=== PATIENT | female | born 1975 | race Hispanic/Latino ===

== ENCOUNTER 2018-05-08 22:46 | Emergency (ER) | payer OTHER ==
[~2018-05-08] VITALS: Ht 154.9 cm; Wt 84.8 kg
[2018-05-08] MEDS ORDERED: PROMETHAZINE HCL (IM) 25 MG/ML VIAL IM ONE (23:15)
[2018-05-08] MEDS ORDERED: LIDOCAINE VISC 2% SOLN 15 ML UDC PO ONE (23:15)
[2018-05-08] MEDS ORDERED: MAGNESIUM/ALUMINUM/SIMETHICONE 30 ML UDC PO ONE (23:15)
[2018-05-08] MEDS ORDERED: BELLADONNA ALK/PHENOBARBITAL 5 ML UDC PO ONE (23:15)
== END 2018-05-09 00:26 | disposition home or self-care (01) ==
LOC: FSED 22:46
DX: R10.13 Epigastric pain (principal); R11.0 Nausea; E11.65 Type 2 diabetes mellitus with hyperglycemia; I10 Essential (primary) hypertension; I25.2 Old myocardial infarction; Z86.711 Personal history of pulmonary embolism
CPT/HCPCS: 82948; 84484; 99283; J2550; 36415

== ENCOUNTER 2019-03-22 21:16 | Emergency (ER) | payer SELFPAY ==
[~2019-03-22] VITALS: Ht 154.9 cm; Wt 83.9 kg
--- OUTSIDE RECORDS SUMMARY | 2019-03-22 21:23 | XMS REPORT | Clinical Summary ---
Author Author [facility] Organization [facility] Address Unknown Phone Unavailable Care Team Providers Care Drilling Superintendent Name Role Phone PCP Unavailable Allergies Comments Active Allergy Reactions Severity Noted Date Metoclopramide Hcl Rash 12/17/2018 Ketorolac 12/17/2018 Tramadol Rash 12/17/2018 Ondansetron Hcl Rash 12/17/2018 Medications Not on file Active Problems Not on file Encounters Care Team Description Date Type Specialty Vinicio Childs MD Pain, abdominal, RLQ (Primary Dx) 12/17/2018 Emergency Emergency Medicine 12/17/2018 Travel after 03/21/2018 Social History Date Tobacco Use Types Packs/Day Years Used Never Assessed Sex Assigned at Date Recorded Not on file Industry Job Start Date Occupation Not on file Not on file Not on file Travel End Travel History Travel Start No recent travel history available. Last Filed Vital Signs Reading Time Taken Comments Vital Sign 179/113 12/17/2018 6:27 AM CDT Blood Pressure 110 12/17/2018 6:27 AM CDT Pulse 36.7 C (98.1 F) 12/17/2018 6:27 AM CDT Temperature 18 12/17/2018 6:27 AM CDT Respiratory Rate 99% 12/17/2018 6:27 AM CDT Oxygen Saturation - - Inhaled Oxygen Concentration - - Weight - - Height - - Body Mass Index Plan of Treatment Health Maintenance Due Date Last Done Comments Cervical Cancer Scrn (3 1998 Yrs) Breast Cancer Scrn 2017 (Yearly) IMM Influenza Seasonal 05/17/2019 Oct to October (>/=19 yrs) Procedures Comments Procedure Name Priority Date/Time Associated Diagnosis URINALYSIS STAT 12/17/2018 9:30 AM CDT POCT URINE DIPSTICK - STAT 12/17/2018 9:08 AM CDT BMP POC Routine 12/17/2018 9:08 AM CDT CBC/DIFF STAT 12/17/2018 9:00 AM CDT POC GLUCOSE - IN LAB Routine 12/17/2018 (STAT) 6:30 AM CDT after 03/21/2018 Results * UA CHEMISTRIES (12/17/2018 9:30 AM CDT) Color Straw [facility] Clarity Clear [facility] Specific 1.026 1.001 - 1.035 [facility] [place] [facility] pH 7.0 5 - 8 [facility] Protein Negative NEG [facility] Glucose 3+ (A) NEG [facility] Ketones Negative NEG [facility] Bilirubin Negative NEG [facility] Nitrate Negative NEG [facility] Urobilinogen,Se <1.0 0.2 - 1.0 EU/dL [facility] Leukocyte 3+ (A) NEG [facility] Occult Blood Negative NEG [facility] RBC 5 (H) 0 - 4 /HPF [facility] WBC 15 (H) 0 - 5 /HPF [facility] Bacteria Few [facility] Specimen Urine Performing Organization Address City/State/Zipcode Phone Number [facility] * POCT URINE DIPSTICK - (12/17/2018 9:08 AM CDT) pass Control negative * BMP POC (12/17/2018 9:08 AM CDT) CO2 POC 31 21 - 32 mmol/L [facility] Chloride POC 98 98 - 107 mmol/L [facility] Potassium POC 5.4 (H) 3.50 - 5.10 mmol/L [facility] Sodium POC 133 (L) 136 - 145 mmol/L [facility] Glucose POC 434 (HH) 74 - 106 mg/dL [facility] Urea Nitrogen 14 7 - 18 mg/dL [facility] Creatinine POC 0.6 0.6 - 1.3 mg/dL [facility] Calcium Ionized 0.98 (L) 1.15 - 1.29 mmol/L [facility] Hemoglobin POC 15.3 12.0 - 16.0 g/dL [facility] Hematocrit POC 45.0 37.0 - 47.0 % [facility] GFR, Estimated >60 mL/min/1.73 m2 [facility] GFR, Estim, >60 mL/min/1.73 m2 [facility] Specimen Performing Organization Address City/State/Zipcode Phone Number [facility] * CBC/DIFF (12/17/2018 9:00 AM CDT) WBC 8.0 4.5 - 11.0 K/uL [facility] RBC 4.87 4.20 - 5.40 M/uL [facility] Hemoglobin 14.1 12.0 - 16.0 g/dL [facility] Hematocrit 44.5 37.0 - 47.0 % [facility] MCV 91 82 - 92 fL [facility] MCH 29.0 27.0 - 32.0 pg [facility] MCHC 31.7 (L) 32.0 - 36.0 g/dL [facility] RDW 42.5 36.4 - 46.3 fL [facility] Platelets 243 150 - 400 K/uL [facility] Mean Platelet 12.1 9.4 - 12.4 fL [facility] Volume [facility] Percent NRBC 0.0 [facility] Absolute NRBC 0.00 [facility] Neutrophils 69.0 34.0 - 70.0 % [facility] Lymphs 22.0 20.0 - 50.0 % [facility] Monocytes 7.0 5.0 - 12.0 % [facility] Eos 2.0 0.7 - 5.0 % [facility] Basos None seen 0.1 - 1.2 % [facility] Neutrophils 5.51 1.56 - 6.13 K/uL [facility] (Absolute) [facility] Lymphs 1.76 1.18 - 3.74 K/uL [facility] (Absolute) [facility] Monocytes(Absol 0.56 (H) 0.24 - 0.36 K/uL [facility]) [facility] Eos (Absolute) 0.16 0.04 - 0.36 K/uL [facility] Baso (Absolute) None seen 0.01 - 0.08 K/uL [facility] Specimen Blood Performing Organization Address City/State/Zipcode Phone Number [facility] * GLUCOSE POC (12/17/2018 6:30 AM CDT) Glucose POC 390 (H) 74 - 106 mg/dL [facility] Specimen Performing Organization Address City/State/Zipcode Phone Number [facility] after 03/21/2018 Insurance Type Payer Benefit Subscriber ID Effective Phone Address Plan / Dates Group [facility] SELF-PAY SELF-PAY xxxxxxx [id number] [phone] [place] [address]
--- OUTSIDE RECORDS SUMMARY | 2019-03-22 21:23 | XMS REPORT | Continuity of Care Document ---
Author Author [email or web address] Address Unknown Phone Unavailable Care Team Providers Care Vp [employer] Marketing [employer] Name Role Phone [email or web address] Unavailable Unavailable Problems No Data Provided for This Section Medications No Data Provided for This Section Allergies, Adverse Reactions, Alerts Substance Category Reaction Severity Reaction type Status Date Reported Comments Source Tramadol IT[facility] Intermediate Allergy to Substance Active 05/08/2018 [facility] Metoclopramide ITCH Intermediate Allergy to Substance Active 05/08/2018 [facility] Ondansetron IT[facility] Intermediate Allergy to Substance Active 05/08/2018 [facility] Ketorolac ITCH Intermediate Allergy to Substance Active 05/08/2018 [facility] Immunizations No Data Provided for This Section Results No Data Provided for This Section Pathology Reports No Data Provided for This Section Diagnostic Reports No Data Provided for This Section Consultation Notes No Data Provided for This Section Discharge Summaries No Data Provided for This Section History and Physicals No Data Provided for This Section Vital Signs No Data Provided for This Section Encounters Location Location Details Encounter Type Encounter Number Reason For Visit Attending Provider ADM Date DC Date Status Source Departed Emergency Room [id number] DENI BERUMEN MD 05/08/2018 05/09/2018 [facility] Procedures No Data Provided for This Section Assessment and Plan No Data Provided for This Section Plan of Care Plan of Care Date Source Discharge Date 05/09/18 12:26am Disposition HOME, SELF-CARE Condition at Discharge Stable Instructions/Education Provided Abdominal Pain - Adult Diabetes and Diet Hypertension Prescriptions See Medication Section Additional Instructions/Education Return to closest emergency room if symptoms worsen. Take medication as prescribed. Fill your prescription immediately after leaving the ER. Follow up with your primary care doctor on Thursday. Follow up with a dispensary attendant (GI doctor, stomach doctor) on Thursday for evaluation for and EGD (camera in the stomach). 05/09/2018 [facility] Social History Social History Date Source No social history information available. 05/09/2018 [facility] Family History No Data Provided for This Section Advance Directives Order Name Results Value Date Source Advance Directives Advance Directives Directive Response Recorded Date/Time Does the patient have an advance directive? No 05/08/18 11:15pm If yes, is advance directive on file with [facility]? No 05/08/18 11:15pm If not on file with [facility] will patient provide a copy? No 05/08/18 11:15pm Do you have a Directive to Physician? No 05/08/18 11:15pm Do you have a Medical Power of Pastor? No 05/08/18 11:15pm Do you have an out of hospital Do Not Resuscitate Order? No 05/08/18 11:15pm Do you have any special needs we should be aware of? No 05/08/18 11:15pm Do you have a support person here with you today? Yes 05/08/18 11:15pm Did patient receive Notice of Privacy Practices? Yes 05/08/18 11:15pm Did patient receive patient rights and responsibilities? Yes 05/08/18 11:15pm 05/09/2018 [facility] Functional Status No Data Provided for This Section
--- OUTSIDE RECORDS SUMMARY | 2019-03-22 21:23 | XMS REPORT | Clinical Summary ---
Author Author [facility] Address Unknown Phone Unavailable Care Team Providers Care Stone Driller Helper Name Role Phone Asked, No Pcp PCP Unavailable Allergies Comments Active Allergy Reactions Severity Noted Date Metoclopramide Hcl 09/27/2018 Ketorolac 09/27/2018 Tramadol 09/27/2018 Ondansetron Hcl 09/27/2018 Medications End Date Status Medication Sig Dispensed Refills Start Date 10/28/2018 metFORMIN (GLUCOPHAGE) Take 1 tablet 60 tablet 0 500 mg tablet (500 mg 9 total) by mouth 2 (two) times a day with meals for 30 days. 12/20/2018 acetaminophen-codeine Take 1-2 15 tablet 0 (TYLENOL WITH CODEINE #3) tablets by 9 300-30 mg per tablet mouth every 6 (six) hours as needed for mild pain or moderate pain for up to 5 days. Active Problems Not on file Encounters Care Team Description Date Type Specialty aDvid Bee MD Right lower quadrant abdominal pain (Primary Dx); Hyperglycemia; Drug-seeking behavior 12/17/2018 Emergency Emergency Medicine Acacia Conklin MD Right lower quadrant abdominal pain (Primary Dx); Type 2 diabetes mellitus with hyperglycemia, without long-term current use of insulin (HCC) 12/14/2018 Emergency Emergency Medicine - 12/15/2018 Acacia Conklin MD Diabetes mellitus, new onset (HCC) (Primary Dx); Atypical chest pain; Anxiety 09/27/2018 Emergency Emergency Medicine - 09/28/2018 after 03/21/2018 Social History Date Tobacco Use Types Packs/Day Years Used Never Smoker Smokeless Tobacco: Never Used Alcohol Use Drinks/Week oz/Week Comments No Alcohol Habits Answer Date Recorded How often do you have a drink containing alcohol? Never 12/14/2018 How many drinks containing alcohol do you have on Not asked a typical day when you are drinking? How often do you have six or more drinks on one Not asked occasion? Sex Assigned at Date Recorded Not on file Industry Job Start Date Occupation Not on file Not on file Not on file Travel End Travel History Travel Start No recent travel history available. Last Filed Vital Signs Time Taken Vital Sign Reading 12/17/2018 11:45 AM CDT Blood Pressure 116/83 12/17/2018 10:52 AM CDT Pulse 99 12/17/2018 10:23 AM CDT Temperature 36.3 C (97.3 F) 12/17/2018 11:45 AM CDT Respiratory Rate 18 12/17/2018 11:45 AM CDT Oxygen Saturation 95% - Inhaled Oxygen - Concentration 12/14/2018 3:47 PM CDT Weight 83.9 kg (185 lb) 12/17/2018 10:24 AM CDT Height 154.9 cm (5' 1") 12/14/2018 3:47 PM CDT Body Mass Index 34.96 Plan of Treatment Health Maintenance Due Date Last Done Comments DIABETIC RETINAL EYE EXAM 1977 DIABETIC FOOT EXAM 10/24/1987 URINE MICROALBUMIN 10/24/1987 INFLUENZA VACCINE 03/17/2019 Procedures Comments Procedure Name Priority Date/Time Associated Diagnosis XR ABDOMEN ACUTE INC STAT 12/17/2018 CHEST 1:07 PM CDT GRAM STAIN Routine 12/17/2018 12:20 PM CDT URINE CULTURE Routine 12/17/2018 12:20 PM CDT URINALYSIS SCREEN AND Routine 12/17/2018 MICROSCOPY, WITH REFLEX 12:05 PM CDT TO CULTURE ESTIMATED GFR STAT 12/17/2018 11:35 AM CDT LIPASE LEVEL STAT 12/17/2018 11:35 AM CDT COMPREHENSIVE METABOLIC STAT 12/17/2018 PANEL 11:35 AM CDT HC COMPLETE BLD COUNT STAT 12/17/2018 W/AUTO DIFF 11:35 AM CDT US PELVIC TRANSVAGINAL STAT 12/15/2018 2:26 AM CDT US PELVIC TRANSABDOMINAL STAT 12/15/2018 2:26 AM CDT POC GLUCOSE Routine 12/15/2018 12:[address] ABDOMEN PELVIS W STAT 12/14/2018 CONTRAST 11:42 PM CDT HCG QUALITATIVE, SERUM STAT 12/14/2018 SCREEN 10:45 PM CDT TROPONIN Timed 12/14/2018 10:45 PM CDT POC GLUCOSE Routine 12/14/2018 10:13 PM CDT ECG ED PRELIMINARY Routine 12/14/2018 INTERPRETATION 9:35 PM CDT CA CRITICAL CARE, E/M Routine 12/14/2018 30-74 MINUTES 9:35 PM CDT GRAM STAIN Routine 12/14/2018 4:48 PM CDT URINE CULTURE Routine 12/14/2018 4:48 PM CDT ESTIMATED GFR STAT 12/14/2018 4:08 PM CDT LIPASE LEVEL STAT 12/14/2018 4:08 PM CDT PROTHROMBIN TIME WITH INR STAT 12/14/2018 4:08 PM CDT PARTIAL THROMBOPLASTIN STAT 12/14/2018 TIME (PTT) 4:08 PM CDT B NATRIURETIC PEPTIDE STAT 12/14/2018 4:08 PM CDT TROPONIN STAT 12/14/2018 4:08 PM CDT COMPREHENSIVE METABOLIC STAT 12/14/2018 PANEL 4:08 PM CDT HC COMPLETE BLD COUNT STAT 12/14/2018 W/AUTO DIFF 4:08 PM CDT ECG 12-LEAD STAT 12/14/2018 3:52 PM CDT URINALYSIS SCREEN AND Routine 12/14/2018 MICROSCOPY, WITH REFLEX 3:48 PM CDT TO CULTURE ED REFERRAL TO [facility] Routine 09/28/2018 [facility] 2:38 AM GEOSPATIAL PROGRAM MANAGEMENT OFFICER ORGANIZATION POC GLUCOSE Routine 09/28/2018 2:00 AM GEOSPATIAL PROGRAM MANAGEMENT OFFICER CT ANGIOGRAM PE CHEST STAT 09/28/2018 12:59 AM GEOSPATIAL PROGRAM MANAGEMENT OFFICER CA CRITICAL CARE, E/M Routine 09/27/2018 30-74 MINUTES 11:36 PM GEOSPATIAL PROGRAM MANAGEMENT OFFICER ESTIMATED GFR STAT 09/27/2018 11:25 PM GEOSPATIAL PROGRAM MANAGEMENT OFFICER B NATRIURETIC PEPTIDE STAT 09/27/2018 11:25 PM GEOSPATIAL PROGRAM MANAGEMENT OFFICER TROPONIN STAT 09/27/2018 11:25 PM GEOSPATIAL PROGRAM MANAGEMENT OFFICER CREATINE KINASE, TOTAL STAT 09/27/2018 (CPK) 11:25 PM GEOSPATIAL PROGRAM MANAGEMENT OFFICER COMPREHENSIVE METABOLIC STAT 09/27/2018 PANEL 11:25 PM GEOSPATIAL PROGRAM MANAGEMENT OFFICER PARTIAL THROMBOPLASTIN STAT 09/27/2018 TIME (PTT) 11:25 PM GEOSPATIAL PROGRAM MANAGEMENT OFFICER PROTHROMBIN TIME WITH INR STAT 09/27/2018 11:25 PM GEOSPATIAL PROGRAM MANAGEMENT OFFICER D-DIMER STAT 09/27/2018 11:25 PM GEOSPATIAL PROGRAM MANAGEMENT OFFICER HC COMPLETE BLD COUNT STAT 09/27/2018 W/AUTO DIFF 11:25 PM GEOSPATIAL PROGRAM MANAGEMENT OFFICER HCG QUALITATIVE, SERUM STAT 09/27/2018 SCREEN 10:20 PM GEOSPATIAL PROGRAM MANAGEMENT OFFICER GRAM STAIN STAT 09/27/2018 9:30 PM GEOSPATIAL PROGRAM MANAGEMENT OFFICER URINE CULTURE STAT 09/27/2018 9:30 PM GEOSPATIAL PROGRAM MANAGEMENT OFFICER URINALYSIS SCREEN AND STAT 09/27/2018 MICROSCOPY, WITH REFLEX 9:07 PM GEOSPATIAL PROGRAM MANAGEMENT OFFICER TO CULTURE ECG 12-LEAD STAT 09/27/2018 8:45 PM GEOSPATIAL PROGRAM MANAGEMENT OFFICER after 03/21/2018 Results * XR Abdomen Acute Inc Chest (12/17/2018 1:07 PM CDT) Specimen Narrative Performed At Examination: XR ABDOMEN ACUTE INC CHEST [facility] Clinical history: Abd painunspecified Comparison: September 28, 2012 Impression: 1. The heart and pulmonary vasculature are within normal limits. There is no confluent infiltrate or effusion. 2. There is no evidence of bowel obstruction or perforation. 3. Cholecystectomy clips are present. There is no acute osseous pathology. [facility]-[id number] Procedure Note Interface, Radiology Results Incoming - 12/17/2018 1:14 PM CDT Examination: XR ABDOMEN ACUTE INC CHEST Clinical history: Abd pain unspecified Comparison: September 28, 2012 Impression: 1. The heart and pulmonary vasculature are within normal limits. There is no confluent infiltrate or effusion. 2. There is no evidence of bowel obstruction or perforation. 3. Cholecystectomy clips are present. There is no acute osseous pathology. [id number] Performing Organization Address City/[facility] Phone Number [facility] [address] [place] [address] * Gram stain (12/17/2018 12:20 PM CDT) Only the most recent of 3 results within the time period is included. Gram stain No WBC's [facility] result Few Gram positive rods [facility] Comment: HOSPITAL Specimen Information Specimen Source: Urine Specimen Site: Clean catch Specimen Urine Performing Organization Address City/[facility] Phone Number [facility] DEPARTMENT OF [address] [place] [address] PATHOLOGY [place] [address] HOSPITAL * Urine culture (12/17/2018 12:20 PM CDT) Only the most recent of 3 results within the time period is included. Urine culture Staphylococcus, coagulase [facility] isolate negative [facility] >10-5 cfu/ml HOSPITAL The performance characteristics of this assay on this isolate were validated by the Microbiology Laboratory at [facility].This source has not been approved by the U.S. Food and Drug Administration.The results are not intended to be used as the sole means for clinical diagnosis or patient management.The Microbiology Laboratory is authorized under the clinical Laboratory Improvement Amendments of 1988 (CLIA-88) to perform high complexity testing. The performance characteristics of this assay on this isolate were validated by the Microbiology Laboratory at [facility].This source has not been approved by the U.S. Food and Drug Administration.The results are not intended to be used as the sole means for clinical diagnosis or patient management.The Microbiology Laboratory is authorized under the clinical Laboratory Improvement Amendments of 1988 (CLIA-88) to perform high complexity testing. (A) Comment: Specimen Information Specimen Source: Urine Specimen Site: Clean catch Urine culture Duplicate organism-no further [facility] isolate workup ([facility] Specimen Urine Antibiotic Method Susceptibility Organism Clindamycin ELIO <=0.5 mcg/mL: Susceptible Staphylococcus coagulase negative Erythromycin ELIO >4 mcg/mL: Resistant Staphylococcus coagulase negative Nitrofurantoin ELIO <=16 mcg/mL: Susceptible Staphylococcus coagulase negative Linezolid ELIO 2 mcg/mL: Susceptible Staphylococcus coagulase negative Oxacillin ELIO <=0.25 mcg/mL: Susceptible Staphylococcus coagulase negative Penicillin G ELIO <=0.125 mcg/mL: Susceptible Staphylococcus coagulase negative Rifampin ELIO <=0.5 mcg/mL: Susceptible Staphylococcus coagulase negative Tetracycline ELIO <=0.5 mcg/mL: Susceptible Staphylococcus coagulase negative Vancomycin ELIO 1 mcg/mL: Susceptible Staphylococcus coagulase negative Trimethoprim/Sulfamethoxazole ELIO <=0.5/9.5 mcg/mL: Susceptible Staphylococcus coagulase negative Performing Organization Address City/State/Zipcode Phone Number [facility] DEPARTMENT OF [address] [place] [address] PATHOLOGY AND GENOMIC MEDICINE [address] * Urinalysis screen and microscopy, with reflex to culture (12/17/2018 12:05 PM CDT) Only the most recent of 3 results within the time period is included. Specimen site Clean catch [facility] Color, UA Straw [facility] Appearance, UA Clear [facility] Specific 1.025 1.001 - 1.035 [facility] gravity, UA [facility] pH, UA 7.0 5.0 - 8.5 [facility] Protein, UA Negative Negative [facility] Glucose, UA 3+ (A) Negative [facility] Ketones, UA Negative Negative [facility] Bilirubin, UA Negative Negative [facility] Blood, UA Negative Negative [facility] Nitrite, UA Negative Negative [facility] Urobilinogen, <2.0 <2.0 [facility] UA [facility] Leukocyte Moderate (A) Negative [facility] esterase, UA [facility] Epithelial 1 /HPF [facility] cells, UA [facility] WBC, UA 3 0 - 4 /HPF [facility] RBC, UA <1 0 - 5 /HPF [facility] Bacteria, UA Few None seen [facility] Yeast, UA None seen [facility] Yeast with None seen [facility] Specimen Urine Performing Organization Address City/[facility] Facility[facility] Phone Number [facility] [place] [id number] [address] [facility] [place] [address] PATHOLOGY AND GENOMIC MEDICINE [facility] [id number] [place] [address] * Estimated GFR (12/17/2018 11:35 AM CDT) Only the most recent of 3 results within the time period is included. Pathologist [facility] Estimated GFR >=90 mL/min/1.73 m2 [facility] Comment: [facility] rpretation G1 >=90 Normal or high G2 60-89Mildly decreased [id number] Mildly to moderately decreased [id number] Moderately to severely decreased G4 15-29Severely decreased G5 <15Kidney failure The eGFR was calculated using the Chronic Kidney Disease Epidemiology Collaboration (CKD-EPI) equation. Interpretation is based on recommendations of the National Kidney Foundation-Kidney Disease Outcomes Quality Initiative (NKF-KDOQI) published in 2014. Specimen Plasma specimen Performing Organization Address City/State/Zipcode Phone Number [facility] [place] [address] [address] [facility] [place] [address] PATHOLOGY AND GENOMIC MEDICINE [facility] [id number] [place] [address] * CBC with platelet and differential (12/17/2018 11:35 AM CDT) Only the most recent of 3 results within the time period is included. WBC 8.07 4.50 - 11.00 k/uL [facility] RBC 5.02 4.20 - 5.50 m/uL [facility] HGB 14.2 12.0 - 16.0 g/dL [facility] HCT 44.5 37.0 - 47.0 % [facility] MCV 88.6 82.0 - 100.0 fL [facility] MCH 28.3 27.0 - 34.0 pg [facility] MCHC 31.9 31.0 - 37.0 g/dL [facility] RDW - SD 41.1 37.0 - 55.0 fL [facility] MPV 10.9 8.8 - 13.2 fL [facility] Platelet count 249 150 - 400 k/uL [facility] Neutrophils 65.4 39.0 - 69.0 % [facility] Lymphocytes 25.3 25.0 - 45.0 % [facility] Monocytes 7.1 0.0 - 10.0 % [facility] Eosinophils 1.4 0.0 - 5.0 % [facility] Basophils 0.4 0.0 - 1.0 % [facility] Immature 0.4 0.0 - 1.0 % [facility] granulocytes [facility] Specimen Blood Performing Organization Address City/[facility] Facilitycode Phone Number [facility] [place] [id number] [place] [address] PATHOLOGY AND GENOMIC MEDICINE [address] * Lipase level (12/17/2018 11:35 AM CDT) Only the most recent of 2 results within the time period is included. Lipase 29 23 - 300 U/L [facility] Specimen Serum Performing Organization Address City/[facility] Facility[facility] Phone Number [facility] DEPARTMENT OF [address] [place] [address]. [place] [address] PATHOLOGY AND GENOMIC MEDICINE [address] * Comprehensive metabolic panel (12/17/2018 11:35 AM CDT) Only the most recent of 3 results within the time period is included. Sodium 136 135 - 148 mEq/L [facility] Potassium 4.3 3.5 - 5.0 mEq/L [facility] Chloride 96 (L) 99 - 109 mEq/L [facility] CO2 30 24 - 31 mEq/L [facility] Anion gap 10@ANIO 7 - 15 mEq/L [facility] BUN 10 8 - 24 mg/dL [facility] Creatinine 0.45 (L) 0.50 - 0.90 mg/dL [facility] Glucose 326 (H) 65 - 99 mg/dL [facility] Calcium 9.4 8.6 - 10.6 mg/dL [facility] Protein 7.5 6.3 - 8.2 g/dL [facility] Albumin 3.4 (L) 3.5 - 5.0 g/dL [facility] A/G ratio 0.8 0.7 - 3.8 [facility] Alkaline 111 30 - 115 U/L [facility] phosphatase [facility] AST 31 15 - 46 U/L [facility] ALT 65 (H) 10 - 55 U/L [facility] Total bilirubin <0.3 0.2 - 1.2 mg/dL [facility] Specimen Plasma specimen Performing Organization Address City/State/Zipcode [place] [phone] [address] [place] [id number] PATHOLOGY AND GENOMIC MEDICINE [facility] [address] [address] * US Pelvic Transvaginal (12/15/2018 2:26 AM CDT) Specimen Narrative Performed At EXAMINATION:US PELVIC TRANSVAGINAL [facility] CLINICAL HISTORY:Pelvic painneg HCGnon-publishing agent COMPARISON:CT performed on 12/14/2018. TECHNIQUE:Transabdominal and endovaginal sonographic images of the pelvis were obtained. Grayscale, color Doppler, and spectral waveform analysis of the ovarian vessels was performed. IMPRESSION: Evaluation is limited secondary to overlying bowel gas. Uterus: The uterus measures 9.6 x 3.6 x 4.1 cm. There is a 1.5 x 1.5 x 1.5 cm heterogeneous lesion in the posterior uterus near the fundus, most likely representing a fibroid. Endometrial stripe thickness: 0.6 cm, which is within normal limits. Right ovary: Not visualized. Left ovary: Not visualized. There is no free fluid in the pelvic cul-de-sac. [facility]-[id number] Procedure Note Interface, Radiology Results Incoming - 12/15/2018 2:33 AM CDT EXAMINATION: US PELVIC TRANSVAGINAL CLINICAL HISTORY: Pelvic pain neg HCG non-publishing agent COMPARISON: CT performed on 12/14/2018. TECHNIQUE:Transabdominal and endovaginal sonographic images of the pelvis were obtained. Grayscale, color Doppler, and spectral waveform analysis of the ovarian vessels was performed. IMPRESSION: Evaluation is limited secondary to overlying bowel gas. Uterus: The uterus measures 9.6 x 3.6 x 4.1 cm. There is a 1.5 x 1.5 x 1.5 cm heterogeneous lesion in the posterior uterus near the fundus, most likely representing a fibroid. Endometrial stripe thickness: 0.6 cm, which is within normal limits. Right ovary: Not visualized. Left ovary: Not visualized. There is no free fluid in the pelvic cul-de-sac. [facility]-[id number] Performing Organization Address City/State/Zipcode Phone Number [facility] [address] [place] [address] * US Pelvic Transabdominal (12/15/2018 2:26 AM CDT) Specimen Narrative Performed At EXAMINATION:US PELVIC TRANSABDOMINAL [facility] CLINICAL HISTORY:Pelvic painneg HCGgyn COMPARISON:CT performed on 12/14/2018. TECHNIQUE:Transabdominal and endovaginal sonographic images of the pelvis were obtained. Grayscale, color Doppler, and spectral waveform analysis of the ovarian vessels was performed. IMPRESSION: Evaluation is limited secondary to overlying bowel gas. Uterus: The uterus measures 9.6 x 3.6 x 4.1 cm. There is a 1.5 x 1.5 x 1.5 cm heterogeneous lesion in the posterior uterus near the fundus, most likely representing a fibroid. Endometrial stripe thickness: 0.6 cm, which is within normal limits. Right ovary: Not visualized. Left ovary: Not visualized. There is no free fluid in the pelvic cul-de-sac. [facility]-[id number] Procedure Note Interface, Radiology Results Incoming - 12/15/2018 2:32 AM CDT EXAMINATION: US PELVIC TRANSABDOMINAL CLINICAL HISTORY: Pelvic pain neg HCG publishing agent COMPARISON: CT performed on 12/14/2018. TECHNIQUE:Transabdominal and endovaginal sonographic images of the pelvis were obtained. Grayscale, color Doppler, and spectral waveform analysis of the ovarian vessels was performed. IMPRESSION: Evaluation is limited secondary to overlying bowel gas. Uterus: The uterus measures 9.6 x 3.6 x 4.1 cm. There is a 1.5 x 1.5 x 1.5 cm heterogeneous lesion in the posterior uterus near the fundus, most likely representing a fibroid. Endometrial stripe thickness: 0.6 cm, which is within normal limits. Right ovary: Not visualized. Left ovary: Not visualized. There is no free fluid in the pelvic cul-de-sac. [facility]-[id number] Performing Organization Address City/State/Zipcode Phone Number [facility] [address] [place] [address] * POC glucose (12/15/2018 12:05 AM CDT) Only the most recent of 3 results within the time period is included. POC glucose 213 (H) 65 - 99 mg/dL [facility] Comment: [facility] Notified RN [facility] Notified MD Meter ID: [id number] Solution Consultant: Agueda Wong Specimen Performing Organization Address City/State/Zipcode Phone Number [facility] [place] [address] [place] [address] PATHOLOGY AND GENOMIC MEDICINE [facility] [address] [address] * CT Abdomen Pelvis W Contrast (12/14/2018 11:42 PM CDT) Specimen Narrative Performed At CT ABDOMEN PELVIS W CONTRAST [facility] CLINICAL INDICATION:iv contrast onlyRLQ tenderness TECHNIQUE: Multidetector CT of the abdomen and pelvis was performed following intravenous administration of iodinated contrast with multiplanar reformats. CT scans are performed using radiation dose reduction techniques (iterative reconstruction and/or automated exposure control). Technical factors are evaluated and adjusted to ensure appropriate moderation of exposure. Automated dose management technology is applied to adjust radiation exposure while achieving a diagnostic quality image. COMPARISON:None. FINDINGS: Lung bases:Dependent subsegmental atelectasis/scarring. Liver:Normal. Gallbladder and biliary:The gallbladder is absent. Clips within the gallbladder fossa. Common bile duct is not dilated. Pancreas:Mildly atrophic with fatty replacement. Spleen:Normal. Gastrointestinal:Large and small bowel are normal in caliber. Appendix is not visualized, apparently surgically absent. No focal inflammatory changes within the right lower quadrant of the abdomen. Adrenals:Normal. Kidneys and ureters:No mass or hydronephrosis. Urinary bladder:Normal. Lymph nodes:No enlarged lymph nodes in the abdomen or pelvis. Peritoneum:No ascites or free air. Vascular:Unremarkable. Reproductive organs:Uterus is normal. Unremarkable adnexae. Abdominal wall: Generalized atrophy and fatty replacement of the abdominal wall musculature. Broad-based protrusion of abdominal contents at left flank. Bones:Mild degenerative changes. IMPRESSION: Negative CT for acute pathology within the abdomen and pelvis. [facility]-[id number] Procedure Note Interface, Radiology Results Incoming - 12/14/2018 11:[address] ABDOMEN PELVIS W CONTRAST CLINICAL INDICATION: iv contrast only RLQ tenderness TECHNIQUE: Multidetector CT of the abdomen and pelvis was performed following intravenous administration of iodinated contrast with multiplanar reformats. CT scans are performed using radiation dose reduction techniques (iterative reconstruction and/or automated exposure control). Technical factors are evaluated and adjusted to ensure appropriate moderation of exposure. Automated dose management technology is applied to adjust radiation exposure while achieving a diagnostic quality image. COMPARISON: None. FINDINGS: Lung bases: Dependent subsegmental atelectasis/scarring. Liver: Normal. Gallbladder and biliary: The gallbladder is absent. Clips within the gallbladder fossa. Common bile duct is not dilated. Pancreas: Mildly atrophic with fatty replacement. Spleen: Normal. Gastrointestinal: Large and small bowel are normal in caliber. Appendix is not visualized, apparently surgically absent. No focal inflammatory changes within the right lower quadrant of the abdomen. Adrenals: Normal. Kidneys and ureters: No mass or hydronephrosis. Urinary bladder: Normal. Lymph nodes: No enlarged lymph nodes in the abdomen or pelvis. Peritoneum: No ascites or free air. Vascular: Unremarkable. Reproductive organs: Uterus is normal. Unremarkable adnexae. Abdominal wall: Generalized atrophy and fatty replacement of the abdominal wall musculature. Broad-based protrusion of abdominal contents at left flank. Bones: Mild degenerative changes. IMPRESSION: Negative CT for acute pathology within the abdomen and pelvis. [facility]-[id number] Performing Organization Address City/State/Zipcode Phone Number [facility] [address] [place] [address] * Troponin (12/14/2018 10:45 PM CDT) Only the most recent of 3 results within the time period is included. Troponin <0.10 0.00 - 0.10 ng/mL [facility] Comment: [facility] - [facility].49 [facility] ng/mlMay indicate increased risk of acute coronary syndrome. >=1.5 ng/ml Consistent with acute myocardial infarction. The diagnostic value of a single normal or non-diagnostic result is questionable.Serial samples at 2-6 hour intervals are required to rule out acute myocardial injury. Specimen Plasma specimen Performing Organization Address City/State/Zipcode Phone Number [facility] DEPARTMENT OF [id number] [place] [address] PATHOLOGY AND GENOMIC MEDICINE [facility] [address] * hCG qualitative, serum screen (12/14/2018 10:45 PM CDT) Only the most recent of 2 results within the time period is included. hCG NegativeComment: Sensitivity LAUREL qualitative, of HCG test: 25 mIU/mL [facility] Specimen Blood Performing Organization Address City/State/Zipcode [place] [address] [place] [address] PATHOLOGY AND GENOMIC MEDICINE [facility] [address] * ECG ED Preliminary Interpretation - Not an Order (12/14/2018 9:35 PM CDT) Narrative Performed At Acacia Conklin MD 12/16/20185:21 AM ECG ED Preliminary Interpretation - Not an Order Performed by: Acacia Conklin MD Authorized by: Acacia Conklin MD ECG reviewed by ED Physician in the absence of a security operations center analyst: yes Interpretation: Interpretation: normal Rate: ECG rate:102 ECG rate assessment: tachycardic Rhythm: Rhythm: sinus tachycardia Ectopy: Ectopy: none QRS: QRS axis:Normal QRS intervals:Normal (90 ms) Conduction: Conduction: normal ST segments: ST segments:Normal T waves: T waves: normal Comments: CA Interval: 128 ms QT/QTc: 346/450 ms * CRITICAL CARE (12/14/2018 9:35 PM CDT) Narrative Performed At Acacia Conklin MD 12/16/20185:21 AM Critical Care Performed by: Acacia Conklin MD Authorized by: Acacia Conklin MD Critical care provider statement: Critical care time (minutes):35 Critical care time was exclusive of:Separately billable procedures and treating other patients Critical care was necessary to treat or prevent imminent or life-threatening deterioration of the following conditions:Metabolic crisis Critical care was time spent personally by me on the following activities:Ordering and performing treatments and interventions, ordering and review of laboratory studies, blood draw for specimens, development of treatment plan with patient or surrogate, evaluation of patient's response to treatment, examination of patient, obtaining history from patient or surrogate, re-evaluation of patient's condition, review of old charts and pulse oximetry Adan 'yes' if you are taking over critical care for this patient from another provider.: no * Partial thromboplastin time, activated (12/14/2018 4:08 PM CDT) Only the most recent of 2 results within the time period is included. Pathologist [facility] PTT 27.0 23.0 - 36.0 sec LAUREL Comment: [facility] PTT therapeutic range for HOSPITAL unfractionated heparin is 61.0-112.0 seconds which corresponds to Anti-Xa 0.3-0.7 U/ml. Specimen Blood Performing Organization Address [facility] Phone Number [facility] DEPARTMENT OF [address] [place] [address]. [place] [address] * Prothrombin time with INR (12/14/2018 4:08 PM CDT) Only the most recent of 2 results within the time period is included. [facility] Prothrombin 11.8 11.5 - 14.5 sec [facility] INR 0.9 LAUREL Comment: [facility] The International Normalized HOSPITAL Ratio (INR) is a therapeutic monitoring tool for patients who are stable on oral anticoagulant therapy. An INR of 2.0-3.0 is suggested for deep vein thrombosis/pulmonary embolism. Specimen Blood Performing Organization Address [facility] Phone Number [facility] DEPARTMENT OF [address] [place] [address]. [place] [address] * B natriuretic peptide (12/14/2018 4:08 PM CDT) Only the most recent of 2 results within the time period is included. Pathologist [facility] BNP <3 0 - 100 pg/mL [facility] Specimen Blood Performing Organization Address City/[facility]/Zipcode Phone Number [facility] DEPARTMENT OF [address] [place] [address]. [place] [address] [address] * ECG 12 lead (12/14/2018 3:52 PM CDT) Only the most recent of 2 results within the time period is included. Ventricular 102 [facility] rate Atrial rate 102 [facility] CA interval 128 [facility] QRSD interval 90 [facility] QT interval 346 [facility] QTC interval 450 H MUSE P axis 1 28 [facility] QRS axis 1 -26 [facility] T wave axis 28 [facility] EKG impression Sinus tachycardia-RSR' or QR [facility] pattern in V1 suggests right ventricular conduction delay--In automated comparison with ECG of 27-SEP-2018 20:45,-No significant change was found- Specimen Narrative Performed At Performing Organization Address City/State/Zipcode Phone Number [facility] [address] [place] [address] * CT Angiogram Pe Chest (09/28/2018 12:59 AM GEOSPATIAL PROGRAM MANAGEMENT OFFICER) Specimen Narrative Performed At EXAMINATION:CT ANGIOGRAM PE CHEST RADIANT CLINICAL HISTORY: h o PE now CP and SOB TECHNIQUE:CT angiographic images of the chest were obtained during intravenous administration of iodinated contrast. Computerized reformatted images and 3-D MIP images were also obtained and archived (CT pulmonary embolus protocol).CT scans are performed using radiation dose reduction techniques.Technical factors are evaluated and adjusted to ensure appropriate moderation of exposure.Automated dose management technology is applied to adjust radiation exposure while achieving a diagnostic quality image. CT imaging was performed with iterative reconstruction techniques and/or automated exposure control to reduce radiation dose. COMPARISON:None. Findings: There are no filling defects within the pulmonary arterial system to suggest a pulmonary embolus. No dissection or aneurysm is seen. No consolidation or pleural effusion is seen. No pulmonary mass or nodule is seen. No mediastinal hematoma or lymphadenopathy is seen. Visualized upper abdomen shows no acute abnormality. Cholecystectomy clips are noted. IMPRESSION: 1. No evidence of pulmonary embolus. No acute abnormality identified in the chest. [facility]-[id number] Procedure Note Hm Interface, Radiology Results Incoming - 09/28/2018 1:07 AM GEOSPATIAL PROGRAM MANAGEMENT OFFICER EXAMINATION: CT ANGIOGRAM PE CHEST CLINICAL HISTORY: h o PE now CP and SOB TECHNIQUE: CT angiographic images of the chest were obtained during intravenous administration of iodinated contrast. Computerized reformatted images and 3-D MIP images were also obtained and archived (CT pulmonary embolus protocol). CT scans are performed using radiation dose reduction techniques. Technical factors are evaluated and adjusted to ensure appropriate moderation of exposure. Automated dose management technology is applied to adjust radiation exposure while achieving a diagnostic quality image. CT imaging was performed with iterative reconstruction techniques and/or automated exposure control to reduce radiation dose. COMPARISON: None. Findings: There are no filling defects within the pulmonary arterial system to suggest a pulmonary embolus. No dissection or aneurysm is seen. No consolidation or pleural effusion is seen. No pulmonary mass or nodule is seen. No mediastinal hematoma or lymphadenopathy is seen. Visualized upper abdomen shows no acute abnormality. Cholecystectomy clips are noted. IMPRESSION: 1. No evidence of pulmonary embolus. No acute abnormality identified in the chest. [facility]-[id number] Performing Organization Address City/State/Zipcode Phone Number [facility] [address] [place] [address] * CRITICAL CARE (09/27/2018 11:36 PM GEOSPATIAL PROGRAM MANAGEMENT OFFICER) Narrative Performed At Acacia Conklin MD 09/29/20188:12 AM Critical Care Performed by: Acacia Conklin MD Authorized by: Acacia Conklin MD Critical care provider statement: Critical care time (minutes):35 Critical care time was exclusive of:Separately billable procedures and treating other patients Critical care was necessary to treat or prevent imminent or life-threatening deterioration of the following conditions:Metabolic crisis Critical care was time spent personally by me on the following activities:Blood draw for specimens, development of treatment plan with patient or surrogate, ordering and performing treatments and interventions, ordering and review of laboratory studies, re-evaluation of patient's condition, obtaining history from patient or surrogate, examination of patient and evaluation of patient's response to treatment Adan 'yes' if you are taking over critical care for this patient from another provider.: no * D-dimer (09/27/2018 11:25 PM GEOSPATIAL PROGRAM MANAGEMENT OFFICER) [facility] D-dimer 0.28 0.00 - 0.40 ug/mL LAUREL Comment: [facility] Units are ug/ml Fibrinogen HOSPITAL Equivalent Unit. When combined with low clinical probability, D-dimer results of less than 0.5 ug/ml FEU have a good negativepredictive value in excluding PE or DVT. For D-dimer results greater than 0.5ug/ml FEU further testing is indicated if PE or DVT is suspectedclinically. Elevated D-dimer results have been reported in DVT, PE, and DIC cases and may indicate the presence of a clot. D-dimer results may be elevated due to old age, , inflammatory diseases, trauma, post-operative states, sepsis, and malignancies. Specimen Blood Performing Organization Address City/State/Zipcode Phone Number [facility] [place] [address] [place] [address] PATHOLOGY AND GENOMIC MEDICINE [facility] [id number] [place] [address] * Creatine kinase, total (CPK) (09/27/2018 11:25 PM GEOSPATIAL PROGRAM MANAGEMENT OFFICER) Creatine kinase 79 35 - 200 U/L [facility] Specimen Plasma specimen Performing Organization Address City/State/Zipcode Phone Number [facility] [place] [address] [address] [facility] [place] [address] PATHOLOGY AND GENOMIC MEDICINE [address] after 03/21/2018 Advance Directives Patient has advance care planning documents on file. For more information, domo martines contact: [facility] [address] [place] [address]
--- OUTSIDE RECORDS SUMMARY | 2019-03-22 21:23 | XMS REPORT | Clinical Summary ---
Author Author [facility] Address Unknown Phone Unavailable Care Team Providers Care Dye Range Tender Name Role Phone Sharpless PCP Allergies Comments Active Allergy Reactions Severity Noted Date Hydrocodone-Acetaminophen Rash Medium 07/03/2016 Metoclopramide Hcl Hives 04/23/2016 Tramadol Hives 04/23/2016 Ondansetron Hcl (Pf) Hives 04/23/2016 Medications No known medications Active Problems Problem Noted Date Acute chest pain 07/03/2016 Uncontrolled type 2 diabetes mellitus with complication 07/03/2016 Essential hypertension 07/03/2016 History of pulmonary embolus (PE) 07/03/2016 Family History Medical History Relation Name Comments Diabetes Brother Diabetes Father Diabetes Sister Relation Name Status Comments Brother Father Sister Social History Date Tobacco Use Types Packs/Day Years Used Former Smoker Alcohol Use Drinks/Week oz/Week Comments No Sex Assigned at Date Recorded Not on file Industry Job Start Date Occupation Not on file Not on file Not on file Travel End Travel History Travel Start No recent travel history available. Last Filed Vital Signs Not on file Plan of Treatment Not on file Results Not on fileafter 03/21/2018 Advance Directives For more information, please contact: [facility] [address] [place] [address] Date Inactivated Comments Code Status Date Activated 07/04/2016 8:07 PM Full Code 07/03/2016 5:25 PM This code status was determined by: Patient
--- OUTSIDE RECORDS SUMMARY | 2019-03-22 21:24 | XMS REPORT ---
Author Author [facility] Address Unknown Phone Unavailable Care Team Providers Care Informatics Manager Name Role Phone UNKNOWN, REFFERING PP Unavailable FLY IVERSON Unavailable Unavailable SHAMSEE, SHAHZAD-MARY Unavailable Unavailable BADAR, SANJIV Unavailable Unavailable Payers Payer Name Policy Type Policy Number Effective Date Expiration Date Problems This patient has no known problems. Allergies, Adverse Reactions, Alerts Allergy Name Allergy Type Status Severity Reaction(s) Onset Date Inactive Date Treating Clinician Comments tramadol DA Active SV 2018-08-13 00:00:00 metoclopramide DA Active U 2018-08-12 00:00:00 ondansetron DA Active U 2018-08-12 00:00:00 ketorolac DA Active U 2018-08-12 00:00:00 metoclopramide DA Active U 2017-03-27 00:00:00 ondansetron DA Active U 2017-03-27 00:00:00 ketorolac DA Active U 2017-03-27 00:00:00 Medications This patient has no known medications. Encounters Start Date/Time End Date/Time Encounter Type Admission Type Attending Clinicians Care Facility Care Department Encounter ID 2018-12-29 19:35:00 2018-12-29 19:35:00 Outpatient E [facility] [id number] 2018-12-17 08:06:21 2018-12-17 08:06:21 Emergency [facility] [id number] 2018-12-17 00:00:00 2018-12-17 00:00:00 Emergency [facility] [id number] 2017-09-15 15:51:00 2017-09-15 15:51:00 Emergency E FLY IVERSON [facility] [id number] Results Test Description Test Time Test Comments Text Results Atomic Results Result Comments [id number] 2017-09-15 22:36:00 Amphetamine (test code=AMPH) Negative Negative For diagnostic purposes only, positive results should always be assessedin conjunctionwith the patient's medical history,clinical examination and otherfindings.To fulfill legal requirements, a more specific alternate chemical methodmust be used inorder to obtain a Confirmed analytical result. GC/MS is the preferred confirmatory method. Barbiturates (test code=FRANCIS) Negative Negative Benzodiazepine (test code=ANNIE) Negative Negative Cocaine (test code=COCA) Negative Negative Methadone (test code=MTHD) Negative Negative Opiates (test code=OPIA) POSITIVE Negative PCP (test code=PCP) Negative Negative Propoxyphene (test code=PROPOX) Negative Negative THC (test code=THC) Negative Negative Alcohol, Urine (test code=ETOHU) <0.01 g/dL 0.00-0.01 Urinalysis [id number] 22:35:00* Test Item Value Reference Range Comments Color (test code=COLOR) Yellow Yellow,Straw,Pl yellow Clarity (test code=CLAR) Clear Clear Specific [place] (test code=SPGR) 1.008 1.001-1.035 pH (test code=PH) 7.0 5.0-9.0 Ketone (test code=KET) Negative mg/dL Negative Glucose (test code=GLUCUR) 50 mg/dL Negative Protein (test code=PROT) Negative mg/dL Negative Bilirubin (test code=BILI) Negative mg/dL Negative Occult Blood (test code=UDOB) Negative Negative Urobilinogen (test code=UROB) 0.2 mg/dL 0.2-1.0 Nitrite (test code=NIT) Negative Negative Leuk Esterase (test code=LEUK) Negative Negative Micros Exam (test code=MEXAM) Indicated Epithelial Cells (test code=EPI) 10-14 /LPF 0-30 WBC, Urine (test code=UWBC) None seen /HPF 0-5 RBC, Urine (test code=URBC) None Seen /HPF 0-5 Bacteria (test code=BACT) Few /HPF CBC with [id number] 20:41:00* Test Item Value Reference Range Comments WBC (test code=WBC) 10.3 K/cumm 4.4-10.5 RBC (test code=RBC) 4.31 M/cumm 3.75-5.20 Hemoglobin (test code=HGB) 12.7 gm/dL 12.2-14.8 Hematocrit (test code=HCT) 36.9 % 36.5-44.4 MCV (test code=MCV) 85.7 fL 80-100 MCH (test code=MCH) 29.6 pg 27.0-32.5 MCHC (test code=MCHC) 34.5 g/dL 32.0-37.5 RDW (test code=RDW) 13.4 % 11.5-14.5 Platelet Count (test code=PLTCT) 312 K/cumm 140-440 MPV (test code=MPV) 9.8 fL Diff Method (test code=DIFFM) Auto Neutrophil (test code=NEUT) 59.8 % 36-70 Lymphocyte (test code=LYMPH) 32.1 % 12-44 Monocyte (test code=MONO) 5.6 % 0-11 Eosinophil (test code=EOS) 1.9 % 0-7 Basophil (test code=BASO) 0.5 % 0-2 Neutro Abs (test code=ANEUT) 6.1 K/cumm 1.6-7.4 Lymph Abs (test code=ALYMPH) 3.3 K/cumm 0.5-4.6 [place] Abs (test code=AMONO) 0.6 K/cumm 0.0-1.2 Eos Abs (test code=AEOS) 0.20 K/cumm 0.00-0.74 Baso Abs (test code=ABASO) 0.1 K/cumm 0.00-0.21 [id number] 19:30:00* Test Item Value Reference Range Comments Acetone [Serum] (test code=ACETONE) Negative Negative D-Dimer, [id number] 19:16:00* Test Item Value Reference Range Comments D-Dimer, Quant (test code=DDQNT) 374 ng/mL 0-500 Please note Change in unit of measure from mg/L FEU to ng/mLA cutoff of less than 500 ng/mL DD has a negative predictive value of100% for DVT jnt087% for PE.When using D-Dimer to help rule out DVT or PE, clinical information anddisease probability should be considered.Elevated D-Dimer values are not specific for thromboembolism. Prothrombin [id number] 19:16:00* Test Item Value Reference Range Comments PT (test code=PT) 10.80 seconds 9.78-13.35 INR (test code=INR) 0.95 Ratio 0.6-1.2 Partial Thromboplastin [id number] 19:16:00* Test Item Value Reference Range Comments aPTT (test code=PTT) 31.90 seconds 24.39-37.25 [id number] 19:02:00* Test Item Value Reference Range Comments NT ProBnp (test code=PBNP) 13 pg/mL 0-124 Troponin [id number] 18:34:00* Test Item Value Reference Range Comments Troponin T (test code=BONNY) 0.027 ng/mL 0.000-0.090 Comprehensive Metabolic [id number] 18:34:00* Test Item Value Reference Range Comments Sodium (test code=NA) 138 mmol/L 135-145 Potassium (test code=K) 5.1 mmol/L 3.5-5.1 HEMOLYZED Chloride (test code=CL) 99 mmol/L 98-105 Carbon Dioxide (test code=CO2) 25 mmol/L 22-29 Glucose (test code=GLU) 200 mg/dL 70-115 Blood Urea Nitrogen (test code=BUN) 13 mg/dL 6-20 Creatinine (test code=CREAT) 0.7 mg/dL 0.5-0.9 Calcium (test code=CA) 8.9 mg/dL 8.3-10.5 Prot Total (test code=TP) 6.5 g/dL 6.4-8.3 Albumin (test code=ALB) 3.3 g/dL 3.5-5.2 A/G Ratio (test code=AGRATIO) 1.0 Ratio Globulin (test code=GLOB) 3.2 2.9-3.1 Bili Total (test code=TBIL) 0.2 mg/dL 0.1-0.9 Alk Phos (test code=APHOS) 82 U/L 35-104 AST (test code=AST) 64 U/L 1-32 HEMOLYZED ALT (test code=ALT) 68 U/L 1-33 BUN/Creatinine Ratio (test code=BCRATIO) 18.6 Anion Gap (test code=AGAP) 14 mmol/L 7-16 Estimated GFR (test code=GFR) >60 mL/min/1.73m2 eGFR (estimated Glomerular Filtration Rate) is an estimated value,calculated from the patient's serum creatinine using the MDRD equation.It is NOT the patient's actual GFR. The eGFR provides a more clinicallyuseful measure of kidney disease than serum creatinine alone.This calculation takes sex and race into account, if the informationis provided. If the race is not provided, and the patient isAfrican-[place]ian, multiply by 1.212. If sex is not provided, and thepatient is female, multiply by 0.742. Results for patients <18 years ofage have not been validated by the MDRD study and should be interpretedwith caution.eGFR Result Interpretation:eGFR > or=60 is in the Normal RangeeGFR < 60 may mean kidney diseaseeGFR < 15 may mean kidney failureRanges recommended by the National Kidney Foundat ion,http://nkdep.nih.gov BHCG, Serum, [id number] 18:33:00* Test Item Value Reference Range Comments Preg Qual [Se] (test code=BSHCG) Negative Negative XR CHEST 1 [id number] 17:28:29CHEST 1 VIEWCLINICAL INFORMATION: Chest pain- DyspneaCOMPARISON: CT chest dated April 02, 2017, chest radiograph datedAugu2016FINDINGS:The lung volumes are decreased which limits evaluation of the lungbases. No airspace consolidation is seen. No pneumothorax or pleuraleffusion is present. The cardiac silhouette is normal in size. Thebones are grossly intact. The stomach appears moderately gas distended. Right upper outer clips are present.IMPRESSION:1. Shallow inspiration limits evaluation of the lung bases.2. No acute finding is identified.LOCATION: [facility] Glucose, [id number] 16:47:00* Test Item Value Reference Range Comments POC Glucose (test code=POCGLUC) 195 mg/dL 70-115 Notify RN or MDIf you consider your patient critically ill, the [place] Accu-Chek InformII metershould not be used for Glucose determinations.Draw a venous Glucose and send to the Main Lab for Analysis. US EXTREMITY NON VASCULAR [id number] 15:22:53BILATERAL LOWER EXTREMITY ARTERIAL DOPPLER:CLINICAL HISTORY: Right groin pain after cardiac cath.TECHNIQUE: Ruth scale, color, and duplex spectral waveform an alysissonography of the right common femoral and superficial femoral arterieswas performed.FINDINGS: A pseudoaneurysm is not identified. Normal triphasic wave forms and peaksystolic velocities are visualized in the common femoral and proxi malsuperficial femoral arteries. A few small right groin lymph nodesmeasure up to 0.7 cm in short axis.IMPRESSION:No evidence of right common femoral pseudoane urysm.Location: [id number] 13:41:00* Test Item Value Reference Range Comments CK (test code=CK) 75 U/L 26-192 CKMB (test code=CKMB) 8.3 ng/mL 0.0-2.8 CKMB% (test code=CKMBP) 11.1 % 0.0-3.4 CT CHEST ANGIO W/WO [id number] 13:05:29CT CHEST ANGIO W/WO CONTRASTLOCATION: R16 INDICATION: PE COMPARISON: NoneTECHNIQUE: CTA of the Chest was performed with intravenous contrast.100 ml of Isovue-300 was injected intravenously. Sagittal and coronal reformats were performed.One or more of the following dose reduction techniques were used:Automated exposure control, adjustment of the mA and/or kV according topatient size, and/or utilization of iterative reconstruction techniqueFINDINGS:CHEST: LUNGS AND LARGE AIRWAYS: Low lung volumes. Patent central airways. Nopulmonary nodules. Bibasilar a telectasis.PLEURA: No pleural effusion.VESSELS: No filling defects to suggest pu lmonary embolism. No aorticaneurysm or dissection.HEART: Heart size is normal. N o pericardial effusion.MEDIASTINUM AND ALVIN: No lymphadenopathy.CHEST WALL AND L OWER NECK: Within normal limits.VISUALIZED UPPER ABDOMEN: Within normal limits.B ONES: Within normal limits.IMPRESSION: No pulmonary embolism.Low lung volumes with bibasilar atelectasis.Troponin [id number] 12:45:00* Test Item Value Reference Range Comments Troponin T (test code=BONNY) 0.066 ng/mL 0.000-0.090 POC Glucose, [id number] 11:35:00* Test Item Value Reference Range Comments POC Glucose (test code=POCGLUC) 188 mg/dL 70-115 Notify RN or MDIf you consider your patient critically ill, the [place] Accu-Chek InformII metershould not be used for Glucose determinations.Draw a venous Glucose and send to the Main Lab for Analysis. POC Glucose, [id number] 08:11:00* Test Item Value Reference Range Comments POC Glucose (test code=POCGLUC) 223 mg/dL 70-115 Notify RN or MDIf you consider your patient critically ill, the [place] Accu-Chek InformII metershould not be used for Glucose determinations.Draw a venous Glucose and send to the Main Lab for Analysis. CK [id number] 06:46:00* Test Item Value Reference Range Comments CK (test code=CK) na U/L 26-192 CKMB (test code=CKMB) 7.9 ng/mL 0.0-2.8 CKMB% (test code=CKMBP) 0.0 % 0.0-3.4 Troponin [id number] 06:43:00* Test Item Value Reference Range Comments Troponin T (test code=BONNY) 0.059 ng/mL 0.000-0.090 CK [id number] 01:48:00* Test Item Value Reference Range Comments CK (test code=CK) 95 U/L 26-192 CKMB (test code=CKMB) 8.1 ng/mL 0.0-2.8 CKMB% (test code=CKMBP) 8.5 % 0.0-3.4 CK [id number] 01:48:00* Test Item Value Reference Range Comments CK (test code=CK) 95 U/L 26-192 Troponin [id number] 22:57:00* Test Item Value Reference Range Comments Troponin T (test code=BONNY) 0.051 ng/mL 0.000-0.090 [id number] 22:56:00* Test Item Value Reference Range Comments NT ProBnp (test code=PBNP) 7 pg/mL 0-124 XR CHEST 1 [id number] 22:46:46AFTER HOURS SERVICE ON: 04/01/2017 10:46 PMAP Portable ChestLocation Code [id number]: Chest painFINDINGS: Study limited due to shallow inspiration obscuring the lung bases. Thereis mild bibasilar subsegmental atelectasis. There is no pneumothorax.Cardiac silhouette and mediastinum appear within normal limits. IMPRESSION: Mild bibasilar subsegmental atelectasis.CBC with [id number] 22:35:00* Test Item Value Reference Range Comments WBC (test code=WBC) 8.9 K/cumm 4.4-10.5 RBC (test code=RBC) 4.59 M/cumm 3.75-5.20 Hemoglobin (test code=HGB) 13.4 gm/dL 12.2-14.8 Hematocrit (test code=HCT) 41.7 % 36.5-44.4 MCV (test code=MCV) 90.9 fL 80-100 MCH (test code=MCH) 29.2 pg 27.0-32.5 MCHC (test code=MCHC) 32.1 g/dL 32.0-37.5 RDW (test code=RDW) 15.3 % 11.5-14.5 Platelet Count (test code=PLTCT) 307 K/cumm 140-440 MPV (test code=MPV) 9.0 fL Diff Method (test code=DIFFM) Auto Neutrophil (test code=NEUT) 57.7 % 36-70 Lymphocyte (test code=LYMPH) 34.7 % 12-44 Monocyte (test code=MONO) 5.2 % 0-11 Eosinophil (test code=EOS) 2.2 % 0-7 Basophil (test code=BASO) 0.2 % 0-2 Neutro Abs (test code=ANEUT) 5.1 K/cumm 1.6-7.4 Lymph Abs (test code=ALYMPH) 3.1 K/cumm 0.5-4.6 [place] Abs (test code=AMONO) 0.5 K/cumm 0.0-1.2 Eos Abs (test code=AEOS) 0.19 K/cumm 0.00-0.74 Baso Abs (test code=ABASO) 0.0 K/cumm 0.00-0.21 Drugs of Abuse Screen, [id number] 14:53:00* Test Item Value Reference Range Comments Amphetamine (test code=AMPH) Negative Negative For diagnostic purposes only, positive results should always be assessedin conjunctionwith the patient's medical history,clinical examination and otherfindings.To fulfill legal requirements, a more specific alternate chemical methodmust be used inorder to obtain a Confirmed analytical result. GC/MS is the preferred confirmatory method. Barbiturates (test code=FRANCIS) Negative Negative Benzodiazepine (test code=ANNIE) Negative Negative Cocaine (test code=COCA) Negative Negative Methadone (test code=MTHD) Negative Negative Opiates (test code=OPIA) POSITIVE Negative PCP (test code=PCP) Negative Negative Propoxyphene (test code=PROPOX) Negative Negative THC (test code=THC) Negative Negative D-Dimer, [id number] 11:46:00* Test Item Value Reference Range Comments D-Dimer, Quant (test code=DDQNT) 981 ng/mL 0-500 CK [id number] 11:41:00* Test Item Value Reference Range Comments CKMB (test code=CKMB) 6.7 ng/mL 0.0-2.8 Troponin [id number] 11:41:00* Test Item Value Reference Range Comments Troponin T (test code=BONNY) 0.035 ng/mL 0.000-0.090 POC Glucose, [id number] 11:21:00* Test Item Value Reference Range Comments POC Glucose (test code=POCGLUC) 301 mg/dL 70-115 If you consider your patient critically ill, the [place] Accu-Chek InformII metershould not be used for Glucose determinations.Draw a venous Glucose and send to the Main Lab for Analysis. POC Glucose, [id number] 07:58:00* Test Item Value Reference Range Comments POC Glucose (test code=POCGLUC) 338 mg/dL 70-115 Notify RN or MDIf you consider your patient critically ill, the [place] Accu-Chek InformII metershould not be used for Glucose determinations.Draw a venous Glucose and send to the Main Lab for Analysis. Sed Rate ESR ([place])2017-03-08 07:41:00* Test Item Value Reference Range Comments ESR (test code=HESR) 50 mm/Hr 0-20 CK [id number] 07:25:00* Test Item Value Reference Range Comments CKMB (test code=CKMB) 6.9 ng/mL 0.0-2.8 Thyroid Stimulating Hormone (TSH)2017-03-08 07:07:00* Test Item Value Reference Range Comments TSH (test code=TSH) 1.99 mIU/mL 0.270-4.200 [id number] 07:00:00* Test Item Value Reference Range Comments Amylase (test code=VIVIAN) 32 U/L 28-100 [id number] 07:00:00* Test Item Value Reference Range Comments Lipase (test code=LIP) 20 U/L 13-60 Magnesium, [id number] 07:00:00* Test Item Value Reference Range Comments Magnesium (test code=MG) 1.8 mg/dL 1.7-2.5 Comprehensive Metabolic [id number] 07:00:00* Test Item Value Reference Range Comments Sodium (test code=NA) 133 mmol/L 135-145 Potassium (test code=K) 3.9 mmol/L 3.5-5.1 Chloride (test code=CL) 95 mmol/L 98-105 Carbon Dioxide (test code=CO2) 28 mmol/L 22-29 Glucose (test code=GLU) 281 mg/dL 70-115 Blood Urea Nitrogen (test code=BUN) 10 mg/dL 6-20 Creatinine (test code=CREAT) 0.3 mg/dL 0.5-0.9 Calcium (test code=CA) 9.3 mg/dL 8.3-10.5 Prot Total (test code=TP) 6.3 g/dL 6.4-8.3 Albumin (test code=ALB) 3.3 g/dL 3.5-5.2 A/G Ratio (test code=AGRATIO) 1.1 Ratio Globulin (test code=GLOB) 3.0 2.9-3.1 Bili Total (test code=TBIL) 0.4 mg/dL 0.1-0.9 Alk Phos (test code=APHOS) 93 U/L 35-104 AST (test code=AST) 24 U/L 1-32 ALT (test code=ALT) 41 U/L 1-33 BUN/Creatinine Ratio (test code=BCRATIO) 33.3 Anion Gap (test code=AGAP) 10 mmol/L 7-16 Estimated GFR (test code=GFR) >60 mL/min/1.73m2 eGFR (estimated Glomerular Filtration Rate) is an estimated value,calculated from the patient's serum creatinine using the MDRD equation.It is NOT the patient's actual GFR. The eGFR provides a more clinicallyuseful measure of kidney disease than serum creatinine alone.This calculation takes sex and race into account, if the informationis provided. If the race is not provided, and the patient isAfrican-[place]ian, multiply by 1.212. If sex is not provided, and thepatient is female, multiply by 0.742. Results for patients <18 years ofage have not been validated by the MDRD study and should be interpretedwith caution.eGFR Result Interpretation:eGFR > or=60 is in the Normal RangeeGFR < 60 may mean kidney diseaseeGFR < 15 may mean kidney failureRanges recommended by the National Kidney Foundat ion,http://nkdep.nih.gov C-Reactive Protein, [id number] 07:00:00* Test Item Value Reference Range Comments CRP (test code=CRP) 48.4 mg/L 0.0-5.0 [id number] 07:00:00* Test Item Value Reference Range Comments Phosphorus (test code=PO4) 3.4 mg/dL 2.70-4.50 Troponin [id number] 06:35:00* Test Item Value Reference Range Comments Troponin T (test code=BONNY) 0.044 ng/mL 0.000-0.090 CBC with [id number] 06:16:00* Test Item Value Reference Range Comments WBC (test code=WBC) 8.8 K/cumm 4.4-10.5 RBC (test code=RBC) 4.25 M/cumm 3.75-5.20 Hemoglobin (test code=HGB) 12.5 gm/dL 12.2-14.8 Hematocrit (test code=HCT) 38.6 % 36.5-44.4 MCV (test code=MCV) 90.8 fL 80-100 MCH (test code=MCH) 29.4 pg 27.0-32.5 MCHC (test code=MCHC) 32.3 g/dL 32.0-37.5 RDW (test code=RDW) 15.6 % 11.5-14.5 Platelet Count (test code=PLTCT) 255 K/cumm 140-440 MPV (test code=MPV) 8.7 fL Diff Method (test code=DIFFM) Auto Neutrophil (test code=NEUT) 63.8 % 36-70 Lymphocyte (test code=LYMPH) 28.0 % 12-44 Monocyte (test code=MONO) 5.6 % 0-11 Eosinophil (test code=EOS) 2.3 % 0-7 Basophil (test code=BASO) 0.3 % 0-2 Neutro Abs (test code=ANEUT) 5.6 K/cumm 1.6-7.4 Lymph Abs (test code=ALYMPH) 2.5 K/cumm 0.5-4.6 [place] Abs (test code=AMONO) 0.5 K/cumm 0.0-1.2 Eos Abs (test code=AEOS) 0.20 K/cumm 0.00-0.74 Baso Abs (test code=ABASO) 0.0 K/cumm 0.00-0.21 POC Glucose, [id number] 07:58:00* Test Item Value Reference Range Comments POC Glucose (test code=POCGLUC) 355 mg/dL 70-115 Notify RN or MDIf you consider your patient critically ill, the [place] Accu-Chek InformII metershould not be used for Glucose determinations.Draw a venous Glucose and send to the Main Lab for Analysis. CK [id number] 05:34:00* Test Item Value Reference Range Comments CK (test code=CK) na U/L 26-192 CKMB (test code=CKMB) 7.2 ng/mL 0.0-2.8 CKMB% (test code=CKMBP) 0.0 % 0.0-3.4 Troponin [id number] 05:27:00* Test Item Value Reference Range Comments Troponin T (test code=BONNY) 0.067 ng/mL 0.000-0.090 POC Glucose, [id number] 05:07:00* Test Item Value Reference Range Comments POC Glucose (test code=POCGLUC) 299 mg/dL 70-115 If you consider your patient critically ill, the Rom[place] Accu-Chek InformII metershould not be used for Glucose determinations.Draw a venous Glucose and send to the Main Lab for Analysis. Troponin [id number] 01:42:00* Test Item Value Reference Range Comments Troponin T (test code=BONNY) 0.059 ng/mL 0.000-0.090 CK [id number] 01:42:00* Test Item Value Reference Range Comments CK (test code=CK) na U/L 26-192 CKMB (test code=CKMB) 7.4 ng/mL 0.0-2.8 CKMB% (test code=CKMBP) 0.0 % 0.0-3.4 POC Glucose, [id number] 00:22:00* Test Item Value Reference Range Comments POC Glucose (test code=POCGLUC) 310 mg/dL 70-115 If you consider your patient critically ill, the Rom[place] Accu-Chek InformII metershould not be used for Glucose determinations.Draw a venous Glucose and send to the Main Lab for Analysis. POC Glucose, [id number] 19:18:00* Test Item Value Reference Range Comments POC Glucose (test code=POCGLUC) 231 mg/dL 70-115 If you consider your patient critically ill, the Rom[place] Accu-Chek InformII metershould not be used for Glucose determinations.Draw a venous Glucose and send to the Main Lab for Analysis. POC Glucose, [id number] 16:51:00* Test Item Value Reference Range Comments POC Glucose (test code=POCGLUC) 206 mg/dL 70-115 If you consider your patient critically ill, the Romana Accu-Chek InformII metershould not be used for Glucose determinations.Draw a venous Glucose and send to the Main Lab for Analysis. CK [id number] 13:54:00* Test Item Value Reference Range Comments CK (test code=CK) 75 U/L 26-192 CKMB (test code=CKMB) 9.3 ng/mL 0.0-2.8 CKMB% (test code=CKMBP) 12.4 % 0.0-3.4 Troponin [id number] 13:40:00* Test Item Value Reference Range Comments Troponin T (test code=BONNY) 0.068 ng/mL 0.000-0.090 Lipid [id number] 12:17:00* Test Item Value Reference Range Comments Cholesterol (test code=CHOL) 247 mg/dL 0-200 Triglycerides (test code=TRIG) 518 mg/dL 9-200 HDL (test code=HDL) 26 mg/dL 50-60 Chol/HDL (test code=CHOLPHDL) 9.5 Ratio 0.0-4.4 LDL, Calculated (test code=LDLC) No Calc 0-130 (NOTE)RISK OF HEART DISEASEPublished by [place] Heart AssociationAnalyte Optimal Boderline Increased RiskCHOL <200 200-239 >240TRIG <150 150- 199 >200HDL Male: >60 <40HDL Female: >60 <50LDL <100 130-159 >160LDL NEAR OPTIMAL IS 100-129\LIPIDNC VLDL (test code=VLDL) No Calc mg/dL 5-40 \LIPIDNC LDL/HDL (test code=LDLPHDL) No Calc \LIPIDNC Glycosylated [id number] 12:05:00* Test Item Value Reference Range Comments HBA1c (test code=HBA1C) 10.8 % 4.8-5.9 POC Glucose, [id number] 11:59:00* Test Item Value Reference Range Comments POC Glucose (test code=POCGLUC) 233 mg/dL 70-115 If you consider your patient critically ill, the [place] Accu-Chek InformII metershould not be used for Glucose determinations.Draw a venous Glucose and send to the Main Lab for Analysis. POC Glucose, [id number] 07:49:00* Test Item Value Reference Range Comments POC Glucose (test code=POCGLUC) 261 mg/dL 70-115 If you consider your patient critically ill, the [place] Accu-Chek InformII metershould not be used for Glucose determinations.Draw a venous Glucose and send to the Main Lab for Analysis. CK [id number] 06:18:00* Test Item Value Reference Range Comments CK (test code=CK) na U/L 26-192 CKMB (test code=CKMB) 9.8 ng/mL 0.0-2.8 CKMB% (test code=CKMBP) 0.0 % 0.0-3.4 Troponin [id number] 06:17:00* Test Item Value Reference Range Comments Troponin T (test code=BONNY) 0.063 ng/mL 0.000-0.090 Basic Metabolic [id number] 06:14:00* Test Item Value Reference Range Comments Sodium (test code=NA) 133 mmol/L 135-145 Potassium (test code=K) 4.8 mmol/L 3.5-5.1 Chloride (test code=CL) 97 mmol/L 98-105 Carbon Dioxide (test code=CO2) 28 mmol/L 22-29 Glucose (test code=GLU) 338 mg/dL 70-115 Blood Urea Nitrogen (test code=BUN) 9 mg/dL 6-20 Creatinine (test code=CREAT) 0.6 mg/dL 0.5-0.9 Calcium (test code=CA) 9.0 mg/dL 8.3-10.5 BUN/Creatinine Ratio (test code=BCRATIO) 15.0 Anion Gap (test code=AGAP) 8 mmol/L 7-16 Estimated GFR (test code=GFR) >60 mL/min/1.73m2 eGFR (estimated Glomerular Filtration Rate) is an estimated value,calculated from the patient's serum creatinine using the MDRD equation.It is NOT the patient's actual GFR. The eGFR provides a more clinicallyuseful measure of kidney disease than serum creatinine alone.This calculation takes sex and race into account, if the informationis provided. If the race is not provided, and the patient isAfrican-[place], multiply by 1.212. If sex is not provided, and thepatient is female, multiply by 0.742. Results for patients <18 years ofage have not been validated by the MDRD study and should be interpretedwith caution.eGFR Result Interpretation:eGFR > or=60 is in the Normal RangeeGFR < 60 may mean kidney diseaseeGFR < 15 may mean kidney failureRanges recommended by the National Kidney Foundat ion,http://nkdep.nih.gov CBC with [id number] 06:03:00* Test Item Value Reference Range Comments WBC (test code=WBC) 9.5 K/cumm 4.4-10.5 RBC (test code=RBC) 4.75 M/cumm 3.75-5.20 Hemoglobin (test code=HGB) 13.8 gm/dL 12.2-14.8 Hematocrit (test code=HCT) 43.5 % 36.5-44.4 MCV (test code=MCV) 91.6 fL 80-100 MCH (test code=MCH) 29.1 pg 27.0-32.5 MCHC (test code=MCHC) 31.7 g/dL 32.0-37.5 RDW (test code=RDW) 15.3 % 11.5-14.5 Platelet Count (test code=PLTCT) 283 K/cumm 140-440 MPV (test code=MPV) 8.8 fL Diff Method (test code=DIFFM) Auto Neutrophil (test code=NEUT) 56.0 % 36-70 Lymphocyte (test code=LYMPH) 36.5 % 12-44 Monocyte (test code=MONO) 4.3 % 0-11 Eosinophil (test code=EOS) 2.8 % 0-7 Basophil (test code=BASO) 0.4 % 0-2 Neutro Abs (test code=ANEUT) 5.3 K/cumm 1.6-7.4 Lymph Abs (test code=ALYMPH) 3.5 K/cumm 0.5-4.6 [place] Abs (test code=AMONO) 0.4 K/cumm 0.0-1.2 Eos Abs (test code=AEOS) 0.26 K/cumm 0.00-0.74 Baso Abs (test code=ABASO) 0.0 K/cumm 0.00-0.21 Troponin [id number] 00:46:00* Test Item Value Reference Range Comments Troponin T (test code=BONNY) 0.057 ng/mL 0.000-0.090 CK [id number] 00:46:00* Test Item Value Reference Range Comments CK (test code=CK) na U/L 26-192 CKMB (test code=CKMB) 10.7 ng/mL 0.0-2.8 CKMB% (test code=CKMBP) 0.0 % 0.0-3.4 POC Glucose, [id number] 00:21:00* Test Item Value Reference Range Comments POC Glucose (test code=POCGLUC) 328 mg/dL 70-115 If you consider your patient critically ill, the Romana Accu-Chek InformII metershould not be used for Glucose determinations.Draw a venous Glucose and send to the Main Lab for Analysis.
[2019-03-22] MEDS ORDERED: KETOROLAC TROMETHAMINE 30 MG/ML VIAL IV STA (21:52)
[2019-03-22 21:54] LABS: BASOPHILS % 0.2 % (0.0-1.0); EOSINOPHILS # (AUTO) 0.1 (0.0-0.4); EOSINOPHILS % 0.9 % (0.0-6.0); HEMATOCRIT 45.2 % (34.2-44.1); HEMOGLOBIN 15.1 g/dL (12.0-16.0); LYMPHOCYTES # (AUTO) 2.5 (1.0-3.2); LYMPHOCYTES % 23.5 % (18.0-39.1); MEAN CORPUSCULAR HEMOGLOBIN 29.5 pg (28-32); MEAN CORPUSCULAR HGB CONC 33.4 g/dL (31-35); MEAN CORPUSCULAR VOLUME 88.5 fL (81-99); MONOCYTES # (AUTO) 0.8 (0.2-0.8); MONOCYTES % 7.2 % (4.4-11.3); NEUTROPHILS # (AUTO) 7.3 (2.1-6.9); NEUTROPHILS % 67.8 % (38.7-80.0); PLATELET COUNT 306 x10e3/uL (140-360); RED BLOOD COUNT 5.11 x10e6/uL (3.6-5.1); RED CELL DISTRIBUTION WIDTH 13.2 % (11.7-14.4)
[2019-03-22] MEDS ORDERED: METOCLOPRAMIDE HCL 10 MG/2ML VIAL IV ONE (22:00)
[2019-03-22] MEDS ORDERED: SODIUM CHLORIDE 0.9% 1000ML 1,000 ML IV SCH (22:00)
[2019-03-22] MEDS ORDERED: DIPHENHYDRAMINE HCL INJ 50 MG/ML VIAL IV ONE (22:00)
[2019-03-22 22:10] LABS: ALANINE AMINOTRANSFERASE 66 IU/L (0-55); ALBUMIN 3.4 g/dL (3.5-5.0); ALBUMIN/GLOBULIN RATIO 0.8 (0.8-2.0); ALKALINE PHOSPHATASE 103 IU/L (40-150); ANION GAP 16.9 mmol/L (8-16); BLOOD UREA NITROGEN 13 mg/dL (7-26); BUN/CREATININE RATIO 15 (6-25); CALCIUM 10.1 mg/dL (8.4-10.2); CARBON DIOXIDE 26 mmol/L (22-29); CHLORIDE 95 mmol/L (98-107); CREATININE, SERUM 0.85 mg/dL (0.57-1.11); EST GLOMERULAR FILTRATION RATE > 60 ML/MIN (60-); GLUCOSE 397 mg/dL (74-118); POTASSIUM 3.9 mmol/L (3.5-5.1); SODIUM 134 mmol/L (136-145)
[2019-03-22] MEDS ORDERED: PROMETHAZINE HCL (IM) 25 MG/ML VIAL IM ONE (22:15)
--- NOTE | 2019-03-22 22:16 | Diagnostic Imaging Report ---
EXAMINATION: CHEST SINGLE (PORTABLE) INDICATION: Chest pain. COMPARISON: None FINDINGS: TUBES and LINES: None. LUNGS: Lungs are hypoinflated. There are bibasilar atelectasis. There is no evidence of pneumonia or pulmonary edema. PLEURA: No pleural effusion or pneumothorax. HEART AND MEDIASTINUM: The cardiomediastinal silhouette is unremarkable. BONES AND SOFT TISSUES: No acute osseous lesion. UPPER ABDOMEN: No free air under the diaphragm. Gaseous distension of the stomach. IMPRESSION: Bibasilar subsegmental atelectasis. Signed by: Dr. Kishan Braswell M.D. on 03/22/2019 10:13 PM
[2019-03-22 22:23] LABS: BILIRUBIN,URINE NEGATIVE (NEGATIVE); CLARITY,URINE SL CLOUDY (CLEAR); COLOR,URINE YELLOW (YELLOW); KETONES,URINE NEGATIVE (NEGATIVE); LEUKOCYTE ESTERASE ,URINE SMALL (NEGATIVE); NITRITE,URINE NEGATIVE (NEGATIVE); PROTEIN,URINE DIPSTICK NEGATIVE (NEGATIVE); URINE UROBILINOGEN 0.2 mg/dL (0.2 - 1)
[2019-03-22 22:32] LABS: AMPHETAMINES SCREEN,URINE NEGATIVE (NEGATIVE); BENZODIAZEPINES SCREEN,URINE NEGATIVE (NEGATIVE); PHENCYCLIDINE SCREEN,URINE NEGATIVE (NEGATIVE)
[2019-03-22 22:38] LABS: CREATINE KINASE 92 IU/L (29-168)
[2019-03-22 22:40] LABS: BACTERIA,URINE FEW /HPF; EPITHELIAL CELLS,URINE FEW /LPF; WBC,URINE (MAN) 21-50 /HPF (0-5)
[2019-03-22] MEDS ORDERED: BACTRIM DS TAB1 EACH PO (23:07)
[2019-03-22] MEDS ORDERED: FIORINAL 50-321 EACH PO (23:10)
[2019-03-22] MEDS ORDERED: PROMETHAZINE 25MG/SOD CHL 0.9% 50 ML ONE (23:13)
[2019-03-22] MEDS ORDERED: ACETAMIN/BUTALBITAL/CAFFEINE TAB ONE (23:13)
[2019-03-22] MEDS ORDERED: CEFTRIAXONE SOD 1 GM/NS 50 ML 50 ML IV ONE (23:14)
[2019-03-22] MEDS: ACETAMIN/BUTALBITAL/CAFFEINE TAB PO ONE (23:30)
[2019-03-22] MEDS: PROMETHAZINE 25MG/ NS 50ML (IV) IV ONE (23:30)
[2019-03-22] MEDS: CEFTRIAXONE SOD 1 GM/NS 50 ML 50 ML IV ONE (23:30)
[2019-03-22 23:44] VITALS: BP 137/97
== END 2019-03-22 23:46 | disposition home or self-care (01) ==
LOC: ER 21:16
DX: R07.89 Other chest pain (principal); G44.011 Episodic cluster headache, intractable; R60.9 Edema, unspecified
CPT/HCPCS: 36415; 71045; 80053; 80307; 81001; 82550; 82553; 84484; 85025; 93005; 99284; J0696; J2550

== ENCOUNTER 2019-04-02 02:54 | Emergency (ER) | payer SELFPAY ==
[~2019-04-02] VITALS: Ht 154.9 cm; Wt 83.9 kg
[~2019-04-02 02:54] MED LIST: BACTRIM DS TAB1 EACH PO; FIORINAL 50-321 EACH PO
--- OUTSIDE RECORDS SUMMARY | 2019-04-02 02:57 | XMS REPORT | Clinical Summary ---
Author Author [facility] Organization [facility] Address Unknown Phone Unavailable Care Team Providers Care [facility] [facility]isher Name Role Phone Asked, No Pcp PCP [...] Encounters Care Team Description Date Type Specialty David Bee MD Right lower quadrant abdominal pain [...] 09/27/2018 Emergency Emergency Medicine - 09/28/2018 after 04/01/2018 Social History Date Tobacco Use Types Packs/Day [...] PRELIMINARY Routine 12/14/2018 INTERPRETATION 9:35 PM CDT [place] CRITICAL CARE, E/M Routine 12/14/2018 30-74 MINUTES [...] PM CDT TO CULTURE ED REFERRAL TO [facility] Routine 09/28/2018 [facility] 2:38 AM DEDICATED TRUCK DRIVER ORGANIZATION POC GLUCOSE Routine 09/28/2018 2:00 [address]ICATED TRUCK [address]IVER CT ANGIOGRAM PE CHEST STAT 09/28/2018 12:59 AM DEDICATED TRUCK DRIVER [place] CRITICAL CARE, E/M Routine 09/27/2018 30-74 MINUTES 11:36 PM DEDICATED TRUCK DRIVER ESTIMATED GFR STAT 09/27/2018 11:25 PM DEDICATED TRUCK DRIVER B NATRIURETIC PEPTIDE STAT 09/27/2018 11:25 PM DEDICATED TRUCK DRIVER TROPONIN STAT 09/27/2018 11:25 PM DEDICATED TRUCK DRIVER CREATINE KINASE, TOTAL STAT 09/27/2018 (CPK) 11:25 PM DEDICATED TRUCK DRIVER COMPREHENSIVE METABOLIC STAT 09/27/2018 PANEL 11:25 PM DEDICATED TRUCK DRIVER PARTIAL THROMBOPLASTIN STAT 09/27/2018 TIME (PTT) 11:25 PM DEDICATED TRUCK DRIVER PROTHROMBIN TIME WITH INR STAT 09/27/2018 11:25 PM DEDICATED TRUCK DRIVER D-DIMER STAT 09/27/2018 11:25 PM DEDICATED TRUCK DRIVER HC COMPLETE BLD COUNT STAT 09/27/2018 W/AUTO DIFF 11:25 PM DEDICATED TRUCK DRIVER HCG QUALITATIVE, SERUM STAT 09/27/2018 SCREEN 10:20 PM DEDICATED TRUCK DRIVER GRAM STAIN STAT 09/27/2018 9:30 PM DEDICATED TRUCK DRIVER URINE CULTURE STAT 09/27/2018 9:30 PM DEDICATED TRUCK DRIVER URINALYSIS SCREEN AND STAT 09/27/2018 MICROSCOPY, WITH REFLEX 9:07 PM DEDICATED TRUCK DRIVER TO CULTURE ECG 12-LEAD STAT 09/27/2018 8:45 PM DEDICATED TRUCK DRIVER after 04/01/2018 Results * XR Abdomen Acute Inc Chest [...] present. There is no acute osseous pathology. [facility]-[id number] Procedure Note Interface, Radiology Results Incoming - [...] present. There is no acute osseous pathology. [facility]-[id number] Performing Organization Address City/[facility]/[employer] Phone Number [facility] [address] [place] [address] * Gram stain (12/17/2018 12:20 PM CDT) Only the most recent of 3 results within the time period is included. Gram stain No WBC's [facility] result Few Gram positive rods [facility] Comment: HOSPITAL Specimen Information Specimen Source: Urine Specimen Site: Clean catch Specimen Urine Performing Organization Address City/[facility]/[employer] Phone Number [facility] DEPARTMENT OF [address] [place] [address] PATHOLOGY [place] [address] HOSPITAL * Urine culture (12/17/2018 12:20 PM CDT) Only the most recent of 3 results within the time period is included. Urine culture Staphylococcus, coagulase [facility] isolate negative [facility] >10-5 cfu/ml HOSPITAL The performance characteristics of this assay on this isolate were validated by the Microbiology Laboratory at [facility].This source has not been approved by the U.S. Food and Drug Administration.The results are not intended to be used as the sole means for clinical diagnosis or patient management.The Microbiology Laboratory is authorized under the clinical Laboratory Improvement Amendments of 1988 (CLIA-88) to perform high complexity testing. The performance characteristics of this assay on this isolate were validated by the Microbiology Laboratory at [facility].This source has not been approved by the U.S. Food and Drug Administration.The results are not intended to be used as the sole means for clinical diagnosis or patient management.The Microbiology Laboratory is authorized under the clinical Laboratory Improvement Amendments of 1988 (CLIA-88) to perform high complexity testing. (A) Comment: Specimen Information Specimen Source: Urine Specimen Site: Clean catch Urine culture Duplicate organism-no further [facility] isolate workup ([facility] Specimen Urine Antibiotic Method Susceptibility Organism Clindamycin [...] negative Performing Organization Address City/State/Zipcode Phone Number [facility] DEPARTMENT OF [address] [place] [address] PATHOLOGY AND GENOMIC MEDICINE [address] * Urinalysis screen and microscopy, with reflex to culture (12/17/2018 12:05 PM CDT) Only the most recent of 3 results within the time period is included. Specimen site Clean catch [facility] Color, UA Straw [facility] Appearance, UA Clear [facility] Specific 1.025 1.001 - 1.035 [facility] gravity, UA [facility] pH, UA 7.0 5.0 - 8.5 [facility] Protein, UA Negative Negative [facility] Glucose, UA 3+ (A) Negative [facility] Ketones, UA Negative Negative [facility] Bilirubin, UA Negative Negative [facility] Blood, UA Negative Negative [facility] Nitrite, UA Negative Negative [facility] Urobilinogen, <2.0 <2.0 [facility] UA [facility] Leukocyte Moderate (A) Negative [facility] esterase, UA [facility] Epithelial 1 /HPF [facility] cells, UA [facility] WBC, UA 3 0 - 4 /HPF [facility] RBC, UA <1 0 - 5 /HPF [facility] Bacteria, UA Few None seen [facility] Yeast, UA None seen [facility] Yeast with None seen [facility] Specimen Urine Performing Organization Address City/[facility]/[place]code Phone Number [facility] [place] [address] [address] [facility] [place] [address] PATHOLOGY AND GENOMIC MEDICINE [facility] [id number] [place] [address] * Estimated GFR (12/17/2018 11:35 AM CDT) Only the most recent of 3 results within the time period is included. Pathologist [facility] Estimated GFR >=90 mL/min/1.73 m2 [facility] Comment: [facility] rpretation G1 >=90 Normal or high G2 60-89Mildly decreased [id number] Mildly to moderately decreased E3l83-32 Moderately to severely decreased G4 15-29Severely decreased G5 <15Kidney failure The eGFR was calculated using the Chronic Kidney Disease Epidemiology Collaboration (CKD-EPI) equation. Interpretation is based on recommendations of the National Kidney Foundation-Kidney Disease Outcomes Quality Initiative (NKF-KDOQI) published in 2014. Specimen Plasma specimen Performing Organization Address City/State/Zipcode Phone Number [facility] [place] [address] [address]ian [facility] [place] [address] PATHOLOGY AND GENOMIC MEDICINE [facility] [id number] [place] [address] * CBC with platelet and differential (12/17/2018 11:35 AM CDT) Only the most recent of 3 results within the time period is included. WBC 8.07 4.50 - 11.00 k/uL [facility] RBC 5.02 4.20 - 5.50 m/uL [facility] HGB 14.2 12.0 - 16.0 g/dL [facility] HCT 44.5 37.0 - 47.0 % [facility] MCV 88.6 82.0 - 100.0 fL [facility] MCH 28.3 27.0 - 34.0 pg [facility] MCHC 31.9 31.0 - 37.0 g/dL [facility] RDW - SD 41.1 37.0 - 55.0 fL [facility] MPV 10.9 8.8 - 13.2 fL [facility] Platelet count 249 150 - 400 k/uL [facility] Neutrophils 65.4 39.0 - 69.0 % [facility] Lymphocytes 25.3 25.0 - 45.0 % [facility] Monocytes 7.1 0.0 - 10.0 % [facility] Eosinophils 1.4 0.0 - 5.0 % [facility] Basophils 0.4 0.0 - 1.0 % [facility] Immature 0.4 0.0 - 1.0 % [facility] granulocytes [facility] Specimen Blood Performing Organization Address City/[facility]/[place] Phone Number [facility] [place] [id number] [place] [address] PATHOLOGY AND GENOMIC MEDICINE [address] * Lipase level (12/17/2018 11:35 AM CDT) Only the most recent of 2 results within the time period is included. Lipase 29 23 - 300 U/L [facility] Specimen Serum Performing Organization Address City/[facility]/[employer]t Phone Number [facility] DEPARTMENT OF [address] [place] [address]. [place] [address] PATHOLOGY AND GENOMIC MEDICINE [address] * Comprehensive metabolic panel (12/17/2018 11:35 AM CDT) Only the most recent of 3 results within the time period is included. Sodium 136 135 - 148 mEq/L [facility] Potassium 4.3 3.5 - 5.0 mEq/L [facility] Chloride 96 (L) 99 - 109 mEq/L [facility] CO2 30 24 - 31 mEq/L [facility] Anion gap 10@ANIO 7 - 15 mEq/L [facility] BUN 10 8 - 24 mg/dL [facility] Creatinine 0.45 (L) 0.50 - 0.90 mg/dL [facility] Glucose 326 (H) 65 - 99 mg/dL [facility] Calcium 9.4 8.6 - 10.6 mg/dL [facility] Protein 7.5 6.3 - 8.2 g/dL [facility] Albumin 3.4 (L) 3.5 - 5.0 g/dL [facility] A/G ratio 0.8 0.7 - 3.8 [facility] Alkaline 111 30 - 115 U/L [facility] phosphatase [facility] AST 31 15 - 46 U/L [facility] ALT 65 (H) 10 - 55 U/L [facility] Total bilirubin <0.3 0.2 - 1.2 mg/dL [facility] Specimen Plasma specimen Performing Organization Address City/State/Zipcode [place] [address] [address] 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 TECHNIQUE:Transabdominal and endovaginal [...] no free fluid in the pelvic cul-de-sac. 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 TECHNIQUE:Transabdominal and [...] no free fluid in the pelvic cul-de-sac. [facility]-[id number] Performing Organization Address City/State/Zipcode Phone Number [facility] [address] [place] [address] * US Pelvic Transabdominal (12/15/2018 2:26 AM CDT) Specimen Narrative Performed At EXAMINATION:US PELVIC TRANSABDOMINAL [facility] CLINICAL HISTORY:Pelvic painneg HCGgyn COMPARISON:CT performed on [...] no free fluid in the pelvic cul-de-sac. 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 TECHNIQUE:Transabdominal and [...] no free fluid in the pelvic cul-de-sac. [facility]-[id number] Performing Organization Address City/State/Zipcode Phone Number [facility] [address] [place] [address] * POC glucose (12/15/2018 12:05 AM CDT) Only the most recent of 3 results within the time period is included. POC glucose 213 (H) 65 - 99 mg/dL [facility] Comment: [facility] Notified RN HOSPITAL [facility] Notified MD Meter ID: [id number] Operating Room Surgical Technician: Agueda Wong Specimen Performing Organization Address City/State/Zipcode Phone Number [facility] [place] [address] [place] [address] PATHOLOGY AND GENOMIC MEDICINE [facility] [address] [address] * CT Abdomen Pelvis W Contrast [...] acute pathology within the abdomen and pelvis. [facility]-[id number] Procedure Note Interface, Radiology Results Incoming - [...] acute pathology within the abdomen and pelvis. [facility]-[id number] Performing Organization Address City/State/Zipcode Phone Number [facility] [address] [place] [address] * Troponin (12/14/2018 10:45 PM CDT) Only the most recent of 3 results within the time period is included. Troponin <0.10 0.00 - 0.10 ng/mL [facility] Comment: [facility] 0.11 - 1.49 HOSPITAL ng/mlMay indicate increased risk of acute coronary syndrome. >=1.5 ng/ml Consistent with acute myocardial infarction. The diagnostic value of a single normal or non-diagnostic result is questionable.Serial samples at 2-6 hour intervals are required to rule out acute myocardial injury. Specimen Plasma specimen Performing Organization Address City/State/Zipcode Phone Number [facility] [place] [address] [place] [address] PATHOLOGY AND GENOMIC MEDICINE [facility] [address] * hCG qualitative, serum screen (12/14/2018 10:45 PM CDT) Only the most recent of 2 results within the time period is included. hCG NegativeComment: Sensitivity [facility] qualitative, of HCG test: 25 mIU/mL [facility] Specimen Blood Performing Organization Address City/State/Zipcode [place] [address] [place] [address] PATHOLOGY AND GENOMIC MEDICINE [facility] [address] * ECG ED Preliminary Interpretation - Not an Order (12/14/2018 9:35 PM CDT) Narrative Performed At Acacia Conklin MD 12/16/20185:21 AM ECG ED Preliminary Interpretation - Not an Order Performed by: Acacia Conklin MD Authorized by: Acacia Conklin MD ECG reviewed by ED Physician in the absence of a news camera person: yes Interpretation: Interpretation: normal Rate: ECG rate:102 ECG rate assessment: tachycardic Rhythm: Rhythm: sinus tachycardia Ectopy: Ectopy: none QRS: QRS axis:Normal QRS intervals:Normal (90 ms) Conduction: Conduction: normal ST segments: ST segments:Normal T waves: T waves: normal Comments: [place] Interval: 128 ms QT/QTc: 346/450 ms * [...] within the time period is included. Pathologist [facility] PTT 27.0 23.0 - 36.0 sec [facility] Comment: [facility] PTT therapeutic range for HOSPITAL unfractionated heparin is 61.0-112.0 seconds which corresponds to Anti-Xa 0.3-0.7 U/ml. Specimen Blood Performing Organization Address [facility]/[employer]ust[employer] Phone Number [facility] DEPARTMENT OF [address] [place] [address]. [place] [address] * Prothrombin time with INR (12/14/2018 4:08 PM CDT) Only the most recent of 2 results within the time period is included. [facility] Prothrombin 11.8 11.5 - 14.5 sec [facility] INR 0.9 [facility] Comment: [facility] The International Normalized HOSPITAL Ratio (INR) is a therapeutic monitoring tool for patients who are stable on oral anticoagulant therapy. An INR of 2.0-3.0 is suggested for deep vein thrombosis/pulmonary embolism. Specimen Blood Performing Organization Address [facility] Phone Number [facility] DEPARTMENT OF [address] [place] [address]. [place] [address] * B natriuretic peptide (12/14/2018 4:08 PM CDT) Only the most recent of 2 results within the time period is included. Pathologist [facility] BNP <3 0 - 100 pg/mL [facility] Specimen Blood Performing Organization Address City/[facility]/Zipcode Phone Number [facility] DEPARTMENT OF [address] [place] [address]. [place] [address] [address] * ECG 12 lead (12/14/2018 3:52 PM CDT) Only the most recent of 2 results within the time period is included. Ventricular 102 [facility]USE rate Atrial rate 102 [facility] MUSE MI interval 128 [facility] QRSD interval 90 [facility] QT interval 346 [facility] QTC interval 450 H MUSE P axis 1 28 [facility] QRS axis 1 -26 [facility] T wave axis 28 [facility] MUSE EKG impression Sinus tachycardia-RSR' or QR [facility] MUSE pattern in V1 suggests right ventricular conduction delay--In automated comparison with ECG of 27-SEP-2018 20:45,-No significant change was found- Specimen Narrative Performed At Performing Organization Address City/State/Zipcode Phone Number [facility] MUSE [address] [place] [address] * CT Angiogram Pe Chest (09/28/2018 12:59 AM DEDICATED TRUCK DRIVER) Specimen Narrative Performed At EXAMINATION:CT ANGIOGRAM PE [...] No acute abnormality identified in the chest. [facility]-[id number] Procedure Note Hm Interface, Radiology Results Incoming - 09/28/2018 1:07 AM DEDICATED TRUCK DRIVER EXAMINATION: CT ANGIOGRAM PE CHEST CLINICAL HISTORY: [...] No acute abnormality identified in the chest. [facility]-[id number] Performing Organization Address City/State/Zipcode Phone Number [facility] [address] [place] [address] * CRITICAL CARE (09/27/2018 11:36 PM DEDICATED TRUCK DRIVER) Narrative Performed At Acacia Conklin MD 09/29/20188:12 [...] provider.: no * D-dimer (09/27/2018 11:25 PM DEDICATED TRUCK DRIVER) [facility] D-dimer 0.28 0.00 - 0.40 ug/mL [facility] Comment: [facility] Units are ug/ml Fibrinogen HOSPITAL Equivalent Unit. [...] Blood Performing Organization Address City/State/Zipcode Phone Number [facility] [place] [address] [place] [address] PATHOLOGY AND GENOMIC MEDICINE [facility] [id number] [place] [address] * Creatine kinase, total (CPK) (09/27/2018 11:25 PM DEDICATED TRUCK DRIVER) Creatine kinase 79 35 - 200 U/L [facility] Specimen Plasma specimen Performing Organization Address City/State/Zipcode Phone Number [facility] [place] [address] [address] [facility] [place] [address] PATHOLOGY AND GENOMIC MEDICINE [address] after 04/01/2018 Advance Directives Patient has advance care planning documents on file. For more information, domo martines contact: [facility] [address] [place] [address]
--- OUTSIDE RECORDS SUMMARY | 2019-04-02 02:57 | XMS REPORT | Continuity of Care Document ---
Author Author [employer] Address Unknown Phone Unavailable Care Team Providers Care Laborer Starch Factory Name Role Phone Pump Audio Information Elpas Unavailable Unavailable Problems No Data Provided for This Section Medications No Data Provided for This Section Allergies, Adverse Reactions, Alerts Substance Category Reaction Severity Reaction type Status Date Reported Comments Source Tramadol ITCH Intermediate Allergy to Substance Active 05/08/2018 [facility] Metoclopramide ITCH Intermediate Allergy to Substance Active 05/08/2018 [facility] Ondansetron ITCH Intermediate Allergy to Substance Active 05/08/2018 [facility] Ketorolac ITCH Intermediate Allergy to Substance Active 05/08/2018 [facility] Immunizations No Data Provided for This Section [...] DC Date Status Source Departed Emergency Room [id number] DENI BERUMEN MD 05/08/2018 05/09/2018 [facility] Procedures No Data Provided for This Section [...] doctor on Thursday. Follow up with a manual training teacher (GI doctor, stomach doctor) on Thursday for evaluation for and EGD (camera in the stomach). 05/09/2018 [facility] Social History Social History Date Source No social history information available. 05/09/2018 [facility] Family History No Data Provided for This Section Advance Directives Order Name Results Value Date Source Advance Directives Advance Directives Directive Response Recorded Date/Time Does the patient have an advance directive? No 05/08/18 11:15pm If yes, is advance directive on file with [facility]? No 05/08/18 11:15pm If not on file with [facility] will patient provide a copy? No 05/08/18 11:15pm Do you have a Directive to Physician? No 05/08/18 11:15pm Do you have a Medical Power of Bone Char Operator? No 05/08/18 11:15pm Do you have an [...] rights and responsibilities? Yes 05/08/18 11:15pm 05/09/2018 [facility] Functional Status No Data Provided for This Section
--- OUTSIDE RECORDS SUMMARY | 2019-04-02 02:57 | XMS REPORT | Clinical Summary ---
Author Author [facility] Address Unknown Phone Unavailable Care Team Providers Care Home Designer Name Role Phone Sharpless PCP Allergies Comments [...] Not on file Results Not on fileafter 04/01/2018 Advance Directives For more information, please contact: [facility] [address] [place] [address] Date Inactivated Comments Code Status Date Activated 07/04/2016 8:07 PM Full Code 07/03/2016 5:25 PM This code status was determined by: Patient
--- OUTSIDE RECORDS SUMMARY | 2019-04-02 02:57 | XMS REPORT | Clinical Summary ---
Author Author [facility] Organization [facility] Address Unknown Phone Unavailable Care Team Providers Care As400 Administrator Name Role Phone PCP Unavailable Allergies Comments Active Allergy Reactions Severity Noted Date Metoclopramide Hcl Rash 12/17/2018 Ketorolac 12/17/2018 Tramadol Rash 12/17/2018 Ondansetron Hcl Rash 12/17/2018 Medications Not on file Active Problems Not on file Encounters Care Team Description Date Type Specialty Vinicio Childs MD Pain, abdominal, RLQ (Primary Dx) 12/17/2018 Emergency Emergency Medicine 12/17/2018 Travel after 04/01/2018 Social History Date Tobacco Use [...] Routine 12/17/2018 (STAT) 6:30 AM CDT after 04/01/2018 Results * UA CHEMISTRIES (12/17/2018 9:30 AM CDT) Color Straw [facility] Clarity Clear [facility] Specific 1.026 1.001 - 1.035 [facility] pH 7.0 5 - 8 [...] Performing Organization Address City/State/Zipcode Phone Number [facility] * POCT URINE DIPSTICK - (12/17/2018 9:08 AM CDT) pass Control negative * BMP POC (12/17/2018 9:08 AM CDT) CO2 POC 31 21 - 32 mmol/L [facility] Chloride POC 98 98 - 107 mmol/L [facility] Potassium POC 5.4 (H) 3.50 - 5.10 mmol/L [facility] Sodium POC 133 (L) 136 - 145 mmol/L [facility] Glucose POC 434 (HH) 74 - 106 mg/dL [facility] Urea Nitrogen 14 7 - 18 mg/dL [facility] 1 Creatinine POC 0.6 [...] Performing Organization Address City/State/Zipcode Phone Number [facility] * CBC/DIFF (12/17/2018 9:00 [...] Performing Organization Address City/State/Zipcode Phone Number [facility] * GLUCOSE POC (12/17/2018 6:30 AM CDT) Glucose POC 390 (H) 74 - 106 mg/dL [facility] Specimen Performing Organization Address City/State/Zipcode Phone Number [facility] after 04/01/2018 Insurance Type Payer Benefit Subscriber ID Effective Phone Address Plan / Dates Group [facility] SELF-PAY SELF-PAY xxxxxxx 2018-6 [phone] [place] [address]
--- NOTE | 2019-04-02 03:09 | NUR ---
DR. CABELLO DISCUSSED AND EDUCATED PT ON THE NEED TO PERFOM LP TO R/O PSEUDOTUMOR IN TRIAGE. PT GAURDED AND STATES SHE DOES NOT WANT A WORSENING ESCOBAR SHE WAS TOLD IT WOULD BE A POTENIAL SIDE EFFECT.
[2019-04-02] MEDS ORDERED: METOCLOPRAMIDE HCL 10 MG TAB PO ONE (03:15)
[2019-04-02] MEDS ORDERED: ACETAMIN/BUTALBITAL/CAFFEINE TAB PO ONE (03:15)
[2019-04-02] MEDS ORDERED: CLONIDINE HCL 0.2 MG TAB PO ONE (03:15)
--- NOTE | 2019-04-02 04:03 | Diagnostic Imaging Report ---
Exam: Head CT without contrast History: Headache, nausea Comparison studies: None Technique: Axial images were obtained from the skull base to the vertex. Coronal and sagittal images reconstructed from the axial data. Dose modulation, iterative reconstruction, and/or weight based adjustment of the mA/kV was utilized to reduce the radiation dose to as low as reasonably achievable. Radiation dose: Total DLP: 806 mGy*cm. Estimated effective dose: DLP x 0.015 Intravenous contrast: None Findings: Scalp: No abnormalities. Bones: No fractures, blastic or lytic lesions. Brain sulci: Appropriate for age. Ventricles: Normal in size and configuration. No hydrocephalus. Extra-axial spaces: No masses, no fluid collection. Parenchyma: Age-indeterminate, 5 mm hypodense lacunar infarct in the left thalamus. No mass, acute hemorrhage or acute or chronic cortical insult. Sellar/suprasellar region: No abnormalities. Craniocervical junction: Patent foramen magnum. No Chiari one malformation. IMPRESSION: 1. Age-indeterminate nonhemorrhagic left thalamic lacunar infarct. 2. No other intracranial abnormalities. Signed by: Dr. Hussein Lopez M.D. on 04/02/2019 4:00 AM
[2019-04-02] MEDS ORDERED: SODIUM CHLORIDE 0.9% 1000ML 1,000 ML ONE (04:28)
[2019-04-02] MEDS ORDERED: SODIUM CHLORIDE 0.9% 1000ML 1,000 ML IV SCH (04:45)
[2019-04-02] MEDS ORDERED: KETOROLAC TROMETHAMINE 30 MG/ML VIAL ONE (04:46)
[2019-04-02] MEDS ORDERED: DIPHENHYDRAMINE HCL INJ 50 MG/ML VIAL ONE (04:46)
[2019-04-02 04:47] LABS: BASOPHILS % 0.2 % (0.0-1.0); EOSINOPHILS # (AUTO) 0.2 (0.0-0.4); EOSINOPHILS % 1.6 % (0.0-6.0); HEMATOCRIT 43.2 % (34.2-44.1); HEMOGLOBIN 14.2 g/dL (12.0-16.0); LYMPHOCYTES # (AUTO) 2.9 (1.0-3.2); LYMPHOCYTES % 28.3 % (18.0-39.1); MEAN CORPUSCULAR HEMOGLOBIN 29.3 pg (28-32); MEAN CORPUSCULAR HGB CONC 32.9 g/dL (31-35); MEAN CORPUSCULAR VOLUME 89.1 fL (81-99); MONOCYTES # (AUTO) 0.9 (0.2-0.8); MONOCYTES % 8.3 % (4.4-11.3); NEUTROPHILS # (AUTO) 6.4 (2.1-6.9); NEUTROPHILS % 61.2 % (38.7-80.0); PLATELET COUNT 271 x10e3/uL (140-360); RED BLOOD COUNT 4.85 x10e6/uL (3.6-5.1); RED CELL DISTRIBUTION WIDTH 13.1 % (11.7-14.4)
[2019-04-02] MEDS ORDERED: KETOROLAC TROMETHAMINE 30 MG/ML VIAL IV STA (04:52)
[2019-04-02] MEDS ORDERED: DIPHENHYDRAMINE HCL INJ 50 MG/ML VIAL IV ONE (05:00)
[2019-04-02 05:16] LABS: ALANINE AMINOTRANSFERASE 46 IU/L (0-55); ALBUMIN 3.2 g/dL (3.5-5.0); ALBUMIN/GLOBULIN RATIO 0.9 (0.8-2.0); ALKALINE PHOSPHATASE 109 IU/L (40-150); BLOOD UREA NITROGEN 11 mg/dL (7-26); BUN/CREATININE RATIO 15 (6-25); CALCIUM 9.4 mg/dL (8.4-10.2); CARBON DIOXIDE 27 mmol/L (22-29); CHLORIDE 98 mmol/L (98-107); CREATININE, SERUM 0.72 mg/dL (0.57-1.11); EST GLOMERULAR FILTRATION RATE > 60 ML/MIN (60-); SODIUM 135 mmol/L (136-145)
[2019-04-02 05:26] LABS: GLUCOSE 402 mg/dL (74-118)
--- NOTE | 2019-04-02 05:26 | NUR ---
DR. CABELLO AND ROMERO, RN NOTIFIED AND AWARE OF CRITICAL LAB VALUE; BG 402.
--- NOTE | 2019-04-02 06:32 | NUR ---
PT STILL REFUSED LP STATING - I DON'T WANT ANYONE GOING IN MY SPINE BECAUSE IT WOULD MAKE MY HEADACHE WORSE AND I DON'T THINK IT IS WORTH IT"; PT SIGNED OUT AMA AT THIS TIME; ER MD NOTIFIED AND AWARE.
== END 2019-04-02 06:32 | disposition left against medical advice (07) ==
LOC: ER 02:54
DX: G43.901 Migraine, unspecified, not intractable, with status migrainosus (principal); G44.211 Episodic tension-type headache, intractable
CPT/HCPCS: 36415; 70450; 80053; 85025; 99284; J1200; J1885; J7030

== ENCOUNTER 2020-03-15 23:30 | Inpatient (IN) | payer SELFPAY ==
[~2020-03-15] VITALS: Ht 154.9 cm; Wt 86.6 kg
--- NOTE | 2020-03-15 23:43 | Emergency Department Note ---
History of Present Illnes History of Present Illness History of Present Illness This is a 44 year old female c/o chest pain, abdominal pain on and off for 2 weeks, tested positive for COVID last week Past Medical History Hypertension, Diabetes, [place], GERD, DVT/PE Other Medical History MIGRAINES Past Surgical History: Cholecystectomy, Appendectomy . Historian: Patient Arrival Mode: Car Preschool Adviser Required: No Onset (how long ago): week(s) (2) Radiation: Reports non-radiation Severity: unable to specify Onset quality: gradual Duration (how long): week(s) Timing of current episode: intermittent Progression: waxing and waning Context: Reports recent illness Relieving factors: none Exacerbating factors: none Associated symptoms: Reports denies other symptoms Treatments prior to arrival: none Past Medical/Family History Physician Review I have reviewed the patient's past medical and family history. Any updates have been documented here. Past Medical History Recent Fever: No Clinical Suspicion of Infectio: No New/Unexplained Change in Ment: No Past Medical History: Hypertension, Diabetes, [place], GERD, DVT/PE Other Medical History: MIGRAINES Past Surgical History: Cholecysctectomy, Appendectomy Social History Smoking Cessation: Unknown if ever smoked Counseling Performed: No Any Illegal Drug Use: No TB Exposure/Symptoms: No Family History Family history of heart diseas: No Other Last Tetanus: UNK Review of Systems Review of Systems Constitutional: Reports malaise EENTM: Reports no symptoms Cardiovascular: Reports as per HPI, Reports chest pain Gastrointestinal: Reports abdominal pain Genitourinary: Reports no symptoms Musculoskeletal: Reports muscle pain Integumentary: Reports no symptoms Neurological: Reports no symptoms Psychological: Reports no symptoms Endocrine: Reports no symptoms Hematological/Lymphatic: Reports no symptoms Physical Exam Related Data Allergies: Coded Allergies: ketorolac (Verified Allergy, Intermediate, ITCH, 05/08/18) metoclopramide (Verified Allergy, Intermediate, ITCH, 05/08/18) ondansetron (Verified Allergy, Intermediate, ITCH, 05/08/18) tramadol (Verified Allergy, Intermediate, ITCH, 05/08/18) Vital signs reviewed: Yes Physical Exam CONSTITUTIONAL Constitutional: Present well-developed, Present morbidly obese HENT HENT: Present normocephalic, Present atraumatic, Present oropharynx clear/moist, Present nose normal HENT L/R: Present left ext ear normal, Present right ext ear normal EYES Eyes: Reports PERRL, Reports conjunctivae normal NECK Neck: Present ROM normal PULMONARY Pulmonary: Present effort normal, Present breath sounds normal CARDIOVASCULAR Cardiovascular: Present regular rhythm, Present heart sounds normal, Present capillary refill normal, Present normal rate GASTROINTESTINAL Abdominal: Present soft, Present nontender, Present other (obese) GENITOURINARY Genitourinary: Present exam deferred SKIN Skin: Present warm, Present dry MUSCULOSKELETAL Musculoskeletal: Present ROM normal NEUROLOGICAL Neurological: Present alert, Present oriented x 3, Present no gross motor or sensory deficits PSYCHOLOGICAL Psychological: Present mood/affect normal, Present judgement normal Results Laboratory Lab results reviewed: Yes Laboratory comments glucose 475 CM nl, ddimer normal Imaging Imaging results reviewed: Yes Imaging Comments c xray ok Procedures 12 Lead ECG Interpretation ECG Interpretation : ECG: ECG 1 Preschool Adviser: Interpreted by ED physician Date: Mar 15, 2020 Time: 23:33 Prior ECG tracings: reviewed Rhythm: sinus tachycardia QRS axis: normal ST segments normal: Yes T waves normal: Yes Clinical Impression: abnormal ECG Assessment & Plan Medical Decision Making MDM COVID 19 vs ACS Reassessment Reassessment time: 02:55 Reassessment BP better Assessment & Plan Final Impression: (1) Chest pain (2) Hypertension, uncontrolled (3) COVID-19 virus infection Depart Disposition: ADMITTED Home Meds Active Scripts Butalbital/Aspirin/Caffeine (FIORINAL 50-325-40 MG CAPSULE) 1 Each Capsule, 1 TAB PO Q6HR PRN for HEADACHE, #12 Prov:PORSCHE CABELLO DO 03/22/19 Sulfamethoxazole/Trimethoprim (BACTRIM DS TABLET) 1 Each Tablet, 1 TAB PO BID for 10 Days, #20 TAB 0 Refills Prov:PORSCHE CABELLO DO 03/22/19 Medications in the ED Famotidine 20 mg ONCE ONCE IV ; Start 03/15/20 at 23:45; Stop 03/15/20 at 23:46; Status UNV Nitroglycerin 1 gm ONCE ONCE TOP ; Start 03/15/20 at 23:45; Stop 03/15/20 at 23:46 Acetaminophen 650 mg ONCE ONCE PO ; Start 03/15/20 at 23:45; Stop 03/15/20 at 23:46; Status UNV ROHINI RAMOS MD Mar 15, 2020 23:43
[2020-03-15] MEDS ORDERED: CLONIDINE HCL 0.2 MG TAB PO ONE (23:45)
[2020-03-15] MEDS ORDERED: NITROGLYCERIN 2% OINT 1 GM PKT TOP ONE (23:45)
[2020-03-15] MEDS ORDERED: FAMOTIDINE 20 MG/2 ML VIAL IV ONE (23:45)
[2020-03-15] MEDS ORDERED: ACETAMINOPHEN 325 MG TAB PO ONE (23:45)
[2020-03-16] VITALS (8 sets, daily range): BP systolic 101–127; BP diastolic 66–86
[2020-03-16 00:21] LABS: BASOPHILS % 0.4 % (0.0-1.0); EOSINOPHILS # (AUTO) 0.1 (0.0-0.4); EOSINOPHILS % 1.2 % (0.0-6.0); HEMATOCRIT 43.3 % (34.2-44.1); LYMPHOCYTES # (AUTO) 2.8 (1.0-3.2); LYMPHOCYTES % 25.7 % (18.0-39.1); MEAN CORPUSCULAR HEMOGLOBIN 28.1 pg (28-32); MEAN CORPUSCULAR HGB CONC 32.3 g/dL (31-35); MEAN CORPUSCULAR VOLUME 86.9 fL (81-99); MONOCYTES # (AUTO) 1.1 (0.2-0.8); MONOCYTES % 9.7 % (4.4-11.3); NEUTROPHILS # (AUTO) 6.9 (2.1-6.9); NEUTROPHILS % 62.4 % (38.7-80.0); PLATELET COUNT 303 x10e3/uL (140-360); RED BLOOD COUNT 4.98 x10e6/uL (3.6-5.1); RED CELL DISTRIBUTION WIDTH 13.5 % (11.7-14.4)
[2020-03-16] MEDS ORDERED: CLONIDINE HCL 0.1 MG TAB ONE (00:31)
[2020-03-16] MEDS ORDERED: NITROGLYCERIN 2% OINT 1 GM PKT ONE (00:31)
--- NOTE | 2020-03-16 01:13 | Diagnostic Imaging Report ---
EXAMINATION: CXR 1 [facility] INDICATION: Left sided chest pain COMPARISON: Chest x-ray 03/22/2019 FINDINGS: TUBES and LINES: None. LUNGS: Low lung volumes with bibasilar haziness. PLEURA: No pleural effusion or pneumothorax. HEART AND MEDIASTINUM: The cardiomediastinal silhouette is unremarkable. BONES AND SOFT TISSUES: No acute osseous lesion. Soft tissues are unremarkable. UPPER ABDOMEN: No free air under the diaphragm. Cholecystectomy clips. IMPRESSION: Low lung volumes with bibasilar haziness likely due to atelectasis although pneumonia is possible. Signed by: Ag Sesay DO on 03/16/2020 1:10 AM
[2020-03-16] MEDS ORDERED: HYDROCODONE/APAP 5MG-325MG TAB PO ONE (01:30)
[2020-03-16] MEDS ORDERED: INSULIN REGULAR, HUMAN 100 UNIT/1 ML 3ML VIAL IV ONE (01:30)
[2020-03-16] MEDS ORDERED: ONDANSETRON HCL INJ 2MG/ML 2ML 2 MG/ML VIAL IV ONE (01:30)
[2020-03-16] MEDS ORDERED: HYDRALAZINE HCL 20 MG/ML VIAL IV PRN (01:45)
[2020-03-16] MEDS ORDERED: DEXTROSE 50% SYRINGE 50 ML IV PRN (01:45)
[2020-03-16] MEDS ORDERED: ASPIRIN 81 MG CHEW TAB PO ONE (01:45)
[2020-03-16] MEDS ORDERED: ACETAMINOPHEN 325 MG TAB PO PRN (01:45)
[2020-03-16] MEDS ORDERED: FAMOTIDINE 20 MG TAB PO SCH (01:45)
[2020-03-16] MEDS ORDERED: ZOLPIDEM TARTRATE 5 MG TAB PO PRN (01:45)
[2020-03-16] MEDS: METOPROLOL TARTRATE 25 MG TAB PO SCH ×2 (01:45→11:45)
--- NOTE | 2020-03-16 03:16 | NUR ---
CALLED [facility] FOR TRANSPORT ETA WOULD BE 1 1/2HRS.
--- NOTE | 2020-03-16 03:23 | NUR ---
CALLED [facility]. IN ROUTE FROM [facility] AT THIS TIME
--- NOTE | 2020-03-16 03:26 | NUR ---
CALLED TO GIVE REPORT. HARRY DUNCAN IN WITH A PT.
--- NOTE | 2020-03-16 03:44 | NUR ---
reported attempted to be called to me, but giving pt care, called RN back, he is NOW giving patient care left message to call me back at [phone]
--- NOTE | 2020-03-16 03:50 | NUR ---
REPORT TO HARRY DUNCAN FOR RM 186.. REPORT TO EMS
--- NOTE | 2020-03-16 03:51 | NUR ---
report received by NEDA Charles, patient pending arrival to the facility, EMS currently picking patient up now
--- NOTE | 2020-03-16 05:39 | NUR ---
PATIENT PLACED ON TELEMETRY BOX #17, ORIENTED TO ROOM AOX4, SKIN INTACT, PAIN LEVEL 6/10, PT REPORTS PAIN RECTUM AREA AND CHEST, NORCO GIVEN PRIOR TO ARRIVAL AT [facility], EDUCATED ON NEXT PAIN MED SCHEDULE, SHE IS OKAY WITH NEXT DUE TIME, RIGHT EJ DRESSING C/D/I, PATIENT ORIENTED TO STAFF, AND HOSPITAL VISITATION POLICIES, CALL LIGHT WITHIN REACH WILL CONTINUE TO MONITOR
[2020-03-16] MEDS: NITROGLYCERIN 2% OINT 1 GM PKT TOP SCH ×2 (06:08→11:45)
[2020-03-16] MEDS: DIPHENHYDRAMINE HCL INJ 50 MG/ML VIAL IV PRN ×3 (06:08→20:45)
[2020-03-16] MEDS: FAMOTIDINE 20 MG TAB PO SCH ×2 (07:52→20:22)
[2020-03-16] MEDS: VALSARTAN 160 MG TAB PO SCH (07:52)
[2020-03-16] MEDS: INSULIN REGULAR, HUMAN 100 UNIT/1 ML 3ML VIAL SQ SCH ×4 (08:01→20:31)
[2020-03-16 08:11] LABS: CREATINE KINASE MB 5.3 ng/mL (0-5.0)
--- NOTE | 2020-03-16 08:17 | NUR ---
GAVE PACKET OF INFORMATION WITH [facility] [employer] FOR ASSISTANCE WITH LOW TO NO INCOME TO PATIENT. RESOURCES THAT PATIENT MAY BE ABLE TO FOLLOW UP UPON DISCHARGE. PT EDUCATED ON EACH RESOURCE AND UNDERSTANDING HOW TO FOLLOW UP TO SEE IF QUALIFIED FOR EACH RESOURCE.
[2020-03-16] MEDS ORDERED: MORPHINE SULFATE INJ 4 MG/ML INJ 1ML IV PRN (09:00)
[2020-03-16] MEDS: MORPHINE SULFATE 2 MG/ML SYR 1ML IV PRN ×2 (09:18→19:12)
--- NOTE | 2020-03-16 09:53 | Progress Note ---
DATE: SUBJECTIVE: Mr. Blankenship remains in intensive Care Unit. OBJECTIVE: VITAL SIGNS: Vital stable, currently afebrile. HEENT: He is not icteric. NECK: Supple. CHEST: Clear. HEART: S1, S2. No murmurs. ABDOMEN: Soft. EXTREMITIES: There is erythema and edema in the left thigh. IMPRESSION: 1. Cellulitis, concern about infection. We will put on vancomycin, put him on cefepime. Vancomycin 1 g q.24 hours, cefepime 1 g q.24 hours. 2. We will follow. kidney function, chronic kidney disease, obesity. MD JUAN DAVID Goss/MODL /[id number]
--- NOTE | 2020-03-16 11:35 | Diagnostic Imaging Report ---
EXAM: CT Chest WITH contrast- Pulmonary Embolism Protocol INDICATION: Chest pain COMPARISON: Chest radiograph 03/16/2020 TECHNIQUE: Chest was scanned utilizing a multidetector helical scanner from the lung apex through the level of the diaphragm after administration of IV contrast. Thin section reconstructions were obtained with special concentration on the pulmonary arteries. Coronal and sagittal reformations were obtained. Pulmonary embolism protocol was performed. IV CONTRAST: 100 cc of Isovue 370 RADIATION DOSE: Total DLP: 448 mGy*cm Dose modulation, iterative reconstruction, and/or weight based adjustment of the mA/kV was utilized to reduce the radiation dose to as low as reasonably achievable. COMPLICATIONS: None FINDINGS: LINES/ TUBES: None. PULMONARY ARTERIES: No filling defect is identified within the pulmonary arteries to the segmental level. The subsegmental pulmonary arteries are not well opacified. Main pulmonary artery measures 2.8 cm in diameter. LUNGS AND AIRWAYS: The central airways are patent. No focal consolidation or pulmonary edema. Right and left lower lobe subsegmental atelectasis.. PLEURA: The pleural spaces are clear. HEART AND MEDIASTINUM: Incompletely visualized thyroid gland appears unremarkable. No supraclavicular, axillary, mediastinal, or hilar lymphadenopathy. The heart is not enlarged. No pericardial effusion. Aorta and great vessels appear unremarkable. UPPER ABDOMEN: No acute findings in the upper abdomen. BONES: The visualized bony thorax is within normal limits. SOFT TISSUES: Unremarkable. IMPRESSION: No pulmonary embolism. No focal pneumonia or pulmonary edema. Right and left lower lobe subsegmental atelectasis. Signed by: Dianna Faustin MD on 03/16/2020 11:31 AM
[2020-03-16] MEDS ORDERED: SODIUM CHLORIDE 0.9% 0 ML ONE (11:37)
[2020-03-16] MEDS ORDERED: IOPAMIDOL 370 MG/ML 200 ML INFUS..BTL INJ ONE (11:38)
[2020-03-16] MEDS ORDERED: SODIUM CHLORIDE 0.9% 50ML 50 ML ONE (11:40)
[2020-03-16] MEDS: HYDROCODONE/APAP 7.5MG-325MG 1 EA TAB PO PRN (11:45)
[2020-03-16] MEDS ORDERED: SODIUM CHLORIDE 0.9% 250ML 250 ML ONE (14:39)
--- NOTE | 2020-03-16 16:00 | Consultation ---
DATE OF CONSULTATION: Pulmonary Critical Care Consultation CHIEF COMPLAINT: Chest pain with inspiration. HISTORY OF PRESENT ILLNESS: The patient is a 44-year-old woman. She has a history of COVID diagnosed recently as an outpatient. The day prior to admission, she noticed some chest discomfort. The pain is worse with inspiration. She does not complain of fever or cough. She has not noted any dyspnea except with exertion. She came to the emergency department. Her chest CT showed no pulmonary embolism. There was some right and left lower lobe subsegmental atelectasis. She also had troponins that were negative. She was felt not to have a myocardial infarction. She has had some transient relief with morphine. PAST SURGICAL HISTORY: Status post appendectomy. PAST MEDICAL HISTORY: 1. Diabetes requiring insulin. 2. Prior history of pulmonary embolism in 2004. 3. History of a myocardial infarction in 2007. 4. No prior history of asthma. 5. No prior history of gastrointestinal problems. SOCIAL HISTORY: The patient is not a smoker. She is not a drinker. ALLERGIES: THE PATIENT IS ALLERGIC TO TORADOL, METOCLOPRAMIDE, ZOFRAN AND TRAMADOL. FAMILY HISTORY: Noncontributory. REVIEW OF SYSTEMS: The patient has no fever. She has no headache. She has no neck pain. She is not having any anterior chest pain. She does have some pain with inspiration. She has no cough and no dyspnea. She has no abdominal pain. She has no nausea or vomiting. She has no leg edema. PHYSICAL EXAMINATION: VITAL SIGNS: The patient is afebrile. The blood pressure is 137/74, saturation is 94% and the pulse is 96. HEENT: Shows no facial swelling or erythema. CARDIAC: Reveals a regular rate and rhythm with normal S1 and S2. LUNGS: Auscultation of lungs shows decreased breath sounds at the bases. There is no wheezing. ABDOMEN: Soft and nontender. There is no rebound or guarding. EXTREMITIES: Shows no leg edema or calf tenderness. There is no cyanosis or clubbing. SKIN: Shows no rashes. LABORATORY DATA: White blood cell count is 10.99, hemoglobin is 14 and platelet count is 303. The BUN to creatinine ratio is normal. The sodium is 135 and the glucose is 402. Troponin I's are normal. RADIOGRAPHIC DATA: Chest CT shows no pulmonary embolism. There is some bibasilar atelectasis. IMPRESSION: 1. COVID-19 infection. 2. Pleuritic chest pain, possibly related to pleurisy or pericarditis from the COVID-19 infection. 3. Diabetes, out of control. 4. Prior coronary artery disease. 5. History of pulmonary embolism. PLAN: 1. EKG and echocardiogram to rule out pericarditis. 2. Nonsteroidal anti-inflammatory medications for inflammation. 3. Lovenox twice daily. 4. P.r.n. [place] for pain. 5. Continue to monitor and control blood sugars. MD RUDY Lugo/MODL /[id number]
[2020-03-16 16:13] LABS: CREATINE KINASE MB 5.8 ng/mL (0-5.0)
--- NOTE | 2020-03-16 19:30 | NUR ---
shift report received from [facility], patient awake alert,lying in bed on right side patient requesting, "itching medication and pain medication", PRN morphine given via IV access on right lower forearm, site intact dressing C/D/I, advised patient that benadryl order was cancelled, MD Hortencia EAST pageskinny POWERS covering, awaiting call back, pt call light within reach, pt update on status of benadryl she is requesting
--- OUTSIDE RECORDS SUMMARY | 2020-03-16 21:02 | XMS REPORT | Clinical Summary ---
Author Author [facility] Organization [facility] Address Unknown Phone Unavailable Care Team Providers Care Financial Systems Director Name Role Phone PCP Unavailable Allergies Comments Active Allergy Reactions Severity Noted Date Metoclopramide Hcl Rash 12/17/2018 Ketorolac 12/17/2018 Tramadol Rash 12/17/2018 Ondansetron Hcl Rash 12/17/2018 Medications Not on file Active Problems Not on file Social History Date Tobacco Use Types Packs/Day Years Used Never Assessed Sex Assigned at Date Recorded Not on file Industry Job Start Date Occupation Not on file Not on file Not on file Travel End Travel History Travel Start No recent travel history available. Last Filed Vital Signs Not on file Plan of Treatment Health Maintenance Due Date Last Done Comments Cervical Cancer Scrn (3 1998 Yrs) Breast Cancer Scrn 2017 (Yearly) IMM Influenza Seasonal 05/17/2020 Oct to October (>/= 19 yrs) Results Not on fileafter 03/16/2019 Insurance Type Payer Benefit Subscriber ID Effective Phone Address Plan / Dates Group [facility] SELF-PAY SELF-PAY xxxxxxx 2018-6 [phone] [place] [address]
--- OUTSIDE RECORDS SUMMARY | 2020-03-16 21:02 | XMS REPORT | Clinical Summary ---
Author Author MIKAYLA [facility] [place] Address Unknown Phone Unavailable Care Team Providers Care Drawer In Name Role Phone Sharpless PCP Allergies Comments Active Allergy Reactions Severity Noted Date Hydrocodone-Acetaminophen Rash Medium 06/17 Metoclopramide Hcl Hives 04/23/2016 Tramadol Hives 04/23/2016 Ondansetron Hcl (Pf) Hives 04/23/2016 Medications End Date Status Medication Sig Dispensed Refills Start Date Active insulin 70/30, insulin Inject 40 0 NPH-insulin regular, Units (HUMULIN 70/30) 100 subcutaneousl unit/mL (70-30) InPn y daily as insulin pen needed (in the evening). Active aspirin 81 MG EC tablet Take 1 tablet 30 tablet 0 (81 mg total) 9 by mouth daily. Active insulin 70/30, insulin Inject 40 15 mL 0 NPH-insulin regular, Units 9 (HUMULIN 70/30) 100 subcutaneousl unit/mL (70-30) InPn y daily. insulin pen Active lisinopril Take 1 tablet 30 tablet 0 (PRINIVIL,ZESTRIL) 40 MG (40 mg total) 9 tablet by mouth daily. Active metFORMIN (GLUCOPHAGE) Take 1 tablet 60 tablet 0 1 1000 MG tablet (1,000 mg 9 total) by mouth 2 (two) times daily with breakfast and dinner. 05/31/2020 Active atorvastatin (LIPITOR) 40 Take 1 tablet 30 tablet 0 MG tablet (40 mg total) 9 by mouth nightly. Active needles, insulin 1 each by 1 box 0 disposable (INSULIN PEN Miscellaneous 9 NEEDLES) Ndle route 2 (two) times daily. 06/01/2019 Discontinued metFORMIN (GLUCOPHAGE) Take 1,000 mg 0 1000 MG tablet by mouth 2 (two) times daily with breakfast and dinner. 06/01/2019 Discontinued lisinopril Take 40 mg by 0 (PRINIVIL,ZESTRIL) 40 MG mouth daily. tablet 06/01/2019 Discontinued aspirin 81 MG EC tablet Take 81 mg by 0 mouth daily. 06/01/2019 Discontinued insulin 70/30, insulin Inject 40 0 NPH-insulin regular, Units (HUMULIN 70/30) 100 subcutaneousl unit/mL (70-30) InPn y daily. insulin pen 06/04/2019 ciprofloxacin HCl (CIPRO) Take 1 tablet 6 tablet 0 250 MG tablet (250 mg 9 total) by mouth 2 (two) times daily for 3 days. Active Problems Problem Noted Date Pyuria 05/31/2019 Chest pain 05/31/2019 Acute chest pain 07/03/2016 Uncontrolled type 2 diabetes mellitus with complicati on 07/03/2016 Essential hypertension 07/03/2016 History of pulmonary embolus (PE) 07/03/2016 Encounters Care Team Description Date Type Specialty Taylor Villalobos NP 06/03/2019 Telephone Cardiology 06/01/2019 Orders Only General Internal Me jr Triana, MD Joshua Dowd Kimberly Ann, MD Acute chest pain; Essential hypertension; History of pulmonary embolus (PE); Pyuria; Uncontrolled type 2 diabetes mellitus with complication (HCC) 05/31/2019 Hospital Cardiology - Encounter 06/01/2019 Jenn Jimenez MD 05/31/2019 Documentation Internal Medicine after 03/16/2019 Family History Medical History Relation Name Comments [...] Vital Signs Time Taken Vital Sign Reading 06/01/2019 8:08 AM CDT Blood Pressure 111/56 06/01/2019 8:08 AM CDT Pulse 87 06/01/2019 8:08 AM CDT Temperature 36.1 C (97 F) 06/01/2019 8:08 AM CDT Respiratory Rate 18 06/01/2019 8:08 AM CDT Oxygen Saturation 94% - Inhaled Oxygen - Concentration 06/01/2019 4:09 AM CDT Weight 86.7 kg (191 lb 3.2 oz) 06/01/2019 4:09 AM CDT Height 154.9 cm (5' 1") 06/01/2019 4:09 AM CDT Body Mass Index 36.13 Plan of Treatment Health Maintenance Due Date Last Done Comments PNEUMOCOCCAL VACCINE 2-64 10/24/1983 YEARS AT RISK (1 of 1 - PPSV23) DIABETIC EYE EXAM 10/24/1987 DIABETIC FOOT EXAM 10/24/1987 URINE MICROALBUMIN 10/24/1987 CERVICAL CANCER SCREENING 1998 PAP ONLY (Age 21-65) HEMOGLOBIN A1C 09/01/2019 06/01/2019, 016 INFLUENZA VACCINE (#1) 2020 Procedures Comments Procedure Name Priority Date/Time Associated Diag nosis RHYTHM STRIP - SCAN 06/06/2019 10:23 AM CDT REPORT OF PROCEDURE - 06/02/2019 ENDOSCOPY SCAN 1:31 PM CDT POCT-GLUCOSE METER Routine 06/01/2019 8:11 AM CDT ECG 12-LEAD Routine 06/01/2019 6:02 AM CDT ECG 12-LEAD Routine 06/01/2019 6:00 AM CDT URINALYSIS W/ REFLEX Routine 06/01/2019 URINE CULTURE 4:10 AM CDT CBC W/PLT COUNT & AUTO Routine 06/01/2019 DIFFERENTIAL 4:03 AM CDT CBC W/PLT COUNT & AUTO Routine 06/01/2019 DIFFERENTIAL 4:03 AM CDT MAGNESIUM Routine 06/01/2019 4:03 AM CDT BASIC METABOLIC PANEL (7) Routine 06/01/2019 4:03 AM CDT TROPONIN I Routine 06/01/2019 4:03 AM CDT POCT-GLUCOSE METER Routine 06/01/2019 1:07 AM CDT PROCALCITONIN Routine 06/01/2019 12:15 AM CDT HEMOGLOBIN A1C Routine 06/01/2019 12:15 AM CDT LIPID PANEL Routine 06/01/2019 12:15 AM CDT BASIC METABOLIC PANEL (7) Routine 06/01/2019 12:15 AM CDT TROPONIN I Routine 06/01/2019 12:15 AM CDT after 03/16/2019 Results * RHYTHM STRIP - SCAN (06/06/2019 10:23 AM CDT) Narrative Performed At This result has an attachment that is n ot available. * EKG-SCANNED (06/02/2019 1:31 PM CDT) Narrative Performed At This result has an attachment that is n ot available. * POC-Glucose meter (06/01/2019 8:11 AM CDT) Only the most recent of 2 results within the time period is included. POC-Glucose Meter 271 (H)Comment: TESTED AT 70 - 110 mg/dL C HI [facility] [address] [facility] [id number] Specimen Blood Performing Organization Address City/State[facility] Ph one Number [facility] [address] [address] [facility] * EKG 12-LEAD (06/01/2019 6:02 AM CDT) Only the most recent of 2 results within the time period is included. Specimen Narrative Performed At Ventricular Rate 90 BPM GE MUSE Atrial Rate 90 BPM P-R Interval 128 ms QRS Duration 90 ms Q-T Interval 370 ms QTC Calculation(Bazett) 452 ms P [place] 23 degrees R [place] 51 degrees T [place] 37 degrees Normal sinus rhythm Normal ECG When compared with ECG of 01-JUN-2019 0 6:00, No significant change was found Confirmed by MD ROSEANNE, MARY ([id number]) on 06/04/2019 12:13:45 PM Procedure Note Interface, External Ris In - 06/04/2019 12:13 PM CDT Ventricular Rate 90 BPM Atrial Rate 90 BPM P-R Interval 128 ms QRS Duration 90 ms Q-T Interval 370 ms QTC Calculation(Bazett) 452 ms P [place] 23 degrees R [place] 51 degrees T [place] 37 degrees Normal sinus rhythm Normal ECG When compared with ECG of 01-JUN-2019 06:00, No significant change was found Confirmed by MD CRONIN MAJID ([id number]) on 06/04/2019 12:13:45 PM Performing Organization Address [facility] Ph one Number GE MUSE * Urinalysis w/Microscopic + Reflex to Culture (06/01/2019 4:10 AM CDT) Color, UA Light Yellow [facility] Clarity, UA Clear [facility] Specific [place], UA 1.037 (H) 1.001 - 1.035 [facility] pH, UA 6.0 5.0 - 8.0 [facility] Protein, UA Negative Negative [facility] Glucose, UA >1000 mg/dL (A) Negative [facility] Ketones, UA Negative Negative [facility] Bilirubin, UA Negative Negative [facility] Blood, UA Negative Negative [facility] Nitrite, UA Negative Negative [facility] Leukocytes, UA Large (A) Negative [facility] Urobilinogen, UA 0.2 0.2 - 1.0 mg/dL [facility] RBC, UA 2 /HPF [facility] WBC, UA 7 /HPF [facility] Bacteria, UA Rare [facility] Squam Epithel, UA 2 /HPF [facility] Specimen Source [facility] Specimen Urine Performing Organization Address City/State/Zipcode Ph one Number [facility] [address] [facility] [place], [place] [address] [facility] * CBC with platelet count + automated diff (06/01/2019 4:03 AM CDT) WBC 10.7 (H) 3.5 - 10.5 K/L [facility] RBC 4.34 3.93 - 5.22 M/L [facility] Hemoglobin 12.7 11.2 - 15.7 GM/DL [facility] Hematocrit 39.5 34.1 - 44.9 % [facility] MCV 91.0 79.4 - 94.8 fL [facility] MCH 29.3 25.6 - 32.2 pg [facility] MCHC 32.2 32.2 - 35.5 GM/DL [facility] RDW 13.0 11.7 - 14.4 % [facility] Platelets 237 150 - 450 K/CU MM [facility] MPV 10.8 9.4 - 12.3 fL [facility] nRBC 0 0 - 0 /100 WBC [facility] % Neutros 61 % [facility] % Lymphs 29 % [facility] % Monos 8 % [facility] % Eos 2 % [facility] % Baso 0 % [facility] # Neutros 6.47 (H) 1.56 - 6.13 K/L [facility] # Lymphs 3.10 1.18 - 3.74 K/L [facility] # Monos 0.86 (H) 0.24 - 0.36 K/L [facility] # Eos 0.20 0.04 - 0.36 K/L [facility] # Baso 0.03 0.01 - 0.08 K/L [facility] Immature 0 0 - 1 % [facility] Granulocytes-Relative [facility] Specimen Blood Performing Organization Address [facility] Ph one Number [address] [facility] * Troponin I (06/01/2019 4:03 AM CDT) Only the most recent of 2 results within the time period is included. Troponin I <0.01 0.00 - 0.03 ng/mL [facility] Specimen Blood Narrative Performed At Troponin I (TnI) levels must be interpreted in the co ntext of the presenting [facility] symptoms and the clinical findings. Elevated TnI leve ls indicate myocardial [facility] damage, but are not specific for ischem ic heart disease. Elevated TnI levels are seen in patients with other cardiac con ditions (including myocarditis and congestive heart failure), and slight T nI elevations occur in patients with other conditions, including sepsis, javier al failure, acidosis, acute neurological disease, and persistent tachyarrhythmia . Performing Organization Address [facility] one Number [place] [address] [facility] * Magnesium (06/01/2019 4:03 AM CDT) Magnesium 1.9 1.6 - 2.6 mg/dL [facility] Specimen Blood Performing Organization Address [facility] one Number [address] [facility] * Basic metabolic panel (06/01/2019 4:03 AM CDT) Only the most recent of 2 results within the time period is included. Sodium 134 (L) 136 - 145 meq/L [facility] Potassium 4.3 3.5 - 5.1 meq/L [facility] Chloride 101 98 - 107 meq/L [facility] CO2 27 22 - 29 meq/L [facility] BUN 13 7 - 21 mg/dL [facility] Creatinine 0.64 0.57 - 1.25 mg/dL [facility] Glucose 318 (H) 70 - 105 mg/dL [facility] Calcium 9.0 8.4 - 10.2 mg/dL [facility] EGFR 102Comment: ESTIMATED GFR IS mL/min/1.73 sq m [facility] NOT ACCURATE CREATININE [facility] CLEARANCE IN PREDICTING GLOMERULAR FILTRATION RATE. ESTIMATED GFR IS NOT APPLICABLE FOR DIALYSIS PATIENTS. Specimen Blood Performing Organization Address [facility] one Number [address] [facility] * Procalcitonin (06/01/2019 12:15 AM CDT) Procalcitonin <0.05 <0.05 ng/mL [facility] Specimen Blood Narrative Performed At SEPSIS RISK (ng/mL) [facility] Low:0.05-0.50 [facility] Intermediate: 0.51-2.00 High: >=2.01 Performing Organization Address [facility] one Number [address] [facility] * Hemoglobin A1c (06/01/2019 12:15 AM CDT) Hemoglobin A1C 10.3 (H) 4.3 - 6.1 % [facility] Specimen Blood Performing Organization Address [facility] one Number [address] [facility] * Lipid panel (06/01/2019 12:15 AM CDT) Triglycerides 218 mg/dL [facility] Cholesterol 232 mg/dL [facility] HDL 31 mg/dL [facility] LDL Calculated 157 mg/dL [facility] Specimen Blood Narrative Performed At Triglyceride Reference Range: [facility] Low Risk <150 [facility] [id number] High Risk 200-499 Very High Risk>=500 Cholesterol Reference Range: Low Risk <200 [id number] High Risk>240 HDL Cholesterol Reference Range: Low Risk >=60 High Risk <40 LDL Cholesterol Reference Range: Optimal<100 Near [id number] Very High >=190 Performing Organization Address City/State/Zipcode Ph one Number [address] [facility] after 03/16/2019 Advance Directives For more information, please contact: [address] [address] Date Inactivated Comments Code Status Date Activated 06/01/2019 3:39 PM Full Code 05/31/2019 11:19 PM This code status was determined by: Patient 07/04/2016 8:07 PM Full Code 07/03/2016 5:25 PM This code status was determined by: Patient
--- OUTSIDE RECORDS SUMMARY | 2020-03-16 21:02 | XMS REPORT | Clinical Summary ---
Author Author [facility] Organization [facility] Address Unknown Phone Unavailable Care Team Providers Care Computer Hardware Designer Name Role Phone Asked, No Pcp PCP Unavailable Allergies Comments Active Allergy Reactions Severity Noted Date Metoclopramide Hcl 09/27/2018 Ketorolac 09/27/2018 Tramadol 09/27/2018 Ondansetron Hcl 09/27/2018 Medications No known medications Active Problems Not on file Encounters Care Team Description Date Type Specialty Polo Coreas MD Atypical chest pain (Primary Dx); Hyperglycemia 04/22/2019 Emergency Emergency Medicine - 04/23/2019 after 03/16/2019 Social History Date Tobacco Use Types Packs/Day Years Used Never Smoker Smokeless Tobacco: Never Used Drinks/Week oz/Week Comments Alcohol Use No Alcohol Habits Answer Date Recorded How often do you have a drink containing alcohol? Never 12/14/2018 How many drinks containing alcohol do you have on No t asked a typical day when you are [...] Signs Reading Time Taken Comments Vital Sign 188/105 04/23/2019 2:12 AM CDT Blood Pressure 102 04/23/2019 2:12 AM CDT Pulse 36.8 C (98.3 F) 04/22/2019 11:45 PM CDT Temperature 16 04/22/2019 11:45 PM CDT Respiratory Rate 95% 04/23/2019 2:12 AM CDT Oxygen Saturation - - Inhaled Oxygen Concentration - - Weight 154.9 cm (5' 1") 04/22/2019 11:43 PM CDT Height - - Body Mass Index Plan of Treatment Health Maintenance Due Date Last Done Comments DIABETIC RETINAL EYE EXAM 1977 DIABETIC FOOT EXAM 10/24/1987 URINE MICROALBUMIN 10/24/1987 CERVICAL CANCER SCREENING 1998 INFLUENZA VACCINE 03/17/2020 Procedures Comments Procedure Name Priority Date/Time Associated Diag nosis POC GLUCOSE Routine 04/23/2019 2:[address] HEAD WO CONTRAST STAT 04/23/2019 1:30 AM CDT ECG ED PRELIMINARY Routine 04/23/2019 INTERPRETATION 12:55 AM CDT SC CRITICAL CARE, E/M Routine 04/23/2019 30-74 MINUTES 12:55 AM CDT ESTIMATED GFR STAT 04/22/2019 11:44 PM CDT B NATRIURETIC PEPTIDE STAT 04/22/2019 11:44 PM CDT TROPONIN STAT 04/22/2019 11:44 PM CDT COMPREHENSIVE METABOLIC STAT 04/22/2019 PANEL 11:44 PM CDT HC COMPLETE BLD COUNT STAT 04/22/2019 W/AUTO DIFF 11:44 PM CDT ECG 12-LEAD STAT 04/22/2019 11:32 PM CDT after 03/16/2019 Results * POC glucose (04/23/2019 2:13 AM CDT) POC glucose 280 (H) 65 - 99 mg/dL [facility] Comment: MYA [facility] Notified [facility] Meter ID: [id number] Customer Experience Consultant: Denice Sands Specimen Performing Organization Address City/State/Zipcode Ph one Number [place] [place] [address] [address] [place] [id number] PATHOLOGY AND GENOMIC MEDICINE [place] [address] [address] [place] [address] [address] * CT Head Wo Contrast (04/23/2019 1:30 AM CDT) Specimen Narrative Performed At EXAMINATION: CT HEAD WO CONTRAST [facility] CLINICAL HISTORY: headache COMPARISON: 07/02/2011. TECHNIQUE: Noncontrast enhanced images of the brain were obtained from the skull base to the vertex. Both soft tissue an d bone reconstruction algorithms were performed. CT scans are performed using radiation dose reduction techniques (iterative reconstruction and/or automated exposur e control). Technical factors are evaluated and adjusted to ensure approp riate moderation of exposure. Automated dose management technology is applied to adjust radiation exposure while achieving a diagnostic quality image. FINDINGS: The brain parenchyma is unremarkable. T he [place]-white matter differentiation is preserved. No evidence of acute intra o r extra-axial hemorrhage, mass, mass effect or acute territorial infarction. There is no acute hydrocephalus. Basal cisterns are patent. No acute soft tissue hematoma or lacera tion. No skull fractures or aggressive bony lesions. Paranasal sinuses and mastoid air cells are clear. Orbits are normal. IMPRESSION: No acute intracranial abnormality ident ified. [facility]-[id number] Procedure Note Interface, Radiology Results Incoming - 04/23/2019 1:36 AM CDT EXAMINATION: CT HEAD WO CONTRAST CLINICAL HISTORY: headache COMPARISON: 07/02/2011. TECHNIQUE: Noncontrast enhanced images of the brain were obtained from the skull base to the vertex. Both soft tissue and bone reconstruction algorithms were performed. CT scans are performed using radiation dose reduction techniques (iterative reconstruction and/or automated exposure control). Technical factors are evaluated and adjusted to ensure appropriate moderation of exposure. Automated dose management technology is applied to adjust radiation exposure while achieving a diagnostic quality image. FINDINGS: The brain parenchyma is unremarkable. The [place]-white matter differentiation is preserved. No evidence of acute intra or extra-axial hemorrhage, mass, mass effect or acute territorial infarction. There is no acute hydrocephalus. Basal cisterns are patent. No acute soft tissue hematoma or laceration. No skull fractures or aggressive bony lesions. Paranasal sinuses and mastoid air cells are clear. Orbits are normal. IMPRESSION: No acute intracranial abnormality identified. [facility]-[id number] Performing Organization Address City/State/Zipcode Ph one Number [facility] [address] [place] [address] * ECG ED Preliminary Interpretation - Not an Order (04/23/2019 12:55 AM CDT) Narrative Performed At Polo Coreas MD 04/23/2019 12:58 PM ECG ED Preliminary Interpretation - Not an Order Performed by: Polo Coreas MD Authorized by: Polo Coreas MD ECG reviewed by ED Physician in the abs ence of a general neurologist: yes Previous ECG: Previous ECG: Unavailable Interpretation: Interpretation: abnormal Rate: ECG rate: 103 bpm ECG rate assessment: tachycardic Rhythm: Rhythm: sinus tachycardia QRS: QRS axis: Normal QRS intervals: Normal (98 ms) Conduction: Conduction: abnormal Abnormal conduction: incomplete RBBB ST segments: ST segments: Normal T waves: T waves: normal Other findings: Other findings comment: Left axis d eviations Comments: SC 126 ms QT/QTc 364/476 ms * CRITICAL CARE (04/23/2019 12:55 AM CDT) Narrative Performed At Polo Coreas MD 04/23/2019 12:58 PM Critical Care Performed by: Polo Coreas MD Authorized by: Polo Coreas MD Critical care provider statement: Critical care time (minutes): 35 Critical care time was exclusive of: Separately billable procedures and treating other patients Critical care was necessary to treat or prevent imminent or life-threatening deterioration of the f ollowing conditions: Cardiac failure and PLASTIC SURGERY SPECIALIST failure or compromise Critical care was time spent personal ly by me on the following activities: Development of treatment plan with patient or surrogate, ordering and review of laboratory studi es, ordering and review of radiographic studies, discussions with consultants, discussions with primary provider, pulse oximetry, re-ev aluation of patient's condition, evaluation of patient's response to moise atment, examination of patient and review of old charts * Estimated GFR (04/22/2019 11:44 PM CDT) [facility] Estimated GFR >=90 mL/min/1.73 m2 [facility] Comment: [facility] Interpretation G1 >=90 Normal or high G2 60-89 Mildly decreased G3a 45-59 Mildly to moderately decreased G3b 30-44 Moderately to severely decreased G4 15-29 Severely decreased G5 <15 Kidney failure The eGFR was calculated using the Chronic Kidney Disease Epidemiology Collaboration (CKD-EPI) equation. Interpretation is based on recommendations of the National Kidney Foundation-Kidney Disease Outcomes Quality Initiative (NKF-KDOQI) published in 2014. Specimen Plasma specimen Performing Organization Address City/State/Zipcode [place] [address] [place] [address] PATHOLOGY AND GENOMIC MEDICINE [facility] [address] [address] [place] [address] [facility] * Troponin (04/22/2019 11:44 PM CDT) Pathologist [facility] Troponin <0.006 0.000 - 0.040 ng/mL [facility] Comment: [facility] changed methodology effective: 12/21/2018 at 10:00 am The new method has a 99th percentile cutoff of 0.040 ng/mL Specimen Plasma specimen Performing Organization Address City/[facility] [place] Ph one Number [place] [place] [address] [address] [facility] [place] [address] PATHOLOGY AND GENOMIC MEDICINE [address] * CBC with platelet and differential (04/22/2019 11:44 PM CDT) [facility] WBC 10.41 4.50 - 11.00 k/uL [facility] RBC 4.59 4.20 - 5.50 m/uL [facility] HGB 13.4 12.0 - 16.0 g/dL [facility] HCT 41.5 37.0 - 47.0 % [facility] MCV 90.4 82.0 - 100.0 fL [facility] MCH 29.2 27.0 - 34.0 pg [facility] MCHC 32.3 31.0 - 37.0 g/dL [facility] RDW - SD 43.7 37.0 - 55.0 fL [facility] MPV 11.3 8.8 - 13.2 fL [facility] Platelet count 262 150 - 400 k/uL [facility] Neutrophils 61.9 39.0 - 69.0 % [facility] Lymphocytes 27.7 25.0 - 45.0 % [facility] Monocytes 7.7 0.0 - 10.0 % [facility] Eosinophils 1.8 0.0 - 5.0 % [facility] Basophils 0.4 0.0 - 1.0 % [facility] Immature 0.5 0.0 - 1.0 % [facility] granulocytes [facility] Specimen Blood Performing Organization Address City/[facility] [place] Ph one Number [facility] [place] [id number] [address]is. [place] [phone] PATHOLOGY AND GENOMIC MEDICINE [facility] [id number] [place] [address] * B natriuretic peptide (04/22/2019 11:44 PM CDT) [facility] BNP 7 0 - 100 pg/mL [facility] Specimen Blood Performing Organization Address City/State/Zipcode [place] [address] [place] [address] PATHOLOGY AND GENOMIC MEDICINE [facility] [address] [address] [place] [phone] H[facility] * Comprehensive metabolic panel (04/22/2019 11:44 PM CDT) Sodium 136 135 - 148 mEq/L [facility] Potassium 4.5 3.5 - 5.0 mEq/L [facility] Chloride 96 (L) 99 - 109 mEq/L [facility] CO2 27 24 - 31 mEq/L [facility] Anion gap 13@ANIO 7 - 15 mEq/L [facility] BUN 11 8 - 24 mg/dL [facility] Creatinine 0.45 (L) 0.50 - 0.90 mg/dL [facility] Glucose 476 (HH) 65 - 99 mg/dL [facility] Comment: [facility] GLU results called to and read HOSPITAL back by PHILIPPE SANDS RN/[facility] at 04/23/2019 00:35 by AP. Calcium 9.2 8.6 - 10.6 mg/dL [facility] Protein 7.0 6.3 - 8.2 g/dL [facility] Albumin 3.1 (L) 3.5 - 5.0 g/dL [facility] A/G ratio 0.8 0.7 - 3.8 [facility] Alkaline 114 30 - 115 U/L [facility] phosphatase [facility] AST 42 15 - 46 U/L [facility] ALT 45 10 - 55 U/L [facility] Total bilirubin <0.3 0.2 - 1.2 mg/dL [facility] Specimen Plasma specimen Performing Organization Address City/State/Zipcode [place] [address] [place] [address] PATHOLOGY AND GENOMIC MEDICINE [facility] [address] [address] [place] [phone] [facility] * ECG 12 lead (04/22/2019 11:32 PM CDT) Ventricular 103 [facility] rate Atrial rate 103 [facility] SC interval 126 [facility] QRSD interval 98 [facility] QT interval 364 [facility] QTC interval 476 [facility] P axis 1 33 [facility] QRS axis 1 -35 [facility] MUSE T wave axis 45 [facility] MUSE EKG impression Sinus tachycardia-Left axis [facility] MUSE deviation-Incomplete right bundle branch block-Abnormal ECG-In automated comparison with ECG of 14-DEC-2018 15:52,-No significant change was found- Specimen Narrative Performed At This result has an attachment that is n ot available. Performing Organization Address City/State/Zipcode Ph one Number [facility] MUSE [address] [place] [address] after 03/16/2019 Advance Directives For more information, please contact: [phone] Patient Collection Systems Technician Explanation Type Date Recorded Advance Directives, 04/23/2019 1:13 AM Living Will and Medical Power of [employer] Social Worker Advance Directives, 09/28/2018 12:17 AM Living Will and Medical Power of Elementary School Social Worker
--- OUTSIDE RECORDS SUMMARY | 2020-03-16 21:03 | XMS REPORT | Continuity of Care Document ---
Author Author [facility] t Organization [facility] Address [address] [place] [address] Phone Unavailable Care Team Providers Care Roller Stainer Name Role Phone NO, PCP PCP Unavailable EAST, SOUHEIL Attphys Unavailable Wilfredo BULLOCK, Taylor Attphys Jesus Triana MD, Vipul Barajas Attphys [phone] Joshua MENSAH, Lien Coffey Attphys VIPUL JIMENEZ Attphys Unavailable Farrukh PARADAA Attphys Unavailable Joss MENSAH, Claire Cuellar Attphys Jak WALLS AMBICA Attphys Unavailable RASSOLI, AMIR Attphys Unavailable SHAMSEE, SHAHZAD-MARY Attphys Unavailable BADAR, SANJIV Attphys Unavailable EAST, SOUHEIL Admphys Unavailable VIPUL JIMENEZ JENN Admphys Unavailable RASSOLI, AMIR Admphys Unavailable SHAMSEE, SHAHZAD-MARY Admphys Unavailable BADAR, SANJIV Admphys Unavailable Payers Payer Name Policy Type Policy Number Effective Date Expiration Date S ource Self Pay NA [facility] [employer] [id number] 2018 00:00:00 [facility] Problems Condition Name Condition Details Condition Category Status Onset Date Resolution Date Last Treatment Date Treating Clinician Comments Source Pyuria Pyuria Disease Active 2019-05-31 00:00:00 [facility] Chest pain Chest pain Disease Active 2019-05-31 00:00:00 [facility] Acute chest pain Acute chest pain Disease Active 2016-07-03 00:00:00 [facility] Uncontrolled type 2 diabetes mellitus with complicatio n Uncontrolled type 2 diabetes mellitus with complication Disease Active 2016-07-03 00:00:00 [facility] Essential hypertension Essential hypertension Disease Active 2016-07-03 00:00:00 [facility] History of pulmonary embolus (PE) History of pulmonary embolus ( PE) Disease Active 2016-07-03 00:00:00 [facility] Allergies, Adverse Reactions, Alerts Allergy Name Allergy Type Status Severity Reaction(s) Onset Date Inacti ve Date Treating Clinician Comments Source Metoclopramide Hcl Propensity to adverse reactions to drug Active Rash 2018-12-17 00:00:00 [facility] Ketorolac Propensity to adverse reactions to drug Active 2018-12-17 00:00:00 [facility] Tramadol Propensity to adverse reactions to drug Active Rash 2018-12-17 00:00:00 [facility] Ondansetron Hcl Propensity to adverse reactions to drug Active Rash 2018-12-17 00:00:00 [facility] Metoclopramide Hcl Propensity to adverse reactions to drug Active 2018-09-27 00:00:00 Re[facility] Rameyis t Ketorolac Propensity to adverse reactions to drug Active 2018-09-27 00:00:00 Rebel Lambert t Tramadol Propensity to adverse reactions to drug Active 2018-09-27 00:00:00 Rebel Sheppard Ondansetron Hcl Propensity to adverse reactions to drug Active 2018-09-27 00:00:00 Rebel Rameyis t tramadol DA Active SV 2018-08-13 00:00:00 [facility] metoclopramide DA Active U 2018-08-12 00:00:00 [facility] ondansetron DA Active U 2018-08-12 00:00:00 [facility] ketorolac DA Active U 2018-08-12 00:00:00 [facility] Tramadol Allergy to Substance Active Moderate ITCH 2018-05-08 00:00:00 [facility] Metoclopramide Allergy to Substance Active Moderate ITCH 2018-05-08 00:00:00 [facility] Ondansetron Allergy to Substance Active Moderate ITCH 2018-05-08 00:00: 00 [facility] Ketorolac Allergy to Substance Active Moderate ITCH 2018-05-08 00:00:00 [facility] metoclopramide DA Active U 2017-03-27 00:00:00 [facility] ondansetron DA Active U 2017-03-27 00:00:00 [facility] ketorolac DA Active U 2017-03-27 00:00:00 [facility] Hydrocodone-Acetaminophen Drug Allergy Active Rash 2016-07-03 00 :00:00 [facility] Metoclopramide Hcl Drug Allergy Active Hives 2016-04-23 00:00:00 [facility] Tramadol Drug Allergy Active Hives 2016-04-23 00:00:00 [facility] Ondansetron Hcl (Pf) Drug Allergy Active Hives 2016-04-23 00:00:0 0 [facility] Reglan Allergy to substance Active Hives [facility] Zofran Allergy to substance Active Hives [facility] Family History Family Member Diagnosis Comments Start Date Stop Date Source Natural brother Diabetes [facility] Natural father Diabetes [facility] Natural sister Diabetes [facility] Social History Social Habit Start Date Stop Date Quantity Comments Source History SDOH Alcohol Std Drinks [facility] History SDOH Alcohol Binge [facility] Sex Assigned At [facility] Alcohol intake 2019-04-22 00:00:00 2019-04-22 00:00:00 Current non-drinker of alcohol (finding) [facility] History SDOH Alcohol Frequency 2018-12-14 00:00:00 2018-12-14 00:00:0 0 1 [facility] Smoking Status Start Date Stop Date Source Former smoker 2019-05-31 00:00:00 2019-05-31 00:00:00 [facility] Never smoker [facility] quach Medications Ordered Medication Name Filled Medication Name Start Date Stop Da te Current Medication? Ordering Clinician Indication Dosage Frequency Signature (SIG) Comments Components Source metFORMIN (GLUCOPHAGE) 1000 MG tablet 2019-06-01 10:30 :52 2019-06-01 00:00:00 No 1000mg Take 1,000 mg b y mouth 2 (two) times daily with breakfast and dinner. [facility] lisinopril (PRINIVIL,ZESTRIL) 40 MG tablet 06-01 10:30:52 2019-06-01 00:00:00 No 40mg QD Take 40 mg by mouth daily. [facility] aspirin 81 MG EC tablet 2019-06-01 10:30:52 2019-06-01 00:00:00 No 81mg QD Take 81 mg by mouth daily. [facility] insulin 70/30, insulin NPH-insulin regul ar, (HUMULIN 70/30) 100 unit/mL (70-30) In insulin pen 2019-06-01 10:30:52 2019-06-01 00:00:00 No 40U QD Inject 40 Units subcutaneously daily. [facility] insulin 70/30, insulin NPH-insulin regul ar, (HUMULIN 70/30) 100 unit/mL (70-30) In insulin pen 2019-06-01 04:09:20 Yes 40U Inject 40 Units subcutaneously daily as needed (in the evening). [facility] aspirin 81 MG EC tablet 2019-06-01 00:00:00 Yes 81mg QD Take 1 tablet (81 mg total) by mouth daily. [facility] insulin 70/30, insulin NPH-insulin regul ar, (HUMULIN 70/30) 100 unit/mL (70-30) In insulin pen 2019-06-01 00:00:00 Yes 40U QD Inject 40 Units subcutaneously daily. [facility] lisinopril (PRINIVIL,ZESTRIL) 40 MG tablet 2019-06-01 00:00:00 Yes 40mg QD Take 1 tablet (40 mg total) by mouth daily. [facility] metFORMIN (GLUCOPHAGE) 1000 MG tablet 2019-06-01 00:00:00 Y es 1000mg Take 1 tablet (1,000 mg total) by mouth 2 (two) times daily with breakfast and dinner. [facility] needles, insulin disposable (INSULIN PEN NEEDLES) Ndle 2019-06-01 00:00:00 Yes 1{each} Q.5D 1 each by Miscellaneous route 2 (two) ti mes daily. [facility] atorvastatin (LIPITOR) 40 MG tablet 2019-06-01 00:00:0 0 2020-05-31 23:59:00 No 40mg QD Take 1 tablet (40 mg total) by mouth nig htly. [facility] ciprofloxacin HCl (CIPRO) 250 MG tablet 00:00:00 2019-06-04 23:59:00 No 250mg Q.5D Take 1 tablet (250 mg total) by mouth 2 (two) times daily for 3 days. [facility] Butalbital/Aspirin/Caffeine (Fiorinal 50-325-40 Mg Cap bianca) 1 Each Capsule Butalbital/Aspirin/Caffeine (Fiorinal 50-325-40 Mg Capsule) 1 Each Capsule 2019-03-22 00:00:00 Yes Porsche Walls Md 1 Every 6 Hours as needed for Headache [facility] Sulfamethoxazole/Trimethoprim (Bactrim Ds Tablet) 1 Ea ch Tablet Sulfamethoxazole/Trimethoprim (Bactrim Ds Tablet) 1 Each Tablet 2019-03-22 00:00:00 Yes Porsche Walls Md 1 Twice A Day [facility] aspirin 81 mg tablet,delayed release Take 1 tablet marichuy ry day by oral route. aspirin 81 mg tablet,delayed release Take 1 tablet every day by oral route. No 1 Q1D aspirin 81 mg t ablet,delayed release Take 1 tablet every day by oral route. [facility] Blood Glucose Test strips Take 1 strip twice a day by miscell. route. Blood Glucose Test strips Take 1 strip twice a day by miscell. route. No 1strip(s) BID Blood Glucose Test strips Ta ke 1 strip twice a day by miscell. route. [facility] Diflucan 150 mg tablet Take 1 tablet every 72 hours by oral route. Diflucan 150 mg tablet Take 1 tablet every 72 hours by oral route. No 1 Diflucan 150 mg tablet Take 1 tablet every 72 hours by oral route. [facility] gabapentin 300 mg capsule Take 2 capsules 3 times a da y by oral route. gabapentin 300 mg capsule Take 2 capsules 3 times a day by oral route. No 2capsule(s) TID gabapentin 300 mg ca psule Take 2 capsules 3 times a day by oral route. [facility] Jentadueto XR 5 mg-1,000 mg tablet, exte nded release Take 1 tablet every day by oral route. Jentadueto XR 5 mg-1,000 mg tablet, exte nded release Take 1 tablet every day by oral route. No 1 Q1D Jentadueto XR 5 mg-1,000 mg tablet, extended release Take 1 tablet every day by oral route. [facility] lisinopril 40 mg tablet Take 1 tablet every day by ora l route. lisinopril 40 mg tablet Take 1 tablet every day by oral route. No 1 Q1D lisinopril 40 mg tablet Take 1 tablet every day by oral route. [facility] Novolin 70/30 U-100 Insulin 100 unit/mL subcutaneous suspension Inject 50 units twice a day by subcutaneous route. Take 40 units in the AM, 20 units in the PM Novolin 70/30 U-100 Insulin 100 unit/mL subcutaneous suspension Inject 50 units twice a day by subcutaneous route. Take 40 units in the AM, 20 units in the PM No 50unit(s) BID Novolin 70 /30 U-100 Insulin 100 unit/mL subcutaneous suspension Inject 50 units twice a day by subcutaneous route. Take 40 units in the AM, 20 units in the PM [facility] ic simvastatin 20 mg tablet Take 1 tablet every day by or al route. simvastatin 20 mg tablet Take 1 tablet every day by oral route. No 1 Q1D simvastatin 20 mg tablet Take 1 tablet every day by oral route. [facility] sumatriptan 25 mg tablet Take 2 tablets twice a day by oral route as needed. Take 2 tablets for migraine. May repeat dose x1 after 2 hours. sumatriptan 25 mg tablet Take 2 tablets twice a day by oral route as needed. Take 2 tablets for migraine. May repeat dose x1 after 2 hours. No 2 BID sumatriptan 25 mg tablet Take 2 tablets twice a day by oral route as needed. Take 2 tablets for migraine. May repeat dose x1 after 2 hours. [facility] Vital Signs Vital Name Observation Time Observation Value Comments Source Height 2020-02-28 00:00:00 60 [in_i] [facility] Systolic blood pressure 2019-06-01 08:08:00 111 mm[Hg] [facility] Diastolic blood pressure 2019-06-01 08:08:00 56 mm[Hg] [facility] Heart rate 2019-06-01 08:08:00 87 /min [facility] Body temperature 2019-06-01 08:08:00 36.11 Yessenia [facility] Respiratory rate 2019-06-01 08:08:00 18 /min [facility] Oxygen saturation in Arterial blood by Pulse oximetry 2018-08 08:08:00 94 /[facility] height 2019-06-01 04:09:00 154.9 cm [facility] Body weight Measured 2019-06-01 04:09:00 86.728 kg [facility] BMI 2019-06-01 04:09:00 36.13 kg/m2 [facility] Systolic blood pressure 2019-04-23 02:12:00 188 mm[Hg] [facility] Diastolic blood pressure 2019-04-23 02:12:00 105 mm[Hg] [facility] Heart rate 2019-04-23 02:12:00 102 /min [facility] Oxygen saturation in Arterial blood by Pulse oximetry 04-23 02:12:00 95 /min [facility] Body temperature 2019-04-22 23:45:00 36.83 Yessenia [facility] Respiratory rate 2019-04-22 23:45:00 16 /min [facility] Body height 2019-04-22 23:43:00 154.9 cm [facility] Procedures Procedure Date / Time Performed Performing Clinician Sourc e RHYTHM STRIP - SCAN 2019-06-06 10:23:10 Provider, Default Scancriss riley [facility] REPORT OF PROCEDURE - ENDOSCOPY SCAN 2019-06-02 13:31:21 Pro vider, Default Scanning [facility] POCT-GLUCOSE METER 2019-06-01 08:11:00 Joshua, Erlinda [facility] ECG 12-LEAD 2019-06-01 06:02:17 [facility] ECG 12-LEAD 2019-06-01 06:00:32 [facility] URINALYSIS W/ REFLEX URINE CULTURE 2019-06-01 04:10:00 [facility] TROPONIN I 2019-06-01 04:03:00 [facility] BASIC METABOLIC PANEL (7) 2019-06-01 04:03:00 [facility] MAGNESIUM 2019-06-01 04:03:00 [facility] CBC W/PLT COUNT & AUTO DIFFERENTIAL 2019-06-01 04:03:00 [facility] POCT-GLUCOSE METER 2019-06-01 01:07[facility]00 [facility] 2019-06-01 00:15:00 [facility] BASIC METABOLIC PANEL (7) 2019-06-01 00:15:00 [facility] LIPID PANEL 2019-06-01 00:15:00 [facility] HEMOGLOBIN A1C 2019-06-01 00:15:00 [facility] PROCALCITONIN 2019-06-01 00:15:00 [facility] POC GLUCOSE 2019-04-23 02:13:[address] HEAD WO CONTRAST 2019-04-23 01:30:31 Polo Coreas CA CRITICAL CARE, E/M 30-74 MINUTES 2019-04-23 00:55:13 Polo Coreas ECG ED PRELIMINARY INTERPRETATION 2019-04-23 00:55:13 Tracie Coreas HC COMPLETE BLD COUNT W/AUTO DIFF 2019-04-22 23:44:00 Nguyen, Howell abdoul Sheppard COMPREHENSIVE METABOLIC PANEL 2019-04-22 23:44:00 Patrick, Morena Sheppard TROPONIN 2019-04-22 23:44:00 Patrick, Morena Sheppard B NATRIURETIC PEPTIDE 2019-04-22 23:44:00 Patrick, Morena Sheppard ESTIMATED GFR 2019-04-22 23:44:00 Patrick, Morena Sheppard ECG 12-LEAD 2019-04-22 23:32:04 Morena Nguyen Computed tomography of brain without radiopaque contrast 201 04-24-17 00:00:00 PORSCHE WALLS [facility] Cholecystectomy [facility] Appendectomy [facility] Plan of Care Planned Activity Planned Date Details Comments Source Future Scheduled Test 2020-05-30 00:00:00 HbA1c (hemoglobin A1c), blood [code = HbA1c (hemoglobin A1c), blood] [facility] Future Scheduled Test 2020-05-30 00:00:00 lipid panel, serum [code = lipid panel, serum] [facility] Future Scheduled Test 2020-05-17 00:00:00 IMM Influenza Seas onal May to October (>/= 19 yrs) [code = IMM Influenza Seasonal May to October (>/= 19 yrs)] [facility] Future Scheduled Test 2020-04-17 00:00:00 INFLUENZA VACCINE (#1) [code = INFLUENZA VACCINE (#1)] [facility] Future Scheduled Test 2020-03-17 00:00:00 INFLUENZA VACCINE [code = INFLUENZA VACCINE] [facility] Diagnostic Test Pending 2020-02-28 00:00:00 STI panel [code = STI p leonardo] [facility] Diagnostic Test Pending 2020-02-28 00:00:00 CBC w/ auto diff [code = CBC w/ auto diff] [facility] Diagnostic Test Pending 2020-02-28 00:00:00 lipid panel, ser um [code = lipid panel, serum] [facility] Diagnostic Test Pending 2020-02-28 00:00:00 HbA1c (hemoglobi n A1c), blood [code = HbA1c (hemoglobin A1c), blood] [facility] Diagnostic Test Pending 2020-02-28 00:00:00 CMP, serum or pl asma [code = CMP, serum or plasma] [facility] Future Scheduled Test 2019-09-01 00:00:00 Hemoglobin A1c dhruv surement (procedure) [code = 91752939] [facility] Future Scheduled Test 2017 00:00:00 Breast Cancer Scrn (Yearly) [code = Breast Cancer Scrn (Yearly)] [facility] Scheduled Test 1998 00:00:00 Screening for crow gnant neoplasm of cervix (procedure) [code = 260305768] [facility] Scheduled Test 1998 00:00:00 Screening for crow gnant neoplasm of cervix (procedure) [code = 590806207] [facility] Scheduled Test 1998 00:00:00 Screening for crow gnant neoplasm of cervix (procedure) [code = 376498589] [facility] Future Scheduled Test 1987-10-24 00:00:00 DIABETIC FOOT EXAM [code = DIABETIC FOOT EXAM] [facility] Scheduled Test 1987-10-24 00:00:00 URINE MICROALBUMIN [code = URINE MICROALBUMIN] [facility] Scheduled Test 1987-10-24 00:00:00 DIABETIC EYE EXAM [code = DIABETIC EYE EXAM] [facility] Scheduled Test 1987-10-24 00:00:00 Diabetic foot exam ination (regime/therapy) [code = 555406389] [facility] Future Scheduled Test 1987-10-24 00:00:00 Urine screening fo r protein (procedure) [code = 884924491] [facility] Future Scheduled Test 1983-10-24 00:00:00 PNEUMOCOCCAL VACCI NE 2-64 YEARS AT RISK (1 of 1 - PPSV23) [code = PNEUMOCOCCAL VACCINE 2-64 YEARS AT RISK (1 of 1 - PPSV23)] [facility] Future Scheduled Test 1977 00:00:00 DIABETIC RETINAL E YE EXAM [code = DIABETIC RETINAL EYE EXAM] [facility] Appointment 2020-05-30 00:00:00 Jeffery Ricci, [address]; , [place] [address] [facility] Future Appointment 2020-04-09 10:30:00 Ana Pradhan, [address]; , [place] [address] [facility] Encounters Start Date/Time End Date/Time Encounter Type Admission Type Attendi [facility] Care Department Encounter ID Source 2020-02-28 00:00:00 2020-02-28 00:00:00 Jeffery babb MD: [id number], [place] [address], Ph. [facility] [id number] [facility] 2019-05-31 14:28:00 2019-05-31 19:38:00 Departed Emergency Room 1 CASEY PARADA [facility] [id number] [facility] 2019-04-02 02:54:00 2019-04-02 06:32:00 Departed Emergency Room 1 [facility] [id number] [facility] 2019-03-22 21:16:00 2019-03-22 23:46:00 Departed Emergency Room 1 [facility] [id number] [facility] 2018-12-29 19:35:00 2018-12-29 19:35:00 Outpatient E [facility] [address] [facility] 2018-12-17 08:06:21 2018-12-17 08:06:21 Emergency [facility] [id number] [facility] 2018-12-17 00:00:00 2018-12-17 00:00:00 Emergency [facility] [id number] [facility] 2018-05-08 22:46:00 2018-05-09 00:26:00 Departed Emergency Room [facility] [id number] [facility] 2017-09-15 15:51:00 2017-09-15 15:51:00 Emergency E FLY IVERSON [facility] [id number] [facility] Results Test Description Test Time Test Comments Results Result Comments Source CT CHEST W 2020-03-16 11:26:00 [facility] [address] [place], [place] [address] Patient Name: ANNIA VIDES MR #: [id number] : 1975 Age/Sex: 44/F [facility] #: [id number] Req #: [id number] Adm Physician: SHARAD EAST MD Ordered by: JOSTIN POWERS MD Report #: [id number] Location: [facility] Room/Bed: [place] [address] Procedure: [id number] CT/CT CHEST W Exam Date: 03/16/20 Exam Time: 1057 REPORT STATUS: Signed EXAM: CT Chest WITH contrast- Pulmonary Embolism Protocol INDICATION: Chest pain COMPARISON: Chest radiograph 03/16/2020 TECHNIQUE: Chest was scanned utilizing a multidetector helical scanner from the lung apex through the level of the diaphragm after administration of IV contrast. Thin section reconstructions were obtained with special concentration on the pulmonary arteries. Coronal and sagittal reformations were obtained. Pulmonary embolism protocol was performed. IV CONTRAST: 100 cc of Isovue 370 RADIATION DOSE: Total DLP: 448 mGy*cm Dose modulation, iterative reconstruction, and/or weight based adjustment of the mA/kV was utilized to reduce the radiation dose to as low as reasonably achievable. COMPLICATIONS: None FINDINGS: LINES/ TUBES: None. PULMONARY ARTERIES: No filling defect is identified within the pulmonary arteries to the segmental level. The subsegmental pulmonary arteries are not well opacified. Main pulmonary artery measures 2.8 cm in diameter. LUNGS AND AIRWAYS: The central airways are patent. No focal consolidation or pulmonary edema. Right and left lower lobe subsegmental atelectasis.. PLEURA: The pleural spaces are clear. HEART AND MEDIASTINUM: Incompletely visualized thyroid gland appears unremarkable. No supraclavicular, axillary, mediastinal, or hilar lymphadenopathy. The heart is not enlarged. No pericardial effusion. Aorta and great vessels appear unremarkable. UPPER ABDOMEN: No acute findings in the upper abdomen. BONES: The visualized bony thorax is within normal limits. SOFT TISSUES: U nremarkable. IMPRESSION: No pulmonary embolism. No focal pneumonia or pulmonary edema. Right and left lower lobe subsegmental atelectasis. Signed by: Yudith Street MD on 03/16/2020 11:31 AM Dictated By: YUDITH STREET MD 30 Transcribed By: MANJINDER on 03/16/20 113 COPY TO: JOSTIN POWERS MD CXR 1 [facility] 2020-03-16 01:08:00 [place] [address] Patient Name: ANNIA VIDES MR #: [id number] : 1975 Age/Sex: 44/F Req #: [id number] Adm Physician: Ordered by: ROHINI RAMOS MD Report #: [id number] Location: [facility] Room/Bed: Procedure: [id number] HOPD/CXR 1 [facility] Exam Date: 03/16/20 Exam Time: 0050 REPORT STATUS: Signed EXAMINATION: CXR 1 [facility] INDICATION: Left sided chest pain COMPARISON: Chest x-ray 03/22/2019 FINDINGS: TUBES and LINES: None. LUNGS: Low lung volumes with bibasilar haziness. PLEURA: No pleural effusion or pneumothorax. HEART AND MEDIASTINUM: The cardiomediastinal silhouette is unremarkable. BONES AND SOFT TISSUES: No acute osseous lesion. Soft tissues are unremarkable. UPPER ABDOMEN: No free air under the diaphragm. Cholecystectomy clips. IMPRESSION: Low lung volumes with bibasilar haziness likely due to atelectasis although pneumonia is possible. Signed by: Ag Calderon DO on 03/16/2020 1:10 AM Dictated By: AG CALDERON DO 9 Transcribed By: MANJINDER on 03/16/20109 COPY TO: ROHINI RAMOS MD EKG 12-LEAD 2019-06-04 12:13:49 Interface, E xternal Ris In - 06/04/2019 12:13 PM CDTVentricular Rate 90 BPMAtrial Rate 90 BPMP-R Interval 128 msQRS Duration 90 msQ-T Interval 370 msQTC Calculation(Bazett) 452 msP Harrison 23 degreesR Harrison 51 degreesT Harrison 37 degreesNormal sinus rhythmNormal ECGWhen compared with ECG of 01-JUN-2019 06:00,No significant change was foundConfirmed by MD ROSEANNE, MARY ([id number]) on 06/04/2019 12:13:45 PM [facility] POC-Glucose meter 2019-06-01 08:51:00 Test Item POC-Glucose Meter (test code = 1538) 271 mg/dL 70-110 H TESTED AT [place] [id number] [facility] [address] Lab Interpretation (test code = 83608-4) Abnormal [facility] [id number] 08:51:00* Test Item Value Reference Range Interpretation Comments POC-GLUCOSE METER (BEAKER) (test code = 1538) 271 mg/dL 70-110 H TESTED AT [place] [id number] [facility] [address] Hemoglobin [id number] 07:48:00* Test Item Value Reference Range Interpretation Comments Hemoglobin A1C (test code = 4548-4) 10.3 % 4.3-6.1 H Lab Interpretation (test code = 00246-2) Abnormal [facility] [id number] 07:48:00* Test Item Value Reference Range Interpretation Comments HEMOGLOBIN A1C (BEAKER) (test code = 368) 10.3 % 4.3-6.1 H Urinalysis w/Microscopic + Reflex to [id number] 06:18:00* Test Item Value Reference Range Interpretation Comments Color, UA (test code = 5778-6) Light Yellow Clarity, UA (test code = 5767-9) Clear Specific [place], UA (test code = 5811-5) 1.037 1.001-1.035 H pH, UA (test code = 5803-2) 6.0 5.0-8.0 Protein, UA (test code = 44969-1) Negative Negative Glucose, UA (test code = 365) >1000 mg/dL Negative A Ketones, UA (test code = 2514-8) Negative Negative Bilirubin, UA (test code = 92724-1) Negative Negative Blood, UA (test code = 57720-3) Negative Negative Nitrite, UA (test code = 5802-4) Negative Negative Leukocytes, UA (test code = 5799-2) Large Negative A Urobilinogen, UA (test code = 12885-1) 0.2 mg/dL 0.2-1 RBC, UA (test code = 48335-5) 2 /HPF WBC, UA (test code = 5821-4) 7 /HPF Bacteria, UA (test code = 96802-1) Rare Squam Epithel, UA (test code = 92581-0) 2 /HPF Specimen Source (test code = 2795) Lab Interpretation (test code = 04199-1) [facility] [id number] 06:18:00* Test Item Value Reference Range Interpretation Comments COLOR (BEAKER) (test code = 470) Light Yellow CLARITY (BEAKER) (test code = 469) Clear SPECIFIC GRAVITY UA (BEAKER) (test code = 468) 1.037 1.001-1 .035 H PH UA (BEAKER) (test code = 467) 6.0 5.0-8.0 PROTEIN UA (BEAKER) (test code = 464) Negative Negative GLUCOSE UA (BEAKER) (test code = 365) >1000 mg/dL Negative A KETONES UA (BEAKER) (test code = 371) Negative Negative BILIRUBIN UA (BEAKER) (test code = 462) Negative Negative BLOOD UA (BEAKER) (test code = 461) Negative Negative NITRITE UA (BEAKER) (test code = 465) Negative Negative LEUKOCYTE ESTERASE UA (BEAKER) (test code = 466) Large Negat geovanna A UROBILINOGEN UA (BEAKER) (test code = 463) 0.2 mg/dL 0.2-1.0 RBC UA (BEAKER) (test code = 519) 2 /HPF WBC UA (BEAKER) (test code = 520) 7 /HPF BACTERIA (BEAKER) (test code = 517) Rare SQUAMOUS EPITHELIAL (BEAKER) (test code = 516) 2 /HPF SOURCE(BEAKER) (test code = 2795) Basic metabolic [id number] 04:51:00* Test Item Value Reference Range Interpretation Comments Sodium (test code = 2951-2) 134 meq/L 136-145 L Potassium (test code = 2823-3) 4.3 meq/L 3.5-5.1 Chloride (test code = 2075-0) 101 meq/L 98-107 CO2 (test code = 8-9) 27 meq/L 22-29 BUN (test code = 3094-0) 13 mg/dL 7-21 Creatinine (test code = 2160-0) 0.64 mg/dL 0.57-1.25 Glucose (test code = 2345-7) 318 mg/dL 70-105 H Calcium (test code = 25489-1) 9.0 mg/dL 8.4-10.2 EGFR (test code = 13376-2) 102 mL/min/1.73 sq m ESTIMATED GFR IS NOT ACCURATE CREATININE CLEARANCE IN PREDICTING GLOMERULAR FILTRATION RATE. ESTIMATED GFR IS NOT APPLICABLE FOR DIALYSIS PATIENTS. Lab Interpretation (test code = 92170-5) [facility] Test Item Value Reference Range Interpretation Comments Magnesium (test code = 21264-9) 1.9 mg/dL 1.6-2.6 Lab Interpretation (test code = 94440-6) Normal [facility] 04:51:00* Test Item Value Reference Range Interpretation Comments MAGNESIUM (BEAKER) (test code = 627) 1.9 mg/dL 1.6-2.6 BASIC METABOLIC [id number] 04:51:00* Test Item Value Reference Range Interpretation Comments SODIUM (BEAKER) (test code = 381) 134 meq/L 136-145 L POTASSIUM (BEAKER) (test code = 379) 4.3 meq/L 3.5-5.1 CHLORIDE (BEAKER) (test code = 382) 101 meq/L 98-107 CO2 (BEAKER) (test code = 355) 27 meq/L 22-29 BLOOD UREA NITROGEN (BEAKER) (test code = 354) 13 mg/dL 7-21 CREATININE (BEAKER) (test code = 358) 0.64 mg/dL 0.57-1.25 GLUCOSE RANDOM (BEAKER) (test code = 652) 318 mg/dL 70-105 H CALCIUM (BEAKER) (test code = 697) 9.0 mg/dL 8.4-10.2 EGFR (BEAKER) (test code = 1092) 102 mL/min/1.73 sq m ESTIMATED GFR IS NOT ACCURATE CREATININE CLEARANCE IN PREDICTING GLOMERULAR FILTRATION RATE. ESTIMATED GFR IS NOT APPLICABLE FOR DIALYSIS PATIENTS. Troponin [id number] 04:49:00* Test Item Value Reference Range Interpretation Comments Troponin I (test code = 16565-3) <0.01 0-0.03 JAI (test code = JAI) Troponin I (TnI) levels must be interpreted in the context of the presenting symptoms and the clinical findings. Elevated TnI levels indicate myocardial damage, but are not specific for ischemic heart disease. Elevated TnI levels are seen in patients with other cardiac conditions (including myocarditis and congestive heart failure), and slight TnI elevations occur in patients with other conditions, including sepsis, renal failure, acidosis, acute neurological disease, and persistent tachyarrhythmia. Lab Interpretation (test code = 36146-4) Normal [facility] [id number] 04:49:00* Test Item Value Reference Range Interpretation Comments TROPONIN I (BEAKER) (test code = 397) < ng/mL 0.00-0.03 Troponin I (TnI) levels must be interpreted in the context of the presenting sym ptoms and the clinical findings. Elevated TnI levels indicate myocardial damage, but are not specific for ischemic heart disease. Elevated TnI levels are seen in patients with other cardiac conditions (including myocarditis and congestive h eart failure), and slight TnI elevations occur in patients with other conditions , including sepsis, renal failure, acidosis, acute neurological disease, and per sistent tachyarrhythmia.CBC with platelet count + automated [id number] 04:27:00* Test Item Value Reference Range Interpretation Comments WBC (test code = 6690-2) 10.7 3.5- 10.5 K/L H RBC (test code = 789-8) 4.34 3.93- 5.22 M/L MCHC (test code = 786-4) 32.2 32.2- 35.5 GM/DL Hematocrit (test code = 4544-3) 39.5 % 34.1-44.9 MCV (test code = 787-2) 91.0 fL 79.4-94.8 MCH (test code = 785-6) 29.3 pg 25.6-32.2 RDW (test code = 788-0) 13.0 % 11.7-14.4 Platelets (test code = 777-3) 237 150- 450 K/CU MM MPV (test code = 20772-4) 10.8 fL 9.4-12.3 nRBC (test code = 413) 0 0- 0 /100 WBC % Neutros (test code = 429) 61 % % Lymphs (test code = 430) 29 % % Monos (test code = 431) 8 % % Eos (test code = 432) 2 % % Baso (test code = 437) 0 % # Neutros (test code = 670) 6.47 1.56- 6.13 K/L H # Lymphs (test code = 414) 3.10 1.18- 3.74 K/L # Monos (test code = 415) 0.86 0.24- 0.36 K/L H # Eos (test code = 416) 0.20 0.04- 0.36 K/L # Baso (test code = 417) 0.03 0.01- 0.08 K/L Immature Granulocytes-Relative (test code = 2801) 0 % 0-1 Lab Interpretation (test code = 70367-3) Abnormal [facility] W/PLT COUNT & AUTO [id number] 04:27:00* Test Item Value Reference Range Interpretation Comments WHITE BLOOD CELL COUNT (BEAKER) (test code = 775) 10.7 K/ L 3.5- 10.5 H RED BLOOD CELL COUNT (BEAKER) (test code = 761) 4.34 M/ L 3.93-5 .22 HEMOGLOBIN (BEAKER) (test code = 410) 12.7 GM/DL 11.2-15.7 HEMATOCRIT (BEAKER) (test code = 411) 39.5 % 34.1-44.9 MEAN CORPUSCULAR VOLUME (BEAKER) (test code = 753) 91.0 fL 79. 4-94.8 MEAN CORPUSCULAR HEMOGLOBIN (BEAKER) (test code = 751) 29.3 pg 25.6-32.2 MEAN CORPUSCULAR HEMOGLOBIN CONC (BEAKER) (test code = 752) 32.2 GM/DL 32.2-35.5 RED CELL DISTRIBUTION WIDTH (BEAKER) (test code = 412) 13.0 % 11.7-14.4 PLATELET COUNT (BEAKER) (test code = 756) 237 K/CU MM 150-450 MEAN PLATELET VOLUME (BEAKER) (test code = 754) 10.8 fL 9.4-12 .3 NUCLEATED RED BLOOD CELLS (BEAKER) (test code = 413) 0 /100 WBC 0 -0 NEUTROPHILS RELATIVE PERCENT (BEAKER) (test code = 429) 61 % LYMPHOCYTES RELATIVE PERCENT (BEAKER) (test code = 430) 29 % MONOCYTES RELATIVE PERCENT (BEAKER) (test code = 431) 8 % EOSINOPHILS RELATIVE PERCENT (BEAKER) (test code = 432) 2 % BASOPHILS RELATIVE PERCENT (BEAKER) (test code = 437) 0 % NEUTROPHILS ABSOLUTE COUNT (BEAKER) (test code = 670) 6.47 K/ L 1.56-6.13 H LYMPHOCYTES ABSOLUTE COUNT (BEAKER) (test code = 414) 3.10 K/ L 1.18-3.74 MONOCYTES ABSOLUTE COUNT (BEAKER) (test code = 415) 0.86 K/ L 0. 24-0.36 H EOSINOPHILS ABSOLUTE COUNT (BEAKER) (test code = 416) 0.20 K/ L 0.04-0.36 BASOPHILS ABSOLUTE COUNT (BEAKER) (test code = 417) 0.03 K/ L 0. 01-0.08 IMMATURE GRANULOCYTES-RELATIVE PERCENT (BEAKER) (test code = 2801) 0 % 0-1 POCT-GLUCOSE [id number] 03:02:00* Test Item Value Reference Range Interpretation Comments POC-GLUCOSE METER (BEAKER) (test code = 1538) 349 mg/dL 70-110 H TESTED AT [facility] [address] [address] Lstgmxhvukkna8380-45-20 01:01:00* Test Item Value Reference Range Interpretation Comments Procalcitonin (test code = 40350-9) <0.05 <0.05 ng/mL JAI (test code = JAI) SEPSIS RISK (ng/mL)Low: 0.05-0.50Intermediate: 0.51-2.00High: >=2.01 Lab Interpretation (test code = 57640-8) Normal [facility] CenterXozjcnDKWWUQBFVHAPQ2334-68-66 01:01:00* Test Item Value Reference Range Interpretation Comments PROCALCITONIN (BEAKER) (test code = 3036) < ng/mL <0.05 SEPSIS RISK (ng/mL)Low: 0.05-0.50Intermediate: 0.51-2.00High: > =2.01TROPONIN [id number] 00:55:00* Test Item Value Reference Range Interpretation Comments TROPONIN I (BEAKER) (test code = 397) < ng/mL 0.00-0.03 Troponin I (TnI) levels must be interpreted in the context of the presenting sym ptoms and the clinical findings. Elevated TnI levels indicate myocardial damage, but are not specific for ischemic heart disease. Elevated TnI levels are seen in patients with other cardiac conditions (including myocarditis and congestive h eart failure), and slight TnI elevations occur in patients with other conditions , including sepsis, renal failure, acidosis, acute neurological disease, and per sistent tachyarrhythmia.Lipid [id number] 00:49:00* Test Item Value Reference Range Interpretation Comments Triglycerides (test code = 2571-8) 218 mg/dL Cholesterol (test code = 2093-3) 232 mg/dL HDL (test code = 2085-9) 31 mg/dL LDL Calculated (test code = 90631-5) 157 mg/dL JAI (test code = JAI) Triglyceride Reference Range : Low Risk <150 Borderline 150-199 High Risk 200-499 Very High Risk >=500 Cholesterol Reference Range: Low Risk <200 Borderline 200-239 High Risk >240 HDL Cholesterol Reference Range: Low Risk >=60 High Risk <40 LDL Cholesterol Reference Range: Optimal <100 Near Optimal 100-129 Borderline 130-159 High 160-189 Very High >=190 [facility] [id number] 00:49:00* Test Item Value Reference Range Interpretation Comments TRIGLYCERIDES (BEAKER) (test code = 540) 218 mg/dL CHOLESTEROL (BEAKER) (test code = 631) 232 mg/dL HDL CHOLESTEROL (BEAKER) (test code = 976) 31 mg/dL LDL CHOLESTEROL CALCULATED (BEAKER) (test code = 633) 157 mg/dL Triglyceride Reference Range: Low Risk <150 Borderline 150-199 High Risk 200-499 Very High Risk >=500Cholesterol Reference Range: Low Risk <200 Borderline 200-239 High Risk >240HDL Cholesterol Reference Range: Low Risk >=60 High Risk <40LDL Cholesterol Reference Range: Optimal <100 Near Optimal 100-129 Borderline 130-159 High 160-189 Very High >=190 BASIC METABOLIC [id number] 00:49:00* Test Item Value Reference Range Interpretation Comments SODIUM (BEAKER) (test code = 381) 135 meq/L 136-145 L POTASSIUM (BEAKER) (test code = 379) 3.8 meq/L 3.5-5.1 CHLORIDE (BEAKER) (test code = 382) 100 meq/L 98-107 CO2 (BEAKER) (test code = 355) 26 meq/L 22-29 BLOOD UREA NITROGEN (BEAKER) (test code = 354) 13 mg/dL 7-21 CREATININE (BEAKER) (test code = 358) 0.72 mg/dL 0.57-1.25 GLUCOSE RANDOM (BEAKER) (test code = 652) 396 mg/dL 70-105 H CALCIUM (BEAKER) (test code = 697) 9.2 mg/dL 8.4-10.2 EGFR (BEAKER) (test code = 1092) 89 mL/min/1.73 sq m ESTIMATED GFR IS NOT ACCURATE CREATININE CLEARANCE IN PREDICTING GLOMERULAR FILTRATION RATE. ESTIMATED GFR IS NOT APPLICABLE FOR DIALYSIS PATIENTS. CXR 2 VIEW - [id number] 18:25:00 [facility] [address] [place] [address] Patient Name: ANNIA VIDES MR #: [id number] : 1975 Age/Sex: 43/F Req #: [id number] [facility] Physician: Ordered by: CASEY PARADA MD Report #: [id number] Location: [facility] Room/Bed: Procedure: 1015- 0005 HOPD/CXR 2 VIEW - HOPD Exam Date: 05/31/19 Exam Time: 1752 REPORT STATUS: Signed EXAMINATION: CXR 2 VIEW - HOPD INDICATION: Left side chest pain [id number] COMPARISON: Chest x-ray 03/22/2019 FINDINGS: PA and lateral views TUBES and LINES: None. LUNGS: Stable eventration o f the right diaphragm with overlying atelectasis. Trace left basilar atelectas is. There is no evidence of pneumonia or pulmonary edema. PLEURA: No pl eural effusion or pneumothorax. HEART AND MEDIASTINUM: The cardiomediastin al silhouette is unremarkable. BONES AND SOFT TISSUES: No focal osseous lesions. Soft tissues are unremarkable. UPPER ABDOMEN: No free air unde r the diaphragm. IMPRESSION: Chronic eventration of the right diaphragm . Bibasilar atelectasis. Signed by: Dr. Steven Vincent MD on 019 6:26 PM Dictated By: STEVEN VINCENT MD 25 Transcribed By: MANJINDER on 05/31/191825 COPY TO: CASEY PARADA MD ECG 12 [id number] 00:12:18* Test Item Value Reference Range Interpretation Comments Ventricular rate (test code = 253) 103 Atrial rate (test code = 255) 103 CA interval (test code = 266) 126 QRSD interval (test code = 260) 98 QT interval (test code = 264) 364 QTC interval (test code = 265) 476 P axis 1 (test code = 267) 33 QRS axis 1 (test code = 268) -35 T wave axis (test code = 270) 45 EKG impression (test code = 273) Sinus tachycardia-Lef t axis deviation- Incomplete right bundle branch block-Abnormal ECG-In automated comparison with ECG of 14-DEC-2018 15:52,-No significant change was found- [facility] dvcfegp4719-38-99 02:19:52* Test Item Value Reference Range Interpretation Comments POC glucose (test code = 72176-2) 280 mg/dL 65-99 H HMW Notified MDMeter ID: [id number]: Denice Sands Lab Interpretation (test code = 94107-5) Abnormal [facility] Head Wo Segspftz0901-34-23 01:33:20Hm Interface, Radiology Results - 04/23/2019 1:36 AM CDTEXAMINATION: CT HEAD WO CONTRASTCLINICAL HISTORY: headacheCOMPARISON: 07/02/2011.TECHNIQUE: Noncontrast enhanced images of the brain were obtained from the skull base to the vertex. Both soft tissue and bone reconstruction algorithms were performed. CT scans are performed using radiation dose reduction techniques (iterative recons truction and/or automated exposure control). Technical factors are evaluated and adjusted to ensure appropriate moderation of exposure. Automated dose management technology is applied to adjust radiation exposure while achieving a diagnostic quality image.FINDINGS:The brain parenchyma is unremarkable. The ruth-white ma tter differentiation is preserved. No evidence of acute intra or extra-axial hem orrhage, mass, mass effect or acute territorial infarction. There is no acute hy drocephalus. Basal cisterns are patent. No acute soft tissue hematoma or lacerat ion. No skull fractures or aggressive bony lesions. Paranasal sinuses and mastoi d air cells are clear. Orbits are normal. IMPRESSION:No acute intracranial abnor mality identified.[facility]-[id number] [facility] [place] Preliminary Interpretation - Not an [id number] 00:55:13* Test Item Value Reference Range Interpretation Comments JAI (test code = JAI) Polo Coreas MD 04/23/2019 12:58 PME ED Preliminary Interpretation - Not an OrderPerformed by: Polo Coreas MDAuthorized by: Polo Coreas MD ECG reviewed by ED Physician in the absence of a clerical aide: yes Previous ECG: Previous ECG: UnavailableInterpretation: Interpretation: abnormal Rate: ECG rate: 103 bpm ECG rate assessment: tachycardic Rhythm: Rhythm: sinus tachycardia QRS: QRS axis: Normal QRS intervals: Normal (98 ms)Conduction: Conduction: abnormal Abnormal conduction: incomplete RBBB ST segments: ST segments: NormalT waves: T waves: normal Other findings: Other findings comment: Left axis deviationsComments: CA 126 msQT/QTc 364/476 ms Lab Interpretation (test code = 41912-5) Abnormal [facility] [id number] 00:55:13EdPolo mackenzie MD 04/23/2019 12:58 PMCritical CarePerformed by: Polo Coreas MDAuthorized by: Polo Coreas MD Critical care provider statement: Critical care time (minutes): 35 Critical care time was exclusive of: Separately billable procedures and treating other patients Critical care was necessary to treat or prevent imminent or life-threatening deterioration of the following conditions: Cardiac failure and DENTAL OFFICE ASSISTANT failure or compromise Critical care was time spent personally by me on the following activities: Development of treatment plan with patient or surrogate, ordering and review of laboratory studies, ordering and review of radiographic studies, discussions with consultants, discussions with primary provider, pulse oximetry, re-evaluation of patient's condition, evaluation of patient's response to treatment, examination of patient and review of old chartsThe Hospitals of Providence Sierra Campusprehensive metabolic [id number] 00:36:13* Test Item Value Reference Range Interpretation Comments Sodium (test code = 2951-2) 136 135- 148 mEq/L Potassium (test code = 2823-3) 4.5 3.5- 5.0 mEq/L Chloride (test code = 2075-0) 96 99- 109 mEq/L L CO2 (test code = 2027-9) 27 24- 31 mEq/L Anion gap (test code = 11980-1) 13@ANIO 7- 15 mEq/L BUN (test code = 3094-0) 11 mg/dL 8-24 Creatinine (test code = 2160-0) 0.45 mg/dL 0.5-0.9 L Glucose (test code = 2345-7) 476 mg/dL 65-99 GLU results called to and read back by PHILIPPE SANDS RN/ETHAN at 04/23/2019 00:35 by AP. Calcium (test code = 05817-7) 9.2 mg/dL 8.6-10.6 Protein (test code = 2885-2) 7.0 g/dL 6.3-8.2 Albumin (test code = 1751-7) 3.1 g/dL 3.5-5 L A/G ratio (test code = 1759-0) 0.8 0.7-3.8 Alkaline phosphatase (test code = 6768-6) 114 U/L 30-115 AST (test code = 1920-8) 42 U/L 15-46 ALT (test code = 1742-6) 45 U/L 10-55 Total bilirubin (test code = 1975-2) <0.3 0.2-1.2 Lab Interpretation (test code = 00729-2) Abnormal [facility]modestaEstimated [id number] 00:36:13* Test Item Value Reference Range Interpretation Comments Estimated GFR (test code = 5488) >=90 mL/min/1.73 m2 Catergory Units InterpretationG1 >=90 Normal or highG2 60-89 Mildly isvwwumajR5k 45-59 Mildly to moderately vxihsvmswW1o 30-44 Moderately to severely decreasedG4 15-29 Severely decreasedG5 <15 Kidney failureThe eGFR was calculated using the Chronic Kidney Disease Epidemiology Collaboration (CKD-EPI) equation. Interpretation is based on recommendations of the National Kidney Foundation-Kidney Disease Outcomes Quality Initiative (NKF-KDOQI) published in 2014. [facility] MethodmodestaB natriuretic tlkhhmm6585-43-05 00:31:34* Test Item Value Reference Range Interpretation Comments BNP (test code = 89830-5) 7 pg/mL 0-100 [facility] AfitbvkgwOrzzewvo4831-51-03 00:22:12* Test Item Value Reference Range Interpretation Comments Troponin (test code = 61231-4) <0.006 0-0.04 [facility] changed methodology effective: 12/21/2018 at 10:00 amThe new method has a 99th percentile cutoff of 0.040 ng/mL [facility] MethodmodestaCBC with platelet and cwakeiljukom2874-93-02 00:03:51* Test Item Value Reference Range Interpretation Comments WBC (test code = 11008-3) 10.41 4.50- 11.00 k/uL RBC (test code = 00755-6) 4.59 m/uL 4.2-5.5 HGB (test code = 718-7) 13.4 g/dL 12-16 HCT (test code = 4544-3) 41.5 % 37-47 MCV (test code = 787-2) 90.4 fL 82-100 MCH (test code = 785-6) 29.2 pg 27-34 MCHC (test code = 786-4) 32.3 g/dL 31-37 RDW - SD (test code = 00598-5) 43.7 fL 37-55 MPV (test code = 71599-5) 11.3 fL 8.8-13.2 Platelet count (test code = 65461-3) 262 150- 400 k/uL Neutrophils (test code = 89469-3) 61.9 % 39-69 Lymphocytes (test code = 53113-3) 27.7 % 25-45 Monocytes (test code = 12465-4) 7.7 % 0-10 Eosinophils (test code = 88623-1) 1.8 % 0-5 Basophils (test code = 92669-4) 0.4 % 0-1 Immature granulocytes (test code = 55469-0) 0.5 % 0-1 Rebel SheppardUrine Cwcinne6174-76-76 09:05:40 C Urine Added by [id number],000 cfu/ml Streptococcus agalactiae (Group B)Troponin T 2019-04-15 14:41:30* Test Item Value Reference Range Interpretation Comments Troponin-T (test code = Troponin-T) 53.380 ng/L 0.000-14.000 The CV of the assay at 99th percentile for both male and female patient population is < 10%. A rise and fall in BONNY with at least one value above the 99th percentile with clinical evidence of myocardial ischemia would support a diagnosis of AMI. A delta of at least 20% is recommended to assess acute changes in results above the 99th percentile in serial measurements. Stable BONNY levels (<20%) delta above the 99th percentile URL would support a diagnosis of chronic myocardial injury.Critical results called to Dion Dillno at 04/15/2019 14:41:21 CDT by den. Read back and verified? yes CT Abdomen and Pelvis w/ Vsmhyfgx8585-10-07 13:51:15Patient: ANNIA VIDES Date/Time04/15/2019 13:16 CDTReason for ExamAbdominal painReportCT ABDOMEN AND PELVIS WITH CONTRASTHISTORY: Abdominal painCOMPARISON: CT abdomen and pelvis dated January 07, 2004TECHNIQUE: Axial images of the abdomen and pelvis were obtained following the administration of 100 mL Omnipaque 300 intravenous contrast. Coronal and sagittal reformats were provided. One or more of the following dose reduction techniques were used: Automated exposure control, adjustment of the mA and/or kV according to patient size, and/or utilization of iterative reconstruction technique.FINDINGS:Lower thorax: Unremarkable.Hepatobiliary: Unremarkable. No intra or extrahepatic biliary ductal dilatation is identified.Gallbladder: The g allbladder is surgically absent.Spleen: Unremarkable.Pancreas: Unremarkable.Ad renals: Unremarkable.Kidneys/ureters: Unremarkable.Bowel: No abnormal bowel wa ll thickening or evidence of obstruction. The appendix is surgically absent.Pelv ic organs/bladder: The uterus is unremarkable. Small ovarian follicles are not ed.Vessels: The abdominal aorta is normal in caliber. 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 The inferior vena cava cou rses anterior to the aorta after join the left renal vein. 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.Lymph nodes: No lymphadenopathy.Peritoneum/Retroperi toneum: No ascites or free air is identified.Bones/soft tissues: No destructive bony lesions.IMPRESSION:No acute abdominal or pelvic finding is identified.Exam Date/Time04/15/2019 13:16 CDTReportLOCATION: R16 Final Dictated by: MD Tenzin, Billy FDictated DT/TM: 04/15/2019 1:43 pmSigned by: MD Tenzin, Walter am FSigned (Electronic Signature): 04/15/2019 1:51 pmXR Chest 1 View Frontal 2019-04-15 13:07:15Patient: ANNIA VIDES Date/Time04/15/2019 13:05 CDTReason for ExamChes painReportDictation location R16:Portable chest one view.HISTORY: Chest painCOMMENT: Compared to 09/15/2017 . The heart and mediastinum appear normal and stable. The lungs remain poorly expanded with no new consolidation, pneumothorax or effusion. There is no significant interval changes. Visualized soft tissues and skeletal structures are unremarkable.IMPRESSION: No active disease in the chest. Final Dictated by: MD Castellanos Phebe CDictated DT/TM: 04/15/2019 1:06 pmSigned by: MD Castellanos Phebe CSigned (Electronic Signature): 04/15/2019 1:07 pmTroponin [id number] 13:02:06* Test Item Value Reference Range Interpretation Comments Troponin-T (test code = Troponin-T) 62.660 ng/L 0.000-14.000 The CV of the assay at 99th percentile for both male and female patient population is < 10%. A rise and fall in BONNY with at least one value above the 99th percentile with clinical evidence of myocardial ischemia would support a diagnosis of AMI. A delta of at least 20% is recommended to assess acute changes in results above the 99th percentile in serial measurements. Stable BONNY levels (<20%) delta above the 99th percentile URL would support a diagnosis of chronic myocardial injury.Critical results called to Otilia JORGENSEN RN at 04/15/2019 13:01:54 CDT by . Read back and verified? YES [facility] Metabolic [id number] 12:51:05* Test Item Value Reference Range Interpretation Comments Sodium Level (test code = Sodium Level) 135.0 mmol/L 135.0-145.0 Potassium Level (test code = Potassium Level) 4.5 mmol/L 3.5-5.1 Chloride Level (test code = Chloride Level) 96 mmol/L 98-105 L CO2 (test code = CO2) 28 mmol/L 22-29 Anion Gap (test code = Anion Gap) 11 mmol/L 7-16 BUN (test code = BUN) 12.30 mg/dL 6.00-20.00 Creatinine Level (test code = Creatinine Level) 0.40 mg/dL 0.50-0 .90 L BUN/Creat Ratio (test code = BUN/Creat Ratio) 31 N Glucose Level (test code = Glucose Level) 299 mg/dL 70-115 H Calcium Level (test code = Calcium Level) 9.8 mg/dL 8.3-10.5 Alk Phos (test code = Alk Phos) 99 U/L 35-104 Bilirubin Total (test code = Bilirubin Total) 0.3 mg/dL 0.1-0.9 Albumin Level (test code = Albumin Level) 4.1 g/dL 3.5-5.2 Protein Total (test code = Protein Total) 7.3 g/dL 6.4-8.3 ALT (test code = ALT) 47 U/L 1-33 H AST (test code = AST) 26 U/L 1-32 Globulin (test code = Globulin) 3.2 g/dL 2.9-3.1 H A/G Ratio (test code = A/G Ratio) 1.3 ratio N Comprehensive Metabolic [id number] 12:51:05* Test Item Value Reference Range Interpretation Comments Sodium Level (test code = Sodium Level) 135.0 mmol/L 135.0-145.0 Potassium Level (test code = Potassium Level) 4.5 mmol/L 3.5-5.1 Chloride Level (test code = Chloride Level) 96 mmol/L 98-105 L CO2 (test code = CO2) 28 mmol/L 22-29 Anion Gap (test code = Anion Gap) 11 mmol/L 7-16 BUN (test code = BUN) 12.30 mg/dL 6.00-20.00 Creatinine Level (test code = Creatinine Level) 0.40 mg/dL 0.50-0 .90 L BUN/Creat Ratio (test code = BUN/Creat Ratio) 31 N Glucose Level (test code = Glucose Level) 299 mg/dL 70-115 H Calcium Level (test code = Calcium Level) 9.8 mg/dL 8.3-10.5 Alk Phos (test code = Alk Phos) 99 U/L 35-104 Bilirubin Total (test code = Bilirubin Total) 0.3 mg/dL 0.1-0.9 Albumin Level (test code = Albumin Level) 4.1 g/dL 3.5-5.2 Protein Total (test code = Protein Total) 7.3 g/dL 6.4-8.3 ALT (test code = ALT) 47 U/L 1-33 H AST (test code = AST) 26 U/L 1-32 Globulin (test code = Globulin) 3.2 g/dL 2.9-3.1 H A/G Ratio (test code = A/G Ratio) 1.3 ratio N eGFR AA (test code = eGFR AA) >60 mL/min/1.73 m2 N eGFR (estimated Glomerular Filtration Rate) is an estimated value, calculated from the patient's serum creatinine using the MDRD equation. It is NOT the patient's actual GFR. The eGFR provides a more clinically useful measure of kidney disease than serum creatinine alone.This calculation takes sex and race into account, if the information is provided. If the race is not provided, and the patient is -[place], multiply by 1.212. If sex is not provided, and the patient is female, multiply by 0.742. Results for patients <18 years of age have not been validated by the MDRD study and should be interpreted with caution. eGFR Result Interpretation:eGFR > or = 60 is in the Normal RangeeGFR < 60 may mean kidney diseaseeGFR < 15 may mean kidney failure Ranges recommended by the National Kidney Foundation, http://nkdep.nih.gov Comprehensive Metabolic [id number] 12:51:05* Test Item Value Reference Range Interpretation Comments Sodium Level (test code = Sodium Level) 135.0 mmol/L 135.0-145.0 Potassium Level (test code = Potassium Level) 4.5 mmol/L 3.5-5.1 Chloride Level (test code = Chloride Level) 96 mmol/L 98-105 L CO2 (test code = CO2) 28 mmol/L 22-29 Anion Gap (test code = Anion Gap) 11 mmol/L 7-16 BUN (test code = BUN) 12.30 mg/dL 6.00-20.00 Creatinine Level (test code = Creatinine Level) 0.40 mg/dL 0.50-0 .90 L BUN/Creat Ratio (test code = BUN/Creat Ratio) 31 N Glucose Level (test code = Glucose Level) 299 mg/dL 70-115 H Calcium Level (test code = Calcium Level) 9.8 mg/dL 8.3-10.5 Alk Phos (test code = Alk Phos) 99 U/L 35-104 Bilirubin Total (test code = Bilirubin Total) 0.3 mg/dL 0.1-0.9 Albumin Level (test code = Albumin Level) 4.1 g/dL 3.5-5.2 Protein Total (test code = Protein Total) 7.3 g/dL 6.4-8.3 ALT (test code = ALT) 47 U/L 1-33 H AST (test code = AST) 26 U/L 1-32 Globulin (test code = Globulin) 3.2 g/dL 2.9-3.1 H A/G Ratio (test code = A/G Ratio) 1.3 ratio N eGFR AA (test code = eGFR AA) >60 mL/min/1.73 m2 N eGFR (estimated Glomerular Filtration Rate) is an estimated value, calculated from the patient's serum creatinine using the MDRD equation. It is NOT the patient's actual GFR. The eGFR provides a more clinically useful measure of kidney disease than serum creatinine alone.This calculation takes sex and race into account, if the information is provided. If the race is not provided, and the patient is -[place], multiply by 1.212. If sex is not provided, and the patient is female, multiply by 0.742. Results for patients <18 years of age have not been validated by the MDRD study and should be interpreted with caution. eGFR Result Interpretation:eGFR > or = 60 is in the Normal RangeeGFR < 60 may mean kidney diseaseeGFR < 15 may mean kidney failure Ranges recommended by the National Kidney Foundation, http://nkdep.nih.gov eGFR Non-AA (test code = eGFR Non-AA) >60.00 mL/min/1.73 m2 N eGFR (estimated Glomerular Filtration Rate) is an estimated value, calculated from the patient's serum creatinine using the MDRD equation. It is NOT the patient's actual GFR. The eGFR provides a more clinically useful measure of kidney disease than serum creatinine alone.This calculation takes sex and race into account, if the information is provided. If the race is not provided, and the patient is -[place], multiply by 1.212. If sex is not provided, and the patient is female, multiply by 0.742. Results for patients <18 years of age have not been validated by the MDRD study and should be interpreted with caution. eGFR Result Interpretation:eGFR > or = 60 is in the Normal RangeeGFR < 60 may mean kidney diseaseeGFR < 15 may mean kidney failure Ranges recommended by the National Kidney Foundation, http://nkdep.nih.gov D-Dimer Xlrvssvmoaro0306-54-57 12:46:53* Test Item Value Reference Range Interpretation Comments D Dimer, (Quant.) (test code = D Dimer, (Quant.)) 252 ng/mL 0-50 0 HCG Qualitative [id number] 12:36:52* Test Item Value Reference Range Interpretation Comments HCG, Serum Qual (test code = HCG, Serum Qual) Negative Lot # (test code = Lot #) [id number] Expiration Dt (test code = Expiration Dt) 2020-10-14 N Neg Control (test code = Neg Control) Negative Pos Control (test code = Pos Control) Positive Internal QC (test code = Internal QC) Acceptable Urinalysis Hqmctwliqcv7963-41-02 12:33:52* Test Item Value Reference Range Interpretation Comments UA WBC (test code = UA WBC) 0-5 0-5 UA RBC (test code = UA RBC) None Seen 0-5 UA Bacteria (test code = UA Bacteria) Few A UA Squam Epithelial (test code = UA Squam Epithelial) 6-10 A Urinalysis with Culture, if jfnuzjlfa1928-55-27 12:26:06* Test Item Value Reference Range Interpretation Comments UA Color (test code = UA Color) YELLO Yellow UA Appear (test code = UA Appear) CLEAR Clear UA pH (test code = UA pH) 5 N UA Spec Grav (test code = UA Spec Grav) 1.031 1.001-1.035 UA Glucose (test code = UA Glucose) 1000 mg/dL Negative A UA Bili (test code = UA Bili) NEG Negative UA Ketones (test code = UA Ketones) NEG Negative UA Blood (test code = UA Blood) NEG Negative UA Protein (test code = UA Protein) NEG Negative UA Urobilinogen (test code = UA Urobilinogen) 1 mg/dL >0.2 A UA Nitrite (test code = UA Nitrite) NEG Negative UA Leuk Est (test code = UA Leuk Est) 25 cells/mcL Negative A UA Micro Ind? (test code = UA Micro Ind?) Indicated Not Indicate d A Result created by rule [email or web address]_IND Automated Eqrjffmnijkc0861-90-32 12:25:32* Test Item Value Reference Range Interpretation Comments Neutro Auto (test code = Neutro Auto) 60.7 % 36.0-70.0 Lymph Auto (test code = Lymph Auto) 29.3 % 12.0-44.0 Crane Auto (test code = Crane Auto) 7.6 % 0.0-11.0 Eos, Auto (test code = Eos, Auto) 1.8 % 0.0-7.0 Basophil Auto (test code = Basophil Auto) 0.3 % 0.0-2.0 Neutro Absolute (test code = Neutro Absolute) 5.9 x10 1.6-7.4 Lymph Absolute (test code = Lymph Absolute) 2.87 x10 .50-4.60 Crane Absolute (test code = Crane Absolute) .74 x10 .00-1.20 Eos Absolute (test code = Eos Absolute) 0.18 x10 0.00-0.74 Baso Absolute (test code = Baso Absolute) 0.03 x10 0.00-0.21 IG Nkwrf2383-19-24 12:25:32* Test Item Value Reference Range Interpretation Comments IG (test code = IG) 0.3 % 0.0-5.0 IG Abs (test code = IG Abs) 0 x10 N Complete Blood Count with Abghuwbnfxhu1239-27-89 12:25:31* Test Item Value Reference Range Interpretation Comments WBC (test code = WBC) 9.8 x10 4.4-10.5 RBC (test code = RBC) 5.07 x10 3.75-5.20 Hgb (test code = Hgb) 15.2 g/dL 12.2-14.8 H MCV (test code = MCV) 89.90 fL 80.00-100.00 Hct (test code = Hct) 45.6 % 36.5-44.4 H MCHC (test code = MCHC) 33.30 g/dL 32.00-37.50 RDW CV (test code = RDW CV) 12.9 % 11.5-14.5 MCH (test code = MCH) 30.0 pg 27.0-32.5 Platelets (test code = Platelets) 292.0 x10 140.0-440.0 MPV (test code = MPV) 10.8 fL N Slide Review (test code = Slide Review) Auto Auto Result created by GL_SJM_SLIDE_REV_AUTO nRBC (test code = nRBC) 0 N NRBC Abs (test code = NRBC Abs) 0.00 x10 N IPF (test code = IPF) 0 % N Sodium [id number] 05:26:00* Test Item Value Reference Range Interpretation Comments Sodium Level (test code = 2951-2) 135 136-145 L [facility]woodPotassium Yxenj5678-22-77 05:26:00* Test Item Value Reference Range Interpretation Comments Potassium Level (test code = 2823-3) 4.0 3.5-5.1 [facility] KingwoodChloride Ivpco0134-46-52 05:26:00* Test Item Value Reference Range Interpretation Comments Chloride Level (test code = 2075-0) 98 98-107 [facility] KingwoodCarbon Dioxide Siqro1682-87-14 05:26:00* Test Item Value Reference Range Interpretation Comments Carbon Dioxide Level (test code = 2028-9) 27 22-29 [facility] KingwoodAnion Ytg0079-19-02 05:26:00* Test Item Value Reference Range Interpretation Comments Anion Gap (test code = 74025-4) 14.0 8-16 [facility] KingwoodBlood Urea Goswkonx5510-37-47 05:26:00* Test Item Value Reference Range Interpretation Comments Blood Urea Nitrogen (test code = 3094-0) 11 7-26 [facility]woodCreatinine2019-08-17 05:26:00* Test Item Value Reference Range Interpretation Comments Creatinine (test code = 2160-0) 0.72 0.57-1.11 [facility] KingwoodBUN/Creatinine Zurcb3160-32-61 05:26:00* Test Item Value Reference Range Interpretation Comments BUN/Creatinine Ratio (test code = 3097-3) 15 6-25 [facility] KingwoodEstimat Glomerular Filtration Rate 2019-04-02 05:26:00* Test Item Value Reference Range Interpretation Comments Estimat Glomerular Filtration Rate (test code = 746228355) > 60 >60 Ranges were taken from the National Kidney Disease Education Program and the [place] [employer] literature.Reference ranges:60 or greater: Wcjaei04-21 ( for 3 consecutive months): Chronic kidney disease 15 or less: Kidney failureMemorial Hermann Surgical Hospital KingwoodGlucose Jdkbq2641-44-44 05:26:00* Test Item Value Reference Range Interpretation Comments Glucose Level (test code = WIY8522) 402 74-118 HH Results repeated and called to KATE BALL RN at 0526 on 04/02/19 by Linda meier Read back and verified.[facility] KingwoodCalcium Level 2019-04-02 05:26:00* Test Item Value Reference Range Interpretation Comments Calcium Level (test code = 42226-7) 9.4 8.4-10.2 [facility] KingwoodTotal Fbcxjhvwp2075-41-81 05:26:00* Test Item Value Reference Range Interpretation Comments Total Bilirubin (test code = 1975-2) 0.2 0.2-1.2 [facility] KingwoodAspartate Amino Transf (AST/SGOT) 2019-04-02 05:26:00* Test Item Value Reference Range Interpretation Comments Aspartate Amino Transf (AST/SGOT) (test code = Aspartate Amino Transf (AST/SGOT)) 18 5-34 [facility] KingwoodAlanine Aminotransferase (ALT/SGPT) 2019-04-02 05:26:00* Test Item Value Reference Range Interpretation Comments Alanine Aminotransferase (ALT/SGPT) (test code = 1742-6) 46 0-55 [facility] KingwoodTotal Vgawiah8086-23-44 05:26:00* Test Item Value Reference Range Interpretation Comments Total Protein (test code = 2885-2) 6.9 6.5-8.1 [facility] KingwoodAlbumin2019-08-17 05:26:00* Test Item Value Reference Range Interpretation Comments Albumin (test code = 1751-7) 3.2 3.5-5.0 L [facility] KingwoodGlobulin2019-08-17 05:26:00* Test Item Value Reference Range Interpretation Comments Globulin (test code = 60030-8) 3.7 2.3-3.5 H [facility] KingwoodAlbumin/Globulin Ukhyy0546-45-96 05:26:00 * Test Item Value Reference Range Interpretation Comments Albumin/Globulin Ratio (test code = 1759-0) 0.9 0.8-2.0 [facility] KingwoodAlkaline Ooupruopqdo4219-77-74 05:26:00* Test Item Value Reference Range Interpretation Comments Alkaline Phosphatase (test code = 6768-6) 109 40-150 [facility] Southodium Olewc4371-44-72 05:26:00* Test Item Value Reference Range Interpretation Comments Sodium Level (test code = 2951-2) 135 136-145 L [facility]woodPotassium Iptyt5587-38-72 05:26:00* Test Item Value Reference Range Interpretation Comments Potassium Level (test code = 2823-3) 4.0 3.5-5.1 [facility]woodChloride Gwzys7553-61-10 05:26:00* Test Item Value Reference Range Interpretation Comments Chloride Level (test code = 2075-0) 98 98-107 [facility] KingwoodCarbon Dioxide Azrpd3829-18-70 05:26:00* Test Item Value Reference Range Interpretation Comments Carbon Dioxide Level (test code = 2028-9) 27 22-29 [facility] KingwoodAnion [id number] 05:26:00* Test Item Value Reference Range Interpretation Comments Anion Gap (test code = 46047-7) 14.0 8-16 [facility] KingwoodBlood Urea Egbfasld1674-78-15 05:26:00* Test Item Value Reference Range Interpretation Comments Blood Urea Nitrogen (test code = 3094-0) 11 7-26 [facility] KingwoodCreatinine2019-08-17 05:26:00* Test Item Value Reference Range Interpretation Comments Creatinine (test code = 2160-0) 0.72 0.57-1.11 [facility] KingwoodBUN/Creatinine Feodr1898-96-11 05:26:00* Test Item Value Reference Range Interpretation Comments BUN/Creatinine Ratio (test code = 3097-3) 15 6- [facility] KingwoodEstimat Glomerular Filtration Rate 2019-04-02 05:26:00* Test Item Value Reference Range Interpretation Comments Estimat Glomerular Filtration Rate (test code = 454995101) > 60 >60 Ranges were taken from the National Kidney Disease Education Program and the [place] health[place] Kidney Foundation literature.Reference ranges:60 or greater: Mzjfew70-14 ( for 3 consecutive months): Chronic kidney disease 15 or less: Kidney failureMemorial Hermann Surgical Hospital KingwoodGlucose Ebwcl1421-88-45 05:26:00* Test Item Value Reference Range Interpretation Comments Glucose Level (test code = VAS4917) 402 74-118 Results repeated and called to KATE BALL RN at 0526 on 04/02/19 by Linda meier Read back and verified.[facility] KingwoodCalcium Level 2019-04-02 05:26:00* Test Item Value Reference Range Interpretation Comments Calcium Level (test code = 26921-0) 9.4 8.4-10.2 [facility] KingwoodTotal Khizqcfgc4600-81-35 05:26:00* Test Item Value Reference Range Interpretation Comments Total Bilirubin (test code = 1975-2) 0.2 0.2-1.2 [facility] KingwoodAspartate Amino Transf (AST/SGOT) 2019-04-02 05:26:00* Test Item Value Reference Range Interpretation Comments Aspartate Amino Transf (AST/SGOT) (test code = Aspartate Amino Transf (AST/SGOT)) 18 5-34 [facility] KingwoodAlanine Aminotransferase (ALT/SGPT) 2019-04-02 05:26:00* Test Item Value Reference Range Interpretation Comments Alanine Aminotransferase (ALT/SGPT) (test code = 1742-6) 46 0-55 [facility] KingwoodTotal Zrcfyce9440-92-96 05:26:00* Test Item Value Reference Range Interpretation Comments Total Protein (test code = 2885-2) 6.9 6.5-8.1 [facility] KingwoodAlbumin2019-08-17 05:26:00* Test Item Value Reference Range Interpretation Comments Albumin (test code = 1751-7) 3.2 3.5-5.0 L [facility] KingwoodGlobulin2019-08-17 05:26:00* Test Item Value Reference Range Interpretation Comments Globulin (test code = 65774-5) 3.7 2.3-3.5 H [facility] KingwoodAlbumin/Globulin Zceti5875-34-54 05:26:00 * Test Item Value Reference Range Interpretation Comments Albumin/Globulin Ratio (test code = 1759-0) 0.9 0.8-2.0 [facility] KingwoodAlkaline Kyoeyatlrbg9360-58-21 05:26:00* Test Item Value Reference Range Interpretation Comments Alkaline Phosphatase (test code = 6768-6) 109 40-150 [facility] KingwoodWhite Blood Qbrmx3158-11-75 04:51:00* Test Item Value Reference Range Interpretation Comments White Blood Count (test code = 6690-2) 10.39 4.8-10.8 [facility] KingwoodRed Blood Ldgoa5349-55-34 04:51:00* Test Item Value Reference Range Interpretation Comments Red Blood Count (test code = 789-8) 4.85 3.6-5.1 [facility] KingwoodHemoglobin2019-08-17 04:51:00* Test Item Value Reference Range Interpretation Comments Hemoglobin (test code = 11354-9) 14.2 12.0-16.0 [facility] KingwoodHematocrit2019-08-17 04:51:00* Test Item Value Reference Range Interpretation Comments Hematocrit (test code = 4544-3) 43.2 34.2-44.1 [facility] KingwoodMean Corpuscular Vpucvv5311-47-49 04:51:00* Test Item Value Reference Range Interpretation Comments Mean Corpuscular Volume (test code = 787-2) 89.1 81-99 [facility] KingwoodMean Corpuscular Drowpebubi5785-54-47 04:51:00* Test Item Value Reference Range Interpretation Comments Mean Corpuscular Hemoglobin (test code = 785-6) 29.3 28-32 [facility] KingwoodMean Corpuscular Hemoglobin Concent 2019-04-02 04:51:00* Test Item Value Reference Range Interpretation Comments Mean Corpuscular Hemoglobin Concent (test code = 786-4) 32.9 31-35 [facility] KingwoodRed Cell Distribution Piqbn9499-07-58 04:51:00* Test Item Value Reference Range Interpretation Comments Red Cell Distribution Width (test code = 17012-7) 13.1 11.7 -14.4 [facility] KingwoodPlatelet Pqxcu2609-52-67 04:51:00* Test Item Value Reference Range Interpretation Comments Platelet Count (test code = 777-3) 271 140-360 [facility] KingwoodNeutrophils (%) (Auto)2019-04-02 04:51:00 * Test Item Value Reference Range Interpretation Comments Neutrophils (%) (Auto) (test code = 13524-0) 61.2 38.7-80.0 [facility] KingwoodLymphocytes (%) (Auto)2019-04-02 04:51:00 * Test Item Value Reference Range Interpretation Comments Lymphocytes (%) (Auto) (test code = 736-9) 28.3 18.0-39.1 [facility] KingwoodMonocytes (%) (Auto)2019-04-02 04:51:00* Test Item Value Reference Range Interpretation Comments Monocytes (%) (Auto) (test code = 5905-5) 8.3 4.4-11.3 [facility] KingwoodEosinophils (%) (Auto)2019-04-02 04:51:00 * Test Item Value Reference Range Interpretation Comments Eosinophils (%) (Auto) (test code = 713-8) 1.6 0.0-6.0 [facility] KingwoodBasophils (%) (Auto)2019-04-02 04:51:00* Test Item Value Reference Range Interpretation Comments Basophils (%) (Auto) (test code = 706-2) 0.2 0.0-1.0 [facility] KingwoodIM GRANULOCYTES %2019-04-02 04:51:00* Test Item Value Reference Range Interpretation Comments IM GRANULOCYTES % (test code = IM GRANULOCYTES %) 0.4 0.0- 1.0 [facility] KingwoodNeutrophils # (Auto)2019-04-02 04:51:00* Test Item Value Reference Range Interpretation Comments Neutrophils # (Auto) (test code = 751-8) 6.4 2.1-6.9 [facility] KingwoodLymphocytes # (Auto)2019-04-02 04:51:00* Test Item Value Reference Range Interpretation Comments Lymphocytes # (Auto) (test code = 98765-9) 2.9 1.0-3.2 [facility] KingwoodMonocytes # (Auto)2019-04-02 04:51:00* Test Item Value Reference Range Interpretation Comments Monocytes # (Auto) (test code = 742-7) 0.9 0.2-0.8 H [facility] KingwoodEosinophils # (Auto)2019-04-02 04:51:00* Test Item Value Reference Range Interpretation Comments Eosinophils # (Auto) (test code = 711-2) 0.2 0.0-0.4 [facility] KingwoodBasophils # (Auto)2019-04-02 04:51:00* Test Item Value Reference Range Interpretation Comments Basophils # (Auto) (test code = 704-7) 0.0 0.0-0.1 [facility] KingwoodAbsolute Immature Granulocyte (auto 2019-04-02 04:51:00* Test Item Value Reference Range Interpretation Comments Absolute Immature Granulocyte (auto (simran t code = Absolute Immature Granulocyte (auto) 0.04 0-0.1 [facility] KingwoodWhite Blood Kwibo8509-66-00 04:51:00* Test Item Value Reference Range Interpretation Comments White Blood Count (test code = 6690-2) 10.39 4.8-10.8 [facility] KingwoodRed Blood Fdvqp3465-92-01 04:51:00* Test Item Value Reference Range Interpretation Comments Red Blood Count (test code = 789-8) 4.85 3.6-5.1 [facility] KingwoodHemoglobin2019-08-17 04:51:00* Test Item Value Reference Range Interpretation Comments Hemoglobin (test code = 17009-8) 14.2 12.0-16.0 [facility] KingwoodHematocrit2019-08-17 04:51:00* Test Item Value Reference Range Interpretation Comments Hematocrit (test code = 4544-3) 43.2 34.2-44.1 [facility] KingwoodMean Corpuscular Xgphdu3445-69-12 04:51:00* Test Item Value Reference Range Interpretation Comments Mean Corpuscular Volume (test code = 787-2) 89.1 81-99 [facility] KingwoodMean Corpuscular Awgzxcbszf7083-47-87 04:51:00* Test Item Value Reference Range Interpretation Comments Mean Corpuscular Hemoglobin (test code = 785-6) 29.3 28-32 [facility] KingwoodMean Corpuscular Hemoglobin Concent 2019-04-02 04:51:00* Test Item Value Reference Range Interpretation Comments Mean Corpuscular Hemoglobin Concent (test code = 786-4) 32.9 31-35 [facility] KingwoodRed Cell Distribution Sfztc2635-76-50 04:51:00* Test Item Value Reference Range Interpretation Comments Red Cell Distribution Width (test code = 64690-7) 13.1 11.7 -14.4 [facility] KingwoodPlatelet Kolno9638-05-57 04:51:00* Test Item Value Reference Range Interpretation Comments Platelet Count (test code = 777-3) 271 140-360 [facility] KingwoodNeutrophils (%) (Auto)2019-04-02 04:51:00 * Test Item Value Reference Range Interpretation Comments Neutrophils (%) (Auto) (test code = 17422-4) 61.2 38.7-80.0 [facility] KingwoodLymphocytes (%) (Auto)2019-04-02 04:51:00 * Test Item Value Reference Range Interpretation Comments Lymphocytes (%) (Auto) (test code = 736-9) 28.3 18.0-39.1 [facility] KingwoodMonocytes (%) (Auto)2019-04-02 04:51:00* Test Item Value Reference Range Interpretation Comments Monocytes (%) (Auto) (test code = 5905-5) 8.3 4.4-11.3 [facility] KingwoodEosinophils (%) (Auto)2019-04-02 04:51:00 * Test Item Value Reference Range Interpretation Comments Eosinophils (%) (Auto) (test code = 713-8) 1.6 0.0-6.0 [facility] KingwoodBasophils (%) (Auto)2019-04-02 04:51:00* Test Item Value Reference Range Interpretation Comments Basophils (%) (Auto) (test code = 706-2) 0.2 0.0-1.0 [facility] KingwoodIM GRANULOCYTES %2019-04-02 04:51:00* Test Item Value Reference Range Interpretation Comments IM GRANULOCYTES % (test code = IM GRANULOCYTES %) 0.4 0.0- 1.0 [facility] KingwoodNeutrophils # (Auto)2019-04-02 04:51:00* Test Item Value Reference Range Interpretation Comments Neutrophils # (Auto) (test code = 751-8) 6.4 2.1-6.9 [facility] KingwoodLymphocytes # (Auto)2019-04-02 04:51:00* Test Item Value Reference Range Interpretation Comments Lymphocytes # (Auto) (test code = 26370-2) 2.9 1.0-3.2 [facility] KingwoodMonocytes # (Auto)2019-04-02 04:51:00* Test Item Value Reference Range Interpretation Comments Monocytes # (Auto) (test code = 742-7) 0.9 0.2-0.8 [facility]woodEosinophils # (Auto)2019-04-02 04:51:00* Test Item Value Reference Range Interpretation Comments Eosinophils # (Auto) (test code = 711-2) 0.2 0.0-0.4 [facility]woodBasophils # (Auto)2019-04-02 04:51:00* Test Item Value Reference Range Interpretation Comments Basophils # (Auto) (test code = 704-7) 0.0 0.0-0.1 [facility]woodAbsolute Immature Granulocyte (auto 2019-04-02 04:51:00* Test Item Value Reference Range Interpretation Comments Absolute Immature Granulocyte (auto (simran t code = Absolute Immature Granulocyte (auto) 0.04 0-0.1 [facility] AU1440-11-15 03:55:00 [facility] [address] [address] Patient Name: ANNIA VIDES MR #: [id number] : 0 1975 Age/Sex: 43/F Req #: [id number] Adm Physician: Ordered by: PORSCHE WALLS MD Report #: [id number] Location: ER Room/Bed: Procedure: 0817 -0005 CT/CT BRAIN WO Exam Date: Exam Time: REPORT STATUS: Signed Exam: Head CT wit hout contrast History: Headache, nausea Comparison studies: None Tech nique: Axial images were obtained from the skull base to the vertex. Coronal and sagittal images reconstructed from the axial data. Dose modulation, iter ative reconstruction, and/or weight based adjustment of the mA/kV was utilized to reduce the radiation dose to as low as reasonably achievable. Radia tion dose: Total DLP: 806 mGy*cm. Estimated effective dose: DLP x 0.015 Intravenous contrast: None Findings: Scalp: No abnormalities. Bones: No fractures, blastic or lytic lesions. Brain sulci: Appropriate for age. Ventricles: Normal in size and configuration. No hydrocephalus. Extra-axial spaces: No masses, no fluid collection. Parenchyma: Age-indeterminate, 5 mm hypodense lacunar infarct in the left thalamus. No mass, acute hemorrhage or acute or chronic cortical insult. Sellar/suprasellar region: No abnorm alities. Craniocervical junction: Patent foramen magnum. No Chiari one malform ation. IMPRESSION: 1. Age-indeterminate nonhemorrhagic left thalamic lacunar infarct. 2. No other intracranial abnormalities. Signed by: Dr. Morgan Mulligan M.D. on 04/02/2019 4:00 AM Dictated By: MORGAN MULLIGAN MD 9 Transcribed By: MANJINDER on 04/02/19399 COPY TO: PORSCHE WALLS MD Creatine Dkzohe6203-86-15 22:41:00* Test Item Value Reference Range Interpretation Comments Creatine Kinase (test code = 2157-6) 92 -168 [facility]woodCreatine Quyrov1699-99-29 22:41:00* Test Item Value Reference Range Interpretation Comments Creatine Kinase (test code = 2157-6) 92 168 [facility]woodCreatine Buffut1907-77-81 22:41:00* Test Item Value Reference Range Interpretation Comments Creatine Kinase (test code = 2157-6) 92 168 [facility] KingwoodUrine AST7382-40-25 22:40:00* Test Item Value Reference Range Interpretation Comments Urine WBC (test code = 5821-4) 21-50 0-5 H [facility] KingwoodUrine EUL2344-50-05 22:40:00* Test Item Value Reference Range Interpretation Comments Urine RBC (test code = 31485-4) 11-20 0-5 H [facility] KingwoodUrine Dgbmlskl9508-60-77 22:40:00* Test Item Value Reference Range Interpretation Comments Urine Bacteria (test code = 83973-0) FEW NONE [facility]woodU[facility] Epithelial Boylb7026-93-76 22:40:00 * Test Item Value Reference Range Interpretation Comments Urine Epithelial Cells (test code = 05199-0) FEW NONE [facility]woodU[facility] JJC0696-93-36 22:40:00* Test Item Value Reference Range Interpretation Comments Urine WBC (test code = 5821-4) 21-50 0-5 H [facility]woodU[facility] SBC3536-87-41 22:40:00* Test Item Value Reference Range Interpretation Comments Urine RBC (test code = 84334-2) 11-20 0-5 H [facility]woodU[facility] Vzosruez7684-59-93 22:40:00* Test Item Value Reference Range Interpretation Comments Urine Bacteria (test code = 09743-8) FEW NONE [facility]woodU[facility] Epithelial Uhlsr1714-89-43 22:40:00 * Test Item Value Reference Range Interpretation Comments Urine Epithelial Cells (test code = 85605-3) FEW NONE [facility]woodUrine [id number] 22:40:00* Test Item Value Reference Range Interpretation Comments Urine WBC (test code = 5821-4) 21-50 0-5 H [facility] KingwoodUrine CCY7616-57-58 22:40:00* Test Item Value Reference Range Interpretation Comments Urine RBC (test code = 87651-0) 11-20 0-5 H [facility]woodUrine Hjefldvk6105-80-89 22:40:00* Test Item Value Reference Range Interpretation Comments Urine Bacteria (test code = 11356-7) FEW NONE [facility]woodU[facility] Epithelial Wygzk7427-08-52 22:40:00 * Test Item Value Reference Range Interpretation Comments Urine Epithelial Cells (test code = 26735-8) FEW NONE [facility] KingwoodUrine Opiates Kweumi1890-69-20 22:32:00* Test Item Value Reference Range Interpretation Comments Urine Opiates Screen (test code = 32081-8) NEGATIVE NEGATIVE ALL TESTS PERFORMED MANUALLY ON getupp TOX/SEE TESTMem[facility] Hospital KingwoodUrine Barbiturates Gitlly3333-16-06 22:32:00* Test Item Value Reference Range Interpretation Comments Urine Barbiturates Screen (test code = 996748050) NEGATIVE NEGA TIVE [facility] KingwoodU[facility] Phencyclidine Obpsuo7075-31-92 22:32:00* Test Item Value Reference Range Interpretation Comments Urine Phencyclidine Screen (test code = 35632-5) NEGATIVE NEGAT GEOVANNA [facility] KingwoodUrine Amphetamines Msgbmi1318-02-73 22:32:00* Test Item Value Reference Range Interpretation Comments Urine Amphetamines Screen (test code = 63092-6) NEGATIVE NEGATI VE [facility] KingwoodU[facility] Methamphetamines Dwyjkv2808-06-64 22:32:00* Test Item Value Reference Range Interpretation Comments Urine Methamphetamines Screen (test code = Urine Metha mphetamines Screen) NEGATIVE NEGATIVE [facility]woodU[facility] Benzodiazepines Rwlaoh1237-55-70 22:32:00* Test Item Value Reference Range Interpretation Comments Urine Benzodiazepines Screen (test code = 97435-5) NEGATIVE NEG ATIVE [facility] KingwoodUrine Cocaine Itqpsg5530-41-11 22:32:00* Test Item Value Reference Range Interpretation Comments Urine Cocaine Screen (test code = 3398-5) NEGATIVE NEGATIVE [facility] KingwoodU[facility] Cannabinoids Lvutnc5942-60-93 22:32:00* Test Item Value Reference Range Interpretation Comments Urine Cannabinoids Screen (test code = 40031-8) NEGATIVE NEGATI VE THESE RESULTS ARE FOR MEDICAL TREATMENT ONLYTHIS REPORT CONTAINS UNCONFIR MED SCREENING RESULTS*POSITIVE RESULTS WILL BE CONFIRMED BY REFERENCE LAB UPON R EQUEST CUT-OFFDRUG CLASS CONCENTRATION ng/mLAmphetamines 1000Methamphetamines 1000Cocaine 300Opiate 300Phencyc lidine 25Cannabinoid 50Barbiturates 300Benzodiazepine 300Methadone 300[facility] KingwoodUrine Methadone Uyztso8626-76-90 22:32:00* Test Item Value Reference Range Interpretation Comments Urine Methadone Screen (test code = 68558-0) NEGATIVE NEGATIVE THESE RESULTS ARE FOR MEDICAL TREATMENT ONLYTHIS REPORT CONTAINS UNCONFIR MED SCREENING RESULTS*POSITIVE RESULTS WILL BE CONFIRMED BY REFERENCE LAB UPON R EQUEST CUT-OFFDRUG CLASS CONCENTRATION ng/mLAmphetamines 1000Methamphetamines 1000Cocaine Metabolite 300Opiate 300Phencyc lidine 25Cannabinoid 50Barbiturates 300Benzodiazepine 300Methadone 300[facility] KingwoodUrine Opiates Oegqrd7189-17-45 22:32:00* Test Item Value Reference Range Interpretation Comments Urine Opiates Screen (test code = 04325-3) NEGATIVE NEGATIVE ALL TESTS PERFORMED MANUALLY ON getupp TOX/SEE TESTMemorial [facility] Hospital KingwoodUrine Barbiturates Wtjmkr3792-19-99 22:32:00* Test Item Value Reference Range Interpretation Comments Urine Barbiturates Screen (test code = 014231741) NEGATIVE NEGA TIVE [facility] KingwoodU[facility] Phencyclidine Znciwt1782-51-76 22:32:00* Test Item Value Reference Range Interpretation Comments Urine Phencyclidine Screen (test code = 17552-5) NEGATIVE NEGAT GEOVANNA [facility] KingwoodU[facility] Amphetamines Vnyrun8530-21-21 22:32:00* Test Item Value Reference Range Interpretation Comments Urine Amphetamines Screen (test code = 81706-3) NEGATIVE NEGATI VE [facility] KingwoodU[facility] Methamphetamines Msnfob4696-99-00 22:32:00* Test Item Value Reference Range Interpretation Comments Urine Methamphetamines Screen (test code = Urine Metha mphetamines Screen) NEGATIVE NEGATIVE [facility]woodU[facility] Benzodiazepines Smbtbi3536-80-49 22:32:00* Test Item Value Reference Range Interpretation Comments Urine Benzodiazepines Screen (test code = 91850-8) NEGATIVE NEG ATIVE [facility]woodU[facility] Cocaine Iqwepi3507-36-84 22:32:00* Test Item Value Reference Range Interpretation Comments Urine Cocaine Screen (test code = 3398-5) NEGATIVE NEGATIVE [facility] KingwoodU[facility] Cannabinoids Fyvgvq3733-42-27 22:32:00* Test Item Value Reference Range Interpretation Comments Urine Cannabinoids Screen (test code = 97298-7) NEGATIVE NEGATI VE THESE RESULTS ARE FOR MEDICAL TREATMENT ONLYTHIS REPORT CONTAINS UNCONFIR MED SCREENING RESULTS*POSITIVE RESULTS WILL BE CONFIRMED BY REFERENCE LAB UPON R EQUEST CUT-OFFDRUG CLASS CONCENTRATION ng/mLAmphetamines 1000Methamphetamines 1000Cocaine 300Opiate 300Phencyc lidine 25Cannabinoid 50Barbiturates 300Benzodiazepine 300Methadone 300[facility] CenterU[facility] Methadone Hlzaqh0753-26-14 22:32:00* Test Item Value Reference Range Interpretation Comments Urine Methadone Screen (test code = 73273-6) NEGATIVE NEGATIVE THESE RESULTS ARE FOR MEDICAL TREATMENT ONLYTHIS REPORT CONTAINS UNCONFIR MED SCREENING RESULTS*POSITIVE RESULTS WILL BE CONFIRMED BY REFERENCE LAB UPON R EQUEST CUT-OFFDRUG CLASS CONCENTRATION ng/mLAmphetamines 1000Methamphetamines 1000Cocaine Metabolite 300Opiate 300Phencyc lidine 25Cannabinoid 50Barbiturates 300Benzodiazepine 300Methadone 300[facility] CenterUrine Opiates Ommovz7432-64-32 22:32:00* Test Item Value Reference Range Interpretation Comments Urine Opiates Screen (test code = 48848-9) NEGATIVE NEGATIVE ALL TESTS PERFORMED MANUALLY ON BIORAD TOX/SEE TESTMem[facility] KingwoodUrine Barbiturates Reemsz8069-90-49 22:32:00* Test Item Value Reference Range Interpretation Comments Urine Barbiturates Screen (test code = 027980397) NEGATIVE NEGA TIVE [facility] KingwoodUrine Phencyclidine Qgwiqb9565-84-21 22:32:00* Test Item Value Reference Range Interpretation Comments Urine Phencyclidine Screen (test code = 44597-3) NEGATIVE NEGAT GEOVANNA [facility] KingwoodUrine Amphetamines Iigizl8145-93-43 22:32:00* Test Item Value Reference Range Interpretation Comments Urine Amphetamines Screen (test code = 94953-7) NEGATIVE NEGATI VE [facility] KingwoodU[facility] Methamphetamines Pswuyl2903-92-53 22:32:00* Test Item Value Reference Range Interpretation Comments Urine Methamphetamines Screen (test code = Urine Metha mphetamines Screen) NEGATIVE NEGATIVE [facility] KingwoodU[facility] Benzodiazepines Opwrkh7804-11-52 22:32:00* Test Item Value Reference Range Interpretation Comments Urine Benzodiazepines Screen (test code = 09345-0) NEGATIVE NEG ATIVE [facility] KingwoodUrine Cocaine Jdmhqd5138-15-49 22:32:00* Test Item Value Reference Range Interpretation Comments Urine Cocaine Screen (test code = 3398-5) NEGATIVE NEGATIVE [facility] KingwoodU[facility] Cannabinoids Ajocdd4218-22-26 22:32:00* Test Item Value Reference Range Interpretation Comments Urine Cannabinoids Screen (test code = 67921-7) NEGATIVE NEGATI VE THESE RESULTS ARE FOR MEDICAL TREATMENT ONLYTHIS REPORT CONTAINS UNCONFIR MED SCREENING RESULTS*POSITIVE RESULTS WILL BE CONFIRMED BY REFERENCE LAB UPON R EQUEST CUT-OFFDRUG CLASS CONCENTRATION ng/mLAmphetamines 1000Methamphetamines 1000Cocaine 300Opiate 300Phencyc lidine 25Cannabinoid 50Barbiturates 300Benzodiazepine 300Methadone 300[facility] CenterU[facility] Methadone Ldtdzx6920-45-34 22:32:00* Test Item Value Reference Range Interpretation Comments Urine Methadone Screen (test code = 68606-4) NEGATIVE NEGATIVE THESE RESULTS ARE FOR MEDICAL TREATMENT ONLYTHIS REPORT CONTAINS UNCONFIR MED SCREENING RESULTS*POSITIVE RESULTS WILL BE CONFIRMED BY REFERENCE LAB UPON R EQUEST CUT-OFFDRUG CLASS CONCENTRATION ng/mLAmphetamines 1000Methamphetamines 1000Cocaine Metabolite 300Opiate 300Phencyc lidine 25Cannabinoid 50Barbiturates 300Benzodiazepine 300Methadone 300[facility] CenterUrine Cyloq4014-86-33 22:31:00* Test Item Value Reference Range Interpretation Comments Urine Color (test code = 5778-6) YELLOW YELLOW [facility]woodU[facility] Rvjiwbv6924-03-90 22:31:00* Test Item Value Reference Range Interpretation Comments Urine Clarity (test code = 05628-9) SL CLOUDY CLEAR [facility]woodUrine Specific Rngohpk8409-49-49 22:31:00 * Test Item Value Reference Range Interpretation Comments Urine Specific [place] (test code = 5811-5) <=1.005 1.010-1.02 5 [facility]woodU[facility] nP7177-53-26 22:31:00* Test Item Value Reference Range Interpretation Comments Urine pH (test code = 19156-0) 5.5 5-7 [facility]woodU[facility] Leukocyte Mepiblfh3328-96-44 22:31:00* Test Item Value Reference Range Interpretation Comments Urine Leukocyte Esterase (test code = 92665-2) SMALL NEGATIV E [facility]woodU[facility] Repirry9701-96-29 22:31:00* Test Item Value Reference Range Interpretation Comments Urine Nitrite (test code = 11259-6) NEGATIVE NEGATIVE [facility]woodU[facility] Ckrecom1204-51-00 22:31:00* Test Item Value Reference Range Interpretation Comments Urine Protein (test code = 83459-7) NEGATIVE NEGATIVE [facility]woodU[facility] Glucose (UA)2019-03-22 22:31:00* Test Item Value Reference Range Interpretation Comments Urine Glucose (UA) (test code = 98538-1) 3+ NEGATIVE [facility]woodUrine Wzfizpa4683-34-92 22:31:00* Test Item Value Reference Range Interpretation Comments Urine Ketones (test code = 86838-8) NEGATIVE NEGATIVE [facility] Klcypizmduiw1444-54-62 22:31:00* Test Item Value Reference Range Interpretation Comments Urine Urobilinogen (test code = 41771-4) 0.2 0.2-1 [facility]woodU[facility] Acwxictoq4674-02-68 22:31:00* Test Item Value Reference Range Interpretation Comments Urine Bilirubin (test code = 1977-8) NEGATIVE NEGATIVE [facility] Btiho6992-62-99 22:31:00* Test Item Value Reference Range Interpretation Comments Urine Blood (test code = 41199-0) TRACE NEGATIVE H [facility] Bgnzf9181-49-62 22:31:00* Test Item Value Reference Range Interpretation Comments Urine Color (test code = 5778-6) YELLOW YELLOW [facility] Ngapbjp7896-61-60 22:31:00* Test Item Value Reference Range Interpretation Comments Urine Clarity (test code = 94771-2) SL CLOUDY CLEAR [facility]woodU[facility] Specific Deqzwwc3457-85-88 22:31:00 * Test Item Value Reference Range Interpretation Comments Urine Specific [place] (test code = 5811-5) <=1.005 1.010-1.02 5 [facility]woodU[facility] xV5605-07-50 22:31:00* Test Item Value Reference Range Interpretation Comments Urine pH (test code = 59771-3) 5.5 5-7 [facility]woodU[facility] Leukocyte Thmdxqnb2939-75-65 22:31:00* Test Item Value Reference Range Interpretation Comments Urine Leukocyte Esterase (test code = 30418-8) SMALL NEGATIV E [facility]woodU[facility] Zhapaat3345-96-76 22:31:00* Test Item Value Reference Range Interpretation Comments Urine Nitrite (test code = 05339-3) NEGATIVE NEGATIVE [facility]woodU[facility] Swgfvna4564-17-84 22:31:00* Test Item Value Reference Range Interpretation Comments Urine Protein (test code = 21716-1) NEGATIVE NEGATIVE [facility] Glucose (UA)2019-03-22 22:31:00* Test Item Value Reference Range Interpretation Comments Urine Glucose (UA) (test code = 46693-7) 3+ NEGATIVE [facility]woodU[facility] Jbhjrdk7955-71-31 22:31:00* Test Item Value Reference Range Interpretation Comments Urine Ketones (test code = 13554-4) NEGATIVE NEGATIVE [facility] Akiowqzeugzj0237-07-88 22:31:00* Test Item Value Reference Range Interpretation Comments Urine Urobilinogen (test code = 74865-3) 0.2 0.2-1 [facility]woodU[facility] Cteqvrrda9320-74-88 22:31:00* Test Item Value Reference Range Interpretation Comments Urine Bilirubin (test code = 1977-8) NEGATIVE NEGATIVE [facility] Vfets1998-93-01 22:31:00* Test Item Value Reference Range Interpretation Comments Urine Blood (test code = 70378-5) TRACE NEGATIVE H [facility]woodU[facility] Wxprz9478-90-94 22:31:00* Test Item Value Reference Range Interpretation Comments Urine Color (test code = 5778-6) YELLOW YELLOW [facility]woodU[facility] Azxhffj0734-30-97 22:31:00* Test Item Value Reference Range Interpretation Comments Urine Clarity (test code = 52692-0) SL CLOUDY CLEAR [facility]woodU[facility] Specific Rrbozqp5109-24-57 22:31:00 * Test Item Value Reference Range Interpretation Comments Urine Specific [place] (test code = 5811-5) <=1.005 1.010-1.02 5 [facility]woodU[facility] sQ8623-89-97 22:31:00* Test Item Value Reference Range Interpretation Comments Urine pH (test code = 41368-0) 5.5 5-7 [facility]woodU[facility] Leukocyte Sdojaxpr9515-24-23 22:31:00* Test Item Value Reference Range Interpretation Comments Urine Leukocyte Esterase (test code = 53513-2) SMALL NEGATIV E [facility]woodU[facility] Abibqxi4480-51-07 22:31:00* Test Item Value Reference Range Interpretation Comments Urine Nitrite (test code = 44432-3) NEGATIVE NEGATIVE [facility]woodU[facility] Mzckqgq1951-82-05 22:31:00* Test Item Value Reference Range Interpretation Comments Urine Protein (test code = 89095-6) NEGATIVE NEGATIVE [facility]woodU[facility] Glucose (UA)2019-03-22 22:31:00* Test Item Value Reference Range Interpretation Comments Urine Glucose (UA) (test code = 25104-7) 3+ NEGATIVE [facility]woodU[facility] Axzytuc2225-29-30 22:31:00* Test Item Value Reference Range Interpretation Comments Urine Ketones (test code = 87379-5) NEGATIVE NEGATIVE [facility] Dmxkxleewuzb8170-43-84 22:31:00* Test Item Value Reference Range Interpretation Comments Urine Urobilinogen (test code = 04720-6) 0.2 0.2-1 [facility]woodU[facility] Hsmwhqkez2984-37-50 22:31:00* Test Item Value Reference Range Interpretation Comments Urine Bilirubin (test code = 1977-8) NEGATIVE NEGATIVE [facility]woodU[facility] Dodup6318-79-95 22:31:00* Test Item Value Reference Range Interpretation Comments Urine Blood (test code = 03153-1) TRACE NEGATIVE H [facility] KingwoodCreatine Kinase YO2162-27-98 22:25:00* Test Item Value Reference Range Interpretation Comments Creatine Kinase MB (test code = 14728-3) 7.40 0-5.0 H [facility] KingwoodTroponin Z2382-45-20 22:25:00* Test Item Value Reference Range Interpretation Comments Troponin I (test code = YJE6161) < 0.001 0-0.300 [facility] KingwoodCreatine Kinase AO1559-05-43 22:25:00* Test Item Value Reference Range Interpretation Comments Creatine Kinase MB (test code = 77191-9) 7.40 0-5.0 H [facility] KingwoodTroponin W8029-63-15 22:25:00* Test Item Value Reference Range Interpretation Comments Troponin I (test code = RSL7805) < 0.001 0-0.300 [facility]woodCreatine Kinase LS4161-46-07 22:25:00* Test Item Value Reference Range Interpretation Comments Creatine Kinase MB (test code = 54019-3) 7.40 0-5.0 H [facility] KingwoodTroponin C0844-63-20 22:25:00* Test Item Value Reference Range Interpretation Comments Troponin I (test code = QPD8302) < 0.001 0-0.300 [facility] Esqjw9819-43-18 22:10:00* Test Item Value Reference Range Interpretation Comments Sodium Level (test code = 2951-2) 134 136-145 L [facility]woodPotassium Igsmq6448-55-25 22:10:00* Test Item Value Reference Range Interpretation Comments Potassium Level (test code = 2823-3) 3.9 3.5-5.1 [facility] KingwoodChloride Bhwdi8788-13-95 22:10:00* Test Item Value Reference Range Interpretation Comments Chloride Level (test code = 2075-0) 95 98-107 L [facility] KingwoodCarbon Dioxide Nbgwt6902-51-02 22:10:00* Test Item Value Reference Range Interpretation Comments Carbon Dioxide Level (test code = 2028-9) 26 - [facility] KingwoodAnion Krx7059-51-90 22:10:00* Test Item Value Reference Range Interpretation Comments Anion Gap (test code = 00921-3) 16.9 8-16 H [facility] KingwoodBlood Urea Ffkenneo3403-46-80 22:10:00* Test Item Value Reference Range Interpretation Comments Blood Urea Nitrogen (test code = 3094-0) 13 7-26 [facility] KingwoodCreatinine2019-08-06 22:10:00* Test Item Value Reference Range Interpretation Comments Creatinine (test code = 2160-0) 0.85 0.57-1.11 [facility] KingwoodBUN/Creatinine Fpsjn0280-01-05 22:10:00* Test Item Value Reference Range Interpretation Comments BUN/Creatinine Ratio (test code = 3097-3) 15 6-25 [facility] KingwoodEstimat Glomerular Filtration Rate 2019-03-22 22:10:00* Test Item Value Reference Range Interpretation Comments Estimat Glomerular Filtration Rate (test code = 307088930) > 60 >60 Ranges were taken from the National Kidney Disease Education Program and the [facility] literature.Reference ranges:60 or greater: Czqgkc63-67 ( for 3 consecutive months): Chronic kidney disease 15 or less: Kidney failureCH[facility] CenterGlucose Qvruo5547-21-10 22:10:00* Test Item Value Reference Range Interpretation Comments Glucose Level (test code = WGR1362) 397 74-118 H [facility] KingwoodCalcium Hquet8834-12-68 22:10:00* Test Item Value Reference Range Interpretation Comments Calcium Level (test code = 97946-0) 10.1 8.4-10.2 [facility] KingwoodTotal Runstznjl8533-24-01 22:10:00* Test Item Value Reference Range Interpretation Comments Total Bilirubin (test code = 1975-2) 0.3 0.2-1.2 [facility] KingwoodAspartate Amino Transf (AST/SGOT) 2019-03-22 22:10:00* Test Item Value Reference Range Interpretation Comments Aspartate Amino Transf (AST/SGOT) (test code = Aspartate Amino Transf (AST/SGOT)) 42 5-34 H [facility] KingwoodAlanine Aminotransferase (ALT/SGPT) 2019-03-22 22:10:00* Test Item Value Reference Range Interpretation Comments Alanine Aminotransferase (ALT/SGPT) (test code = 1742-6) 66 0-55 H [facility] KingwoodTotal Bhbfoti4813-17-10 22:10:00* Test Item Value Reference Range Interpretation Comments Total Protein (test code = 2885-2) 7.8 6.5-8.1 [facility] KingwoodAlbumin2019-08-06 22:10:00* Test Item Value Reference Range Interpretation Comments Albumin (test code = 1751-7) 3.4 3.5-5.0 L [facility] [facility]ob[facility] 22:10[facility]00* Test Item Value Reference Range Interpretation Comments Globulin (test code = 15668-5) 4.4 2.3-3.5 H [facility]woodAlbumin/Globulin Mdarz7327-73-03 22:10:00 * Test Item Value Reference Range Interpretation Comments Albumin/Globulin Ratio (test code = 1759-0) 0.8 0.8-2.0 [facility]woodAlkaline Vvtetuibbfc5632-04-01 22:10:00* Test Item Value Reference Range Interpretation Comments Alkaline Phosphatase (test code = 6768-6) 103 40-150 [facility]woodCHEST [facility]INGLE [facility])2019-03-22 21:58:00 [facility] [address] [address] Patient Name: ANNIA VIDES MR #: [id number] : 1975 Age/Sex: 43/F Req #: [id number] Adm Physician: Ordered by: PORSCHE WALLS MD Report #: [id number] Location: ER Room/Bed: Procedure: [id number] DX/CHEST SINGLE (PORTABLE) Exam Date: 03/22/19 Exam Time: 2144 REPORT STATUS: Sig lina EXAMINATION: CHEST SINGLE (PORTABLE) INDICATION: Chest pain. COMPARISON: None FINDINGS: TUBES and LINES: None. LUNGS: Lungs are hypoinflated. There are bibasilar atelectasis. There is no eviden ce of pneumonia or pulmonary edema. PLEURA: No pleural effusion or pneumot horax. HEART AND MEDIASTINUM: The cardiomediastinal silhouette is unremark able. BONES AND SOFT TISSUES: No acute osseous lesion. UPPER AB DOMEN: No free air under the diaphragm. Gaseous distension of the stomach. IMPRESSION: Bibasilar subsegmental atelectasis. Signed by: Dr. Kishan Velasquez M.D. on 03/22/2019 10:13 PM Dictated By: DELMY VELASQUEZ MD, MD 12 Transcri bed By: MANJINDER on 03/22/192212 COPY TO: PORSCHE WALLS MD White Blood Kzksl5803-63-40 21:56:00* Test Item Value Reference Range Interpretation Comments White Blood Count (test code = 6690-2) 10.81 4.8-10.8 H [facility]woodRed Blood Cmkij3599-35-52 21:56:00* Test Item Value Reference Range Interpretation Comments Red Blood Count (test code = 789-8) 5.11 3.6-5.1 H [facility]woodHemoglobin2019-08-06 21:56:00* Test Item Value Reference Range Interpretation Comments Hemoglobin (test code = 26231-5) 15.1 12.0-16.0 [facility]woodHematocrit2019-08-06 21:56:00* Test Item Value Reference Range Interpretation Comments Hematocrit (test code = 4544-3) 45.2 34.2-44.1 H [facility]woodMean Corpuscular Vxrldx4291-31-65 21:56:00* Test Item Value Reference Range Interpretation Comments Mean Corpuscular Volume (test code = 787-2) 88.5 81-99 [facility]woodMean Corpuscular Lqokxqvzft5849-23-10 21:56:00* Test Item Value Reference Range Interpretation Comments Mean Corpuscular Hemoglobin (test code = 785-6) 29.5 28-32 [facility]woodMean Corpuscular Hemoglobin Concent 2019-03-22 21:56:00* Test Item Value Reference Range Interpretation Comments Mean Corpuscular Hemoglobin Concent (test code = 786-4) 33.4 31-35 [facility]woodRed Cell Distribution Rsdcg3299-54-28 21:56:00* Test Item Value Reference Range Interpretation Comments Red Cell Distribution Width (test code = 69724-9) 13.2 11.7 -14.4 [facility] KingwoodPlatelet Egsqf4906-27-95 21:56:00* Test Item Value Reference Range Interpretation Comments Platelet Count (test code = 777-3) 306 140-360 [facility]woodNeutrophils (%) (Auto)2019-03-22 21:56:00 * Test Item Value Reference Range Interpretation Comments Neutrophils (%) (Auto) (test code = 02776-0) 67.8 38.7-80.0 [facility] KingwoodLymphocytes (%) (Auto)2019-03-22 21:56:00 * Test Item Value Reference Range Interpretation Comments Lymphocytes (%) (Auto) (test code = 736-9) 23.5 18.0-39.1 [facility]woodMonocytes (%) (Auto)2019-03-22 21:56:00* Test Item Value Reference Range Interpretation Comments Monocytes (%) (Auto) (test code = 5905-5) 7.2 4.4-11.3 [facility]woodEosinophils (%) (Auto)2019-03-22 21:56:00 * Test Item Value Reference Range Interpretation Comments Eosinophils (%) (Auto) (test code = 713-8) 0.9 0.0-6.0 [facility]woodBasophils (%) (Auto)2019-03-22 21:56:00* Test Item Value Reference Range Interpretation Comments Basophils (%) (Auto) (test code = 706-2) 0.2 0.0-1.0 [facility]woodIM GRANULOCYTES %2019-03-22 21:56:00* Test Item Value Reference Range Interpretation Comments IM GRANULOCYTES % (test code = IM GRANULOCYTES %) 0.4 0.0- 1.0 [facility] KingwoodNeutrophils # (Auto)2019-03-22 21:56:00* Test Item Value Reference Range Interpretation Comments Neutrophils # (Auto) (test code = 751-8) 7.3 2.1-6.9 H [facility] KingwoodLymphocytes # (Auto)2019-03-22 21:56:00* Test Item Value Reference Range Interpretation Comments Lymphocytes # (Auto) (test code = 92131-9) 2.5 1.0-3.2 [facility]woodMonocytes # (Auto)2019-03-22 21:56:00* Test Item Value Reference Range Interpretation Comments Monocytes # (Auto) (test code = 742-7) 0.8 0.2-0.8 [facility]woodEosinophils # (Auto)2019-03-22 21:56:00* Test Item Value Reference Range Interpretation Comments Eosinophils # (Auto) (test code = 711-2) 0.1 0.0-0.4 [facility]woodBasophils # (Auto)2019-03-22 21:56:00* Test Item Value Reference Range Interpretation Comments Basophils # (Auto) (test code = 704-7) 0.0 0.0-0.1 [facility] KingwoodAbsolute Immature Granulocyte (auto 2019-03-22 21:56:00* Test Item Value Reference Range Interpretation Comments Absolute Immature Granulocyte (auto (simran t code = Absolute Immature Granulocyte (auto) 0.04 0-0.1 [facility] KingwoodDAU9E2018-01-30 22:36:00* Test Item Value Reference Range Interpretation Comments Amphetamine (test code = AMPH) Negative Negative N For diagnostic purposes only, positive results should always be assessedin conjunctionwith the patient's medical history,clinical examination and otherfindings.To fulfill legal requirements, a more specific alternate chemical methodmust be used inorder to obtain a Confirmed analytical result. GC/MS is the preferred confirmatory method. Barbiturates (test code = FRANCIS) Negative Negative N Benzodiazepine (test code = ANNIE) Negative Negative N Cocaine (test code = COCA) Negative Negative N Methadone (test code = MTHD) Negative Negative N Opiates (test code = OPIA) POSITIVE Negative A PCP (test code = PCP) Negative Negative N Propoxyphene (test code = PROPOX) Negative Negative N THC (test code = THC) Negative Negative N Alcohol, Urine (test code = ETOHU) <0.01 g/dL 0.00-0.01 N Urinalysis Deptzund3989-16-44 22:35:00* Test Item Value Reference Range Interpretation Comments Color (test code = COLOR) Yellow Yellow,Straw,Pl yellow N Clarity (test code = CLAR) Clear Clear N Specific [place] (test code = SPGR) 1.008 1.001-1.035 N pH (test code = PH) 7.0 5.0-9.0 N Ketone (test code = KET) Negative mg/dL Negative N Glucose (test code = GLUCUR) 50 mg/dL Negative A Protein (test code = PROT) Negative mg/dL Negative N Bilirubin (test code = BILI) Negative mg/dL Negative N Occult Blood (test code = UDOB) Negative Negative N Urobilinogen (test code = UROB) 0.2 mg/dL 0.2-1.0 N Nitrite (test code = NIT) Negative Negative N Leuk Esterase (test code = LEUK) Negative Negative N Micros Exam (test code = MEXAM) Indicated Epithelial Cells (test code = EPI) 10-14 /LPF 0-30 A WBC, Urine (test code = UWBC) None seen /HPF 0-5 A RBC, Urine (test code = URBC) None Seen /HPF 0-5 A Bacteria (test code = BACT) Few /HPF CBC with Hfjajzxndbbi9977-13-53 20:41:00* Test Item Value Reference Range Interpretation Comments WBC (test code = WBC) 10.3 K/cumm 4.4-10.5 N RBC (test code = RBC) 4.31 M/cumm 3.75-5.20 N Hemoglobin (test code = HGB) 12.7 gm/dL 12.2-14.8 N Hematocrit (test code = HCT) 36.9 % 36.5-44.4 N MCV (test code = MCV) 85.7 fL 80-100 N MCH (test code = MCH) 29.6 pg 27.0-32.5 N MCHC (test code = MCHC) 34.5 g/dL 32.0-37.5 N RDW (test code = RDW) 13.4 % 11.5-14.5 N Platelet Count (test code = PLTCT) 312 K/cumm 140-440 N MPV (test code = MPV) 9.8 fL Diff Method (test code = DIFFM) Auto Neutrophil (test code = NEUT) 59.8 % 36-70 N Lymphocyte (test code = LYMPH) 32.1 % 12-44 N Monocyte (test code = MONO) 5.6 % 0-11 N Eosinophil (test code = EOS) 1.9 % 0-7 N Basophil (test code = BASO) 0.5 % 0-2 N Neutro Abs (test code = ANEUT) 6.1 K/cumm 1.6-7.4 N Lymph Abs (test code = ALYMPH) 3.3 K/cumm 0.5-4.6 N Crane Abs (test code = AMONO) 0.6 K/cumm 0.0-1.2 N Eos Abs (test code = AEOS) 0.20 K/cumm 0.00-0.74 N Baso Abs (test code = ABASO) 0.1 K/cumm 0.00-0.21 N Mufpyyc7579-55-02 19:30:00* Test Item Value Reference Range Interpretation Comments Acetone [Serum] (test code = ACETONE) Negative Negative N D-Dimer, Ihuorntaydgy4429-38-12 19:16:00* Test Item Value Reference Range Interpretation Comments D-Dimer, Quant (test code = DDQNT) 374 ng/mL 0-500 N Please note Change in unit of measure from mg/L FEU to ng/mLA cutoff of less than 500 ng/mL DD has a negative predictive value of100% for DVT ysb700% for PE.When using D-Dimer to help rule out DVT or PE, clinical information anddisease probability should be considered.Elevated D-Dimer values are not specific for thromboembolism. Prothrombin [id number] 19:16:00* Test Item Value Reference Range Interpretation Comments PT (test code = PT) 10.80 seconds 9.78-13.35 N INR (test code = INR) 0.95 Ratio 0.6-1.2 N Partial Thromboplastin [id number] 19:16:00* Test Item Value Reference Range Interpretation Comments aPTT (test code = PTT) 31.90 seconds 24.39-37.25 N Qav-Mob2517-56-30 19:02:00* Test Item Value Reference Range Interpretation Comments NT ProBnp (test code = PBNP) 13 pg/mL 0-124 N Troponin [id number] 18:34:00* Test Item Value Reference Range Interpretation Comments Troponin T (test code = BONNY) 0.027 ng/mL 0.000-0.090 N Comprehensive Metabolic [id number] 18:34:00* Test Item Value Reference Range Interpretation Comments Sodium (test code = NA) 138 mmol/L 135-145 N Potassium (test code = K) 5.1 mmol/L 3.5-5.1 N HE MOLYZED Chloride (test code = CL) 99 mmol/L 98-105 N Carbon Dioxide (test code = CO2) 25 mmol/L 22-29 N Glucose (test code = GLU) 200 mg/dL 70-115 H Blood Urea Nitrogen (test code = BUN) 13 mg/dL 6-20 N Creatinine (test code = CREAT) 0.7 mg/dL 0.5-0.9 N Calcium (test code = CA) 8.9 mg/dL 8.3-10.5 N Prot Total (test code = TP) 6.5 g/dL 6.4-8.3 N Albumin (test code = ALB) 3.3 g/dL 3.5-5.2 L A/G Ratio (test code = AGRATIO) 1.0 Ratio Globulin (test code = GLOB) 3.2 2.9-3.1 H Bili Total (test code = TBIL) 0.2 mg/dL 0.1-0.9 N Alk Phos (test code = APHOS) 82 U/L 35-104 N AST (test code = AST) 64 U/L 1-32 H HEMOLY ZED ALT (test code = ALT) 68 U/L 1-33 H BUN/Creatinine Ratio (test code = BCRATIO) 18.6 Anion Gap (test code = AGAP) 14 mmol/L 7-16 N Estimated GFR (test code = GFR) >60 mL/min/1.73m2 eGFR (estimated Glomerular Filtration Rate) is an estimated value,calculated from the patient's serum creatinine using the MDRD equation.It is NOT the patient's actual GFR. The eGFR provides a more clinicallyuseful measure of kidney disease than serum creatinine alone.This calculation takes sex and race into account, if the informationis provided. If the race is not provided, and the patient isAfrican-Malian, multiply by 1.212. If sex is not provided, and thepatient is female, multiply by 0.742. Results for patients <18 years ofage have not been validated by the MDRD study and should be interpretedwith caution.eGFR Result Interpretation:eGFR > or = 60 is in the Normal RangeeGFR < 60 may mean kidney diseaseeGFR < 15 may mean kidney failureRanges recommended by the National Kidney Found ation,http://nkdep.nih.gov BHCG, Serum, Pdnjahspuwi3910-75-63 18:33:00* Test Item Value Reference Range Interpretation Comments Preg Qual [Se] (test code = BSHCG) Negative Negative N XR CHEST 1 [id number] 17:28:29CHEST 1 VIEWCLINICAL INFORMATION: Chest pain- DyspneaCOMPARISON: [...] lung bases.2. No acute finding is identified.LOCATION: [facility] Glucose, [id number] 16:47:00* Test Item Value Reference Range Interpretation Comments POC Glucose (test code = POCGLUC) 195 mg/dL 70-115 H Notify RN or MDIf you consider your patient critically ill, the [place] Accu-Chek InformII metershould not be used for Glucose determinations.Draw a venous Glucose and send to the Main Lab for Analysis. EXTREMITY NON VASCULAR GQA-[id number] 15:22:53BILATERAL LOWER EXTREMITY ARTERIAL DOPPLER:CLINICAL HISTORY: Right [...] of right common femoral pseudoane urysm.Location: R16CK [id number] 13:41:00* Test Item Value Reference Range Interpretation Comments CK (test code = CK) 75 U/L 26-192 N CKMB (test code = CKMB) 8.3 ng/mL 0.0-2.8 H CKMB% (test code = CKMBP) 11.1 % 0.0-3.[address] CHEST ANGIO W/WO [id number] 13:05:29CT CHEST ANGIO W/WO CONTRASTLOCATION: R16 INDICATION: [...] pulmonary embolism.Low lung volumes with bibasilar atelectasis.Troponin [id number] 12:45:00* Test Item Value Reference Range Interpretation Comments Troponin T (test code = BONNY) 0.066 ng/mL 0.000-0.090 N POC Glucose, [id number] 11:35:00* Test Item Value Reference Range Interpretation Comments POC Glucose (test code = POCGLUC) 188 mg/dL 70-115 H Notify RN or MDIf you consider your patient critically ill, the [place] Accu-Chek InformII metershould not be used for Glucose determinations.Draw a venous Glucose and send to the Main Lab for Analysis. POC Glucose, Htmqy5981-37-86 08:11:00* Test Item Value Reference Range Interpretation Comments POC Glucose (test code = POCGLUC) 223 mg/dL 70-115 H Notify RN or MDIf you consider your patient critically ill, the [place] Accu-Chek InformII metershould not be used for Glucose determinations.Draw a venous Glucose and send to the Main Lab for Analysis. CK [id number] 06:46:00* Test Item Value Reference Range Interpretation Comments CK (test code = CK) na U/L 26-192 N CKMB (test code = CKMB) 7.9 ng/mL 0.0-2.8 H CKMB% (test code = CKMBP) 0.0 % 0.0-3.4 N Troponin [id number] 06:43:00* Test Item Value Reference Range Interpretation Comments Troponin T (test code = BONNY) 0.059 ng/mL 0.000-0.090 N CK [id number] 01:48:00* Test Item Value Reference Range Interpretation Comments CK (test code = CK) 95 U/L 26-192 N CKMB (test code = CKMB) 8.1 ng/mL 0.0-2.8 H CKMB% (test code = CKMBP) 8.5 % 0.0-3.4 H CK [id number] 01:48:00* Test Item Value Reference Range Interpretation Comments CK (test code = CK) 95 U/L 26-192 N Troponin [id number] 22:57:00* Test Item Value Reference Range Interpretation Comments Troponin T (test code = BONNY) 0.051 ng/mL 0.000-0.090 N Nci-[id number] 22:56:00* Test Item Value Reference Range Interpretation Comments NT ProBnp (test code = PBNP) 7 pg/mL 0-124 N XR CHEST 1 [id number] 22:46:46AFTER HOURS SERVICE ON: 04/01/2017 10:46 PMAP Portable ChestLocation Code [id number]: Chest painFINDINGS: Study limited due to shallow inspiration obscuring the lung bases. Thereis mild bibasilar subsegmental atelectasis. There is no pneumothorax.Cardiac silhouette and mediastinum appear within normal limits. IMPRESSION: Mild bibasilar subsegmental atelectasis.CBC with Ozfqaifgzsfj9272-25-09 22:35:00* Test Item Value Reference Range Interpretation Comments WBC (test code = WBC) 8.9 K/cumm 4.4-10.5 N RBC (test code = RBC) 4.59 M/cumm 3.75-5.20 N Hemoglobin (test code = HGB) 13.4 gm/dL 12.2-14.8 N Hematocrit (test code = HCT) 41.7 % 36.5-44.4 N MCV (test code = MCV) 90.9 fL 80-100 N MCH (test code = MCH) 29.2 pg 27.0-32.5 N MCHC (test code = MCHC) 32.1 g/dL 32.0-37.5 N RDW (test code = RDW) 15.3 % 11.5-14.5 H Platelet Count (test code = PLTCT) 307 K/cumm 140-440 N MPV (test code = MPV) 9.0 fL Diff Method (test code = DIFFM) Auto Neutrophil (test code = NEUT) 57.7 % 36-70 N Lymphocyte (test code = LYMPH) 34.7 % 12-44 N Monocyte (test code = MONO) 5.2 % 0-11 N Eosinophil (test code = EOS) 2.2 % 0-7 N Basophil (test code = BASO) 0.2 % 0-2 N Neutro Abs (test code = ANEUT) 5.1 K/cumm 1.6-7.4 N Lymph Abs (test code = ALYMPH) 3.1 K/cumm 0.5-4.6 N Crane Abs (test code = AMONO) 0.5 K/cumm 0.0-1.2 N Eos Abs (test code = AEOS) 0.19 K/cumm 0.00-0.74 N Baso Abs (test code = ABASO) 0.0 K/cumm 0.00-0.21 N Drugs of Abuse Screen, [id number] 14:53:00* Test Item Value Reference Range Interpretation Comments Amphetamine (test code = AMPH) Negative Negative N For diagnostic purposes only, positive results should always be assessedin conjunctionwith the patient's medical history,clinical examination and otherfindings.To fulfill legal requirements, a more specific alternate chemical methodmust be used inorder to obtain a Confirmed analytical result. GC/MS is the preferred confirmatory method. Barbiturates (test code = FRANCIS) Negative Negative N Benzodiazepine (test code = ANNIE) Negative Negative N Cocaine (test code = COCA) Negative Negative N Methadone (test code = MTHD) Negative Negative N Opiates (test code = OPIA) POSITIVE Negative A PCP (test code = PCP) Negative Negative N Propoxyphene (test code = PROPOX) Negative Negative N THC (test code = THC) Negative Negative N D-Dimer, [id number] 11:46:00* Test Item Value Reference Range Interpretation Comments D-Dimer, Quant (test code = DDQNT) 981 ng/mL 0-500 H CK [id number] 11:41:00* Test Item Value Reference Range Interpretation Comments CKMB (test code = CKMB) 6.7 ng/mL 0.0-2.8 H Troponin [id number] 11:41:00* Test Item Value Reference Range Interpretation Comments Troponin T (test code = BONNY) 0.035 ng/mL 0.000-0.090 N POC Glucose, [id number] 11:21:00* Test Item Value Reference Range Interpretation Comments POC Glucose (test code = POCGLUC) 301 mg/dL 70-115 H If you consider your patient critically ill, the [place] Accu-Chek InformII metershould not be used for Glucose determinations.Draw a venous Glucose and send to the Main Lab for Analysis. POC Glucose, [id number] 07:58:00* Test Item Value Reference Range Interpretation Comments POC Glucose (test code = POCGLUC) 338 mg/dL 70-115 H Notify RN or MDIf you consider your patient critically ill, the [place] Accu-Chek InformII metershould not be used for Glucose determinations.Draw a venous Glucose and send to the Main Lab for Analysis. Sed Rate ESR ([place])2017-03-08 07:41:00* Test Item Value Reference Range Interpretation Comments ESR (test code = HESR) 50 mm/Hr 0-20 H CK [id number] 07:25:00* Test Item Value Reference Range Interpretation Comments CKMB (test code = CKMB) 6.9 ng/mL 0.0-2.8 H Thyroid Stimulating Hormone (TSH)2017-03-08 07:07:00* Test Item Value Reference Range Interpretation Comments TSH (test code = TSH) 1.99 mIU/mL 0.270-4.200 N Fediwdh2514-30-10 07:00:00* Test Item Value Reference Range Interpretation Comments Amylase (test code = VIVIAN) 32 U/L 28-100 N Wmnybt9055-37-10 07:00:00* Test Item Value Reference Range Interpretation Comments Lipase (test code = LIP) 20 U/L 13-60 N Magnesium, [id number] 07:00:00* Test Item Value Reference Range Interpretation Comments Magnesium (test code = MG) 1.8 mg/dL 1.7-2.5 N Comprehensive Metabolic [id number] 07:00:00* Test Item Value Reference Range Interpretation Comments Sodium (test code = NA) 133 mmol/L 135-145 L Potassium (test code = K) 3.9 mmol/L 3.5-5.1 N Chloride (test code = CL) 95 mmol/L 98-105 L Carbon Dioxide (test code = CO2) 28 mmol/L 22-29 N Glucose (test code = GLU) 281 mg/dL 70-115 H Blood Urea Nitrogen (test code = BUN) 10 mg/dL 6-20 N Creatinine (test code = CREAT) 0.3 mg/dL 0.5-0.9 L Calcium (test code = CA) 9.3 mg/dL 8.3-10.5 N Prot Total (test code = TP) 6.3 g/dL 6.4-8.3 L Albumin (test code = ALB) 3.3 g/dL 3.5-5.2 L A/G Ratio (test code = AGRATIO) 1.1 Ratio Globulin (test code = GLOB) 3.0 2.9-3.1 N Bili Total (test code = TBIL) 0.4 mg/dL 0.1-0.9 N Alk Phos (test code = APHOS) 93 U/L 35-104 N AST (test code = AST) 24 U/L 1-32 N ALT (test code = ALT) 41 U/L 1-33 H BUN/Creatinine Ratio (test code = BCRATIO) 33.3 Anion Gap (test code = AGAP) 10 mmol/L 7-16 N Estimated GFR (test code = GFR) >60 mL/min/1.73m2 eGFR (estimated Glomerular Filtration Rate) is an estimated value,calculated from the patient's serum creatinine using the MDRD equation.It is NOT the patient's actual GFR. The eGFR provides a more clinicallyuseful measure of kidney disease than serum creatinine alone.This calculation takes sex and race into account, if the informationis provided. If the race is not provided, and the patient isAfrican-Malian, multiply by 1.212. If sex is not provided, and thepatient is female, multiply by 0.742. Results for patients <18 years ofage have not been validated by the MDRD study and should be interpretedwith caution.eGFR Result Interpretation:eGFR > or = 60 is in the Normal RangeeGFR < 60 may mean kidney diseaseeGFR < 15 may mean kidney failureRanges recommended by the National Kidney Found ation,http://nkdep.nih.gov C-Reactive Protein, [id number] 07:00:00* Test Item Value Reference Range Interpretation Comments CRP (test code = CRP) 48.4 mg/L 0.0-5.0 H [id number] 07:00:00* Test Item Value Reference Range Interpretation Comments Phosphorus (test code = PO4) 3.4 mg/dL 2.70-4.50 N Troponin [id number] 06:35:00* Test Item Value Reference Range Interpretation Comments Troponin T (test code = BONNY) 0.044 ng/mL 0.000-0.090 N CBC with [id number] 06:16:00* Test Item Value Reference Range Interpretation Comments WBC (test code = WBC) 8.8 K/cumm 4.4-10.5 N RBC (test code = RBC) 4.25 M/cumm 3.75-5.20 N Hemoglobin (test code = HGB) 12.5 gm/dL 12.2-14.8 N Hematocrit (test code = HCT) 38.6 % 36.5-44.4 N MCV (test code = MCV) 90.8 fL 80-100 N MCH (test code = MCH) 29.4 pg 27.0-32.5 N MCHC (test code = MCHC) 32.3 g/dL 32.0-37.5 N RDW (test code = RDW) 15.6 % 11.5-14.5 H Platelet Count (test code = PLTCT) 255 K/cumm 140-440 N MPV (test code = MPV) 8.7 fL Diff Method (test code = DIFFM) Auto Neutrophil (test code = NEUT) 63.8 % 36-70 N Lymphocyte (test code = LYMPH) 28.0 % 12-44 N Monocyte (test code = MONO) 5.6 % 0-11 N Eosinophil (test code = EOS) 2.3 % 0-7 N Basophil (test code = BASO) 0.3 % 0-2 N Neutro Abs (test code = ANEUT) 5.6 K/cumm 1.6-7.4 N Lymph Abs (test code = ALYMPH) 2.5 K/cumm 0.5-4.6 N Crane Abs (test code = AMONO) 0.5 K/cumm 0.0-1.2 N Eos Abs (test code = AEOS) 0.20 K/cumm 0.00-0.74 N Baso Abs (test code = ABASO) 0.0 K/cumm 0.00-0.21 N POC Glucose, [id number] 07:58:00* Test Item Value Reference Range Interpretation Comments POC Glucose (test code = POCGLUC) 355 mg/dL 70-115 H Notify RN or MDIf you consider your patient critically ill, the [place] Accu-Chek InformII metershould not be used for Glucose determinations.Draw a venous Glucose and send to the Main Lab for Analysis. CK [id number] 05:34:00* Test Item Value Reference Range Interpretation Comments CK (test code = CK) na U/L 26-192 N CKMB (test code = CKMB) 7.2 ng/mL 0.0-2.8 H CKMB% (test code = CKMBP) 0.0 % 0.0-3.4 N Troponin [id number] 05:27:00* Test Item Value Reference Range Interpretation Comments Troponin T (test code = BONNY) 0.067 ng/mL 0.000-0.090 N POC Glucose, [id number] 05:07:00* Test Item Value Reference Range Interpretation Comments POC Glucose (test code = POCGLUC) 299 mg/dL 70-115 H If you consider your patient critically ill, the [place] Accu-Chek InformII metershould not be used for Glucose determinations.Draw a venous Glucose and send to the Main Lab for Analysis. Troponin [id number] 01:42:00* Test Item Value Reference Range Interpretation Comments Troponin T (test code = BONNY) 0.059 ng/mL 0.000-0.090 N CK [id number] 01:42:00* Test Item Value Reference Range Interpretation Comments CK (test code = CK) na U/L 26-192 N CKMB (test code = CKMB) 7.4 ng/mL 0.0-2.8 H CKMB% (test code = CKMBP) 0.0 % 0.0-3.4 N POC Glucose, [id number] 00:22:00* Test Item Value Reference Range Interpretation Comments POC Glucose (test code = POCGLUC) 310 mg/dL 70-115 H If you consider your patient critically ill, the [place] Accu-Chek InformII metershould not be used for Glucose determinations.Draw a venous Glucose and send to the Main Lab for Analysis. POC Glucose, [id number] 19:18:00* Test Item Value Reference Range Interpretation Comments POC Glucose (test code = POCGLUC) 231 mg/dL 70-115 H If you consider your patient critically ill, the Romana Accu-Chek InformII metershould not be used for Glucose determinations.Draw a venous Glucose and send to the Main Lab for Analysis. POC Glucose, [id number] 16:51:00* Test Item Value Reference Range Interpretation Comments POC Glucose (test code = POCGLUC) 206 mg/dL 70-115 H If you consider your patient critically ill, the Romana Accu-Chek InformII metershould not be used for Glucose determinations.Draw a venous Glucose and send to the Main Lab for Analysis. CK [id number] 13:54:00* Test Item Value Reference Range Interpretation Comments CK (test code = CK) 75 U/L 26-192 N CKMB (test code = CKMB) 9.3 ng/mL 0.0-2.8 H CKMB% (test code = CKMBP) 12.4 % 0.0-3.4 H Troponin [id number] 13:40:00* Test Item Value Reference Range Interpretation Comments Troponin T (test code = BONNY) 0.068 ng/mL 0.000-0.090 N Lipid [id number] 12:17:00* Test Item Value Reference Range Interpretation Comments Cholesterol (test code = CHOL) 247 mg/dL 0-200 H Triglycerides (test code = TRIG) 518 mg/dL 9-200 H HDL (test code = HDL) 26 mg/dL 50-60 L Chol/HDL (test code = CHOLPHDL) 9.5 Ratio 0.0-4.4 H LDL, Calculated (test code = LDLC) No Calc 0-130 N (NOTE)RISK OF HEART DISEASEPublished by Mal[place] Heart AssociationAnalyte Optimal Boderline Increased RiskCHOL <200 200-239 >240TRIG <150 150-199 >200HDL Male: >60 <40HDL Female: >60 <50LDL <100 130-159 >160LDL NEAR OPTIMAL IS 100-129\LIPIDNC VLDL (test code = VLDL) No Calc mg/dL 5-40 N \LI PIDNC LDL/HDL (test code = LDLPHDL) No Calc \LIPIDNC Glycosylated [id number] 12:05:00* Test Item Value Reference Range Interpretation Comments HBA1c (test code = HBA1C) 10.8 % 4.8-5.9 H POC Glucose, [id number] 11:59:00* Test Item Value Reference Range Interpretation Comments POC Glucose (test code = POCGLUC) 233 mg/dL 70-115 H If you consider your patient critically ill, the Romana Accu-Chek InformII metershould not be used for Glucose determinations.Draw a venous Glucose and send to the Main Lab for Analysis. POC Glucose, [id number] 07:49:00* Test Item Value Reference Range Interpretation Comments POC Glucose (test code = POCGLUC) 261 mg/dL 70-115 H If you consider your patient critically ill, the Romana Accu-Chek InformII metershould not be used for Glucose determinations.Draw a venous Glucose and send to the Main Lab for Analysis. CK [id number] 06:18:00* Test Item Value Reference Range Interpretation Comments CK (test code = CK) na U/L 26-192 N CKMB (test code = CKMB) 9.8 ng/mL 0.0-2.8 H CKMB% (test code = CKMBP) 0.0 % 0.0-3.4 N Troponin [id number] 06:17:00* Test Item Value Reference Range Interpretation Comments Troponin T (test code = BONNY) 0.063 ng/mL 0.000-0.090 N Basic Metabolic [id number] 06:14:00* Test Item Value Reference Range Interpretation Comments Sodium (test code = NA) 133 mmol/L 135-145 L Potassium (test code = K) 4.8 mmol/L 3.5-5.1 N Chloride (test code = CL) 97 mmol/L 98-105 L Carbon Dioxide (test code = CO2) 28 mmol/L 22-29 N Glucose (test code = GLU) 338 mg/dL 70-115 H Blood Urea Nitrogen (test code = BUN) 9 mg/dL 6-20 N Creatinine (test code = CREAT) 0.6 mg/dL 0.5-0.9 N Calcium (test code = CA) 9.0 mg/dL 8.3-10.5 N BUN/Creatinine Ratio (test code = BCRATIO) 15.0 Anion Gap (test code = AGAP) 8 mmol/L 7-16 N Estimated GFR (test code = GFR) >60 mL/min/1.73m2 eGFR (estimated Glomerular Filtration Rate) is an estimated value,calculated from the patient's serum creatinine using the MDRD equation.It is NOT the patient's actual GFR. The eGFR provides a more clinicallyuseful measure of kidney disease than serum creatinine alone.This calculation takes sex and race into account, if the informationis provided. If the race is not provided, and the patient isAfrican-Malian, multiply by 1.212. If sex is not provided, and thepatient is female, multiply by 0.742. Results for patients <18 years ofage have not been validated by the MDRD study and should be interpretedwith caution.eGFR Result Interpretation:eGFR > or = 60 is in the Normal RangeeGFR < 60 may mean kidney diseaseeGFR < 15 may mean kidney failureRanges recommended by the National Kidney Found ation,http://nkdep.nih.gov CBC with [id number] 06:03:00* Test Item Value Reference Range Interpretation Comments WBC (test code = WBC) 9.5 K/cumm 4.4-10.5 N RBC (test code = RBC) 4.75 M/cumm 3.75-5.20 N Hemoglobin (test code = HGB) 13.8 gm/dL 12.2-14.8 N Hematocrit (test code = HCT) 43.5 % 36.5-44.4 N MCV (test code = MCV) 91.6 fL 80-100 N MCH (test code = MCH) 29.1 pg 27.0-32.5 N MCHC (test code = MCHC) 31.7 g/dL 32.0-37.5 L RDW (test code = RDW) 15.3 % 11.5-14.5 H Platelet Count (test code = PLTCT) 283 K/cumm 140-440 N MPV (test code = MPV) 8.8 fL Diff Method (test code = DIFFM) Auto Neutrophil (test code = NEUT) 56.0 % 36-70 N Lymphocyte (test code = LYMPH) 36.5 % 12-44 N Monocyte (test code = MONO) 4.3 % 0-11 N Eosinophil (test code = EOS) 2.8 % 0-7 N Basophil (test code = BASO) 0.4 % 0-2 N Neutro Abs (test code = ANEUT) 5.3 K/cumm 1.6-7.4 N Lymph Abs (test code = ALYMPH) 3.5 K/cumm 0.5-4.6 N Crane Abs (test code = AMONO) 0.4 K/cumm 0.0-1.2 N Eos Abs (test code = AEOS) 0.26 K/cumm 0.00-0.74 N Baso Abs (test code = ABASO) 0.0 K/cumm 0.00-0.21 N Troponin [id number] 00:46:00* Test Item Value Reference Range Interpretation Comments Troponin T (test code = BONNY) 0.057 ng/mL 0.000-0.090 N CK [id number] 00:46:00* Test Item Value Reference Range Interpretation Comments CK (test code = CK) na U/L 26-192 N CKMB (test code = CKMB) 10.7 ng/mL 0.0-2.8 H CKMB% (test code = CKMBP) 0.0 % 0.0-3.4 N POC Glucose, [id number] 00:21:00* Test Item Value Reference Range Interpretation Comments POC Glucose (test code = POCGLUC) 328 mg/dL 70-115 H If you consider your patient critically ill, the Romana Accu-Chek InformII metershould not be used for Glucose determinations.Draw a venous Glucose and send to the Main Lab for Analysis.
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
--- OUTSIDE RECORDS SUMMARY | 2020-03-16 21:04 | XMS REPORT | Clinical Summary ---
Author Author [facility] Organization [facility] Address Unknown Phone Unavailable Care Team Providers Care Eyeglass Frames Polisher Name Role Phone PCP Unavailable Allergies Comments [...] Effective Phone Address Plan / Dates Group [facility] SELF-PAY SELF-PAY xxxxxxx 2018-6 [phone] [place] [address]
--- OUTSIDE RECORDS SUMMARY | 2020-03-16 21:04 | XMS REPORT | Clinical Summary ---
Author Author [facility] Address Unknown Phone Unavailable Care Team Providers Care Superintendent Horticulture Name Role Phone Asked, No Pcp PCP [...] PRELIMINARY Routine 04/23/2019 INTERPRETATION 12:55 AM CDT [place] CRITICAL CARE, E/M Routine 04/23/2019 30-74 MINUTES [...] glucose 280 (H) 65 - 99 mg/dL [place] Comment: MYA DAO [facility] Notified [facility] Meter ID: [id number] Assignment Desk Assistant: Denice Sands Specimen Performing Organization Address City/State/Zipcode Ph one Number [facility] [address] [address] [place] [id number] PATHOLOGY AND GENOMIC MEDICINE [place] [address] [address] [place] [phone] [address] * CT Head Wo Contrast [...] IMPRESSION: No acute intracranial abnormality ident ified. [facility]-[id number] Procedure Note Interface, Radiology Results Incoming - [...] normal. IMPRESSION: No acute intracranial abnormality identified. [facility]-[id number] Performing Organization Address City/State/Zipcode Ph one Number [facility] [address] [place] [address] * ECG ED Preliminary Interpretation - Not an Order (04/23/2019 12:55 AM CDT) Narrative Performed At Polo Coreas MD 04/23/2019 12:58 PM ECG ED Preliminary Interpretation - Not an Order Performed by: Polo Coreas MD Authorized by: Polo Coreas MD ECG reviewed by ED Physician in the abs ence of a rn night: yes Previous ECG: Previous ECG: Unavailable Interpretation: Interpretation: abnormal Rate: ECG rate: 103 bpm ECG rate assessment: tachycardic Rhythm: Rhythm: sinus tachycardia QRS: QRS axis: Normal QRS intervals: Normal (98 ms) Conduction: Conduction: abnormal Abnormal conduction: incomplete RBBB ST segments: ST segments: Normal T waves: T waves: normal Other findings: Other findings comment: Left axis d eviations Comments: MA 126 ms QT/QTc 364/476 ms * CRITICAL [...] the f ollowing conditions: Cardiac failure and RESIDENT CARE ASSOCIATE failure or compromise Critical care was time [...] * Estimated GFR (04/22/2019 11:44 PM CDT) [facility] Estimated GFR >=90 mL/min/1.73 m2 [place] Comment: [facility] Interpretation G1 >=90 Normal or high G2 [...] City/State/Zipcode [place] [address] [place] [address] PATHOLOG[facility] [address] [address] [place] [phone] [facility] * Troponin (04/22/2019 11:44 PM CDT) Pathologist [facility] Troponin <0.006 0.000 - 0.040 ng/mL [place] Comment: [facility] changed methodology effective: 12/21/2018 at 10:00 am The new method has a 99th percentile cutoff of 0.040 ng/mL Specimen Plasma specimen Performing Organization Address City/[facility] Ph one Number [facility] [address] [address] [facility] [place] [address] PATHOLOGY AND GENOMIC MEDICINE [address] * CBC with platelet and differential (04/22/2019 11:44 PM CDT) [facility] WBC 10.41 4.50 - 11.00 k/uL [facility] RBC 4.59 4.20 - 5.50 m/uL [facility] HGB 13.4 12.0 - 16.0 g/dL [facility] HCT 41.5 37.0 - 47.0 % [facility] MCV 90.4 82.0 - 100.0 fL [facility] MCH 29.2 27.0 - 34.0 pg [facility] MCHC 32.3 31.0 - 37.0 g/dL [facility] RDW - SD 43.7 37.0 - 55.0 fL [facility] MPV 11.3 8.8 - 13.2 fL [facility] Platelet count 262 150 - 400 k/uL [facility] Neutrophils 61.9 39.0 - 69.0 % [facility] Lymphocytes 27.7 25.0 - 45.0 % [facility] Monocytes 7.7 0.0 - 10.0 % [facility] Eosinophils 1.8 0.0 - 5.0 % [facility] Basophils 0.4 0.0 - 1.0 % [facility] Immature 0.5 0.0 - 1.0 % [place] granulocytes [facility] Specimen Blood Performing Organization Address City/[facility] Ph one [facility] [place] [id number] [place] [id number] [facility]OLOGY [facility] [id number] [place] [address] * B natriuretic peptide (04/22/2019 11:44 PM CDT) [facility] BNP 7 0 - 100 pg/mL [facility] Specimen Blood Performing Organization Address City/State/Zipcode [place] [address] [place] [address] [facility]Y [facility] [address] [address] [place] [phone] [address] [facility] * Comprehensive metabolic panel (04/22/2019 11:44 PM CDT) Sodium 136 135 - 148 mEq/L [facility] Potassium 4.5 3.5 - 5.0 mEq/L [facility] Chloride 96 (L) 99 - 109 mEq/L [facility] CO2 27 24 - 31 mEq/L [facility] Anion gap 13@ANIO 7 - 15 mEq/L [facility] BUN 11 8 - 24 mg/dL [facility] Creatinine 0.45 (L) 0.50 - 0.90 mg/dL [facility] Glucose 476 (HH) 65 - 99 mg/dL [place] Comment: [facility] GLU results called to and read HOSPITAL back by PHILIPPE SANDS RN/[facility] at 04/23/2019 00:35 by AP. Calcium 9.2 8.6 - 10.6 mg/dL [facility] Protein 7.0 6.3 - 8.2 g/dL [facility] Albumin 3.1 (L) 3.5 - 5.0 g/dL [facility] A/G ratio 0.8 0.7 - 3.8 [facility] Alkaline 114 30 - 115 U/L [place] phosphatase [facility] AST 42 15 - 46 U/L [facility] ALT 45 10 - 55 U/L [facility] Total bilirubin <0.3 0.2 - 1.2 mg/dL [facility] Specimen Plasma specimen Performing Organization Address City/State/Zipcode [place] [address] [place] [address] PATHOLOGY AND [facility]OMIC MEDIC[facility] [address] [address] [place] [phone] [facility] * ECG 12 lead (04/22/2019 11:32 PM CDT) Ventricular 103 [facility] rate Atrial rate 103 [facility] MA interval 126 [facility] QRSD interval 98 [facility] QT interval 364 [facility] QTC interval 476 [facility] P axis 1 33 [facility] QRS axis 1 -35 [facility] MUSE T wave axis 45 [facility] MUSE EKG impression Sinus tachycardia-Left axis [facility] MUSE deviation-Incomplete right bundle branch block-Abnormal ECG-In automated comparison with ECG of 14-DEC-2018 15:52,-No significant change was found- Specimen Narrative Performed At This result has an attachment that is n ot available. Performing Organization Address City/State/Zipcode Ph one Number [facility] MUSE [address] [place] [address] after 03/16/2019 Advance Directives For more information, please contact: [phone] Patient [place] Explanation Type Date Recorded Advance Directives, 04/23/2019 1:13 AM Living Will and Medical Power of Continuous Miner Advance Directives, 09/28/2018 12:17 AM Living Will and Medical Power of Continuous Miner
--- OUTSIDE RECORDS SUMMARY | 2020-03-16 21:05 | XMS REPORT | Continuity of Care Document ---
Author Author [facility] t Organization [facility] Address [address] [place] [address] Phone Unavailable Care Team Providers Care Flat Examiner Name Role Phone NO, PCP PCP Unavailable [place], [place] Attphys Unavailable Wilfredo BULLOCK, Taylor Attphys Jesus Triana MD, Vipul Barajas Attphys [phone] Joshua MENSAH, Lien Coffey Attphys VIPUL JIMENEZ [...] Expiration Date S ource Self Pay NA Formerly [facility] [employer] [id number] 2018 00:00:00 [facility] Problems Condition Name Condition Details Condition Category Status Onset Date Resolution Date Last Treatment Date Treating Clinician Comments Source Pyuria Pyuria Disease Active 2019-05-31 00:00:00 [facility] Chest pain Chest pain Disease Active 2019-05-31 00:00:00 [facility] Acute chest pain Acute chest pain Disease Active 2016-07-03 00:00:00 [facility] Uncontrolled type 2 diabetes mellitus with complicatio n Uncontrolled type 2 diabetes mellitus with complication Disease Active 2016-07-03 00:00:00 [facility] Essential hypertension Essential hypertension Disease Active 2016-07-03 00:00:00 [facility] History of pulmonary embolus (PE) History of pulmonary embolus ( PE) Disease Active 2016-07-03 00:00:00 [facility] Allergies, Adverse Reactions, Alerts Allergy Name Allergy Type Status Severity Reaction(s) Onset Date Inacti ve Date Treating Clinician Comments Source Metoclopramide Hcl Propensity to adverse reactions to drug Active Rash 2018-12-17 00:00:00 [facility] Ketorolac Propensity to adverse reactions to drug Active 2018-12-17 00:00:00 [facility] Tramadol Propensity to adverse reactions to drug Active Rash 2018-12-17 00:00:00 [facility] Ondansetron Hcl Propensity to adverse reactions to drug Active Rash 2018-12-17 00:00:00 [facility] Metoclopramide Hcl Propensity to adverse reactions to drug Active 2018-09-27 00:00:00 Rebel Rameyis t Ketorolac Propensity to adverse reactions to drug Active 2018-09-27 00:00:00 Rebel Lambert t Tramadol Propensity to adverse reactions to drug Active 2018-09-27 00:00:00 Rebel Sheppard Ondansetron Hcl Propensity to adverse reactions to drug Active 2018-09-27 00:00:00 Rebel Rameyis t tramadol DA Active SV 2018-08-13 00:00:00 [facility] metoclopramide DA Active U 2018-08-12 00:00:00 [facility] ondansetron DA Active U 2018-08-12 00:00:00 [facility] ketorolac DA Active U 2018-08-12 00:00:00 [facility] Tramadol Allergy to Substance Active Moderate ITCH 2018-05-08 00:00:00 [facility] Metoclopramide Allergy to Substance Active Moderate ITCH 2018-05-08 00:00:00 [facility] Ondansetron Allergy to Substance Active Moderate ITCH 2018-05-08 00:00: 00 [facility] Ketorolac Allergy to Substance Active Moderate ITCH 2018-05-08 00:00:00 [facility] metoclopramide DA Active U 2017-03-27 00:00:00 [facility] ondansetron DA Active U 2017-03-27 00:00:00 [facility] ketorolac DA Active U 2017-03-27 00:00:00 [facility] Hydrocodone-Acetaminophen Drug Allergy Active Rash 2016-07-03 00 :00:00 [facility] Metoclopramide Hcl Drug Allergy Active Hives 2016-04-23 00:00:00 [facility] Tramadol Drug Allergy Active Hives 2016-04-23 00:00:00 [facility] Ondansetron Hcl (Pf) Drug Allergy Active Hives 2016-04-23 00:00:0 0 [facility] Reglan Allergy to substance Active Hives [facility] Zofran Allergy to substance Active Hives [facility] Family History Family Member Diagnosis Comments Start Date Stop Date Source Natural brother Diabetes [facility] Natural father Diabetes [facility] Natural sister Diabetes [facility] Social History Social Habit Start Date Stop Date Quantity Comments Source History SDOH Alcohol Std Drinks [facility]ian [facility] History SDOH Alcohol Binge [facility]ian [facility] Sex Assigned At [facility] Alcohol intake 2019-04-22 00:00:00 2019-04-22 00:00:00 Current non-drinker of alcohol (finding) [facility] History SDOH Alcohol Frequency 2018-12-14 00:00:00 2018-12-14 00:00:0 0 1 [facility] Smoking Status Start Date Stop Date Source Former smoker 2019-05-31 00:00:00 2019-05-31 00:00:00 [facility] Never smoker Luque Fausto quach Medications Ordered Medication Name Filled Medication Name Start Date Stop Da te Current Medication? Ordering Clinician Indication Dosage Frequency Signature (SIG) Comments Components Source metFORMIN (GLUCOPHAGE) 1000 MG tablet 2019-06-01 10:30 :52 2019-06-01 00:00:00 No 1000mg Take 1,000 mg b y mouth 2 (two) times daily with breakfast and dinner. [facility] lisinopril (PRINIVIL,ZESTRIL) 40 MG tablet 06-01 10:30:52 2019-06-01 00:00:00 No 40mg QD Take 40 mg by mouth daily. [facility] aspirin 81 MG EC tablet 2019-06-01 10:30:52 2019-06-01 00:00:00 No 81mg QD Take 81 mg by mouth daily. [facility] insulin 70/30, insulin NPH-insulin regul ar, (HUMULIN 70/30) 100 unit/mL (70-30) In insulin pen 2019-06-01 10:30:52 2019-06-01 00:00:00 No 40U QD Inject 40 Units subcutaneously daily. [facility] insulin 70/30, insulin NPH-insulin regul ar, (HUMULIN 70/30) 100 unit/mL (70-30) In insulin pen 2019-06-01 04:09:20 Yes 40U Inject 40 Units subcutaneously daily as needed (in the evening). [facility] aspirin 81 MG EC tablet 2019-06-01 00:00:00 Yes 81mg QD Take 1 tablet (81 mg total) by mouth daily. [facility] insulin 70/30, insulin NPH-insulin regul ar, (HUMULIN 70/30) 100 unit/mL (70-30) In insulin pen 2019-06-01 00:00:00 Yes 40U QD Inject 40 Units subcutaneously daily. [facility] lisinopril (PRINIVIL,ZESTRIL) 40 MG tablet 2019-06-01 00:00:00 Yes 40mg QD Take 1 tablet (40 mg total) by mouth daily. [facility] metFORMIN (GLUCOPHAGE) 1000 MG tablet 2019-06-01 00:00:00 Y es 1000mg Take 1 tablet (1,000 mg total) by mouth 2 (two) times daily with breakfast and dinner. [facility] needles, insulin disposable (INSULIN PEN NEEDLES) Ndle 2019-06-01 00:00:00 Yes 1{each} Q.5D 1 each by Miscellaneous route 2 (two) ti mes daily. [facility] atorvastatin (LIPITOR) 40 MG tablet 2019-06-01 00:00:0 0 2020-05-31 23:59:00 No 40mg QD Take 1 tablet (40 mg total) by mouth nig htly. [facility] ciprofloxacin HCl (CIPRO) 250 MG tablet 00:00:00 2019-06-04 23:59:00 No 250mg Q.5D Take 1 tablet (250 mg total) by mouth 2 (two) times daily for 3 days. [facility] Butalbital/Aspirin/Caffeine (Fiorinal 50-325-40 Mg Cap bianca) 1 Each Capsule Butalbital/Aspirin/Caffeine (Fiorinal 50-325-40 Mg Capsule) 1 Each Capsule 2019-03-22 00:00:00 Yes Porsche Walls Md 1 Every 6 Hours as needed for Headache [facility] Sulfamethoxazole/Trimethoprim (Bactrim Ds Tablet) 1 Ea ch Tablet Sulfamethoxazole/Trimethoprim (Bactrim Ds Tablet) 1 Each Tablet 2019-03-22 00:00:00 Yes Porsche Walls Md 1 Twice A Day [facility] aspirin 81 mg tablet,delayed release Take 1 tablet marichuy ry day by oral route. aspirin 81 mg tablet,delayed release Take 1 tablet every day by oral route. No 1 Q1D aspirin 81 mg t ablet,delayed release Take 1 tablet every day by oral route. [facility] Blood Glucose Test strips Take 1 strip twice a day by miscell. route. Blood Glucose Test strips Take 1 strip twice a day by miscell. route. No 1strip(s) BID Blood Glucose Test strips Ta ke 1 strip twice a day by miscell. route. [facility] Diflucan 150 mg tablet Take 1 tablet every 72 hours by oral route. Diflucan 150 mg tablet Take 1 tablet every 72 hours by oral route. No 1 Diflucan 150 mg tablet Take 1 tablet every 72 hours by oral route. [facility] gabapentin 300 mg capsule Take 2 capsules 3 times a da y by oral route. gabapentin 300 mg capsule Take 2 capsules 3 times a day by oral route. No 2capsule(s) TID gabapentin 300 mg ca psule Take 2 capsules 3 times a day by oral route. [facility] Jentadueto XR 5 mg-1,000 mg tablet, exte nded release Take 1 tablet every day by oral route. Jentadueto XR 5 mg-1,000 mg tablet, exte nded release Take 1 tablet every day by oral route. No 1 Q1D Jentadueto XR 5 mg-1,000 mg tablet, extended release Take 1 tablet every day by oral route. [facility] lisinopril 40 mg tablet Take 1 tablet every day by ora l route. lisinopril 40 mg tablet Take 1 tablet every day by oral route. No 1 Q1D lisinopril 40 mg tablet Take 1 tablet every day by oral route. [facility] Novolin 70/30 U-100 Insulin 100 unit/mL subcutaneous [...] the AM, 20 units in the PM [facility] ic simvastatin 20 mg tablet Take 1 tablet every day by or al route. simvastatin 20 mg tablet Take 1 tablet every day by oral route. No 1 Q1D simvastatin 20 mg tablet Take 1 tablet every day by oral route. [facility] sumatriptan 25 mg tablet Take 2 tablets [...] May repeat dose x1 after 2 hours. [facility] Vital Signs Vital Name Observation Time Observation Value Comments Source Height 2020-02-28 00:00:00 60 [in_i] [facility] Systolic blood pressure 2019-06-01 08:08:00 111 mm[Hg] [facility] Diastolic blood pressure 2019-06-01 08:08:00 56 mm[Hg] [facility] Heart rate 2019-06-01 08:08:00 87 /min [facility] Body temperature 2019-06-01 08:08:00 36.11 Yessenia [facility] Respiratory rate 2019-06-01 08:08:00 18 /min [facility] Oxygen saturation in Arterial blood by Pulse oximetry 2018-08 08:08:00 94 /min [facility] Body height 2019-06-01 04:09:00 154.9 cm [facility] Body weight Measured 2019-06-01 04:09:00 86.728 kg [facility] BMI 2019-06-01 04:09:00 36.13 kg/m2 [facility] Systolic blood pressure 2019-04-23 02:12:00 188 mm[Hg] [facility] Diastolic blood pressure 2019-04-23 02:12:00 105 mm[Hg] [facility] Heart rate 2019-04-23 02:12:00 102 /min [facility] Oxygen saturation in Arterial blood by Pulse oximetry 04-23 02:12:00 95 /min [facility] Body temperature 2019-04-22 23:45:00 36.83 Yessenia [place] [facility] Respiratory rate 2019-04-22 23:45:00 16 /min [place] [facility] Body height 2019-04-22 23:43:00 154.9 cm [facility] Procedures Procedure Date / Time Performed Performing Clinician Sourc e RHYTHM STRIP - SCAN 2019-06-06 10:23:10 Provider, Default Scancriss riley [facility] REPORT OF PROCEDURE - ENDOSCOPY SCAN 2019-06-02 13:31:21 Pro vider, Default Scanning [facility] POCT-GLUCOSE METER 2019-06-01 08:11:00 Joshua, Erlinda [facility] ECG 12-LEAD 2019-06-01 06:02:17 [facility] ECG 12-LEAD 2019-06-01 06:00:32 [facility] URINALYSIS W/ REFLEX URINE CULTURE 2019-06-01 04:10:00 [facility] TROPONIN I 2019-06-01 04:03:00 [facility] BASIC METABOLIC PANEL (7) 2019-06-01 04:03:00 [facility] MAGNESIUM 2019-06-01 04:03:00 [facility] CBC W/PLT COUNT & AUTO DIFFERENTIAL 2019-06-01 04:03:00 [facility] POCT-GLUCOSE METER 2019-06-01 01:07[facility] 2019-06-01 00:15:00 [facility] BASIC METABOLIC PANEL (7) 2019-06-01 00:15:00 [facility] LIPID PANEL 2019-06-01 00:15:00 [facility] HEMOGLOBIN A1C 2019-06-01 00:15:00 [facility] PROCALCITONIN 2019-06-01 00:15:00 [facility] POC GLUCOSE 2019-04-23 02:13:[address] HEAD WO CONTRAST 2019-04-23 01:30:31 Polo Coreas [place] CRITICAL CARE, E/M 30-74 MINUTES 2019-04-23 00:55:13 [...] radiopaque contrast 201 04-24-17 00:00:00 PORSCHE WALLS [facility] Cholecystectomy [facility] Appendectomy [facility] Plan of Care Planned Activity Planned Date Details Comments Source Future Scheduled Test 2020-05-30 00:00:00 HbA1c (hemoglobin A1c), blood [code = HbA1c (hemoglobin A1c), blood] [facility] Future Scheduled Test 2020-05-30 00:00:00 lipid panel, serum [code = lipid panel, serum] [facility] Future Scheduled Test 2020-05-17 00:00:00 IMM Influenza Seas onal May to October (>/= 19 yrs) [code = IMM Influenza Seasonal May to October (>/= 19 yrs)] [facility] Future Scheduled Test 2020-04-17 00:00:00 INFLUENZA VACCINE (#1) [code = INFLUENZA VACCINE (#1)] [facility] Future Scheduled Test 2020-03-17 00:00:00 INFLUENZA VACCINE [code = INFLUENZA VACCINE] Rebel Sheppard Diagnostic Test Pending 2020-02-28 00:00:00 STI panel [code = STI p leonardo] [facility] Diagnostic Test Pending 2020-02-28 00:00:00 CBC w/ auto diff [code = CBC w/ auto diff] [facility] Diagnostic Test Pending 2020-02-28 00:00:00 lipid panel, ser um [code = lipid panel, serum] [facility] Diagnostic Test Pending 2020-02-28 00:00:00 HbA1c (hemoglobi n A1c), blood [code = HbA1c (hemoglobin A1c), blood] [facility] Diagnostic Test Pending 2020-02-28 00:00:00 CMP, serum or pl asma [code = CMP, serum or plasma] [facility] Future Scheduled Test 2019-09-01 00:00:00 Hemoglobin A1c dhruv surement (procedure) [code = 22365727] [facility] Future Scheduled Test 2017 00:00:00 Breast Cancer Scrn (Yearly) [code = Breast Cancer Scrn (Yearly)] [facility] Scheduled Test 1998 00:00:00 Screening for crow gnant neoplasm of cervix (procedure) [code = 270172527] [facility] Scheduled Test 1998 00:00:00 Screening for crow gnant neoplasm of cervix (procedure) [code = 717343237] [facility] Scheduled Test 1998 00:00:00 Screening for crow gnant neoplasm of cervix (procedure) [code = 798718440] [facility] Future Scheduled Test 1987-10-24 00:00:00 DIABETIC FOOT EXAM [code = DIABETIC FOOT EXAM] [facility] Scheduled Test 1987-10-24 00:00:00 URINE MICROALBUMIN [code = URINE MICROALBUMIN] [facility] Scheduled Test 1987-10-24 00:00:00 DIABETIC EYE EXAM [code = DIABETIC EYE EXAM] [facility] Scheduled Test 1987-10-24 00:00:00 Diabetic foot exam ination (regime/therapy) [code = 670075445] [facility] Future Scheduled Test 1987-10-24 00:00:00 Urine screening fo r protein (procedure) [code = 293337459] [facility] Future Scheduled Test 1983-10-24 00:00:00 PNEUMOCOCCAL VACCI NE 2-64 YEARS AT RISK (1 of 1 - PPSV23) [code = PNEUMOCOCCAL VACCINE 2-64 YEARS AT RISK (1 of 1 - PPSV23)] [facility] Future Scheduled Test 1975 00:00:00 DIABETIC RETINAL E YE EXAM [code = DIABETIC RETINAL EYE EXAM] [facility] Appointment 2020-05-30 00:00:00 Jeffery Ricci, [address]; , [place] [address] [facility] Future Appointment 2020-04-09 10:30:00 Ana Pradhan, [address]; , [place] [address] [facility] Encounters Start Date/Time End Date/Time Encounter Type Admission Type [facility] Care Department Encounter ID Source 2020-02-28 00:00:00 2020-02-28 00:00:00 Jeffery babb MD: [address], [place] [address], Ph. [facility] Medical [id number] [facility] 2019-05-31 14:28:00 2019-05-31 19:38:00 Departed Emergency Room [address] [facility] [id number] [facility] 2019-04-02 02:54:00 2019-04-02 06:32:00 Departed Emergency Room 1 [facility] [id number] [facility] 2019-03-22 21:16:00 2019-03-22 23:46:00 Departed Emergency Room 1 [facility] [id number] [facility] 2018-12-29 19:35:00 2018-12-29 19:35:00 Outpatient E [facility] MED [address] [facility] 2018-12-17 08:06:21 2018-12-17 08:06:21 Emergency [facility] MED [id number] [facility] 2018-12-17 00:00:00 2018-12-17 00:00:00 Emergency [facility] [id number] [facility] 2018-05-08 22:46:00 2018-05-09 00:26:[address] [facility] [id number] [facility] 2017-09-15 15:51:00 2017-09-15 15:51:00 Emergency E FLY IVERSON [facility] MED [id number] [facility] Results Test Description Test Time Test Comments Results Result Comments Source CT CHEST W 2020-03-16 11:26:00 [facility] [address], [place] [address] Patient Name: ANNIA VIDES MR #: [id number] : 1975 Age/Sex: 44/F [facility] #: [id number] Req #: [id number] Adm Physician: SHARAD EAST MD Ordered by: JOSTIN POWERS MD Report #: [id number] Location: [facility] Room/Bed: [place] [address] Procedure: [id number] CT/CT CHEST W Exam Date: 03/16/20 Exam [...] COPY TO: JOSTIN POWERS MD CXR 1 [facility] 2020-03-16 01:08:00 [place] [address] Patient Name: ANNIA VIDES MR #: [id number] : 1975 Age/Sex: 44/F Req #: [id number] Adm Physician: Ordered by: ROHINI RAMOS MD Report #: [id number] [facility] Room/Bed: Procedure: [id number] HOPD/CXR 1 [facility] Exam Date: 03/16/20 Exam Time: 0050 REPORT STATUS: Signed EXAMINATION: CXR 1 [facility] INDICATION: Left sided chest pain COMPARISON: Chest [...] msQ-T Interval 370 msQTC Calculation(Bazett) 452 msP [place] 23 degreesR [place] 51 degreesT [place] 37 degreesNormal sinus rhythmNormal ECGWhen compared with ECG of 01-JUN-2019 06:00,No significant change was foundConfirmed by MD ROSEANNE, MARY ([id number]) on 06/04/2019 12:13:45 PM [facility] POC-Glucose meter 2019-06-01 08:51:00 Test Item POC-Glucose Meter (test code = 1538) 271 mg/dL 70-110 H TESTED AT [place] [id number] [facility] [address] Lab Interpretation (test code = 17359-6) Abnormal [facility] [id number] 08:51:00* Test Item Value Reference Range Interpretation Comments POC-GLUCOSE METER (BEAKER) (test code = 1538) 271 mg/dL 70-110 H TESTED AT [place] [id number] [facility] [address] Hemoglobin [id number] 07:48:00* Test Item Value Reference Range Interpretation Comments Hemoglobin A1C (test code = 4548-4) 10.3 % 4.3-6.1 H Lab Interpretation (test code = 38534-7) Abnormal [facility] [id number] 07:48:00* Test Item Value Reference Range Interpretation Comments HEMOGLOBIN A1C (BEAKER) (test code = 368) 10.3 % 4.3-6.1 H Urinalysis w/Microscopic + Reflex to [id number] 06:18:00* Test Item Value Reference Range Interpretation Comments Color, UA (test code = 5778-6) Light Yellow Clarity, UA (test code = 5767-9) Clear Specific [place], UA (test code = 5811-5) 1.037 1.001-1.035 H pH, UA (test code = 5803-2) 6.0 5.0-8.0 Protein, UA (test code = 63655-9) Negative Negative Glucose, UA (test code = 365) >1000 mg/dL Negative A Ketones, UA (test code = 2514-8) Negative Negative Bilirubin, UA (test code = 61205-9) Negative Negative Blood, UA (test code = 86889-7) Negative Negative Nitrite, UA (test code = 5802-4) Negative Negative Leukocytes, UA (test code = 5799-2) Large Negative A Urobilinogen, UA (test code = 12433-6) 0.2 mg/dL 0.2-1 RBC, UA (test code = 56243-0) 2 /HPF WBC, UA (test code = 5821-4) 7 /HPF Bacteria, UA (test code = 29491-1) Rare Squam Epithel, UA (test code = 72970-9) 2 /HPF Specimen Source (test code = 2795) Lab Interpretation (test code = 16900-6) [facility] [id number] 06:18:00* Test Item Value Reference Range Interpretation [...] SOURCE(BEAKER) (test code = 2795) Basic metabolic [id number] 04:51:00* Test Item Value Reference Range Interpretation [...] mg/dL 70-105 H Calcium (test code = 36943-4) 9.0 mg/dL 8.4-10.2 EGFR (test code = 15404-4) 102 mL/min/1.73 sq m ESTIMATED GFR IS NOT ACCURATE CREATININE CLEARANCE IN PREDICTING GLOMERULAR FILTRATION RATE. ESTIMATED GFR IS NOT APPLICABLE FOR DIALYSIS PATIENTS. Lab Interpretation (test code = 93139-2) Abnormal [facility] 04:51:00* Test Item Value Reference Range Interpretation Comments Magnesium (test code = 30763-5) 1.9 mg/dL 1.6-2.6 Lab Interpretation (test code = 59223-9) Normal [facility] 04:51:00* Test Item Value Reference Range Interpretation Comments MAGNESIUM (BEAKER) (test code = 627) 1.9 mg/dL 1.6-2.6 BASIC METABOLIC [id number] 04:51:00* Test Item Value Reference Range Interpretation [...] IS NOT APPLICABLE FOR DIALYSIS PATIENTS. Troponin [id number] 04:49:00* Test Item Value Reference Range Interpretation Comments Troponin I (test code = 10791-5) <0.01 0-0.03 JAI (test code = JAI) [...] persistent tachyarrhythmia. Lab Interpretation (test code = 43733-0) Normal [facility] [id number] 04:49:00* Test Item Value Reference Range Interpretation [...] sistent tachyarrhythmia.CBC with platelet count + automated [id number] 04:27:00* Test Item Value Reference Range Interpretation [...] 450 K/CU MM MPV (test code = 62342-5) 10.8 fL 9.4-12.3 nRBC (test code = [...] % 0-1 Lab Interpretation (test code = 78295-2) Abnormal [facility] W/PLT COUNT & AUTO [id number] 04:27:00* Test Item Value Reference Range Interpretation [...] code = 2801) 0 % 0-1 POCT-GLUCOSE [id number] 03:02:00* Test Item Value Reference Range Interpretation Comments POC-GLUCOSE METER (BEAKER) (test code = 1538) 349 mg/dL 70-110 H TESTED AT [facility] [address] [facility] [address] [id number] 01:01:00* Test Item Value Reference Range Interpretation Comments Procalcitonin (test code = 11487-4) <0.05 <0.05 ng/mL JAI (test code = JAI) SEPSIS RISK (ng/mL)Low: 0.05-0.50Intermediate: 0.51-2.00High: >=2.01 Lab Interpretation (test code = 18745-8) Normal [id number] 01:01:00* Test Item Value Reference Range Interpretation Comments PROCALCITONIN (BEAKER) (test code = 3036) < ng/mL <0.05 SEPSIS RISK (ng/mL)Low: 0.05-0.50Intermediate: 0.51-2.00High: > =2.01TROPONIN [id number] 00:55:00* Test Item Value Reference Range Interpretation [...] acute neurological disease, and per sistent tachyarrhythmia.Lipid [id number] 00:49:00* Test Item Value Reference Range Interpretation Comments Triglycerides (test code = 2571-8) 218 mg/dL Cholesterol (test code = 2093-3) 232 mg/dL HDL (test code = 2085-9) 31 mg/dL LDL Calculated (test code = 04748-3) 157 mg/dL JAI (test code = JAI) Triglyceride Reference Range : Low Risk <150 Borderline 150-199 High Risk 200-499 Very High Risk >=500 Cholesterol Reference Range: Low Risk <200 Borderline 200-239 High Risk >240 HDL Cholesterol Reference Range: Low Risk >=60 High Risk <40 LDL Cholesterol Reference Range: Optimal <100 Near Optimal 100-129 Borderline 130-159 High 160-189 Very High >=190 [facility] [id number] 00:49:00* Test Item Value Reference Range Interpretation [...] High 160-189 Very High >=190 BASIC METABOLIC [id number] 00:49:00* Test Item Value Reference Range Interpretation [...] FOR DIALYSIS PATIENTS. CXR 2 VIEW - [id number] 18:25:00 [facility] [address] [place] [address] Patient Name: ANNIA VIDES MR #: [id number] : 1975 Age/Sex: 43/F Req #: [id number] [facility] Physician: Ordered by: CASEY PARADA MD Report #: [id number] [facility] Room/Bed: Procedure: 1015- 0005 HOPD/CXR 2 [...] COPY TO: CASEY PARADA MD ECG 12 xyds9754-21-46 00:12:18* Test Item Value Reference Range Interpretation Comments Ventricular rate (test code = 253) 103 Atrial rate (test code = 255) 103 IL interval (test code = 266) 126 QRSD [...] of 14-DEC-2018 15:52,-No significant change was found- [facility] MethodistPOC jhnojuj1125-30-96 02:19:52* Test Item Value Reference Range Interpretation Comments POC glucose (test code = 99009-6) 280 mg/dL 65-99 H HMW Notified MDMeter ID: [id number]: Denice Sands Lab Interpretation (test code = 23096-4) Abnormal Vivian MethodistCT Head Wo Fqaufwvf1922-52-71 01:33:20Hm Interface, Radiology Results - 04/23/2019 1:36 [...] are normal. 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: yes Previous ECG: Previous ECG: UnavailableInterpretation: Interpretation: abnormal Rate: ECG rate: 103 bpm ECG rate assessment: tachycardic Rhythm: Rhythm: sinus tachycardia QRS: QRS axis: Normal QRS intervals: Normal (98 ms)Conduction: Conduction: abnormal Abnormal conduction: incomplete RBBB ST segments: ST segments: NormalT waves: T waves: normal Other findings: Other findings comment: Left axis deviationsComments: IL 126 msQT/QTc 364/476 ms Lab Interpretation (test code = 47022-0) Abnormal [facility] OIKG8713-21-56 00:55:13EdPolo mackenzie MD 04/23/2019 12:58 PMCritical CarePerformed by: Polo Coreas MDAuthorized by: Polo Coreas MD Critical care provider statement: Critical care time (minutes): 35 Critical care time was exclusive of: Separately billable procedures and treating other patients Critical care was necessary to treat or prevent imminent or life-threatening deterioration of the following conditions: Cardiac 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 Critical care was time spent personally by me on the following activities: Development of treatment plan with patient or surrogate, ordering and review of laboratory studies, ordering and review of radiographic studies, discussions with consultants, discussions with primary provider, pulse oximetry, re-evaluation of patient's condition, evaluation of patient's response to treatment, examination of patient and review of old chartsN[facility] Houstonprehensive metabolic xcozl9510-59-55 00:36:13* Test Item Value Reference Range Interpretation Comments Sodium (test code = 2951-2) 136 135- 148 mEq/L Potassium (test code = 2823-3) 4.5 3.5- 5.0 mEq/L Chloride (test code = 2075-0) 96 99- 109 mEq/L L CO2 (test code = 2027-9) 27 24- 31 mEq/L Anion gap (test code = 66081-2) 13@ANIO 7- 15 mEq/L BUN (test code = 3094-0) 11 mg/dL 8-24 Creatinine (test code = 2160-0) 0.45 mg/dL 0.5-0.9 L Glucose (test code = 2345-7) 476 mg/dL 65-99 GLU results called to and read back by PHILIPPE SANDS RN/ETHAN at 04/23/2019 00:35 by AP. Calcium (test code = 12416-4) 9.2 mg/dL 8.6-10.6 Protein (test code = [...] <0.3 0.2-1.2 Lab Interpretation (test code = 94945-4) Abnormal Vivian MethodmodestaEstimated YEN6385-12-19 00:36:13* Test Item Value Reference Range Interpretation Comments Estimated GFR (test code = 5488) >=90 mL/min/1.73 m2 Catergory Units InterpretationG1 >=90 Normal or highG2 60-89 Mildly falraokpaQ9w 45-59 Mildly to moderately zkbdmlcqyS9t 30-44 Moderately to severely decreasedG4 15-29 Severely decreasedG5 <15 Kidney failureThe eGFR was calculated using the Chronic Kidney Disease Epidemiology Collaboration (CKD-EPI) equation. Interpretation is based on recommendations of the National Kidney Foundation-Kidney Disease Outcomes Quality Initiative (NKF-KDOQI) published in 2014. Luque MethodmodestaB natriuretic qsxyfex5053-32-85 00:31:34* Test Item Value Reference Range Interpretation Comments BNP (test code = 08012-5) 7 pg/mL 0-100 Vivian YtqgurberAgmfabcr4516-61-87 00:22:12* Test Item Value Reference Range Interpretation Comments Troponin (test code = 09620-7) <0.006 0-0.04 Vivian [facility] changed methodology effective: 12/21/2018 at 10:00 amThe new method has a 99th percentile cutoff of 0.040 ng/mL Vivian MethodmodestaCBC with platelet and vjkdpfeyhupl7329-59-19 00:03:51* Test Item Value Reference Range Interpretation Comments WBC (test code = 85070-3) 10.41 4.50- 11.00 k/uL RBC (test code = 57544-3) 4.59 m/uL 4.2-5.5 HGB (test code = 718-7) 13.4 g/dL 12-16 HCT (test code = 4544-3) 41.5 % 37-47 MCV (test code = 787-2) 90.4 fL 82-100 MCH (test code = 785-6) 29.2 pg 27-34 MCHC (test code = 786-4) 32.3 g/dL 31-37 RDW - SD (test code = 65454-9) 43.7 fL 37-55 MPV (test code = 09730-6) 11.3 fL 8.8-13.2 Platelet count (test code = 45857-7) 262 150- 400 k/uL Neutrophils (test code = 84300-2) 61.9 % 39-69 Lymphocytes (test code = 31969-6) 27.7 % 25-45 Monocytes (test code = 99362-2) 7.7 % 0-10 Eosinophils (test code = 83547-6) 1.8 % 0-5 Basophils (test code = 52806-4) 0.4 % 0-1 Immature granulocytes (test code = 47968-4) 0.5 % 0-1 Rebel SheppardUrine Ydqdkee3237-21-26 09:05:40 C Urine Added by GL_SJM_UA_CUL_IND30,000 cfu/ml [...] chronic myocardial injury.Critical results called to Dion Dillon at 04/15/2019 14:41:21 CDT by den. Read back and verified? yes CT Abdomen and Pelvis w/ Sulyuebj9787-20-87 13:51:15Patient: ANNIA VIDES Date/Time04/15/2019 13:16 CDTReason for [...] Phebe CSigned (Electronic Signature): 04/15/2019 1:07 pmTroponin Z6966-37-77 13:02:06* Test Item Value Reference Range Interpretation [...] Read back and verified? YES Comprehensive Metabolic Nrwoh9726-82-55 12:51:05* Test Item Value Reference Range Interpretation [...] A/G Ratio) 1.3 ratio N Comprehensive Metabolic Tcpre9177-07-33 12:51:05* Test Item Value Reference Range Interpretation [...] is not provided, and the patient is -Gambian, multiply by 1.212. If sex is not [...] the National Kidney Foundation, http://nkdep.nih.gov Comprehensive Metabolic Ltpul1742-34-07 12:51:05* Test Item Value Reference Range Interpretation [...] is not provided, and the patient is -Gambian, multiply by 1.212. If sex is not [...] is not provided, and the patient is -Gambian, multiply by 1.212. If sex is not [...] by the National Kidney Foundation, http://nkdep.nih.gov D-Dimer Nutjjstjknto3168-59-34 12:46:53* Test Item Value Reference Range Interpretation Comments D Dimer, (Quant.) (test code = D Dimer, (Quant.)) 252 ng/mL 0-50 0 HCG Qualitative Lswff5541-21-63 12:36:52* Test Item Value Reference Range Interpretation Comments HCG, Serum Qual (test code = HCG, Serum Qual) Negative Lot # (test code = Lot #) [id number] Expiration Dt (test code = Expiration Dt) 2020-10-14 N Neg Control (test code = Neg Control) Negative Pos Control (test code = Pos Control) Positive Internal QC (test code = Internal QC) Acceptable Urinalysis Lmaucbmpxhg7256-01-03 12:33:52* Test Item Value Reference Range Interpretation Comments UA WBC (test code = UA WBC) 0-5 0-5 UA RBC (test code = UA RBC) None Seen 0-5 UA Bacteria (test code = UA Bacteria) Few A UA Squam Epithelial (test code = UA Squam Epithelial) 6-10 A Urinalysis with Culture, if iyqzbvwzr0566-71-77 12:26:06* Test Item Value Reference Range Interpretation [...] A Result created by rule GL_SJM_UA_MICRO_IND Automated Engkeikplgvb2674-76-42 12:25:32* Test Item Value Reference Range Interpretation Comments Neutro Auto (test code = Neutro Auto) 60.7 % 36.0-70.0 Lymph Auto (test code = Lymph Auto) 29.3 % 12.0-44.0 Lanier Auto (test code = Lanier Auto) 7.6 % 0.0-11.0 Eos, Auto (test code = Eos, Auto) 1.8 % 0.0-7.0 Basophil Auto (test code = Basophil Auto) 0.3 % 0.0-2.0 Neutro Absolute (test code = Neutro Absolute) 5.9 x10 1.6-7.4 Lymph Absolute (test code = Lymph Absolute) 2.87 x10 .50-4.60 Lanier Absolute (test code = Lanier Absolute) .74 x10 .00-1.20 Eos Absolute (test code = Eos Absolute) 0.18 x10 0.00-0.74 Baso Absolute (test code = Baso Absolute) 0.03 x10 0.00-0.21 IG Hwwfc3212-60-45 12:25:32* Test Item Value Reference Range Interpretation Comments IG (test code = IG) 0.3 % 0.0-5.0 IG Abs (test code = IG Abs) 0 x10 N Complete Blood Count with Dnqnuzhipnix8147-34-06 12:25:31* Test Item Value Reference Range Interpretation [...] code = IPF) 0 % N Sodium Pfdzg4649-60-60 05:26:00* Test Item Value Reference Range Interpretation Comments Sodium Level (test code = 2951-2) 135 136-145 L [facility]Pot[facility] Bpcks8825-88-59 05:26:00* Test Item Value Reference Range Interpretation Comments Potassium Level (test code = 2823-3) 4.0 3.5-5.1 [facility] HospitalChloride Yxvbk4031-11-66 05:26:00* Test Item Value Reference Range Interpretation Comments Chloride Level (test code = 2075-0) 98 98-107 [facility] HospitalCarbon Dioxide Hrqoq8275-72-82 05:26:00* Test Item Value Reference Range Interpretation Comments Carbon Dioxide Level (test code = 2028-9) 27 22-29 [facility] HospitalAnion Fiz0565-79-36 05:26:00* Test Item Value Reference Range Interpretation Comments Anion Gap (test code = 56264-1) 14.0 8-16 [facility] HospitalBlood Urea Obfanxbp8858-60-70 05:26:00* Test Item Value Reference Range Interpretation Comments Blood Urea Nitrogen (test code = 3094-0) 11 7-26 [facility] HospitalCreatinine2019-08-17 05:26:00* Test Item Value Reference Range Interpretation Comments Creatinine (test code = 2160-0) 0.72 0.57-1.11 [facility] HospitalBUN/Creatinine Kfrho1421-34-32 05:26:00* Test Item Value Reference Range Interpretation Comments BUN/Creatinine Ratio (test code = 3097-3) 15 6-25 [facility] HospitalEstimat Glomerular Filtration Rate 2019-04-02 05:26:00* Test Item Value Reference Range Interpretation Comments Estimat Glomerular Filtration Rate (test code = 253436473) > 60 >60 Ranges were taken from the National Kidney Disease Education Program and the [place] Kidney Foundation literature.Reference ranges:60 or greater: Gtwgwm26-07 ( for 3 consecutive months): Chronic kidney disease 15 or less: Kidney failureFormerly [facility] HospitalGlucose Itorw1687-56-11 05:26:00* Test Item Value Reference Range Interpretation Comments Glucose Level (test code = VRH4542) 402 74-118 HH Results repeated and called to KATE BALL RN at 0526 on 04/02/19 by Linda meier Read back and verified.[facility] HospitalCalcium Level 2019-04-02 05:26:00* Test Item Value Reference Range Interpretation Comments Calcium Level (test code = 00471-5) 9.4 8.4-10.2 [facility] HospitalTotal Ubhspvozs4893-50-05 05:26:00* Test Item Value Reference Range Interpretation Comments Total Bilirubin (test code = 1975-2) 0.2 0.2-1.2 [facility] HospitalAspartate Amino Transf (AST/SGOT) 2019-04-02 05:26:00* Test Item Value Reference Range Interpretation Comments Aspartate Amino Transf (AST/SGOT) (test code = Aspartate Amino Transf (AST/SGOT)) 18 5-34 [facility] HospitalAlanine Aminotransferase (ALT/SGPT) 2019-04-02 05:26:00* Test Item Value Reference Range Interpretation Comments Alanine Aminotransferase (ALT/SGPT) (test code = 1742-6) 46 0-55 [facility] HospitalTotal Pmibvwy2843-56-49 05:26:00* Test Item Value Reference Range Interpretation Comments Total Protein (test code = 2885-2) 6.9 6.5-8.1 [facility] HospitalAlbumin2019-08-17 05:26:00* Test Item Value Reference Range Interpretation Comments Albumin (test code = 1751-7) 3.2 3.5-5.0 L [facility] HospitalGlobulin2019-08-17 05:26:00* Test Item Value Reference Range Interpretation Comments Globulin (test code = 93841-7) 3.7 2.3-3.5 H [facility] HospitalAlbumin/Globulin Rawda3578-42-74 05:26:00 * Test Item Value Reference Range Interpretation Comments Albumin/Globulin Ratio (test code = 1759-0) 0.9 0.8-2.0 [facility] HospitalAlkaline Inpvnpxlukc7535-79-00 05:26:00* Test Item Value Reference Range Interpretation Comments Alkaline Phosphatase (test code = 6768-6) 109 40-150 [facility] Campusodium Zbqcv0189-68-04 05:26:00* Test Item Value Reference Range Interpretation Comments Sodium Level (test code = 2951-2) 135 136-145 L [facility] HospitalPotassium Jzrmx4312-87-92 05:26:00* Test Item Value Reference Range Interpretation Comments Potassium Level (test code = 2823-3) 4.0 3.5-5.1 [facility] HospitalChloride Jmqkd9304-03-24 05:26:00* Test Item Value Reference Range Interpretation Comments Chloride Level (test code = 2075-0) 98 98-107 [facility] HospitalCarbon Dioxide Fqgya1582-00-67 05:26:00* Test Item Value Reference Range Interpretation Comments Carbon Dioxide Level (test code = 2028-9) 27 22-29 [facility] HospitalAnion Zgu9367-11-03 05:26:00* Test Item Value Reference Range Interpretation Comments Anion Gap (test code = 07219-1) 14.0 8-16 [facility] HospitalBlood Urea Xbujlstc9648-32-90 05:26:00* Test Item Value Reference Range Interpretation Comments Blood Urea Nitrogen (test code = 3094-0) 11 7-26 [facility] HospitalCreatinine2019-08-17 05:26:00* Test Item Value Reference Range Interpretation Comments Creatinine (test code = 2160-0) 0.72 0.57-1.11 [facility] HospitalBUN/Creatinine Hnxnf6112-37-25 05:26:00* Test Item Value Reference Range Interpretation Comments BUN/Creatinine Ratio (test code = 3097-3) 15 6- [facility] HospitalEstimat Glomerular Filtration Rate 2019-04-02 05:26:00* Test Item Value Reference Range Interpretation Comments Estimat Glomerular Filtration Rate (test code = 551623980) > 60 >60 Ranges were taken from the National Kidney Disease Education Program and the [place] [facility]al Kidney Foundation literature.Reference ranges:60 or greater: Tmljzj63-07 ( for 3 consecutive months): Chronic kidney disease 15 or less: Kidney failureFormerly [facility] HospitalGlucose Zbkuo2834-01-24 05:26:00* Test Item Value Reference Range Interpretation Comments Glucose Level (test code = ATP6646) 402 74-118 Results repeated and called to KATE BALL RN at 0526 on 04/02/19 by Linda meier Read back and verified.[facility] HospitalCalcium Level 2019-04-02 05:26:00* Test Item Value Reference Range Interpretation Comments Calcium Level (test code = 13666-8) 9.4 8.4-10.2 [facility] HospitalTotal Vnhotpbtw0199-06-91 05:26:00* Test Item Value Reference Range Interpretation Comments Total Bilirubin (test code = 1975-2) 0.2 0.2-1.2 [facility] HospitalAspartate Amino Transf (AST/SGOT) 2019-04-02 05:26:00* Test Item Value Reference Range Interpretation Comments Aspartate Amino Transf (AST/SGOT) (test code = Aspartate Amino Transf (AST/SGOT)) 18 5-34 [facility] HospitalAlanine Aminotransferase (ALT/SGPT) 2019-04-02 05:26:00* Test Item Value Reference Range Interpretation Comments Alanine Aminotransferase (ALT/SGPT) (test code = 1742-6) 46 0-55 [facility] HospitalTotal Jodwmvj4476-86-92 05:26:00* Test Item Value Reference Range Interpretation Comments Total Protein (test code = 2885-2) 6.9 6.5-8.1 [facility] HospitalAlbumin2019-08-17 05:26:00* Test Item Value Reference Range Interpretation Comments Albumin (test code = 1751-7) 3.2 3.5-5.0 L [facility] HospitalGlobulin2019-08-17 05:26:00* Test Item Value Reference Range Interpretation Comments Globulin (test code = 09717-2) 3.7 2.3-3.5 H [facility] HospitalAlbumin/Globulin Nssij2540-15-48 05:26:00 * Test Item Value Reference Range Interpretation Comments Albumin/Globulin Ratio (test code = 1759-0) 0.9 0.8-2.0 [facility] HospitalAlkaline Cklccdamoog4754-08-17 05:26:00* Test Item Value Reference Range Interpretation Comments Alkaline Phosphatase (test code = 6768-6) 109 40-150 [facility] HospitalWhite Blood Nzpvj6184-46-00 04:51:00* Test Item Value Reference Range Interpretation Comments White Blood Count (test code = 6690-2) 10.39 4.8-10.8 [facility] HospitalRed Blood Rekij9004-61-20 04:51:00* Test Item Value Reference Range Interpretation Comments Red Blood Count (test code = 789-8) 4.85 3.6-5.1 [facility] HospitalHemoglobin2019-08-17 04:51:00* Test Item Value Reference Range Interpretation Comments Hemoglobin (test code = 20750-9) 14.2 12.0-16.0 [facility] HospitalHematocrit2019-08-17 04:51:00* Test Item Value Reference Range Interpretation Comments Hematocrit (test code = 4544-3) 43.2 34.2-44.1 [facility] HospitalMean Corpuscular Ifgraw5193-78-55 04:51:00* Test Item Value Reference Range Interpretation Comments Mean Corpuscular Volume (test code = 787-2) 89.1 81-99 [facility] HospitalMean Corpuscular Qvfslzohpd0100-23-37 04:51:00* Test Item Value Reference Range Interpretation Comments Mean Corpuscular Hemoglobin (test code = 785-6) 29.3 28-32 [facility] HospitalMean Corpuscular Hemoglobin Concent 2019-04-02 04:51:00* Test Item Value Reference Range Interpretation Comments Mean Corpuscular Hemoglobin Concent (test code = 786-4) 32.9 31-35 [facility] HospitalRed Cell Distribution Rssar9775-20-48 04:51:00* Test Item Value Reference Range Interpretation Comments Red Cell Distribution Width (test code = 04448-3) 13.1 11.7 -14.4 [facility] HospitalPlatelet Agzjc5616-81-05 04:51:00* Test Item Value Reference Range Interpretation Comments Platelet Count (test code = 777-3) 271 140-360 [facility] HospitalNeutrophils (%) (Auto)2019-04-02 04:51:00 * Test Item Value Reference Range Interpretation Comments Neutrophils (%) (Auto) (test code = 02063-4) 61.2 38.7-80.0 [facility] HospitalLymphocytes (%) (Auto)2019-04-02 04:51:00 * Test Item Value Reference Range Interpretation Comments Lymphocytes (%) (Auto) (test code = 736-9) 28.3 18.0-39.1 [facility] HospitalMonocytes (%) (Auto)2019-04-02 04:51:00* Test Item Value Reference Range Interpretation Comments Monocytes (%) (Auto) (test code = 5905-5) 8.3 4.4-11.3 [facility] HospitalEosinophils (%) (Auto)2019-04-02 04:51:00 * Test Item Value Reference Range Interpretation Comments Eosinophils (%) (Auto) (test code = 713-8) 1.6 0.0-6.0 [facility] HospitalBasophils (%) (Auto)2019-04-02 04:51:00* Test Item Value Reference Range Interpretation Comments Basophils (%) (Auto) (test code = 706-2) 0.2 0.0-1.0 [facility] HospitalIM GRANULOCYTES %2019-04-02 04:51:00* Test Item Value Reference Range Interpretation Comments IM GRANULOCYTES % (test code = IM GRANULOCYTES %) 0.4 0.0- 1.0 [facility] HospitalNeutrophils # (Auto)2019-04-02 04:51:00* Test Item Value Reference Range Interpretation Comments Neutrophils # (Auto) (test code = 751-8) 6.4 2.1-6.9 [facility] HospitalLymphocytes # (Auto)2019-04-02 04:51:00* Test Item Value Reference Range Interpretation Comments Lymphocytes # (Auto) (test code = 93238-8) 2.9 1.0-3.2 [facility] HospitalMonocytes # (Auto)2019-04-02 04:51:00* Test Item Value Reference Range Interpretation Comments Monocytes # (Auto) (test code = 742-7) 0.9 0.2-0.8 H [facility] HospitalEosinophils # (Auto)2019-04-02 04:51:00* Test Item Value Reference Range Interpretation Comments Eosinophils # (Auto) (test code = 711-2) 0.2 0.0-0.4 [facility] HospitalBasophils # (Auto)2019-04-02 04:51:00* Test Item Value Reference Range Interpretation Comments Basophils # (Auto) (test code = 704-7) 0.0 0.0-0.1 [facility] HospitalAbsolute Immature Granulocyte (auto 2019-04-02 04:51:00* Test Item Value Reference Range Interpretation Comments Absolute Immature Granulocyte (auto (simran t code = Absolute Immature Granulocyte (auto) 0.04 0-0.1 [facility] HospitalWhite Blood Ouxqj6248-31-56 04:51:00* Test Item Value Reference Range Interpretation Comments White Blood Count (test code = 6690-2) 10.39 4.8-10.8 [facility] HospitalRed Blood Ecnkr6640-06-89 04:51:00* Test Item Value Reference Range Interpretation Comments Red Blood Count (test code = 789-8) 4.85 3.6-5.1 [facility] HospitalHemoglobin2019-08-17 04:51:00* Test Item Value Reference Range Interpretation Comments Hemoglobin (test code = 09998-5) 14.2 12.0-16.0 [facility] HospitalHematocrit2019-08-17 04:51:00* Test Item Value Reference Range Interpretation Comments Hematocrit (test code = 4544-3) 43.2 34.2-44.1 [facility] HospitalMean Corpuscular Mlzmht7209-65-02 04:51:00* Test Item Value Reference Range Interpretation Comments Mean Corpuscular Volume (test code = 787-2) 89.1 81-99 [facility] HospitalMean Corpuscular Kndmcnszpa8741-18-01 04:51:00* Test Item Value Reference Range Interpretation Comments Mean Corpuscular Hemoglobin (test code = 785-6) 29.3 28-32 [facility] HospitalMean Corpuscular Hemoglobin Concent 2019-04-02 04:51:00* Test Item Value Reference Range Interpretation Comments Mean Corpuscular Hemoglobin Concent (test code = 786-4) 32.9 31-35 [facility] HospitalRed Cell Distribution Kmgei8532-80-40 04:51:00* Test Item Value Reference Range Interpretation Comments Red Cell Distribution Width (test code = 02666-8) 13.1 11.7 -14.4 [facility] HospitalPlatelet Grntq0256-07-73 04:51:00* Test Item Value Reference Range Interpretation Comments Platelet Count (test code = 777-3) 271 140-360 [facility] HospitalNeutrophils (%) (Auto)2019-04-02 04:51:00 * Test Item Value Reference Range Interpretation Comments Neutrophils (%) (Auto) (test code = 25935-3) 61.2 38.7-80.0 [facility] HospitalLymphocytes (%) (Auto)2019-04-02 04:51:00 * Test Item Value Reference Range Interpretation Comments Lymphocytes (%) (Auto) (test code = 736-9) 28.3 18.0-39.1 [facility] HospitalMonocytes (%) (Auto)2019-04-02 04:51:00* Test Item Value Reference Range Interpretation Comments Monocytes (%) (Auto) (test code = 5905-5) 8.3 4.4-11.3 [facility] HospitalEosinophils (%) (Auto)2019-04-02 04:51:00 * Test Item Value Reference Range Interpretation Comments Eosinophils (%) (Auto) (test code = 713-8) 1.6 0.0-6.0 [facility] HospitalBasophils (%) (Auto)2019-04-02 04:51:00* Test Item Value Reference Range Interpretation Comments Basophils (%) (Auto) (test code = 706-2) 0.2 0.0-1.0 [facility] HospitalIM GRANULOCYTES %2019-04-02 04:51:00* Test Item Value Reference Range Interpretation Comments IM GRANULOCYTES % (test code = IM GRANULOCYTES %) 0.4 0.0- 1.0 [facility] HospitalNeutrophils # (Auto)2019-04-02 04:51:00* Test Item Value Reference Range Interpretation Comments Neutrophils # (Auto) (test code = 751-8) 6.4 2.1-6.9 [facility] HospitalLymphocytes # (Auto)2019-04-02 04:51:00* Test Item Value Reference Range Interpretation Comments Lymphocytes # (Auto) (test code = 69494-4) 2.9 1.0-3.2 [facility] HospitalMonocytes # (Auto)2019-04-02 04:51:00* Test Item Value Reference Range Interpretation Comments Monocytes # (Auto) (test code = 742-7) 0.9 0.2-0.8 [facility] # (Auto)2019-04-02 04:51:00* Test Item Value Reference Range Interpretation Comments Eosinophils # (Auto) (test code = 711-2) 0.2 0.0-0.4 [facility]Basophils # (Auto)2019-04-02 04:51:00* Test Item Value Reference Range Interpretation Comments Basophils # (Auto) (test code = 704-7) 0.0 0.0-0.1 [facility] HospitalAbsolute Immature Granulocyte (auto 2019-04-02 04:51:00* Test Item Value Reference Range Interpretation Comments Absolute Immature Granulocyte (auto (simran t code = Absolute Immature Granulocyte (auto) 0.04 0-0.1 [facility] FY2295-49-62 03:55:00 [facility] [address] [address] Patient Name: ANNIA VIDES MR #: [id number] : 0 1975 Age/Sex: 43/F Req #: [id number] Adm Physician: Ordered by: PORSCHE WALLS MD Report #: [id number] Location: ER Room/Bed: Procedure: 0817 -0005 CT/CT [...] 04/02/19399 COPY TO: PORSCHE WALLS MD Creatine Hwzsjm7992-28-24 22:41:00* Test Item Value Reference Range Interpretation Comments Creatine Kinase (test code = 2157-6) 92 -168 [facility] HospitalCreatine Paetcd0791-99-63 22:41:00* Test Item Value Reference Range Interpretation Comments Creatine Kinase (test code = 2157-6) 92 168 [facility] HospitalCreatine Ymjgvo6130-01-18 22:41:00* Test Item Value Reference Range Interpretation Comments Creatine Kinase (test code = 2157-6) 92 168 [facility] HospitalUrine GUP2426-63-25 22:40:00* Test Item Value Reference Range Interpretation Comments Urine WBC (test code = 5821-4) 21-50 0-5 H [facility] HospitalU[facility] NVO2919-95-56 22:40:00* Test Item Value Reference Range Interpretation Comments Urine RBC (test code = 80384-6) 11-20 0-5 H [facility] HospitalU[facility] Gxtrpegi6504-64-61 22:40:00* Test Item Value Reference Range Interpretation Comments Urine Bacteria (test code = 17440-2) FEW NONE [facility] HospitalU[facility] Epithelial Zvlhb5157-45-87 22:40:00 * Test Item Value Reference Range Interpretation Comments Urine Epithelial Cells (test code = 43921-4) FEW NONE [facility] HospitalUrine WGN7127-36-35 22:40:00* Test Item Value Reference Range Interpretation Comments Urine WBC (test code = 5821-4) 21-50 0-5 H [facility] HospitalU[facility] WXM3226-36-20 22:40:00* Test Item Value Reference Range Interpretation Comments Urine RBC (test code = 86054-8) 11-20 0-5 H [facility] HospitalU[facility] Gdgwjjbe1808-65-79 22:40:00* Test Item Value Reference Range Interpretation Comments Urine Bacteria (test code = 33581-4) FEW NONE [facility] Epithelial Jxkhw7218-24-86 22:40:00 * Test Item Value Reference Range Interpretation Comments Urine Epithelial Cells (test code = 36215-9) FEW NONE [facility] HospitalU[facility] EXW6150-49-28 22:40:00* Test Item Value Reference Range Interpretation Comments Urine WBC (test code = 5821-4) 21-50 0-5 H [facility] HospitalUrine SPY8252-30-70 22:40:00* Test Item Value Reference Range Interpretation Comments Urine RBC (test code = 69607-8) 11-20 0-5 H [facility] HospitalUrine Dezizmao1222-11-78 22:40:00* Test Item Value Reference Range Interpretation Comments Urine Bacteria (test code = 06302-9) FEW NONE [facility] HospitalU[facility] Epithelial Gxfnk2616-35-34 22:40:00 * Test Item Value Reference Range Interpretation Comments Urine Epithelial Cells (test code = 40920-7) FEW NONE [facility] HospitalUrine Opiates Ewbpzf7012-67-58 22:32:00* Test Item Value Reference Range Interpretation Comments Urine Opiates Screen (test code = 74665-1) NEGATIVE NEGATIVE ALL TESTS PERFORMED MANUALLY ON [employer] TOX/SEE TESTFormerly [facility] HospitalUrine Barbiturates Dtllnl1167-58-85 22:32:00* Test Item Value Reference Range Interpretation Comments Urine Barbiturates Screen (test code = 704817760) NEGATIVE NEGA TIVE [facility] HospitalU[facility] Phencyclidine Mkkroy0969-99-76 22:32:00* Test Item Value Reference Range Interpretation Comments Urine Phencyclidine Screen (test code = 60514-0) NEGATIVE NEGAT GEOVANNA [facility] HospitalUrine Amphetamines Nvrgyv0353-85-16 22:32:00* Test Item Value Reference Range Interpretation Comments Urine Amphetamines Screen (test code = 14474-9) NEGATIVE NEGATI VE [facility] HospitalUrine Methamphetamines Hicgjh8325-25-75 22:32:00* Test Item Value Reference Range Interpretation Comments Urine Methamphetamines Screen (test code = Urine Metha mphetamines Screen) NEGATIVE NEGATIVE [facility] HospitalUrine Benzodiazepines Wrqeoi1406-93-87 22:32:00* Test Item Value Reference Range Interpretation Comments Urine Benzodiazepines Screen (test code = 79673-8) NEGATIVE NEG ATIVE [facility] HospitalUrine Cocaine Gutdnu4129-20-86 22:32:00* Test Item Value Reference Range Interpretation Comments Urine Cocaine Screen (test code = 3398-5) NEGATIVE NEGATIVE [facility] HospitalUrine Cannabinoids Mawfso8117-76-85 22:32:00* Test Item Value Reference Range Interpretation Comments Urine Cannabinoids Screen (test code = 43580-8) NEGATIVE NEGATI VE THESE RESULTS ARE FOR MEDICAL TREATMENT ONLYTHIS REPORT CONTAINS UNCONFIR MED SCREENING RESULTS*POSITIVE RESULTS WILL BE CONFIRMED BY REFERENCE LAB UPON R EQUEST CUT-OFFDRUG CLASS CONCENTRATION ng/mLAmphetamines 1000Methamphetamines 1000Cocaine 300Opiate 300Phencyc lidine 25Cannabinoid 50Barbiturates 300Benzodiazepine 300Methadone 300[facility] HospitalUrine Methadone Yniatd4678-41-87 22:32:00* Test Item Value Reference Range Interpretation Comments Urine Methadone Screen (test code = 51909-1) NEGATIVE NEGATIVE THESE RESULTS ARE FOR MEDICAL TREATMENT ONLYTHIS REPORT CONTAINS UNCONFIR MED SCREENING RESULTS*POSITIVE RESULTS WILL BE CONFIRMED BY REFERENCE LAB UPON R EQUEST CUT-OFFDRUG CLASS CONCENTRATION ng/mLAmphetamines 1000Methamphetamines 1000Cocaine Metabolite 300Opiate 300Phencyc lidine 25Cannabinoid 50Barbiturates 300Benzodiazepine 300Methadone 300[facility] HospitalUrine Opiates Csmrbo7872-46-12 22:32:00* Test Item Value Reference Range Interpretation Comments Urine Opiates Screen (test code = 42767-6) NEGATIVE NEGATIVE ALL TESTS PERFORMED MANUALLY ON [employer] TOX/SEE TESTFormerly [facility] HospitalUrine Barbiturates Ujuixr3501-39-74 22:32:00* Test Item Value Reference Range Interpretation Comments Urine Barbiturates Screen (test code = 489975040) NEGATIVE NEGA TIVE [facility] HospitalUrine Phencyclidine Durbhk3046-25-59 22:32:00* Test Item Value Reference Range Interpretation Comments Urine Phencyclidine Screen (test code = 38114-1) NEGATIVE NEGAT GEOVANNA [facility] HospitalUrine Amphetamines Lsysah6187-62-26 22:32:00* Test Item Value Reference Range Interpretation Comments Urine Amphetamines Screen (test code = 33824-0) NEGATIVE NEGATI VE [facility] HospitalU[facility] Methamphetamines Zsbhkj2200-37-00 22:32:00* Test Item Value Reference Range Interpretation Comments Urine Methamphetamines Screen (test code = Urine Metha mphetamines Screen) NEGATIVE NEGATIVE [facility] HospitalUrine Benzodiazepines Wpnbnj1721-83-41 22:32:00* Test Item Value Reference Range Interpretation Comments Urine Benzodiazepines Screen (test code = 98135-9) NEGATIVE NEG ATIVE [facility] HospitalU[facility] Cocaine Hdnfnl6017-95-59 22:32:00* Test Item Value Reference Range Interpretation Comments Urine Cocaine Screen (test code = 3398-5) NEGATIVE NEGATIVE [facility] HospitalUrine Cannabinoids Iuqxup6958-04-11 22:32:00* Test Item Value Reference Range Interpretation Comments Urine Cannabinoids Screen (test code = 69233-1) NEGATIVE NEGATI VE THESE RESULTS ARE FOR MEDICAL TREATMENT ONLYTHIS REPORT CONTAINS UNCONFIR MED SCREENING RESULTS*POSITIVE RESULTS WILL BE CONFIRMED BY REFERENCE LAB UPON R EQUEST CUT-OFFDRUG CLASS CONCENTRATION ng/mLAmphetamines 1000Methamphetamines 1000Cocaine 300Opiate 300Phencyc lidine 25Cannabinoid 50Barbiturates 300Benzodiazepine 300Methadone 300[facility] Methadone Iqtchf1259-92-95 22:32:00* Test Item Value Reference Range Interpretation Comments Urine Methadone Screen (test code = 89894-0) NEGATIVE NEGATIVE THESE RESULTS ARE FOR MEDICAL TREATMENT ONLYTHIS REPORT CONTAINS UNCONFIR MED SCREENING RESULTS*POSITIVE RESULTS WILL BE CONFIRMED BY REFERENCE LAB UPON R EQUEST CUT-OFFDRUG CLASS CONCENTRATION ng/mLAmphetamines 1000Methamphetamines 1000Cocaine Metabolite 300Opiate 300Phencyc lidine 25Cannabinoid 50Barbiturates 300Benzodiazepine 300Methadone 300[facility] Opiates Bjcbdn8939-79-03 22:32:00* Test Item Value Reference Range Interpretation Comments Urine Opiates Screen (test code = 90457-5) NEGATIVE NEGATIVE ALL TESTS PERFORMED MANUALLY ON [employer] TOX/SEE TESTFormerly [facility] HospitalUrine Barbiturates Ykeuyf3732-17-93 22:32:00* Test Item Value Reference Range Interpretation Comments Urine Barbiturates Screen (test code = 461193383) NEGATIVE NEGA TIVE [facility] HospitalUrine Phencyclidine Wgtwml3748-23-10 22:32:00* Test Item Value Reference Range Interpretation Comments Urine Phencyclidine Screen (test code = 17445-4) NEGATIVE NEGAT GEOVANNA [facility] HospitalU[facility] Amphetamines Qqyblu9215-63-39 22:32:00* Test Item Value Reference Range Interpretation Comments Urine Amphetamines Screen (test code = 92800-2) NEGATIVE NEGATI VE [facility] HospitalU[facility] Methamphetamines Kwxqxi1511-48-99 22:32:00* Test Item Value Reference Range Interpretation Comments Urine Methamphetamines Screen (test code = Urine Metha mphetamines Screen) NEGATIVE NEGATIVE [facility] HospitalUrine Benzodiazepines Fodzrm1565-48-82 22:32:00* Test Item Value Reference Range Interpretation Comments Urine Benzodiazepines Screen (test code = 06061-4) NEGATIVE NEG ATIVE [facility] HospitalU[facility] Cocaine Llhkxn3071-20-12 22:32:00* Test Item Value Reference Range Interpretation Comments Urine Cocaine Screen (test code = 3398-5) NEGATIVE NEGATIVE [facility] HospitalUrine Cannabinoids Fohapk8508-65-81 22:32:00* Test Item Value Reference Range Interpretation Comments Urine Cannabinoids Screen (test code = 75286-6) NEGATIVE NEGATI VE THESE RESULTS ARE FOR MEDICAL TREATMENT ONLYTHIS REPORT CONTAINS UNCONFIR MED SCREENING RESULTS*POSITIVE RESULTS WILL BE CONFIRMED BY REFERENCE LAB UPON R EQUEST CUT-OFFDRUG CLASS CONCENTRATION ng/mLAmphetamines 1000Methamphetamines 1000Cocaine 300Opiate 300Phencyc lidine 25Cannabinoid 50Barbiturates 300Benzodiazepine 300Methadone 300[facility] Methadone Hqoqnq0985-65-53 22:32:00* Test Item Value Reference Range Interpretation Comments Urine Methadone Screen (test code = 29283-6) NEGATIVE NEGATIVE THESE RESULTS ARE FOR MEDICAL TREATMENT ONLYTHIS REPORT CONTAINS UNCONFIR MED SCREENING RESULTS*POSITIVE RESULTS WILL BE CONFIRMED BY REFERENCE LAB UPON R EQUEST CUT-OFFDRUG CLASS CONCENTRATION ng/mLAmphetamines 1000Methamphetamines 1000Cocaine Metabolite 300Opiate 300Phencyc lidine 25Cannabinoid 50Barbiturates 300Benzodiazepine 300Methadone 300[facility] Slxrx6104-93-94 22:31:00* Test Item Value Reference Range Interpretation Comments Urine Color (test code = 5778-6) YELLOW YELLOW [facility] Zsfsocm2409-96-89 22:31:00* Test Item Value Reference Range Interpretation Comments Urine Clarity (test code = 97305-0) SL CLOUDY CLEAR [facility] HospitalUrine Specific Cxyvomo1723-57-38 22:31:00 * Test Item Value Reference Range Interpretation Comments Urine Specific [place] (test code = 5811-5) <=1.005 1.010-1.02 5 [facility] HospitalU[facility] yV6060-47-92 22:31:00* Test Item Value Reference Range Interpretation Comments Urine pH (test code = 47714-8) 5.5 5-7 [facility] Leukocyte Cgznyjfw4471-62-44 22:31:00* Test Item Value Reference Range Interpretation Comments Urine Leukocyte Esterase (test code = 53196-3) SMALL NEGATIV E [facility] Vtxrhxo7585-18-33 22:31:00* Test Item Value Reference Range Interpretation Comments Urine Nitrite (test code = 04344-2) NEGATIVE NEGATIVE [facility] HospitalU[facility] Dchxhhy6864-02-18 22:31:00* Test Item Value Reference Range Interpretation Comments Urine Protein (test code = 25865-8) NEGATIVE NEGATIVE [facility] HospitalU[facility] Glucose (UA)2019-03-22 22:31:00* Test Item Value Reference Range Interpretation Comments Urine Glucose (UA) (test code = 44823-4) 3+ NEGATIVE [facility] HospitalU[facility] Vodpvfc9309-03-52 22:31:00* Test Item Value Reference Range Interpretation Comments Urine Ketones (test code = 89000-4) NEGATIVE NEGATIVE [facility] Wabecgtxsxbl7327-93-72 22:31:00* Test Item Value Reference Range Interpretation Comments Urine Urobilinogen (test code = 08152-1) 0.2 0.2-1 [facility] Zqmfdzawe1908-25-26 22:31:00* Test Item Value Reference Range Interpretation Comments Urine Bilirubin (test code = 1977-8) NEGATIVE NEGATIVE [facility] Jxorw8639-94-38 22:31:00* Test Item Value Reference Range Interpretation Comments Urine Blood (test code = 76167-2) TRACE NEGATIVE H [facility] Bbixu9361-59-48 22:31:00* Test Item Value Reference Range Interpretation Comments Urine Color (test code = 5778-6) YELLOW YELLOW [facility] Qpmntly6966-00-16 22:31:00* Test Item Value Reference Range Interpretation Comments Urine Clarity (test code = 87476-2) SL CLOUDY CLEAR [facility] HospitalU[facility] Specific Inqycig2656-59-99 22:31:00 * Test Item Value Reference Range Interpretation Comments Urine Specific [place] (test code = 5811-5) <=1.005 1.010-1.02 5 [facility] nE6265-01-48 22:31:00* Test Item Value Reference Range Interpretation Comments Urine pH (test code = 68113-0) 5.5 5-7 [facility] Leukocyte Kjdazpre0858-42-70 22:31:00* Test Item Value Reference Range Interpretation Comments Urine Leukocyte Esterase (test code = 61962-8) SMALL NEGATIV E [facility] Auipkku1227-70-41 22:31:00* Test Item Value Reference Range Interpretation Comments Urine Nitrite (test code = 12559-3) NEGATIVE NEGATIVE [facility] HospitalU[facility] Ffgujdm1323-27-02 22:31:00* Test Item Value Reference Range Interpretation Comments Urine Protein (test code = 94973-6) NEGATIVE NEGATIVE [facility] Glucose (UA)2019-03-22 22:31:00* Test Item Value Reference Range Interpretation Comments Urine Glucose (UA) (test code = 10213-8) 3+ NEGATIVE [facility] Cjpzlxo1799-79-37 22:31:00* Test Item Value Reference Range Interpretation Comments Urine Ketones (test code = 46420-2) NEGATIVE NEGATIVE [facility] Suwajueartzb8841-25-85 22:31:00* Test Item Value Reference Range Interpretation Comments Urine Urobilinogen (test code = 65349-4) 0.2 0.2-1 [facility] Acgpbprya7819-60-51 22:31:00* Test Item Value Reference Range Interpretation Comments Urine Bilirubin (test code = 1977-8) NEGATIVE NEGATIVE [facility] Iwypz0495-85-51 22:31:00* Test Item Value Reference Range Interpretation Comments Urine Blood (test code = 00865-2) TRACE NEGATIVE H [facility] Qbyty7847-11-34 22:31:00* Test Item Value Reference Range Interpretation Comments Urine Color (test code = 5778-6) YELLOW YELLOW [facility] Ntwarkw7543-53-12 22:31:00* Test Item Value Reference Range Interpretation Comments Urine Clarity (test code = 90624-8) SL CLOUDY CLEAR [facility] HospitalU[facility] Specific Caaewys1572-06-88 22:31:00 * Test Item Value Reference Range Interpretation Comments Urine Specific [place] (test code = 5811-5) <=1.005 1.010-1.02 5 [facility] sS6885-60-01 22:31:00* Test Item Value Reference Range Interpretation Comments Urine pH (test code = 13695-2) 5.5 5-7 [facility] Leukocyte Mqaqwyzs2186-20-04 22:31:00* Test Item Value Reference Range Interpretation Comments Urine Leukocyte Esterase (test code = 14983-4) SMALL NEGATIV E [facility] Yhbsvkb7425-10-73 22:31:00* Test Item Value Reference Range Interpretation Comments Urine Nitrite (test code = 95194-7) NEGATIVE NEGATIVE [facility] Qqqgzyl5837-47-35 22:31:00* Test Item Value Reference Range Interpretation Comments Urine Protein (test code = 67724-0) NEGATIVE NEGATIVE [facility] Glucose (UA)2019-03-22 22:31:00* Test Item Value Reference Range Interpretation Comments Urine Glucose (UA) (test code = 77051-1) 3+ NEGATIVE [facility] HospitalU[facility] Epcyqhg5650-56-51 22:31:00* Test Item Value Reference Range Interpretation Comments Urine Ketones (test code = 51472-4) NEGATIVE NEGATIVE [facility] Vuwdmbjorulb8148-82-11 22:31:00* Test Item Value Reference Range Interpretation Comments Urine Urobilinogen (test code = 86621-7) 0.2 0.2-1 [facility] Tgrnzbrca8387-48-92 22:31:00* Test Item Value Reference Range Interpretation Comments Urine Bilirubin (test code = 1977-8) NEGATIVE NEGATIVE [facility] HospitalU[facility] Ymoky3860-17-54 22:31:00* Test Item Value Reference Range Interpretation Comments Urine Blood (test code = 36751-7) TRACE NEGATIVE H [facility] HospitalCreatine Kinase KW8278-67-71 22:25:00* Test Item Value Reference Range Interpretation Comments Creatine Kinase MB (test code = 05695-1) 7.40 0-5.0 H [facility] HospitalTroponin E7257-40-77 22:25:00* Test Item Value Reference Range Interpretation Comments Troponin I (test code = OLO2313) < 0.001 0-0.300 [facility] HospitalCreatine Kinase KE4787-29-40 22:25:00* Test Item Value Reference Range Interpretation Comments Creatine Kinase MB (test code = 63126-1) 7.40 0-5.0 H [facility] HospitalTroponin L7970-90-71 22:25:00* Test Item Value Reference Range Interpretation Comments Troponin I (test code = SOZ8950) < 0.001 0-0.300 [facility] HospitalCreatine Kinase LD1751-03-00 22:25:00* Test Item Value Reference Range Interpretation Comments Creatine Kinase MB (test code = 42380-1) 7.40 0-5.0 H [facility] HospitalTroponin W1471-99-17 22:25:00* Test Item Value Reference Range Interpretation Comments Troponin I (test code = PEH8019) < 0.001 0-0.300 [facility] Jcegg1739-71-35 22:10:00* Test Item Value Reference Range Interpretation Comments Sodium Level (test code = 2951-2) 134 136-145 L [facility] HospitalPotassium Uymxr8377-43-34 22:10:00* Test Item Value Reference Range Interpretation Comments Potassium Level (test code = 2823-3) 3.9 3.5-5.1 [facility] HospitalChloride Qlqgl8092-67-37 22:10:00* Test Item Value Reference Range Interpretation Comments Chloride Level (test code = 2075-0) 95 98-107 L [facility] HospitalCarbon Dioxide Sofkc9985-01-24 22:10:00* Test Item Value Reference Range Interpretation Comments Carbon Dioxide Level (test code = 2028-9) 26 - [facility] HospitalAnion Gxs1524-15-33 22:10:00* Test Item Value Reference Range Interpretation Comments Anion Gap (test code = 72014-2) 16.9 8-16 H [facility] HospitalBlood Urea Kljbuxle8440-52-29 22:10:00* Test Item Value Reference Range Interpretation Comments Blood Urea Nitrogen (test code = 3094-0) 13 7-26 [facility] HospitalCreatinine2019-08-06 22:10:00* Test Item Value Reference Range Interpretation Comments Creatinine (test code = 2160-0) 0.85 0.57-1.11 [facility] HospitalBUN/Creatinine Ivsli8296-18-75 22:10:00* Test Item Value Reference Range Interpretation Comments BUN/Creatinine Ratio (test code = 3097-3) 15 6-25 [facility] HospitalEstimat Glomerular Filtration Rate 2019-03-22 22:10:00* Test Item Value Reference Range Interpretation Comments Estimat Glomerular Filtration Rate (test code = 692800848) > 60 >60 Ranges were taken from the National Kidney Disease Education Program and the [facility] Foundation literature.Reference ranges:60 or greater: Wonzhe06-18 ( for 3 consecutive months): Chronic kidney disease 15 or less: Kidney failureCH[facility] MoundGlucose Osmuu1709-46-79 22:10:00* Test Item Value Reference Range Interpretation Comments Glucose Level (test code = HJF8669) 397 74-118 H [facility] HospitalCalcium Bcyhs9590-29-53 22:10:00* Test Item Value Reference Range Interpretation Comments Calcium Level (test code = 54205-6) 10.1 8.4-10.2 [facility] HospitalTotal Tpxdpdmcq5616-88-62 22:10:00* Test Item Value Reference Range Interpretation Comments Total Bilirubin (test code = 1975-2) 0.3 0.2-1.2 [facility] HospitalAspartate Amino Transf (AST/SGOT) 2019-03-22 22:10:00* Test Item Value Reference Range Interpretation Comments Aspartate Amino Transf (AST/SGOT) (test code = Aspartate Amino Transf (AST/SGOT)) 42 5-34 H [facility] HospitalAlanine Aminotransferase (ALT/SGPT) 2019-03-22 22:10:00* Test Item Value Reference Range Interpretation Comments Alanine Aminotransferase (ALT/SGPT) (test code = 1742-6) 66 0-55 H [facility] HospitalTotal Tsquiec4769-26-33 22:10:00* Test Item Value Reference Range Interpretation Comments Total Protein (test code = 2885-2) 7.8 6.5-8.1 [facility] HospitalAlbumin2019-08-06 22:10:00* Test Item Value Reference Range Interpretation Comments Albumin (test code = 1751-7) 3.4 3.5-5.0 L [facility] HospitalGlobulin2019-08-06 22:10:00* Test Item Value Reference Range Interpretation Comments Globulin (test code = 43764-4) 4.4 2.3-3.5 H [facility] HospitalAlbumin/Globulin Sohvk8041-61-50 22:10:00 * Test Item Value Reference Range Interpretation Comments Albumin/Globulin Ratio (test code = 1759-0) 0.8 0.8-2.0 [facility] HospitalAlkaline Epzodnakoll0695-46-83 22:10:00* Test Item Value Reference Range Interpretation Comments Alkaline Phosphatase (test code = 6768-6) 103 40-150 [facility] HospitalCHEST SINGLE (PORTABLE)2019-03-22 21:58:00 [facility] [address] [address] Patient Name: ANNIA VIDES MR #: [id number] : 1975 Age/Sex: 43/F Req #: [id number] Adm Physician: Ordered by: PORSCHE WALLS MD Report #: [id number] Location: ER Room/Bed: Procedure: [id number] -[id number] DX/CHEST [...] COPY TO: PORSCHE WALLS MD White Blood Rybve5986-23-37 21:56:00* Test Item Value Reference Range Interpretation Comments White Blood Count (test code = 6690-2) 10.81 4.8-10.8 H [facility] HospitalRed Blood Itraq6206-83-83 21:56:00* Test Item Value Reference Range Interpretation Comments Red Blood Count (test code = 789-8) 5.11 3.6-5.1 H [facility] 21:56:00* Test Item Value Reference Range Interpretation Comments Hemoglobin (test code = 52354-3) 15.1 12.0-16.0 [facility]Hematocrit2019-08-06 21:56:00* Test Item Value Reference Range Interpretation Comments Hematocrit (test code = 4544-3) 45.2 34.2-44.1 H [facility] HospitalMean Corpuscular [id number] 21:56:00* Test Item Value Reference Range Interpretation Comments Mean Corpuscular Volume (test code = 787-2) 88.5 81-99 [facility]Mean Corpuscular Uoezrvxlfq1211-65-10 21:56:00* Test Item Value Reference Range Interpretation Comments Mean Corpuscular Hemoglobin (test code = 785-6) 29.5 28-32 [facility]Mean Corp[facility] Hemoglobin Concent 2019-03-22 21:56:00* Test Item Value Reference Range Interpretation Comments Mean Corpuscular Hemoglobin Concent (test code = 786-4) 33.4 31-35 [facility] HospitalRed Cell Distribution [id number] 21:56:00* Test Item Value Reference Range Interpretation Comments Red Cell Distribution Width (test code = 49820-4) 13.2 11.7 -14.4 [facility] HospitalPlatelet [id number] 21:56:00* Test Item Value Reference Range Interpretation Comments Platelet Count (test code = 777-3) 306 140-360 [facility] HospitalNeutrophils (%) (Auto)2019-03-22 21:56:00 * Test Item Value Reference Range Interpretation Comments Neutrophils (%) (Auto) (test code = 17383-0) 67.8 38.7-80.0 [facility] HospitalLymphocytes (%) (Auto)2019-03-22 21:56:00 * Test Item Value Reference Range Interpretation Comments Lymphocytes (%) (Auto) (test code = 736-9) 23.5 18.0-39.1 [facility] HospitalMonocytes (%) (Auto)2019-03-22 21:56:00* Test Item Value Reference Range Interpretation Comments Monocytes (%) (Auto) (test code = 5905-5) 7.2 4.4-11.3 [facility] HospitalEosinophils (%) (Auto)2019-03-22 21:56:00 * Test Item Value Reference Range Interpretation Comments Eosinophils (%) (Auto) (test code = 713-8) 0.9 0.0-6.0 [facility] HospitalBasophils (%) (Auto)2019-03-22 21:56:00* Test Item Value Reference Range Interpretation Comments Basophils (%) (Auto) (test code = 706-2) 0.2 0.0-1.0 [facility] HospitalIM GRANULOCYTES %2019-03-22 21:56:00* Test Item Value Reference Range Interpretation Comments IM GRANULOCYTES % (test code = IM GRANULOCYTES %) 0.4 0.0- 1.0 [facility] HospitalNeutrophils # (Auto)2019-03-22 21:56:00* Test Item Value Reference Range Interpretation Comments Neutrophils # (Auto) (test code = 751-8) 7.3 2.1-6.9 H [facility] HospitalLymphocytes # (Auto)2019-03-22 21:56:00* Test Item Value Reference Range Interpretation Comments Lymphocytes # (Auto) (test code = 46620-3) 2.5 1.0-3.2 [facility] HospitalMonocytes # (Auto)2019-03-22 21:56:00* Test Item Value Reference Range Interpretation Comments Monocytes # (Auto) (test code = 742-7) 0.8 0.2-0.8 [facility] HospitalEosinophils # (Auto)2019-03-22 21:56:00* Test Item Value Reference Range Interpretation Comments Eosinophils # (Auto) (test code = 711-2) 0.1 0.0-0.4 [facility] HospitalBasophils # (Auto)2019-03-22 21:56:00* Test Item Value Reference Range Interpretation Comments Basophils # (Auto) (test code = 704-7) 0.0 0.0-0.1 [facility] HospitalAbsolute Immature Granulocyte (auto 2019-03-22 21:56:00* Test Item Value Reference Range Interpretation Comments Absolute Immature Granulocyte (auto (simran t code = Absolute Immature Granulocyte (auto) 0.04 0-0.1 [facility] HospitalDAU9E2018-01-30 22:36:00* Test Item Value Reference Range Interpretation [...] = ETOHU) <0.01 g/dL 0.00-0.01 N Urinalysis Doqruqzm2161-13-24 22:35:00* Test Item Value Reference Range Interpretation Comments Color (test code = COLOR) Yellow Yellow,Straw,Pl yellow N Clarity (test code = CLAR) Clear Clear N Specific [place] (test code = SPGR) 1.008 1.001-1.035 N [...] code = BACT) Few /HPF CBC with Ptvabdpzpodp6492-39-68 20:41:00* Test Item Value Reference Range Interpretation [...] code = ALYMPH) 3.3 K/cumm 0.5-4.6 N [place] Abs (test code = AMONO) 0.6 K/cumm 0.0-1.2 N Eos Abs (test code = AEOS) 0.20 K/cumm 0.00-0.74 N Baso Abs (test code = ABASO) 0.1 K/cumm 0.00-0.21 N Yhqarac4247-22-19 19:30:00* Test Item Value Reference Range Interpretation Comments Acetone [Serum] (test code = ACETONE) Negative Negative N D-Dimer, Rozpofmnibsb0370-60-63 19:16:00* Test Item Value Reference Range Interpretation Comments D-Dimer, Quant (test code = DDQNT) 374 ng/mL 0-500 N Please note Change in unit of measure from mg/L FEU to ng/mLA cutoff of less than 500 ng/mL DD has a negative predictive value of100% for DVT uji758% for PE.When using D-Dimer to help rule out DVT or PE, clinical information anddisease probability should be considered.Elevated D-Dimer values are not specific for thromboembolism. Prothrombin [id number] 19:16:00* Test Item Value Reference Range Interpretation Comments PT (test code = PT) 10.80 seconds 9.78-13.35 N INR (test code = INR) 0.95 Ratio 0.6-1.2 N Partial Thromboplastin [id number] 19:16:00* Test Item Value Reference Range Interpretation Comments aPTT (test code = PTT) 31.90 seconds 24.39-37.25 N Ruu-Pqp1426-13-30 19:02:00* Test Item Value Reference Range Interpretation Comments NT ProBnp (test code = PBNP) 13 pg/mL 0-124 N Troponin [id number] 18:34:00* Test Item Value Reference Range Interpretation Comments Troponin T (test code = BONNY) 0.027 ng/mL 0.000-0.090 N Comprehensive Metabolic [id number] 18:34:00* Test Item Value Reference Range Interpretation [...] race is not provided, and the patient isAfrican-Gambian, multiply by 1.212. If sex is not [...] the National Kidney Found ation,http://nkdep.nih.gov BHCG, Serum, Rbiegibgnci1494-63-40 18:33:00* Test Item Value Reference Range Interpretation Comments Preg Qual [Se] (test code = BSHCG) Negative Negative N XR CHEST 1 [id number] 17:28:29CHEST 1 VIEWCLINICAL INFORMATION: Chest pain- DyspneaCOMPARISON: [...] lung bases.2. No acute finding is identified.LOCATION: [facility] Glucose, Ujfbz9405-38-90 16:47:00* Test Item Value Reference Range Interpretation Comments POC Glucose (test code = POCGLUC) 195 mg/dL 70-115 H Notify RN or MDIf you consider your patient critically ill, the [place] Accu-Chek InformII metershould not be used for Glucose determinations.Draw a venous Glucose and send to the Main Lab for Analysis. EXTREMITY NON VASCULAR [id number] 15:22:53BILATERAL LOWER EXTREMITY ARTERIAL DOPPLER:CLINICAL HISTORY: Right [...] of right common femoral pseudoane urysm.Location: [id number] 13:41:00* Test Item Value Reference Range Interpretation Comments CK (test code = CK) 75 U/L 26-192 N CKMB (test code = CKMB) 8.3 ng/mL 0.0-2.8 H CKMB% (test code = CKMBP) 11.1 % 0.0-3.[address] CHEST ANGIO W/WO [id number] 13:05:29CT CHEST ANGIO W/WO CONTRASTLOCATION: R16 INDICATION: [...] pulmonary embolism.Low lung volumes with bibasilar atelectasis.Troponin [id number] 12:45:00* Test Item Value Reference Range Interpretation Comments Troponin T (test code = BONNY) 0.066 ng/mL 0.000-0.090 N POC Glucose, [id number] 11:35:00* Test Item Value Reference Range Interpretation Comments POC Glucose (test code = POCGLUC) 188 mg/dL 70-115 H Notify RN or MDIf you consider your patient critically ill, the [place] Accu-Chek InformII metershould not be used for Glucose determinations.Draw a venous Glucose and send to the Main Lab for Analysis. POC Glucose, [id number] 08:11:00* Test Item Value Reference Range Interpretation Comments POC Glucose (test code = POCGLUC) 223 mg/dL 70-115 H Notify RN or MDIf you consider your patient critically ill, the [place] Accu-Chek InformII metershould not be used for Glucose determinations.Draw a venous Glucose and send to the Main Lab for Analysis. CK [id number] 06:46:00* Test Item Value Reference Range Interpretation Comments CK (test code = CK) na U/L 26-192 N CKMB (test code = CKMB) 7.9 ng/mL 0.0-2.8 H CKMB% (test code = CKMBP) 0.0 % 0.0-3.4 N Troponin [id number] 06:43:00* Test Item Value Reference Range Interpretation Comments Troponin T (test code = BONNY) 0.059 ng/mL 0.000-0.090 N CK [id number] 01:48:00* Test Item Value Reference Range Interpretation Comments CK (test code = CK) 95 U/L 26-192 N CKMB (test code = CKMB) 8.1 ng/mL 0.0-2.8 H CKMB% (test code = CKMBP) 8.5 % 0.0-3.4 H CK [id number] 01:48:00* Test Item Value Reference Range Interpretation Comments CK (test code = CK) 95 U/L 26-192 N Troponin [id number] 22:57:00* Test Item Value Reference Range Interpretation Comments Troponin T (test code = BONNY) 0.051 ng/mL 0.000-0.090 N [id number]-[id number] 22:56:00* Test Item Value Reference Range Interpretation Comments NT ProBnp (test code = PBNP) 7 pg/mL 0-124 N XR CHEST 1 [id number] 22:46:46AFTER HOURS SERVICE ON: 04/01/2017 10:46 PMAP Portable ChestLocation Code [id number]: Chest painFINDINGS: Study limited due to shallow inspiration obscuring the lung bases. Thereis mild bibasilar subsegmental atelectasis. There is no pneumothorax.Cardiac silhouette and mediastinum appear within normal limits. IMPRESSION: Mild bibasilar subsegmental atelectasis.CBC with Jhsslymzvzge1975-03-03 22:35:00* Test Item Value Reference Range Interpretation [...] code = ALYMPH) 3.1 K/cumm 0.5-4.6 N [place] Abs (test code = AMONO) 0.5 K/cumm 0.0-1.2 N Eos Abs (test code = AEOS) 0.19 K/cumm 0.00-0.74 N Baso Abs (test code = ABASO) 0.0 K/cumm 0.00-0.21 N Drugs of Abuse Screen, [id number] 14:53:00* Test Item Value Reference Range Interpretation [...] code = THC) Negative Negative N D-Dimer, [id number] 11:46:00* Test Item Value Reference Range Interpretation Comments D-Dimer, Quant (test code = DDQNT) 981 ng/mL 0-500 H CK [id number] 11:41:00* Test Item Value Reference Range Interpretation Comments CKMB (test code = CKMB) 6.7 ng/mL 0.0-2.8 H Troponin [id number] 11:41:00* Test Item Value Reference Range Interpretation Comments Troponin T (test code = BONNY) 0.035 ng/mL 0.000-0.090 N POC Glucose, [id number] 11:21:00* Test Item Value Reference Range Interpretation Comments POC Glucose (test code = POCGLUC) 301 mg/dL 70-115 H If you consider your patient critically ill, the [place] Accu-Chek InformII metershould not be used for Glucose determinations.Draw a venous Glucose and send to the Main Lab for Analysis. POC Glucose, [id number] 07:58:00* Test Item Value Reference Range Interpretation [...] = HESR) 50 mm/Hr 0-20 H CK [id number] 07:25:00* Test Item Value Reference Range Interpretation Comments CKMB (test code = CKMB) 6.9 ng/mL 0.0-2.8 H Thyroid Stimulating Hormone (TSH)2017-03-08 07:07:00* Test Item Value Reference Range Interpretation Comments TSH (test code = TSH) 1.99 mIU/mL 0.270-4.200 N [id number] 07:00:00* Test Item Value Reference Range Interpretation Comments Amylase (test code = VIVIAN) 32 U/L 28-100 N [id number] 07:00:00* Test Item Value Reference Range Interpretation Comments Lipase (test code = LIP) 20 U/L 13-60 N Magnesium, [id number] 07:00:00* Test Item Value Reference Range Interpretation Comments Magnesium (test code = MG) 1.8 mg/dL 1.7-2.5 N Comprehensive Metabolic [id number] 07:00:00* Test Item Value Reference Range Interpretation [...] race is not provided, and the patient isAfrican-Gambian, multiply by 1.212. If sex is not [...] the National Kidney Found ation,http://nkdep.nih.gov C-Reactive Protein, [id number] 07:00:00* Test Item Value Reference Range Interpretation Comments CRP (test code = CRP) 48.4 mg/L 0.0-5.0 H [id number] 07:00:00* Test Item Value Reference Range Interpretation Comments Phosphorus (test code = PO4) 3.4 mg/dL 2.70-4.50 N Troponin [id number] 06:35:00* Test Item Value Reference Range Interpretation Comments Troponin T (test code = BONNY) 0.044 ng/mL 0.000-0.090 N CBC with [id number] 06:16:00* Test Item Value Reference Range Interpretation [...] code = ALYMPH) 2.5 K/cumm 0.5-4.6 N [place] Abs (test code = AMONO) 0.5 K/cumm 0.0-1.2 N Eos Abs (test code = AEOS) 0.20 K/cumm 0.00-0.74 N Baso Abs (test code = ABASO) 0.0 K/cumm 0.00-0.21 N POC Glucose, [id number] 07:58:00* Test Item Value Reference Range Interpretation Comments POC Glucose (test code = POCGLUC) 355 mg/dL 70-115 H Notify RN or MDIf you consider your patient critically ill, the [place] Accu-Chek InformII metershould not be used for Glucose determinations.Draw a venous Glucose and send to the Main Lab for Analysis. CK [id number] 05:34:00* Test Item Value Reference Range Interpretation Comments CK (test code = CK) na U/L 26-192 N CKMB (test code = CKMB) 7.2 ng/mL 0.0-2.8 H CKMB% (test code = CKMBP) 0.0 % 0.0-3.4 N Troponin [id number] 05:27:00* Test Item Value Reference Range Interpretation Comments Troponin T (test code = BONNY) 0.067 ng/mL 0.000-0.090 N POC Glucose, [id number] 05:07:00* Test Item Value Reference Range Interpretation Comments POC Glucose (test code = POCGLUC) 299 mg/dL 70-115 H If you consider your patient critically ill, the [place] Accu-Chek InformII metershould not be used for Glucose determinations.Draw a venous Glucose and send to the Main Lab for Analysis. Troponin [id number] 01:42:00* Test Item Value Reference Range Interpretation Comments Troponin T (test code = BONNY) 0.059 ng/mL 0.000-0.090 N CK [id number] 01:42:00* Test Item Value Reference Range Interpretation Comments CK (test code = CK) na U/L 26-192 N CKMB (test code = CKMB) 7.4 ng/mL 0.0-2.8 H CKMB% (test code = CKMBP) 0.0 % 0.0-3.4 N POC Glucose, [id number] 00:22:00* Test Item Value Reference Range Interpretation Comments POC Glucose (test code = POCGLUC) 310 mg/dL 70-115 H If you consider your patient critically ill, the [place] Accu-Chek InformII metershould not be used for Glucose determinations.Draw a venous Glucose and send to the Main Lab for Analysis. POC Glucose, [id number] 19:18:00* Test Item Value Reference Range Interpretation Comments POC Glucose (test code = POCGLUC) 231 mg/dL 70-115 H If you consider your patient critically ill, the [place] Accu-Chek InformII metershould not be used for Glucose determinations.Draw a venous Glucose and send to the Main Lab for Analysis. POC Glucose, [id number] 16:51:00* Test Item Value Reference Range Interpretation Comments POC Glucose (test code = POCGLUC) 206 mg/dL 70-115 H If you consider your patient critically ill, the [place] Accu-Chek InformII metershould not be used for Glucose determinations.Draw a venous Glucose and send to the Main Lab for Analysis. CK [id number] 13:54:00* Test Item Value Reference Range Interpretation Comments CK (test code = CK) 75 U/L 26-192 N CKMB (test code = CKMB) 9.3 ng/mL 0.0-2.8 H CKMB% (test code = CKMBP) 12.4 % 0.0-3.4 H Troponin [id number] 13:40:00* Test Item Value Reference Range Interpretation Comments Troponin T (test code = BONNY) 0.068 ng/mL 0.000-0.090 N Lipid [id number] 12:17:00* Test Item Value Reference Range Interpretation Comments Cholesterol (test code = CHOL) 247 mg/dL 0-200 H Triglycerides (test code = TRIG) 518 mg/dL 9-200 H HDL (test code = HDL) 26 mg/dL 50-60 L Chol/HDL (test code = CHOLPHDL) 9.5 Ratio 0.0-4.4 H LDL, Calculated (test code = LDLC) No Calc 0-130 N (NOTE)RISK OF HEART DISEASEPublished by [place] Heart AssociationAnalyte Optimal Boderline Increased RiskCHOL <200 200-239 >240TRIG <150 150-199 >200HDL Male: >60 <40HDL Female: >60 <50LDL <100 130-159 >160LDL NEAR OPTIMAL IS 100-129\LIPIDNC VLDL (test code = VLDL) No Calc mg/dL 5-40 N \LI PIDNC LDL/HDL (test code = LDLPHDL) No Calc \LIPIDNC Glycosylated Czushnvdft1422-15-30 12:05:00* Test Item Value Reference Range Interpretation Comments HBA1c (test code = HBA1C) 10.8 % 4.8-5.9 H POC Glucose, [id number] 11:59:00* Test Item Value Reference Range Interpretation Comments POC Glucose (test code = POCGLUC) 233 mg/dL 70-115 H If you consider your patient critically ill, the [place] Accu-Chek InformII metershould not be used for Glucose determinations.Draw a venous Glucose and send to the Main Lab for Analysis. POC Glucose, [id number] 07:49:00* Test Item Value Reference Range Interpretation Comments POC Glucose (test code = POCGLUC) 261 mg/dL 70-115 H If you consider your patient critically ill, the [place] Accu-Chek InformII metershould not be used for Glucose determinations.Draw a venous Glucose and send to the Main Lab for Analysis. CK [id number] 06:18:00* Test Item Value Reference Range Interpretation Comments CK (test code = CK) na U/L 26-192 N CKMB (test code = CKMB) 9.8 ng/mL 0.0-2.8 H CKMB% (test code = CKMBP) 0.0 % 0.0-3.4 N Troponin [id number] 06:17:00* Test Item Value Reference Range Interpretation Comments Troponin T (test code = BONNY) 0.063 ng/mL 0.000-0.090 N Basic Metabolic [id number] 06:14:00* Test Item Value Reference Range Interpretation [...] race is not provided, and the patient isAfrican-Gambian, multiply by 1.212. If sex is not [...] the National Kidney Found ation,http://nkdep.nih.gov CBC with [id number] 06:03:00* Test Item Value Reference Range Interpretation [...] code = ALYMPH) 3.5 K/cumm 0.5-4.6 N [place] Abs (test code = AMONO) 0.4 K/cumm 0.0-1.2 N Eos Abs (test code = AEOS) 0.26 K/cumm 0.00-0.74 N Baso Abs (test code = ABASO) 0.0 K/cumm 0.00-0.21 N Troponin [id number] 00:46:00* Test Item Value Reference Range Interpretation Comments Troponin T (test code = BONNY) 0.057 ng/mL 0.000-0.090 N CK [id number] 00:46:00* Test Item Value Reference Range Interpretation Comments CK (test code = CK) na U/L 26-192 N CKMB (test code = CKMB) 10.7 ng/mL 0.0-2.8 H CKMB% (test code = CKMBP) 0.0 % 0.0-3.4 N POC Glucose, [id number] 00:21:00* Test Item Value Reference Range Interpretation Comments POC Glucose (test code = POCGLUC) 328 mg/dL 70-115 H If you consider your patient critically ill, the [place] Accu-Chek InformII metershould not be used for Glucose determinations.Draw a venous Glucose and send to the Main Lab for Analysis.
--- OUTSIDE RECORDS SUMMARY | 2020-03-16 21:05 | XMS REPORT | Clinical Summary ---
Author Author MIKAYLA [facility] Address Unknown Phone Unavailable Care Team Providers Care Maintenance And Operations Supervisor Name Role Phone Sharpless PCP Allergies Comments [...] AT 70 - 110 mg/dL C HI [facility] [address] [facility] [id number] Specimen Blood Performing Organization Address City/State/[facility] Cent[facility] Ph one Number [facility] [address] [facility] * EKG 12-LEAD (06/01/2019 6:02 AM CDT) Only the most recent of 2 results within the time period is included. Specimen Narrative Performed At Ventricular Rate 90 BPM GE MUSE Atrial Rate 90 BPM P-R Interval 128 ms QRS Duration 90 ms Q-T Interval 370 ms QTC Calculation(Bazett) 452 ms P [place] 23 degrees R [place] 51 degrees T [place] 37 degrees Normal sinus rhythm Normal ECG [...] 370 ms QTC Calculation(Bazett) 452 ms P [place] 23 degrees R [place] 51 degrees T [place] 37 degrees Normal sinus rhythm Normal ECG When compared with ECG of 01-JUN-2019 06:00, No significant change was found Confirmed by MD CRONIN MAJID ([id number]) on 06/04/2019 12:13:45 PM Performing Organization Address [facility] Centercomi Ph one Number GE MUSE * Urinalysis w/Microscopic + Reflex to Culture (06/01/2019 4:10 AM CDT) Color, UA Light Yellow [facility] Clarity, UA Clear [facility] Specific [place], UA 1.037 (H) 1.001 - 1.[address] [facility] pH, UA 6.0 5.0 - 8.0 [facility] Protein, UA Negative Negative [facility] Glucose, UA >1000 mg/dL (A) Negative [facility] Ketones, UA Negative Negative [facility] Bilirubin, UA Negative Negative [facility] Blood, UA Negative Negative [facility] Nitrite, UA Negative Negative [facility] Leukocytes, UA Large (A) Negative [facility] Urobilinogen, UA 0.2 0.2 - 1.0 mg/dL [facility] RBC, UA 2 /HPF [facility] WBC, UA 7 /HPF [facility] Bacteria, UA Rare [facility] Squam Epithel, UA 2 /HPF [facility] Specimen Source [facility] Specimen Urine Performing Organization Address City/State/Zipcode Ph one Number [facility] [address] [facility] [place] [facility] [facility] * CBC with platelet count + automated diff (06/01/2019 4:03 AM CDT) WBC 10.7 (H) 3.5 - 10.5 K/L [facility] RBC 4.34 3.93 - 5.22 M/L [facility] Hemoglobin 12.7 11.2 - 15.7 GM/DL [facility] Hematocrit 39.5 34.1 - 44.9 % [facility] MCV 91.0 79.4 - 94.8 fL [facility] MCH 29.3 25.6 - 32.2 pg [facility] MCHC 32.2 32.2 - 35.5 GM/DL [facility] RDW 13.0 11.7 - 14.4 % [facility] Platelets 237 150 - 450 K/CU MM [facility] MPV 10.8 9.4 - 12.3 fL [facility] nRBC 0 0 - 0 /100 WBC [facility] % Neutros 61 % [facility] % Lymphs 29 % [facility] % Monos 8 % [facility] % Eos 2 % [facility] % Baso 0 % [facility] # Neutros 6.47 (H) 1.56 - 6.13 K/L [facility] # Lymphs 3.10 1.18 - 3.74 K/L [facility] # Monos 0.86 (H) 0.24 - 0.36 K/L [facility] # Eos 0.20 0.04 - 0.36 K/L [facility] # Baso 0.03 0.01 - 0.08 K/L [facility] Immature 0 0 - 1 % [facility] Granulocytes-Relative [facility] Specimen Blood Performing Organization Address [facility] Ph one Number [address] [facility] * Troponin I (06/01/2019 4:03 AM CDT) Only the most recent of 2 results within the time period is included. Troponin I <0.01 0.00 - 0.03 ng/mL [facility] Specimen Blood Narrative Performed At Troponin I (TnI) levels must be interpreted in the co ntext of the presenting [facility] symptoms and the clinical findings. Elevated TnI leve ls indicate myocardial [facility] damage, but are not specific for ischem ic heart disease. Elevated TnI levels are seen in patients with other cardiac con ditions (including myocarditis and congestive heart failure), and slight T nI elevations occur in patients with other conditions, including sepsis, javier al failure, acidosis, acute neurological disease, and persistent tachyarrhythmia . Performing Organization Address [facility] one Number [place] [address] [facility] * Magnesium (06/01/2019 4:03 AM CDT) Magnesium 1.9 1.6 - 2.6 mg/dL [facility] Specimen Blood Performing Organization Address [facility] one Number [address] [facility] * Basic metabolic panel (06/01/2019 4:03 AM CDT) Only the most recent of 2 results within the time period is included. Sodium 134 (L) 136 - 145 meq/L [facility] Potassium 4.3 3.5 - 5.1 meq/L [facility] Chloride 101 98 - 107 meq/L [facility] CO2 27 22 - 29 meq/L [facility] BUN 13 7 - 21 mg/dL [facility] Creatinine 0.64 0.57 - 1.25 mg/dL [facility] Glucose 318 (H) 70 - 105 mg/dL [facility] Calcium 9.0 8.4 - 10.2 mg/dL [facility] EGFR 102Comment: ESTIMATED GFR IS mL/min/1.[address] [facility] NOT ACCURATE CREATININE [facility] CLEARANCE IN PREDICTING GLOMERULAR FILTRATION RATE. ESTIMATED GFR IS NOT APPLICABLE FOR DIALYSIS PATIENTS. Specimen Blood Performing Organization Address [facility] one Number [address] [facility] * Procalcitonin (06/01/2019 12:15 AM CDT) Procalcitonin <0.05 <0.05 ng/mL [facility] Specimen Blood Narrative Performed At SEPSIS RISK (ng/mL) [facility] Low:0.05-0.50 [facility] Intermediate: 0.51-2.00 High: >=2.01 Performing Organization Address [facility] one Number [address] [facility] * Hemoglobin A1c (06/01/2019 12:15 AM CDT) Hemoglobin A1C 10.3 (H) 4.3 - 6.1 % [facility] Specimen Blood Performing Organization Address [facility] one Number [address] [facility] * Lipid panel (06/01/2019 12:15 AM CDT) Triglycerides 218 mg/dL [facility] Cholesterol 232 mg/dL [facility] HDL 31 mg/dL [facility] LDL Calculated 157 mg/dL [facility] Specimen Blood Narrative Performed At Triglyceride Reference Range: [facility] Low Risk <150 [facility] [id number] High Risk 200-499 Very High Risk>=500 Cholesterol Reference Range: Low Risk <200 [id number] High Risk>240 HDL Cholesterol Reference Range: Low Risk >=60 High Risk <40 LDL Cholesterol Reference Range: Optimal<100 Near [id number] Very High >=190 Performing Organization Address City/State/Zipcode Ph one Number [address] [facility] after 03/16/2019 Advance Directives For more information, please contact: [address] [address] Date Inactivated Comments Code Status Date Activated 06/01/2019 3:39 PM Full Code 05/31/2019 11:19 PM This code status was determined by: Patient 07/04/2016 8:07 PM Full Code 07/03/2016 5:25 PM This code status was determined by: Patient
--- NOTE | 2020-03-16 22:00 | NUR ---
notified by propellant charge zone assembler kim that per MD franco progress noted, patient is to be on vanco and cefipime Q24h for possible cellulitis infection, MD FRANCO PAGED X 2 FOR ORDER VERIFICATION, PENDING CALL BACK
--- NOTE | 2020-03-16 23:00 | NUR ---
MD MCGHEEBIB NO CALL BACK YET
--- NOTE | 2020-03-16 23:33 | NUR ---
MD POWERS PAGED, CALL BACK RECEIVED, NOTIFIED HIM VIA TELEPHONE, HE ORDERED "cALL MD SHEBIB AND NOTIFY HIM", ADVISED HIM THAT I ALREADY HAVE ATTEMPTED x2, I WILL NOTIFY NURSE IN THE AM TO NOTIFY MD DURING ROUNDING HE STATED "OKAY WAIT TILL MORNING"
[2020-03-17] VITALS: BP_SYST 124; BP_SYST 127; BP_DIAS 72; BP_DIAS 98
[2020-03-17] MEDS: MORPHINE SULFATE 2 MG/ML SYR 1ML IV PRN ×3 (00:16→10:50)
[2020-03-17] MEDS: METOPROLOL TARTRATE 25 MG TAB PO SCH ×2 (00:50→12:30)
[2020-03-17] MEDS: PROMETHAZINE 12.5MG/ NACL 0.9% 12.5 MG/50 ML BAG IV PRN ×3 (02:17→10:50)
[2020-03-17] MEDS: DIPHENHYDRAMINE HCL INJ 50 MG/ML VIAL IV PRN (02:29)
--- NOTE | 2020-03-17 02:30 | NUR ---
PATIENT C/O ITCHING AND NAUSEA, PHENERGAN AND BENADRYL IV GIVEN FOR INCREASE COMFORT, RESTING COMFORTABLY IN BED NO DISTRESS NOTED SKIN WARM DRY, VSS, REMAINS AFEBRILE
[2020-03-17 04:00] VITALS: BP 138/66
[2020-03-17 05:33] LABS: BASOPHILS % 0.3 % (0.0-1.0); EOSINOPHILS # (AUTO) 0.3 (0.0-0.4); EOSINOPHILS % 2.4 % (0.0-6.0); HEMATOCRIT 40.7 % (34.2-44.1); HEMOGLOBIN 12.9 g/dL (12.0-16.0); LYMPHOCYTES # (AUTO) 3.3 (1.0-3.2); LYMPHOCYTES % 30.7 % (18.0-39.1); MEAN CORPUSCULAR HEMOGLOBIN 28.4 pg (28-32); MEAN CORPUSCULAR HGB CONC 31.7 g/dL (31-35); MEAN CORPUSCULAR VOLUME 89.6 fL (81-99); MONOCYTES # (AUTO) 1.2 (0.2-0.8); MONOCYTES % 10.9 % (4.4-11.3); NEUTROPHILS # (AUTO) 5.8 (2.1-6.9); PLATELET COUNT 305 x10e3/uL (140-360); RED BLOOD COUNT 4.54 x10e6/uL (3.6-5.1); RED CELL DISTRIBUTION WIDTH 13.6 % (11.7-14.4)
[2020-03-17 05:53] LABS: ALANINE AMINOTRANSFERASE 100 IU/L (0-55); ALBUMIN 2.9 g/dL (3.5-5.0); ALBUMIN/GLOBULIN RATIO 0.7 (0.8-2.0); ALKALINE PHOSPHATASE 82 IU/L (40-150); ANION GAP 12.8 mmol/L (8-16); BLOOD UREA NITROGEN 18 mg/dL (7-26); BUN/CREATININE RATIO 25 (6-25); CALCIUM 9.3 mg/dL (8.4-10.2); CARBON DIOXIDE 29 mmol/L (22-29); CHLORIDE 98 mmol/L (98-107); CREATININE, SERUM 0.73 mg/dL (0.57-1.11); EST GLOMERULAR FILTRATION RATE > 60 ML/MIN (60-); GLUCOSE 310 mg/dL (74-118); POTASSIUM 4.8 mmol/L (3.5-5.1); SODIUM 135 mmol/L (136-145)
[2020-03-17 06:33] VITALS: BP 138/66
[2020-03-17 07:06] LABS: CHOL/HDL RATIO 6.6 (3.0-3.6)
[2020-03-17] MEDS: HYDROCODONE/APAP 7.5MG-325MG 1 EA TAB PO PRN ×2 (08:16→14:16)
[2020-03-17] MEDS: VALSARTAN 160 MG TAB PO SCH (08:47)
[2020-03-17] MEDS: FAMOTIDINE 20 MG TAB PO SCH (08:47)
[2020-03-17] MEDS: INSULIN REGULAR, HUMAN 100 UNIT/1 ML 3ML VIAL SQ SCH ×2 (08:49→12:27)
[2020-03-17 10:23] VITALS: BP 124/75
[2020-03-17 13:06] VITALS: BP 106/62
[2020-03-17 13:43] VITALS: BP 124/75
[2020-03-17] MEDS ORDERED: METOPROLOL TART25 MG PO (14:08)
[2020-03-17] MEDS ORDERED: DIOVAN160 MG PO (14:08)
[2020-03-17] MEDS ORDERED: AZITHROMYCIN250 MG PO (14:09)
--- NOTE | 2020-03-17 14:24 | Discharge Summary ---
ADMISSION DIAGNOSES: 1. Reported chest pain. 2. Obesity, BMI 36. 3. Uncontrolled type 2 diabetes mellitus. 4. Hypertensive heart disease. DISCHARGE DIAGNOSES: 1. Coronavirus disease-19 infection. 2. Hypertensive heart disease. 3. Type 2 diabetes mellitus. 4. Obesity, BMI 36. HOSPITAL COURSE: This is a 44-year-old woman, who was initially admitted to [facility] with diagnosis of intense pleuritic chest pain as well as uncontrolled hypertension and type 2 diabetes mellitus. The patient states she takes insulin therapy at home namely Novolin 70/30 insulin 40 units subcutaneous twice a day. During hospitalization, she tested positive for COVID-19 infection. The patient was seen by pipeline gang supervisor and Infectious Disease specialist during this hospitalization. The patient did not require supplemental oxygen. Chest film on admission revealed bibasilar haziness possibly due to atelectasis versus pneumonia. The patient underwent a CT of the chest with intravenous contrast during the hospitalization, which did not reveal any evidence of pulmonary embolism. This imaging study was performed because the patient states that she does have history of pulmonary embolism. The CT of the chest confirmed right and left lower lobe subsegmental atelectasis. During hospitalization, patient's blood pressure was controlled with oral valsartan and metoprolol tartrate. Her brief hospitalization was unremarkable. CONDITION ON DISCHARGE: Stable. DISCHARGE MEDICATIONS: 1. Novolin 70/30 insulin 40 units subcutaneous twice a day. 2. Valsartan 160 mg daily. 3. Metoprolol tartrate 25 mg b.i.d. 4. Azithromycin 500 mg daily for 7 days. FOLLOW UP INSTRUCTIONS: Patient is instructed to follow up with her primary care physician within 2 weeks. The patient was instructed to quarantine herself for at least 10 days after admission. MD RUBEN Harkins/VASQUEZ /[id number] ELIZ
--- NOTE | 2020-03-17 15:15 | NUR ---
Pt discharged home at this time. Pt is aox3 at time of discharge. Pt verbalized understanding of all discharge instructions and follow up appointments. Pt was discharged with prescriptions for 3 medications and verbalized understanding of all new medications.
== END 2020-03-17 15:15 | disposition home or self-care (01) | DRG 178 ==
LOC: FSED 23:36 → ERHOLD 03-16 03:40 → IMCU 03-16 04:59 → OBSVTOIN 03-16 08:51
DX: U07.1 COVID-19 (principal); J98.11 Atelectasis; L03.116 Cellulitis of left lower limb; E11.9 Type 2 diabetes mellitus without complications; I25.2 Old myocardial infarction; K21.9 Gastro-esophageal reflux disease without esophagitis; G43.909 Migraine, unspecified, not intractable, without status migrainosus; Z90.49 Acquired absence of other specified parts of digestive tract; Z88.8 Allergy status to other drugs, medicaments and biological substances; E66.01 Morbid (severe) obesity due to excess calories; Z68.36 Body mass index [BMI] 36.0-36.9, adult; Z09 Encounter for follow-up examination after completed treatment for conditions other than malignant neoplasm; Z86.711 Personal history of pulmonary embolism; I25.10 Atherosclerotic heart disease of native coronary artery without angina pectoris; I11.9 Hypertensive heart disease without heart failure; Z79.4 Long term (current) use of insulin
CPT/HCPCS: 36415; 71045; 71260; 80053; 80061; 81025; 82550; 82553; 82948; 84484; 85025; 85379; 85610; 93005; 93306; 96372; 99284; J1200; J2270; J2550; J7050; Q9967; U0002

== ENCOUNTER 2020-03-24 23:21 | Observation (INO) | payer SELFPAY ==
[~2020-03-24] VITALS: Ht 154.9 cm; Wt 83.9 kg
[~2020-03-24 23:21] MED LIST changes: +AZITHROMYCIN250 MG PO; +DIOVAN160 MG PO; +METOPROLOL TART25 MG PO
[2020-03-24] MEDS ORDERED: ASPIRIN 81 MG CHEW TAB PO ONE (23:45)
[2020-03-25] VITALS (7 sets, daily range): BP systolic 105–129; BP diastolic 62–82
--- NOTE | 2020-03-25 00:02 | Emergency Department Note ---
History of Present Illnes History of Present Illness Chief Complaint: Chest Pain History of Present Illness This is a 44 year old female AAOX3 PRESENTS TO ED WITH LEFT SIDED CHEST PAIN RADIATING TO LUE X5 HRS; PT DX'D WITH COVID ON 03/15/20 AND WAS ADMITTED AT THIS FACILITY. PT REPORT H/O NE IN THE PAST Historian: Patient Arrival Mode: Car Onset (how long ago): hour(s) (5) Location: LEFT CHEST Radiation: Reports extremity (LEFT ARM), Reports other (LEFT NECK) Onset quality: sudden Duration (how long): hour(s) (5) Timing of current episode: constant Progression: unchanged Chronicity: new Context: Reports recent illness (COVID 19 INFECTION) Relieving factors: none Exacerbating factors: none Associated symptoms: Reports denies other symptoms Past Medical/Family History Physician Review I have reviewed the patient's past medical and family history. Any updates have been documented here. Past Medical History Recent Fever: Yes Clinical Suspicion of Infectio: Yes New/Unexplained Change in Ment: No Past Medical History: Hypertension, Diabetes, NE, UTI's, Hyperlipedemia, DVT/PE Other Medical History: MIGRAINES Past Surgical History: Cholecysctectomy, Appendectomy Social History Smoking Cessation: Never Smoker Alcohol Use: None Any Illegal Drug Use: No Family History Family history of heart diseas: Yes Other family history HTN,DM, CAD Other Last Tetanus: UNK Review of Systems Review of Systems Constitutional: Reports no symptoms EENTM: Reports no symptoms Cardiovascular: Reports as per HPI Respiratory: Reports no symptoms Gastrointestinal: Reports no symptoms Genitourinary: Reports no symptoms Musculoskeletal: Reports no symptoms Integumentary: Reports no symptoms Neurological: Reports no symptoms Psychological: Reports no symptoms Endocrine: Reports no symptoms Hematological/Lymphatic: Reports no symptoms Physical Exam Related Data Allergies: Coded Allergies: ketorolac (Verified Allergy, Intermediate, ITCH, 05/08/18) metoclopramide (Verified Allergy, Intermediate, ITCH, 05/08/18) ondansetron (Verified Allergy, Intermediate, ITCH, 05/08/18) tramadol (Verified Allergy, Intermediate, ITCH, 05/08/18) Triage Vital Signs Vital Signs Date Time Temp Pulse Resp B/P (MAP) Pulse Ox O2 Delivery O2 Flow Rate FiO2 03/24/20 23:43 98.9 103 18 179/94 97 Room Air Vital signs reviewed: Yes Physical Exam CONSTITUTIONAL Constitutional: Present well-developed, Present well-nourished; Absent distressed HENT HENT: Present normocephalic, Present atraumatic, Present oropharynx clear/moist, Present nose normal HENT L/R: Present left ext ear normal, Present right ext ear normal EYES Eyes: Reports PERRL, Reports conjunctivae normal NECK Neck: Present ROM normal PULMONARY Pulmonary: Present effort normal, Present breath sounds normal CARDIOVASCULAR Cardiovascular: Present regular rhythm, Present heart sounds normal, Present capillary refill normal, Present tachycardia (100) GASTROINTESTINAL Abdominal: Present soft, Present nontender, Present bowel sounds normal GENITOURINARY Genitourinary: Present exam deferred SKIN Skin: Present warm, Present dry MUSCULOSKELETAL Musculoskeletal: Present ROM normal NEUROLOGICAL Neurological: Present alert, Present oriented x 3, Present no gross motor or sensory deficits PSYCHOLOGICAL Psychological: Present mood/affect normal, Present judgement normal Procedures 12 Lead ECG Interpretation ECG Interpretation : ECG: ECG 1 Data Entry Machine Operator: Interpreted by ED physician Date: Mar 24, 2020 Time: 23:41 Prior ECG tracings: reviewed (THIS EKG UNCHANGED FROM PREVIOUS) Rhythm: sinus tachycardia Rate: tachycardia BPM: 101 Conduction: right bundle branch block ST segments normal: Yes T waves normal: Yes Other findings: no other findings Clinical Impression: non-specific ECG Assessment & Plan Medical Decision Making MDM PT WITH H/O HTN,DM, CAD WITH C.O CHEST PAIN, RECENTLY ADMITTED WITH COVID 19, BP 189/100. PT TOOK ASPIRIN TURNING LATHE TENDER CBC, CMP, EKG, CARDIAC ENZYMES, CXR, PT/PTT ORDERED TO EVAL FOR MYOCARDIAL INFARCTION, PNEUMONIA, ELECTROLYTE ABNORMALITY, MORPHINE 4 MG IV PHENERGAN 12.5 MG IV LOPRESSOR 5 MG IV ORDERED TYLENOL 650 MG PO ORDERED I SPOKE WITH DR JULIENNE VANCE Assessment & Plan Final Impression: (1) Chest pain (2) COVID-19 virus infection Depart Disposition: ADMITTED Last Vital Signs Date Time Temp Pulse Resp B/P (MAP) Pulse Ox O2 Delivery O2 Flow Rate FiO2 03/24/20 23:43 98.9 103 18 179/94 97 Room Air Home Meds Active Scripts Butalbital/Aspirin/Caffeine (FIORINAL 50-325-40 MG CAPSULE) 1 Each Capsule, 1 TAB PO Q6HR PRN for HEADACHE, #12 Prov:PORSCHE CABELLO DO 03/22/19 Reported Medications Azithromycin (Z-FCO) 250 Mg Tablet, 500 MG PO DAILY for 7 Days, #1 UDPKT Z-Pack 03/17/20 Valsartan (DIOVAN) 160 Mg Tab, 160 MG PO DAILY, #60 TAB 03/17/20 Metoprolol Tartrate (METOPROLOL TARTRATE) 25 Mg Tablet, 25 MG PO BID, TAB 03/17/20 Medications in the ED Aspirin 81 mg PRN ONCE PO ; Start 03/24/20 at 23:45; Stop 03/24/20 at 23:46 TOD GOOD MD Mar 25, 2020 00:02
[2020-03-25] MEDS ORDERED: MORPHINE SULFATE 2 MG/ML SYR 1ML IV STA (00:05)
[2020-03-25 00:11] LABS: BASOPHILS % 0.4 % (0.0-1.0); EOSINOPHILS # (AUTO) 0.2 (0.0-0.4); EOSINOPHILS % 1.7 % (0.0-6.0); HEMATOCRIT 43.1 % (34.2-44.1); HEMOGLOBIN 13.3 g/dL (12.0-16.0); LYMPHOCYTES # (AUTO) 2.9 (1.0-3.2); LYMPHOCYTES % 29.1 % (18.0-39.1); MEAN CORPUSCULAR HGB CONC 30.9 g/dL (31-35); MEAN CORPUSCULAR VOLUME 90.7 fL (81-99); MONOCYTES # (AUTO) 0.8 (0.2-0.8); MONOCYTES % 8.3 % (4.4-11.3); NEUTROPHILS # (AUTO) 6.1 (2.1-6.9); NEUTROPHILS % 60.2 % (38.7-80.0); PLATELET COUNT 302 x10e3/uL (140-360); RED BLOOD COUNT 4.75 x10e6/uL (3.6-5.1); RED CELL DISTRIBUTION WIDTH 13.7 % (11.7-14.4)
[2020-03-25] MEDS ORDERED: PROMETHAZINE 12.5MG/ NACL 0.9% 12.5 MG/50 ML BAG IV ONE (00:15)
[2020-03-25] MEDS ORDERED: METOPROLOL TARTRATE INJ 1 MG/ML VIAL IV ONE (00:30)
[2020-03-25] MEDS ORDERED: ACETAMINOPHEN 325 MG TAB PO ONE (00:30)
[2020-03-25] MEDS ORDERED: ACETAMINOPHEN 325 MG TAB ONE (00:36)
[2020-03-25 00:43] LABS: INR 0.82; PROTHROMBIN TIME 11.7 seconds (11.9-14.5)
[2020-03-25 00:44] LABS: PARTIAL THROMBOPLASTIN TIME 29.1 seconds (23.8-35.5)
[2020-03-25 00:56] LABS: ALANINE AMINOTRANSFERASE 66 IU/L (0-55); ALBUMIN/GLOBULIN RATIO 0.7 (0.8-2.0); ALKALINE PHOSPHATASE 102 IU/L (40-150); BLOOD UREA NITROGEN 14 mg/dL (7-26); BUN/CREATININE RATIO 19 (6-25); CARBON DIOXIDE 31 mmol/L (22-29); CHLORIDE 100 mmol/L (98-107); CREATININE, SERUM 0.72 mg/dL (0.57-1.11); EST GLOMERULAR FILTRATION RATE > 60 ML/MIN (60-); GLUCOSE 277 mg/dL (74-118); SODIUM 140 mmol/L (136-145)
[2020-03-25 01:13] LABS: CREATINE KINASE 84 IU/L (29-168)
[2020-03-25] MEDS ORDERED: DIPHENHYDRAMINE HCL INJ 50 MG/ML VIAL IV ONE (01:15)
--- NOTE | 2020-03-25 01:24 | NUR ---
PATIENT VERBALIZES INTENSE ITCHING. NO RASH OR HIVES NOTED TO FULL FULL BODY. THROAT, TONGUE INTACT;TONSILLS VISIBLE. PATIENT STATES SHE IS NOT ALLERGIC TO MORPHINE. INFORMED DR GOOD, RECIEVED ORDERS FOR BENADRYL 25MG IV ONCE. RESP E/U. NO DISTRESS NOTED
--- NOTE | 2020-03-25 01:37 | Diagnostic Imaging Report ---
EXAMINATION: CHEST SINGLE (PORTABLE) INDICATION: ^Y ^CHEST PAIN ^[id number] ^0015 ^Y COMPARISON: Radiograph dated 05/31/2019. FINDINGS: Shallow lung volumes. The heart is not enlarged. The pulmonary vasculature is nondistended. There are confluent opacities at the lung bases. Pleural fluid tracks up the left pleural space into the major fissure. No pneumothorax. IMPRESSION: Bibasilar confluent opacities likely represent small pleural effusions with adjacent atelectasis or pneumonia. Radiographic follow-up in 6-8 weeks is recommended to document resolution. Signed by: Flavio Caldwell MD on 03/25/2020 1:33 AM
--- OUTSIDE RECORDS SUMMARY | 2020-03-25 01:38 | XMS REPORT | Clinical Summary ---
Author Author [facility] Address Unknown Phone Unavailable Care Team Providers Care Commercial Drone Software Developer Name Role Phone Asked, No Pcp PCP Unavailable Allergies Comments Active Allergy Reactions Severity Noted Date Metoclopramide Hcl 09/27/2018 Ketorolac 09/27/2018 Tramadol 09/27/2018 Ondansetron Hcl 09/27/2018 Medications No known medications Active Problems Not on file Encounters Care Team Description Date Type Specialty Polo Coreas MD Atypical chest pain (Primary Dx); Hyperglycemia 04/22/2019 Emergency Emergency Medicine - 04/23/2019 after 03/25/2019 Social History Date Tobacco Use Types Packs/Day [...] PRELIMINARY Routine 04/23/2019 INTERPRETATION 12:55 AM CDT [place] CRITICAL CARE, E/M Routine 04/23/2019 30-74 MINUTES 12:55 AM CDT ESTIMATED GFR STAT 04/22/2019 11:44 PM CDT B NATRIURETIC PEPTIDE STAT 04/22/2019 11:44 PM CDT TROPONIN STAT 04/22/2019 11:44 PM CDT COMPREHENSIVE METABOLIC STAT 04/22/2019 PANEL 11:44 PM CDT HC COMPLETE BLD COUNT STAT 04/22/2019 W/AUTO DIFF 11:44 PM CDT ECG 12-LEAD STAT 04/22/2019 11:32 PM CDT after 03/25/2019 Results * POC glucose (04/23/2019 2:13 AM CDT) POC glucose 280 (H) 65 - 99 mg/dL [place] Comment: MYA DAO [facility] Notified [facility] Meter ID: [id number] Textile Colorist Dyer: Denice Sands Specimen Performing Organization Address City/State/Zipcode Ph one [place] [address] [address] [place] [id number] PATHOLOGY AND GENOMIC MEDICINE [place] [address] Jillian Schwartz [place] [address] [address] * CT Head Wo Contrast [...] IMPRESSION: No acute intracranial abnormality ident ified. [facility]-[id number] Procedure Note Interface, Radiology Results Incoming - [...] normal. IMPRESSION: No acute intracranial abnormality identified. [facility]-[id number] Performing Organization Address City/State/Zipcode Ph one Number [facility] [address] [place] [address] * ECG ED Preliminary Interpretation - Not an Order (04/23/2019 12:55 AM CDT) Narrative Performed At Polo Coreas MD 04/23/2019 12:58 PM ECG ED Preliminary Interpretation - Not an Order Performed by: Polo Coreas MD Authorized by: Polo Coreas MD ECG reviewed by ED Physician in the abs ence of a enrollment consultant: yes Previous ECG: Previous ECG: Unavailable Interpretation: Interpretation: abnormal Rate: ECG rate: 103 bpm ECG rate assessment: tachycardic Rhythm: Rhythm: sinus tachycardia QRS: QRS axis: Normal QRS intervals: Normal (98 ms) Conduction: Conduction: abnormal Abnormal conduction: incomplete RBBB ST segments: ST segments: Normal T waves: T waves: normal Other findings: Other findings comment: Left axis d eviations Comments: [place] 126 ms QT/QTc 364/476 ms * CRITICAL [...] the f ollowing conditions: Cardiac failure and HUMAN RESOURCES SERVICES SPECIALIST failure or compromise Critical care was [...] * Estimated GFR (04/22/2019 11:44 PM CDT) [facility] Estimated GFR >=90 mL/min/1.73 m2 [place] Comment: [facility] [place] Interpretation G1 >=90 Normal or high G2 [...] City/State/Zipcode [place] [address] [place] [address] PATHOLOGY AND GENOMIC MEDICINE [facility] [address] Jillian Schwartz [place] [address] [facility] * Troponin (04/22/2019 11:44 PM CDT) Pathologist [facility] Troponin <0.006 0.000 - 0.040 ng/mL [place] Comment: [facility] changed methodology effective: 12/21/2018 at 10:00 am The new method has a 99th percentile cutoff of 0.040 ng/mL Specimen Plasma specimen Performing Organization Address City/[facility] Ph [place] [address] Jillian [facility] [place] [address] PATHOLOGY AND GENOMIC MEDICINE [address] * CBC with platelet and differential (04/22/2019 11:44 PM CDT) [facility] WBC 10.41 4.50 - 11.00 k/uL [facility] RBC 4.59 4.20 - 5.50 m/uL [facility] HGB 13.4 12.0 - 16.0 g/dL [facility] HCT 41.5 37.0 - 47.0 % [facility] MCV 90.4 82.0 - 100.[address] [facility] MCH 29.2 27.0 - 34.[address] [facility] MCHC 32.3 31.0 - 37.0 g/dL [facility] RDW - SD 43.7 37.0 - 55.[address] [facility] MPV 11.3 8.8 - 13.[address] [facility] Platelet count 262 150 - 400 k/uL [facility] Neutrophils 61.9 39.0 - 69.0 % [facility] Lymphocytes 27.7 25.0 - 45.0 % [facility] Monocytes 7.7 0.0 - 10.0 % [facility] Eosinophils 1.8 0.0 - 5.0 % [facility] Basophils 0.4 0.0 - 1.0 % [facility] Immature 0.5 0.0 - 1.0 % [place] granulocytes [facility] Specimen Blood Performing Organization Address City/[facility] Ph one Number [facility] [place] [address]David Donis. [place] [phone] PATHOLOGY AND GENOMIC MEDICINE [facility] [id number] [place] [address] * B natriuretic peptide (04/22/2019 11:44 PM CDT) [facility] BNP 7 0 - 100 pg/mL [facility] Specimen Blood Performing Organization Address City/State/[place]code [place] [address] [place] [address] PATHOLOGY AND GENOMIC MEDICINE [facility] [address] Jillian Patelchan [place] [address] H[facility] * Comprehensive metabolic panel (04/22/2019 11:44 PM CDT) Sodium 136 135 - 148 mEq/L [facility] Potassium 4.5 3.5 - 5.0 mEq/L [facility] Chloride 96 (L) 99 - 109 mEq/L [facility] CO2 27 24 - 31 mEq/L [facility] Anion gap 13@ANIO 7 - 15 mEq/L [facility] BUN 11 8 - 24 mg/dL [facility] Creatinine 0.45 (L) 0.50 - 0.90 mg/dL [facility] Glucose 476 (HH) 65 - 99 mg/dL [place] Comment: [facility] GLU results called to and read HOSPITAL back by PHILIPPE SANDS RN/[facility] at 04/23/2019 00:35 by AP. Calcium 9.2 8.6 - 10.6 mg/dL [facility] Protein 7.0 6.3 - 8.2 g/dL [facility] Albumin 3.1 (L) 3.5 - 5.0 g/dL [facility] A/G ratio 0.8 0.7 - 3.8 [facility] Alkaline 114 30 - 115 U/L [place] phosphatase [facility] AST 42 15 - 46 U/L [facility] ALT 45 10 - 55 U/L [facility] Total bilirubin <0.3 0.2 - 1.2 mg/dL [facility] Specimen Plasma specimen Performing Organization Address City/State/[place]code [place] [address] [place] [address] PATHOLOGY AND GENOMIC MEDICINE [facility] [address] Jillian Patelchan [place] [address] [address] [facility] * ECG 12 lead (04/22/2019 11:32 PM CDT) Ventricular 103 [facility] rate Atrial rate 103 [facility] [place] interval 126 [facility] QRSD interval 98 [facility] QT interval 364 [facility] QTC interval 476 [facility] P axis 1 33 [facility] QRS axis 1 -35 [facility] MUSE T wave axis 45 [facility] MUSE EKG impression Sinus tachycardia-Left axis [facility] MUSE deviation-Incomplete right bundle branch block-Abnormal ECG-In automated comparison with ECG of 14-DEC-2018 15:52,-No significant change was found- Specimen Narrative Performed At This result has an attachment that is n ot available. Performing Organization Address City/State/Zipcode Ph one Number [facility] MUSE [address] [place] [address] after 03/25/2019 Advance Directives For more information, please contact: [phone] Patient Public Health Dietitian Explanation Type Date Recorded Advance Directives, 04/23/2019 1:13 AM Living Will and Medical Power of Sheet Metal Assembler Advance Directives, 09/28/2018 12:17 AM Living Will and Medical Power of Sheet Metal Assembler
--- OUTSIDE RECORDS SUMMARY | 2020-03-25 01:38 | XMS REPORT | Clinical Summary ---
Author Author [facility] Organization [facility] Address Unknown Phone Unavailable Care Team Providers Care Supervisor Erection Shop Name Role Phone PCP Unavailable Allergies Comments [...] (>/= 19 yrs) Results Not on fileafter 03/25/2019 Insurance Type Payer Benefit Subscriber ID Effective Phone Address Plan / Dates Group [facility] SELF-PAY SELF-PAY xxxxxxx 2018-6 [phone] [place] [address]
--- OUTSIDE RECORDS SUMMARY | 2020-03-25 01:38 | XMS REPORT | Clinical Summary ---
Author Author [facility] Address Unknown Phone Unavailable Care Team Providers Care Development And Planning Engineer Name Role Phone Sharpless PCP Allergies Comments [...] Jimenez MD 05/31/2019 Documentation Internal Medicine after 03/25/2019 Family History Medical History Relation Name Comments [...] I Routine 06/01/2019 12:15 AM CDT after 03/25/2019 Results * RHYTHM STRIP - SCAN (06/06/2019 [...] AT 70 - 110 mg/dL C [facility] [address] [facility] [address] Specimen Blood Performing Organization Address City/State/[facility] Ph one Number [facility] [address] [address] [facility]ENTER * EKG 12-LEAD (06/01/2019 6:02 AM CDT) Only the most recent of 2 results within the time period is included. Specimen Narrative Performed At Ventricular Rate 90 BPM GE MUSE Atrial Rate 90 BPM P-R Interval 128 ms QRS Duration 90 ms Q-T Interval 370 ms QTC Calculation(Bazett) 452 ms P [place] 23 degrees R [place] 51 degrees T [place] 37 degrees Normal sinus rhythm Normal ECG When compared with ECG of 01-JUN-2019 0 6:00, No significant change was found Confirmed by MD ROSEANNE, MRAY ([id number]) on 06/04/2019 12:13:45 PM Procedure Note Interface, External Ris In - 06/04/2019 12:13 PM CDT Ventricular Rate 90 BPM Atrial Rate 90 BPM P-R Interval 128 ms QRS Duration 90 ms Q-T Interval 370 ms QTC Calculation(Bazett) 452 ms P [place] 23 degrees R [place] 51 degrees T [place] 37 degrees Normal sinus rhythm Normal ECG When compared with ECG of 01-JUN-2019 06:00, No significant change was found Confirmed by MD CRONIN MAJID ([id number]) on 06/04/2019 12:13:45 PM Performing Organization Address [facility] Ph one Number GE MUSE * Urinalysis w/Microscopic + Reflex to Culture (06/01/2019 4:10 AM CDT) Color, UA Light Yellow [facility] Clarity, UA Clear [facility] Specific [place], UA 1.037 (H) 1.001 - 1.035 [facility] pH, UA 6.0 5.0 - 8.0 [facility] Protein, UA Negative Negative [facility] Glucose, UA >1000 mg/dL (A) Negative [facility] Ketones, UA Negative Negative [facility] Bilirubin, UA Negative Negative [facility] Blood, UA Negative Negative [facility] Nitrite, UA Negative Negative [facility] Leukocytes, UA Large (A) Negative [facility] Urobilinogen, UA 0.2 0.2 - 1.0 mg/dL [facility] RBC, UA 2 /HPF [facility] WBC, UA 7 /HPF [facility] Bacteria, UA Rare [facility] Squam Epithel, UA 2 /HPF [facility] Specimen Source [facility] Specimen Urine Performing Organization Address City/State/Zipcode Ph one Number [facility] [address] [facility] [place] [address] MEDICAL CENTER * CBC with platelet count + automated diff (06/01/2019 4:03 AM CDT) WBC 10.7 (H) 3.5 - 10.5 K/L [facility] RBC 4.34 3.93 - 5.22 M/L [facility] Hemoglobin 12.7 11.2 - 15.7 GM/DL [facility] Hematocrit 39.5 34.1 - 44.9 % [facility] MCV 91.0 79.4 - 94.8 fL [facility] MCH 29.3 25.6 - 32.2 pg [facility] MCHC 32.2 32.2 - 35.5 GM/DL [facility] RDW 13.0 11.7 - 14.4 % [facility] Platelets 237 150 - 450 K/CU MM [facility] MPV 10.8 9.4 - 12.3 fL [facility] nRBC 0 0 - 0 /100 WBC [facility] % Neutros 61 % [facility] % Lymphs 29 % [facility] % Monos 8 % [facility] % Eos 2 % [facility] % Baso 0 % [facility] # Neutros 6.47 (H) 1.56 - 6.13 K/L [facility] # Lymphs 3.10 1.18 - 3.74 K/L [facility] # Monos 0.86 (H) 0.24 - 0.36 K/L [facility] # Eos 0.20 0.04 - 0.36 K/L [facility] # Baso 0.03 0.01 - 0.08 K/L [facility] Immature 0 0 - 1 % [facility] Granulocytes-Relative [facility] Specimen Blood Performing Organization Address [facility] Ph one Number [address] [facility] * Troponin I (06/01/2019 4:03 AM CDT) Only the most recent of 2 results within the time period is included. Troponin I <0.01 0.00 - 0.03 ng/mL [facility] Specimen Blood Narrative Performed At Troponin I (TnI) levels must be interpreted in the co ntext of the presenting [facility] symptoms and the clinical findings. Elevated TnI leve ls indicate myocardial [facility] damage, but are not specific for ischem ic heart disease. Elevated TnI levels are seen in patients with other cardiac con ditions (including myocarditis and congestive heart failure), and slight T nI elevations occur in patients with other conditions, including sepsis, javier al failure, acidosis, acute neurological disease, and persistent tachyarrhythmia . Performing Organization Address [facility] one Number [place] [address] [facility] * Magnesium (06/01/2019 4:03 AM CDT) Magnesium 1.9 1.6 - 2.6 mg/dL [facility] Specimen Blood Performing Organization Address [facility] one Number [address] [facility] * Basic metabolic panel (06/01/2019 4:03 AM CDT) Only the most recent of 2 results within the time period is included. Sodium 134 (L) 136 - 145 meq/L [facility] Potassium 4.3 3.5 - 5.1 meq/L [facility] Chloride 101 98 - 107 meq/L [facility] CO2 27 22 - 29 meq/L [facility] BUN 13 7 - 21 mg/dL [facility] Creatinine 0.64 0.57 - 1.25 mg/dL [facility] Glucose 318 (H) 70 - 105 mg/dL [facility] Calcium 9.0 8.4 - 10.2 mg/dL [facility] EGFR 102Comment: ESTIMATED GFR IS mL/min/1.73 sq m [facility] NOT ACCURATE CREATININE [facility] CLEARANCE IN PREDICTING GLOMERULAR FILTRATION RATE. ESTIMATED GFR IS NOT APPLICABLE FOR DIALYSIS PATIENTS. Specimen Blood Performing Organization Address [facility] one Number [address] [facility] * Procalcitonin (06/01/2019 12:15 AM CDT) Procalcitonin <0.05 <0.05 ng/mL [facility] Specimen Blood Narrative Performed At SEPSIS RISK (ng/mL) [facility] Low:0.05-0.50 [facility] Intermediate: 0.51-2.00 High: >=2.01 Performing Organization Address [facility] one Number [address] [facility] * Hemoglobin A1c (06/01/2019 12:15 AM CDT) Hemoglobin A1C 10.3 (H) 4.3 - 6.1 % [facility] Specimen Blood Performing Organization Address [facility] one Number [address] [facility] * Lipid panel (06/01/2019 12:15 AM CDT) Triglycerides 218 mg/dL [facility] Cholesterol 232 mg/dL [facility] HDL 31 mg/dL [facility] LDL Calculated 157 mg/dL [facility] Specimen Blood Narrative Performed At Triglyceride Reference Range: [facility] Low Risk <150 [facility] [id number] High Risk 200-499 Very High Risk>=500 Cholesterol Reference Range: Low Risk <200 [id number] High Risk>240 HDL Cholesterol Reference Range: Low Risk >=60 High Risk <40 LDL Cholesterol Reference Range: Optimal<100 Near [id number] Very High >=190 Performing Organization Address City/State/Zipcode Ph one Number [address] [facility] after 03/25/2019 Advance Directives For more information, please contact: [address] [address] Date Inactivated Comments Code Status Date Activated 06/01/2019 3:39 PM Full Code 05/31/2019 11:19 PM This code status was determined by: Patient 07/04/2016 8:07 PM Full Code 07/03/2016 5:25 PM This code status was determined by: Patient
--- OUTSIDE RECORDS SUMMARY | 2020-03-25 01:40 | XMS REPORT | Continuity of Care Document ---
Author Author [facility] Organization [facility] Address [address] [place] [address] Phone Unavailable Care Team Providers Care Brand Coordinator Name Role Phone NO, PCP PCP Unavailable EAST, SOUHEIL Attphys Unavailable Wilfredo BULLOCK, Taylor Attphys Jseus Triana MD, Vipul Barajas Attphys [phone] Lien Lewis MD Attphys VIPUL JIMENEZA Attphys Unavailable Farrukh PARADAA Attphys Unavailable Claire Coreas MD Attphys Jak SPENCER Attphys Unavailable RASSOLI, AMIR Attphys Unavailable SHAMSEE, SHAHZAD-MARY Attphys Unavailable MIKHAILAR, SANJIV Attphys Unavailable EAST, SOUHEIL Admphys Unavailable VIPUL JIMENEZ JENN Admphys Unavailable RASSOLI, AMIR Admphys Unavailable SHAMSEE, SHAHZAD-MARY Admphys Unavailable BADAR, SANJIV Admphys Unavailable Payers Payer Name Policy Type Policy Number Effective Date Expiration Date S ource Self Pay NA [facility] [employer] [id number] 2018 00:00:00 [facility] Problems Condition Name Condition Details Condition Category Status Onset Date Resolution Date Last Treatment Date Treating Clinician Comments Source Pyuria Pyuria Disease Active 2019-05-31 00:00:00 [facility] Chest pain Chest pain Disease Active 2019-05-31 00:00:00 [facility] Acute chest pain Acute chest pain Disease Active 2016-07-03 00:00:00 [facility] Uncontrolled type 2 diabetes mellitus with complicatio n Uncontrolled type 2 diabetes mellitus with complication Disease Active 2016-07-03 00:00:00 [facility] Essential hypertension Essential hypertension Disease Active 2016-07-03 00:00:00 [facility] History of pulmonary embolus (PE) History of pulmonary embolus ( PE) Disease Active 2016-07-03 00:00:00 [facility] Uncontrolled hypertension Problem Active [facility] Infection due to severe acute respiratory syndrome coronavir us 2 (SARS-CoV-2) Problem Active [facility] Hypertensive urgency Problem Active [facility] Tachycardia Problem Active [facility] Hyperglycemia Problem Active [facility] Allergies, Adverse Reactions, Alerts Allergy Name Allergy Type Status Severity Reaction(s) Onset Date Inacti ve Date Treating Clinician Comments Source Metoclopramide Hcl Propensity to adverse reactions to drug Active Rash 2018-12-17 00:00:00 [place] [facility] Ketorolac Propensity to adverse reactions to drug Active 2018-12-17 00:00:00 [facility] Tramadol Propensity to adverse reactions to drug Active Rash 2018-12-17 00:00:00 [facility] Ondansetron Hcl Propensity to adverse reactions to drug Active Rash 2018-12-17 00:00:00 [facility] Metoclopramide Hcl Propensity to adverse reactions to drug Active 2018-09-27 00:00:00 [facility] Method[facility] t Ketorolac Propensity to adverse reactions to drug Active 2018-09-27 00:00:00 [facility] Rameyis t Tramadol Propensity to adverse reactions to drug Active 2018-09-27 00:00:00 [facility] Ondansetron Hcl Propensity to adverse reactions to drug Active 2018-09-27 00:00:00 Rebel Lambert t tramadol DA Active SV 2018-08-13 00:00:00 [facility] metoclopramide DA Active U 2018-08-12 00:00:00 [facility] ondansetron DA Active U 2018-08-12 00:00:00 [facility] ketorolac DA Active U 2018-08-12 00:00:00 [facility] Tramadol Allergy to substance Active Moderate [facility] 2018-05-08 00:00:00 [facility] Metoclopramide Allergy to substance Active Moderate [facility] 2018-05-08 00:00:00 [facility] Ondansetron Allergy to substance Active Moderate [facility] 2018-05-08 00:00: 00 [facility] Ketorolac Allergy to substance Active Moderate [facility] 2018-05-08 00:00:00 [facility] metoclopramide DA Active U 2017-03-27 00:00:00 [facility] ondansetron DA Active U 2017-03-27 00:00:00 [facility] ketorolac DA Active U 2017-03-27 00:00:00 [facility] Hydrocodone-Acetaminophen Drug Allergy Active Rash 2016-07-03 00 :00:00 [facility] Metoclopramide Hcl Drug Allergy Active Hives 2016-04-23 00:00:00 [facility] Tramadol Drug Allergy Active Hives 2016-04-23 00:00:00 [facility] Ondansetron Hcl (Pf) Drug Allergy Active Hives 2016-04-23 00:00:0 0 [facility] Reglan Allergy to substance Active Hives [facility] Zofran Allergy to substance Active Hives [facility] Family History Family Member Diagnosis Comments Start Date Stop Date Source Natural brother Diabetes [facility] Natural father Diabetes [facility] Natural sister Diabetes [facility] Social History Social Habit Start Date Stop Date Quantity Comments Source History SDOH Alcohol Std Drinks [facility] History SDOH Alcohol Binge Rebel Rameyist Sex Assigned At [facility] Alcohol intake 2019-04-22 00:00:00 2019-04-22 00:00:00 Current non-drinker of alcohol (finding) [facility] History SDOH Alcohol Frequency 2018-12-14 00:00:00 2018-12-14 00:00:0 0 1 [facility] Rameyist Smoking Status Start Date Stop Date Source Former smoker 2019-05-31 00:00:00 2019-05-31 00:00:00 [facility] Never smoker [facility] Medications Ordered Medication Name Filled Medication Name Start Date Stop Da te Current Medication? Ordering Clinician Indication Dosage Frequency Signature (SIG) Comments Components Source metFORMIN (GLUCOPHAGE) 1000 MG tablet 2019-06-01 10:30 :52 2019-06-01 00:00:00 No 1000mg Take 1,000 mg b y mouth 2 (two) times daily with breakfast and dinner. [facility] lisinopril (PRINIVIL,ZESTRIL) 40 MG tablet 06-01 10:30:52 2019-06-01 00:00:00 No 40mg QD Take 40 mg by mouth daily. [facility] aspirin 81 MG EC tablet 2019-06-01 10:30:52 2019-06-01 00:00:00 No 81mg QD Take 81 mg by mouth daily. [facility] insulin 70/30, insulin NPH-insulin regul ar, (HUMULIN 70/30) 100 unit/mL (70-30) InPn insulin pen 2019-06-01 10:30:52 2019-06-01 00:00:00 No 40U QD Inject 40 Units subcutaneously daily. [facility] insulin 70/30, insulin NPH-insulin regul ar, (HUMULIN 70/30) 100 unit/mL (70-30) InPn insulin pen 2019-06-01 04:09:20 Yes 40U Inject 40 Units subcutaneously daily as needed (in the evening). [facility] aspirin 81 MG EC tablet 2019-06-01 00:00:00 Yes 81mg QD Take 1 tablet (81 mg total) by mouth daily. [facility] insulin 70/30, insulin NPH-insulin regul ar, (HUMULIN 70/30) 100 unit/mL (70-30) InPn insulin pen 2019-06-01 00:00:00 Yes 40U QD Inject 40 Units subcutaneously daily. [facility] lisinopril (PRINIVIL,ZESTRIL) 40 MG tablet 2019-06-01 00:00:00 Yes 40mg QD Take 1 tablet (40 mg total) by mouth daily. [facility] metFORMIN (GLUCOPHAGE) 1000 MG tablet 2019-06-01 00:00:00 Y es 1000mg Take 1 tablet (1,000 mg total) by mouth 2 (two) times daily with breakfast and dinner. [facility] needles, insulin disposable (INSULIN PEN NEEDLES) Ndle 2019-06-01 00:00:00 Yes 1{each} Q.5D 1 each by Miscellaneous route 2 (two) ti mes daily. [facility] atorvastatin (LIPITOR) 40 MG tablet 2019-06-01 00:00:0 0 2020-05-31 23:59:00 No 40mg QD Take 1 tablet (40 mg total) by mouth nig htly. [facility] ciprofloxacin HCl (CIPRO) 250 MG tablet 00:00:00 2019-06-04 23:59:00 No 250mg Q.5D Take 1 tablet (250 mg total) by mouth 2 (two) times daily for 3 days. [facility] Butalbital/Aspirin/Caffeine (Fiorinal 50-325-40 Mg Cap bianca) 1 Each CAPSULE Butalbital/Aspirin/Caffeine (Fiorinal 50-325-40 Mg Capsule) 1 Each CAPSULE 2019-03-22 23:10:00 Yes 1 Every 6 Hours as n eeded for Headache [facility] Sulfamethoxazole/Trimethoprim (Bactrim Ds Tablet) 1 Ea ch TABLET Sulfamethoxazole/Trimethoprim (Bactrim Ds Tablet) 1 Each TABLET 2019-03-22 23:07:00 2020-03-17 00:00:00 No 1 Twice A Day [facility] aspirin 81 mg tablet,delayed release Take 1 tablet marichuy ry day by oral route. aspirin 81 mg tablet,delayed release Take 1 tablet every day by oral route. No 1 Q1D aspirin 81 mg t ablet,delayed release Take 1 tablet every day by oral route. [facility] Blood Glucose Test strips Take 1 strip twice a day by miscell. route. Blood Glucose Test strips Take 1 strip twice a day by miscell. route. No 1strip(s) BID Blood Glucose Test strips Ta ke 1 strip twice a day by miscell. route. [facility] Diflucan 150 mg tablet Take 1 tablet every 72 hours by oral route. Diflucan 150 mg tablet Take 1 tablet every 72 hours by oral route. No 1 Diflucan 150 mg tablet Take 1 tablet every 72 hours by oral route. [facility] gabapentin 300 mg capsule Take 2 capsules 3 times a da y by oral route. gabapentin 300 mg capsule Take 2 capsules 3 times a day by oral route. No 2capsule(s) TID gabapentin 300 mg ca psule Take 2 capsules 3 times a day by oral route. [facility] Jentadueto XR 5 mg-1,000 mg tablet, exte nded release Take 1 tablet every day by oral route. Jentadueto XR 5 mg-1,000 mg tablet, exte nded release Take 1 tablet every day by oral route. No 1 Q1D Jentadueto XR 5 mg-1,000 mg tablet, extended release Take 1 tablet every day by oral route. [facility] lisinopril 40 mg tablet Take 1 tablet every day by ora l route. lisinopril 40 mg tablet Take 1 tablet every day by oral route. No 1 Q1D lisinopril 40 mg tablet Take 1 tablet every day by oral route. [facility] Novolin 70/30 U-100 Insulin 100 unit/mL [...] the AM, 20 units in the PM [facility] simvastatin 20 mg tablet Take 1 tablet every day by or al route. simvastatin 20 mg tablet Take 1 tablet every day by oral route. No 1 Q1D simvastatin 20 mg tablet Take 1 tablet every day by oral route. [facility] sumatriptan 25 mg tablet Take 2 [...] May repeat dose x1 after 2 hours. [facility] Azithromycin (Z-Connor) 250 Mg TABLET Azithromycin (Z-Connor) 250 Mg TABLET Yes 500 Daily [facility] Metoprolol Tartrate Metoprolol Tartrate Yes 25 Twice A Day [facility] Valsartan (Diovan) 160 Mg TAB Valsartan (Diovan) 160 Mg TAB Yes 160 Daily [facility] Vital Signs Vital Name Observation Time Observation Value Comments Source Height 2020-02-28 00:00:00 60 [in_i] [facility] Body Temperature 2020-03-17 13:43:00 97.5 [degF] [facility] Weight 2020-03-17 01:18:00 191 [lb_av] [facility] BMI (Body Mass Index) 2020-03-17 01:18:00 36.1 kg/m2 [facility] Systolic blood pressure 2019-06-01 08:08:00 111 mm[Hg] [facility] Diastolic blood pressure 2019-06-01 08:08:00 56 mm[Hg] [facility] Heart rate 2019-06-01 08:08:00 87 /min [facility] Body temperature 2019-06-01 08:08:00 36.11 Yessenia [facility] Respiratory rate 2019-06-01 08:08:00 18 /min [facility] Oxygen saturation in Arterial blood by Pulse oximetry 2018-08 08:08:00 94 [facility] height 2019-06-01 04:09:00 154.9 cm [facility] Body weight Measured 2019-06-01 04:09:00 86.728 kg [facility] BMI 2019-06-01 04:09:00 36.13 kg/m2 [facility] Systolic blood pressure 2019-04-23 02:12:00 188 mm[Hg] [facility] Diastolic blood pressure 2019-04-23 02:12:00 105 mm[Hg] [facility] Heart rate 2019-04-23 02:12:00 102 /min [facility] Rameyist Oxygen saturation in Arterial blood by Pulse oximetry 04-23 02:12:00 95 /min [facility] Body temperature 2019-04-22 23:45:00 36.83 Yessenia [place] [facility] Respiratory rate 2019-04-22 23:45:00 16 /min [place] [facility] Body height 2019-04-22 23:43:00 154.9 cm [facility] Sheppard Procedures Procedure Date / Time Performed Performing Clinician [facility] Computed tomography of chest with contrast 2020-03-16 00:00:00 [facility] RHYTHM STRIP - SCAN 2019-06-06 10:23:10 Provider, Default Scanni ng [facility] REPORT OF PROCEDURE - ENDOSCOPY SCAN 2019-06-02 13:31:21 Pro vider, Default Scanning [facility] POCT-GLUCOSE METER 2019-06-01 08:11:00 Erlinda Lewis [facility] ECG 12-LEAD 2019-06-01 06:02:17 [facility] ECG 12-LEAD 2019-06-01 06:00:32 [facility] URINALYSIS W/ REFLEX URINE CULTURE 2019-06-01 04:10:00 [facility] TROPONIN I 2019-06-01 04:03:00 [facility] BASIC METABOLIC PANEL (7) 2019-06-01 04:03:00 [facility] MAGNESIUM 2019-06-01 04:03:00 [facility] CBC W/PLT COUNT & AUTO DIFFERENTIAL 2019-06-01 04:03:00 [facility] POCT-GLUCOSE METER 2019-06-01 01:07:00 Jenn Jimenez [facility] TROPONIN I 2019-06-01 00:15:00 [facility] BASIC METABOLIC PANEL (7) 2019-06-01 00:15:00 [facility] LIPID PANEL 2019-06-01 00:15:00 [facility] HEMOGLOBIN A1C 2019-06-01 00:15:00 [facility] PROCALCITONIN 2019-06-01 00:15:00 [facility] POC GLUCOSE 2019-04-23 02:13:[address] HEAD WO CONTRAST 2019-04-23 01:30:31 Polo Coreas AR CRITICAL CARE, E/M 30-74 MINUTES 2019-04-23 00:55:13 Polo Coreas ECG ED PRELIMINARY INTERPRETATION 2019-04-23 00:55:13 Tracie Coreas HC COMPLETE BLD COUNT W/AUTO DIFF 2019-04-22 23:44:00 Lynda Nguyen COMPREHENSIVE METABOLIC PANEL 2019-04-22 23:44:00 Morena Nguyen TROPONIN 2019-04-22 23:44:00 Morena Nguyen B NATRIURETIC PEPTIDE 2019-04-22 23:44:00 Morena Nguyen ESTIMATED GFR 2019-04-22 23:44:00 Morena Nguyen ECG 12-LEAD 2019-04-22 23:32:04 Morena Nguyen Cholecystectomy [facility] Appendectomy [facility] Plan of Care Planned Activity Planned Date Details Comments Source Future Scheduled Test 2020-05-30 00:00:00 HbA1c (hemoglobin A1c), blood [code = HbA1c (hemoglobin A1c), blood] [facility] Future Scheduled Test 2020-05-30 00:00:00 lipid panel, serum [code = lipid panel, serum] [facility] Scheduled Test 2020-05-17 00:00:00 IMM Influenza Seas onal May to October (>/= 19 yrs) [code = IMM Influenza Seasonal May to October (>/= 19 yrs)] [facility] Scheduled Test 2020-04-17 00:00:00 INFLUENZA VACCINE (#1) [code = INFLUENZA VACCINE (#1)] [facility] Scheduled Test 2020-03-17 00:00:00 INFLUENZA VACCINE [code = INFLUENZA VACCINE] [facility] Diagnostic Test Pending 2020-02-28 00:00:00 STI panel [code = STI p leonardo] [facility] Diagnostic Test Pending 2020-02-28 00:00:00 CBC w/ auto diff [code = CBC w/ auto diff] [facility] Diagnostic Test Pending 2020-02-28 00:00:00 lipid panel, ser um [code = lipid panel, serum] [facility] Diagnostic Test Pending 2020-02-28 00:00:00 HbA1c (hemoglobi n A1c), blood [code = HbA1c (hemoglobin A1c), blood] [facility] Diagnostic Test Pending 2020-02-28 00:00:00 CMP, serum or pl asma [code = CMP, serum or plasma] [facility] Scheduled Test 2019-09-01 00:00:00 Hemoglobin A1c dhruv surement (procedure) [code = 56966109] [facility] Future Scheduled Test 2017 00:00:00 Breast Cancer Scrn (Yearly) [code = Breast Cancer Scrn (Yearly)] [facility] Scheduled Test 1998 00:00:00 Screening for crow gnant neoplasm of cervix (procedure) [code = 132939635] [facility] Future Scheduled Test 1998 00:00:00 Screening for crow gnant neoplasm of cervix (procedure) [code = 885017471] [facility] Scheduled Test 1998 00:00:00 Screening for crow gnant neoplasm of cervix (procedure) [code = 238829795] [facility] Future Scheduled Test 1987-10-24 00:00:00 DIABETIC FOOT EXAM [code = DIABETIC FOOT EXAM] [facility] Future Scheduled Test 1987-10-24 00:00:00 URINE MICROALBUMIN [code = URINE MICROALBUMIN] [facility] Scheduled Test 1987-10-24 00:00:00 DIABETIC EYE EXAM [code = DIABETIC EYE EXAM] [facility] Scheduled Test 1987-10-24 00:00:00 Diabetic foot exam ination (regime/therapy) [code = 366173567] [facility] Future Scheduled Test 1987-10-24 00:00:00 Urine screening fo r protein (procedure) [code = 165691374] [facility] Future Scheduled Test 1983-10-24 00:00:00 PNEUMOCOCCAL VACCI NE 2-64 YEARS AT RISK (1 of 1 - PPSV23) [code = PNEUMOCOCCAL VACCINE 2-64 YEARS AT RISK (1 of 1 - PPSV23)] [facility] Scheduled Test 1977 00:00:00 DIABETIC RETINAL E YE EXAM [code = DIABETIC RETINAL EYE EXAM] [facility] Appointment 2020-05-30 00:00:00 Jeffery Ricci 26 15 [place]ya; , [address] Future Appointment 2020-04-09 10:30:00 Ana Pradhan [address]; , [address] Instructions Chest Pain - Noncardiac [facility] Encounters Start Date/Time End Date/Time Encounter Type Admission Type Attendi [facility] Care Department Encounter ID Source 2020-03-16 08:51:00 2020-03-17 15:15:00 Discharged Inpatient 1 KITA SHARAD [facility] [id number] [facility] 2020-02-28 00:00:00 2020-02-28 00:00:00 Jeffery babb MD: [id number], [place] [phone], [facility] [id number] [facility] 2019-05-31 14:28:00 2019-05-31 19:38:00 Departed Emergency Room 1 CASEY PARADA [facility] [id number] [facility] 2019-04-02 02:54:00 2019-04-02 06:32:00 Departed Emergency Room 1 PORSCHE SPENCER [facility] [id number] [facility] 2019-03-22 21:16:00 2019-03-22 23:46:00 Departed Emergency Room 1 PORSCHE SPENCER [facility] [id number] [facility] 2018-12-29 19:35:00 2018-12-29 19:35:[address] [facility] MED [id number] [facility] 2018-12-17 08:06:21 2018-12-17 08:06:21 Emergency [facility] [id number] [facility] 2018-12-17 00:00:00 2018-12-17 00:00:00 Emergency [facility] [id number] [facility] 2018-05-08 22:46:00 2018-05-09 00:26:00 Departed Emergency Room [facility] [id number] [facility] 2017-09-15 15:51:00 2017-09-15 15:51:00 Emergency E [facility] [id number] [facility] Results Test Description Test Time Test Comments Results Result Comments Source Blood leukocytes automated count (number/volume) 2020-03-17 05:00:00 Test Item White Blood Count (test code = 6690-2) 10.60 4.8-10.8 [facility] count (number/volume)2020-03-17 05:00:00* Test Item Value Reference Range Interpretation Comments Red Blood Count (test code = 789-8) 4.54 3.6-5.1 [facility] measurement (moles/volume)2020-03-17 05:00:00* Test Item Value Reference Range Interpretation Comments Hemoglobin (test code = 67788-5) 12.9 12.0-16.0 [facility] hematocrit (volume fraction)2020-03-17 05:00:00* Test Item Value Reference Range Interpretation Comments Hematocrit (test code = 4544-3) 40.7 34.2-44.1 [facility] erythrocyte mean corpuscular [id number] 05:00:00* Test Item Value Reference Range Interpretation Comments Mean Corpuscular Volume (test code = 787-2) 89.6 81-99 [facility] mean corpuscular hemoglobin (mass per erythrocyte)2020-03-17 05:00:00* Test Item Value Reference Range Interpretation Comments Mean Corpuscular Hemoglobin (test code = 785-6) 28.4 28-32 [facility] eryth[facility] mean corpuscular hemoglobin concentration measurement (mass/volume)2020-03-17 05:00:00* Test Item Value Reference Range Interpretation Comments Mean Corpuscular Hemoglobin Concent (test code = 786-4) 31.7 31-35 [facility] CenterRDW [id number] 05:00:00* Test Item Value Reference Range Interpretation Comments Red Cell Distribution Width (test code = 53313-6) 13.6 11.7 -14.4 [facility] platelet count (count/volume)2020-03-17 05:00:00* Test Item Value Reference Range Interpretation Comments Platelet Count (test code = 777-3) 305 140-360 [facility] segmented neutrophil count as percentage of total [id number] 05:00:00* Test Item Value Reference Range Interpretation Comments Neutrophils (%) (Auto) (test code = 70921-1) 55.0 38.7-80.0 [facility] lymphocyte count as percentage ot total [id number] 05:00:00* Test Item Value Reference Range Interpretation Comments Lymphocytes (%) (Auto) (test code = 736-9) 30.7 18.0-39.1 [facility] CenterAutnovant healthed blood monocyte count as percentage of total [id number] 05:00:00* Test Item Value Reference Range Interpretation Comments Monocytes (%) (Auto) (test code = 5905-5) 10.9 4.4-11.3 [facility] Center[facility] blood eosinophil count as percentage of total [id number] 05:00:00* Test Item Value Reference Range Interpretation Comments Eosinophils (%) (Auto) (test code = 713-8) 2.4 0.0-6.0 [facility] basophil count as percentage of total [id number] 05:00:00* Test Item Value Reference Range Interpretation Comments Basophils (%) (Auto) (test code = 706-2) 0.3 0.0-1.0 [facility] CenterFluoroscopic procedure less than one hour [id number] 05:00:00* Test Item Value Reference Range Interpretation Comments IM GRANULOCYTES % (test code = IM GRANULOCYTES %) 0.7 0.0- 1.0 [facility] neutrophil count 2020-03-17 05:00:00* Test Item Value Reference Range Interpretation Comments Neutrophils # (Auto) (test code = 751-8) 5.8 2.1-6.9 [facility] lymphocytes count (number/volume) 2020-03-17 05:00:00* Test Item Value Reference Range Interpretation Comments Lymphocytes # (Auto) (test code = 28008-6) 3.3 1.0-3.2 [facility] monocytes automated count (number/volume)2020-03-17 05:00:00* Test Item Value Reference Range Interpretation Comments Monocytes # (Auto) (test code = 742-7) 1.2 0.2-0.8 [facility] Center[facility] blood eosinophil count 2020-03-17 05:00:00* Test Item Value Reference Range Interpretation Comments Eosinophils # (Auto) (test code = 711-2) 0.3 0.0-0.4 [facility] Center[facility] blood basophil count (count/volume)2020-03-17 05:00:00* Test Item Value Reference Range Interpretation Comments Basophils # (Auto) (test code = 704-7) 0.0 0.0-0.1 [facility] CenterFluoroscopic procedure less than one hour [id number] 05:00:00* Test Item Value Reference Range Interpretation Comments Absolute Immature Granulocyte (auto (simran t code = Absolute Immature Granulocyte (auto) 0.07 0-0.1 [facility] measurement (moles/volume)2020-03-17 05:00:00* Test Item Value Reference Range Interpretation Comments Sodium Level (test code = 2951-2) 135 136-145 [facility] potassium measurement (moles/volume)2020-03-17 05:00:00* Test Item Value Reference Range Interpretation Comments Potassium Level (test code = 2823-3) 4.8 3.5-5.1 [facility] chloride measurement (moles/volume)2020-03-17 05:00:00* Test Item Value Reference Range Interpretation Comments Chloride Level (test code = 2075-0) 98 98-107 [facility] carbon dioxide, total measurement (moles/volume)2020-03-17 05:00:00* Test Item Value Reference Range Interpretation Comments Carbon Dioxide Level (test code = 2028-9) 29 22-29 [facility] anion yfq0311-06-93 05:00:00* Test Item Value Reference Range Interpretation Comments Anion Gap (test code = 71067-4) 12.8 8-16 [facility] urea nitrogen measurement (mass/volume)2020-03-17 05:00:00* Test Item Value Reference Range Interpretation Comments Blood Urea Nitrogen (test code = 3094-0) 18 7-26 [facility] creatinine measurement (mass/volume)2020-03-17 05:00:00* Test Item Value Reference Range Interpretation Comments Creatinine (test code = 2160-0) 0.73 0.57-1.11 [facility] plasma urea nitrogen/creatinine mass wkwad9534-26-09 05:00:00* Test Item Value Reference Range Interpretation Comments BUN/Creatinine Ratio (test code = 3097-3) 25 6-25 [facility] CenterEstimated glomerular filtration rate (GFR) phwrkdillsbkp0488-69-22 05:00:00* Test Item Value Reference Range Interpretation Comments Estimat Glomerular Filtration Rate (test code = 642400261) > 60 >60 Ranges were taken from the National Kidney Disease Education Program and the [facility] literature.Reference ranges:60 or greater: Idxgmm40-13 ( for 3 consecutive months): Chronic kidney disease 15 or less: Kidney failureCarrollton Regional Medical CenterGlucose kdnfotvozht2114-02-18 05:00:00* Test Item Value Reference Range Interpretation Comments Glucose Level (test code = OAK3177) 310 74-118 [facility] calcium measurement (mass/volume)2020-03-17 05:00:00* Test Item Value Reference Range Interpretation Comments Calcium Level (test code = 92555-1) 9.3 8.4-10.2 [facility] total bilirubin measurement (mass/volume)2020-03-17 05:00:00* Test Item Value Reference Range Interpretation Comments Total Bilirubin (test code = 1975-2) 0.3 0.2-1.2 [facility] CenterFluoroscopic procedure less than one hour yiawinpk4510-31-73 05:00:00* Test Item Value Reference Range Interpretation Comments Aspartate Amino Transf (AST/SGOT) (test code = Aspartate Amino Transf (AST/SGOT)) 39 5-34 [facility] alanine aminotransferase measurement (enzymatic activity/volume)2020-03-17 05:00:00* Test Item Value Reference Range Interpretation Comments Alanine Aminotransferase (ALT/SGPT) (test code = 1742-6) 100 0-55 [facility] protein measurement (mass/volume)2020-03-17 05:00:00* Test Item Value Reference Range Interpretation Comments Total Protein (test code = 2885-2) 6.8 6.5-8.1 [facility] albumin measurement (mass/volume)2020-03-17 05:00:00* Test Item Value Reference Range Interpretation Comments Albumin (test code = 1751-7) 2.9 3.5-5.0 [facility] CenterPlasma globulin measurement (mass/volume) 2020-03-17 05:00:00* Test Item Value Reference Range Interpretation Comments Globulin (test code = 05011-7) 3.9 2.3-3.5 [facility] albumin/globulin mass ycasm9435-78-14 05:00:00* Test Item Value Reference Range Interpretation Comments Albumin/Globulin Ratio (test code = 1759-0) 0.7 0.8-2.0 [facility] alkaline phosphatase measurement (enzymatic activity/volume)2020-03-17 05:00:00* Test Item Value Reference Range Interpretation Comments Alkaline Phosphatase (test code = 6768-6) 82 40-150 [facility] triglyceride measurement (mass/volume)2020-03-17 05:00:00* Test Item Value Reference Range Interpretation Comments Triglycerides Level (test code = 2571-8) 222 0-149 [facility] cholesterol measurement (mass/volume)2020-03-17 05:00:00* Test Item Value Reference Range Interpretation Comments Cholesterol Level (test code = 2093-3) 219 0-199 Less than 200 mg/dL Low Hfdp258 - 239 mg/dL Borderline Fbjm225 m g/dl and greater High Risk [facility] cholesterol in LDL measurement (mass/volume) 2020-03-17 05:00:00* Test Item Value Reference Range Interpretation Comments LDL Cholesterol (test code = 2089-1) 142 60-130 [facility] cholesterol in HDL measurement (mass/volume)2020-03-17 05:00:00* Test Item Value Reference Range Interpretation Comments HDL Cholesterol (test code = 2085-9) 33 40-60 [facility] total cholesterol/cholesterol in HDL mass vbhrt9503-08-93 05:00:00* Test Item Value Reference Range Interpretation Comments Cholesterol/HDL Ratio (test code = 9830-1) 6.6 3.0-3.6 [facility] CenterCapillary blood glucose measurement by glucometer (mass/volume)2020-03-16 19:21:00* Test Item Value Reference Range Interpretation Comments Bedside Glucose (test code = 32904-7) 302 70-120 Meter ID: [id number] Hospitalerum or plasma creatine kinase measurement (enzymatic activity/volume)2020-03-16 15:25:00* Test Item Value Reference Range Interpretation Comments Creatine Kinase (test code = 2157-6) 47 29-168 [facility] plasma creatine kinase MB measurement (mass/volume)2020-03-16 15:25:00* Test Item Value Reference Range Interpretation Comments Creatine Kinase MB (test code = 92577-0) 5.80 0-5.0 [facility] CenterTroponin I measurement by highly sensitive enzyme fxlfauyfixd8503-24-79 15:25:00* Test Item Value Reference Range Interpretation Comments Troponin I (test code = 60295-7) 0.011 0-0.300 [facility] CenterCT CHEST J1864-96-26 11:26:00 [facility] [address] [place] [address] Patient Name: ANNIA VIDES MR #: [id number] : 1975 Age/Sex: 44/F Req #: [id number] Adm Physician: SHARAD EAST MD Ordered by: JOSTIN POWERS MD Report #: [id number] Location: [facility] Room/Bed: [place] [address] Procedure: [id number] CT/CT C HEST W Exam Date: 03/16/20 Exam Time: 1057 REPORT STATUS: Signed EXAM: CT Chest WITH contrast- Pulmonary Embolism Protocol INDICATION: Chest pain COMPARI SON: Chest radiograph 03/16/2020 TECHNIQUE: Chest was scanned utilizing a multidetector helical scanner from the lung apex through the level of the diap hragm after administration of IV contrast. Thin section reconstructions were o btained with special concentration on the pulmonary arteries. Coronal and sagi ttal reformations were obtained. Pulmonary embolism protocol was performed. IV CONTRAST: 100 cc of Isovue 370 RADIATION DOSE: Total DLP: 448 mGy*cm Dose modulation, iterative reconstruction, and/ or weight based adjustment of the mA/kV was utilized to reduce the radiation d ose to as low as reasonably achievable. COMPLICATIONS: None FINDINGS: LINES/ TUBES: None. PULMONARY ARTERIES: No filling defect is identified within the pulmonary arteries to the segmental level. The subs egmental pulmonary arteries are not well opacified. Main pulmonary artery ant ures 2.8 cm in diameter. LUNGS AND AIRWAYS: The central airways are patent. No focal consolidation or pulmonary edema. Right and left lower lobe subsegme ntal atelectasis.. PLEURA: The pleural spaces are clear. HEART AND MED IASTINUM: Incompletely visualized thyroid gland appears unremarkable. No supra clavicular, axillary, mediastinal, or hilar lymphadenopathy. The heart is not enlarged. No pericardial effusion. Aorta and great vessels appear unremarkable . UPPER ABDOMEN: No acute findings in the upper abdomen. BONES: The vi sualized bony thorax is within normal limits. SOFT TISSUES: Unremarkable. IMPRESSION: No pulmonary embolism. No focal pneumonia or pulmonary e milagro. Right and left lower lobe subsegmental atelectasis. Signed by: Guerda Street MD on 03/16/2020 11:31 AM Dictated By: YUDITH STREET MD Electronical ly Signed By: YUDITH STREET MD on 03/16/20 1131 Transcribed By: MANJINDER on 0 1131 COPY TO: JOSTIN POWERS MD CXR 1 VEW - [id number] 01:08:00 [place] [address] Patient Name: ANNIA VIDES MR #: [id number] : 1975 Age/Sex: 44/F Req #: [id number] Adm Physician: Ordered by: ROHINI RAMOS MD Report #: [id number] Location: [facility] Room/Bed: Procedure: [id number] HOPD/CXR 1 VEW - HOPD Exam Date: 03/16/20 Exam Time: 0050 REPORT STATUS: Signed EXAMINATION: CXR 1 VEW - HOPD INDICATION: Left sided chest pain COMPARI SON: Chest x-ray 03/22/2019 FINDINGS: TUBES and LINES: None. SANTOS NGS: Low lung volumes with bibasilar haziness. PLEURA: No pleur al effusion or pneumothorax. HEART AND MEDIASTINUM: The cardiomediastinal silhouette is unremarkable. BONES AND SOFT TISSUES: No acute osseous l esion. Soft tissues are unremarkable. UPPER ABDOMEN: No free air under t he diaphragm. Cholecystectomy clips. IMPRESSION: Low lung volumes with bibasilar haziness likely due to atelectasis although pneumonia is possi ble. Signed by: Ag Calderon DO on 03/16/2020 1:10 AM Dictated By: AG CALDERON DO 9 Transcribed By: MANJINDER on 03/16/20109 COPY TO: ROHINI RAMOS MD Fluoroscopic procedure less than one hour jvhevczs7770-46-31 23:55:00* Test Item Value Reference Range Interpretation Comments Coronavirus (PCR) (test code = Coronavirus (PCR)) DETECTED NOTD ETECTED SARS-COV2/RT-PCRResults are for the detection of SARS-COV-2 RNA. The SARS-COV-2 RNA is generally detectable in nasopharyngeal swab specimens during the acute ph ase of infection. Positive results are indicitive of active infection with SARS- COV-2; clinical correlation with patient history and other diagnostic informatio n is necessary to determine patient infection status. Positive results do not ru le out bacterial infection or co-infection with other viruses. The agent detecte d may not be the definite cause of the disease.The limit of detection for this a ssay is 250 copies/mLThe SARS-CoV-2 test is a rapid, real-time RT-PCR test inten ded for the qualitative detection of nucleic acid from SARS-CoV-2 in nasopharyng eal swab specimen collected from individuals suspected of COVID-[address] [facility] provider. This test has not been Food and Drug Administration (FDA) clear ed or approved and has been authorized by FDA under an Emergency Use Authorizati on (EUA). This EUA will be effective until the declaration that circumstances ex ist justifying the authorization of the emergency use of in vitro diagnostic simran t for detection and or diagnosis of COVID-19 is terminated under section 564(b) of the Act, or the the EUA is revoked under 564(g) of the ACT.Testing performed by [address]EK 50-GTKA5580-65-19 12:13:49Interface, External Ris In - 06/04/2019 12:13 PM CDTVentricular Rate 90 BPMAtrial Rate 90 BPMP-R Interval 128 msQRS Duration 90 msQ-T Interval 370 msQTC Calculation(Bazett) 452 msP [place] 23 degreesR [place] 51 degreesT [place] 37 degreesNormal sinus rhythmNormal ECGWhen compared with ECG of 01-JUN-2019 06:00,No significant change was foundConfirmed by MD ROSEANNE, MARY ([id number]) on 06/04/2019 12:13:45 PMCH[facility]-Glucose cohpm6897-41-23 08:51:00* Test Item Value Reference Range Interpretation Comments POC-Glucose Meter (test code = 1538) 271 mg/dL 70-110 H TESTED AT [place] [id number] [facility] [address] Lab Interpretation (test code = 46207-6) Abnormal [facility]-GLUCOSE ZUBPZ8878-62-16 08:51:00* Test Item Value Reference Range Interpretation Comments POC-GLUCOSE METER (BEAKER) (test code = 1538) 271 mg/dL 70-110 H TESTED AT [address] [address] Hemoglobin W9v5830-88-04 07:48:00* Test Item Value Reference Range Interpretation Comments Hemoglobin A1C (test code = 4548-4) 10.3 % 4.3-6.1 H Lab Interpretation (test code = 42539-9) Abnormal [facility] HospitalHEMOGLOBIN [id number] 07:48:00* Test Item Value Reference Range Interpretation Comments HEMOGLOBIN A1C (BEAKER) (test code = 368) 10.3 % 4.3-6.1 H Urinalysis w/Microscopic + Reflex to Cjlcjmk5240-71-44 06:18:00* Test Item Value Reference Range Interpretation Comments Color, UA (test code = 5778-6) Light Yellow Clarity, UA (test code = 5767-9) Clear Specific [place], UA (test code = 5811-5) 1.037 1.001-1.035 H pH, UA (test code = 5803-2) 6.0 5.0-8.0 Protein, UA (test code = 74779-6) Negative Negative Glucose, UA (test code = 365) >1000 mg/dL Negative A Ketones, UA (test code = 2514-8) Negative Negative Bilirubin, UA (test code = 45506-5) Negative Negative Blood, UA (test code = 78621-6) Negative Negative Nitrite, UA (test code = 5802-4) Negative Negative Leukocytes, UA (test code = 5799-2) Large Negative A Urobilinogen, UA (test code = 73239-5) 0.2 mg/dL 0.2-1 RBC, UA (test code = 32057-8) 2 /HPF WBC, UA (test code = 5821-4) 7 /HPF Bacteria, UA (test code = 29834-5) Rare Squam Epithel, UA (test code = 06526-8) 2 /HPF Specimen Source (test code = 2795) Lab Interpretation (test code = 63097-0) Abnormal [facility]UR[facility] W/ REFLEX URINE PULMVFQ3255-82-76 06:18:00* Test Item Value Reference Range Interpretation [...] SOURCE(BEAKER) (test code = 2795) Basic metabolic aziat4344-47-88 04:51:00* Test Item Value Reference Range Interpretation [...] mg/dL 70-105 H Calcium (test code = 10590-6) 9.0 mg/dL 8.4-10.2 EGFR (test code = 79310-7) 102 mL/min/1.73 sq m ESTIMATED GFR IS NOT ACCURATE CREATININE CLEARANCE IN PREDICTING GLOMERULAR FILTRATION RATE. ESTIMATED GFR IS NOT APPLICABLE FOR DIALYSIS PATIENTS. Lab Interpretation (test code = 77404-6) [facility]normal [facility] Hospital[facility]esium2019-10-[facility] 04:51:00* Test Item Value Reference Range Interpretation Comments Magnesium (test code = 90105-9) 1.9 mg/dL 1.6-2.6 Lab Interpretation (test code = 59726-9) Normal [facility] HospitalMAGNESIUM2019-10-16 04:51:00* Test Item Value Reference Range Interpretation Comments MAGNESIUM (BEAKER) (test code = 627) 1.9 mg/dL 1.6-2.6 BASIC METABOLIC GAGZW4260-07-68 04:51:00* Test Item Value Reference Range Interpretation [...] IS NOT APPLICABLE FOR DIALYSIS PATIENTS. Troponin H2315-75-33 04:49:00* Test Item Value Reference Range Interpretation Comments Troponin I (test code = 36571-3) <0.01 0-0.03 JAI (test code = JAI) [...] persistent tachyarrhythmia. Lab Interpretation (test code = 78921-3) Normal [facility] HospitalTROPONIN Y8520-34-89 04:49:00* Test Item Value Reference Range Interpretation [...] sistent tachyarrhythmia.CBC with platelet count + automated cnvr5623-99-75 04:27:00* Test Item Value Reference Range Interpretation [...] 450 K/CU MM MPV (test code = 47902-2) 10.8 fL 9.4-12.3 nRBC (test code = [...] % 0-1 Lab Interpretation (test code = 88475-8) Abnormal [facility] W/PLT COUNT & AUTO BKMEBCVWLPOO3708-14-75 04:27:00* Test Item Value Reference Range Interpretation [...] code = 2801) 0 % 0-1 POCT-GLUCOSE AKONP9743-93-87 03:02:00* Test Item Value Reference Range Interpretation Comments POC-GLUCOSE METER (BEAKER) (test code = 1538) 349 mg/dL 70-110 H TESTED AT [facility] [address] [facility] [address] Vvswchmgaeaxm8433-53-39 01:01:00* Test Item Value Reference Range Interpretation Comments Procalcitonin (test code = 05610-8) <0.05 <0.05 ng/mL JAI (test code = JAI) SEPSIS RISK (ng/mL)Low: 0.05-0.50Intermediate: 0.51-2.00High: >=2.01 Lab Interpretation (test code = 27080-8) Normal [facility] HospitalPROCALCITONIN2019-10-16 01:01:00* Test Item Value Reference Range Interpretation Comments PROCALCITONIN (BEAKER) (test code = 3036) < ng/mL <0.05 SEPSIS RISK (ng/mL)Low: 0.05-0.50Intermediate: 0.51-2.00High: > =2.01TROPONIN [id number] 00:55:00* Test Item Value Reference Range Interpretation [...] acute neurological disease, and per sistent tachyarrhythmia.Lipid sxukh0379-80-85 00:49:00* Test Item Value Reference Range Interpretation Comments Triglycerides (test code = 2571-8) 218 mg/dL Cholesterol (test code = 2093-3) 232 mg/dL HDL (test code = 2085-9) 31 mg/dL LDL Calculated (test code = 82599-6) 157 mg/dL JAI (test code = JAI) Triglyceride Reference Range : Low Risk <150 Borderline 150-199 High Risk 200-499 Very High Risk >=500 Cholesterol Reference Range: Low Risk <200 Borderline 200-239 High Risk >240 HDL Cholesterol Reference Range: Low Risk >=60 High Risk <40 LDL Cholesterol Reference Range: Optimal <100 Near Optimal 100-129 Borderline 130-159 High 160-189 Very High >=190 [facility] HospitalLIPID LDHNM0961-70-39 00:49:00* Test Item Value Reference Range Interpretation [...] High 160-189 Very High >=190 BASIC METABOLIC KTIOJ6654-36-42 00:49:00* Test Item Value Reference Range Interpretation [...] code = 697) 9.2 mg/dL 8.4-10.2 EGFR (SHAHAB) (test code = 1092) 89 mL/min/1.73 sq m ESTIMATED GFR IS NOT ACCURATE CREATININE CLEARANCE IN PREDICTING GLOMERULAR FILTRATION RATE. ESTIMATED GFR IS NOT APPLICABLE FOR DIALYSIS PATIENTS. CXR 2 VIEW - [id number] 18:25:00 [place] [address] Patient Name: ANNIA VIDES MR #: [id number] : 1975 Age/Sex: 43/F Req #: [id number] Adm Physician: Ordered by: CASEY PARADA MD Report #: [id number] Location: [facility] Room/Bed: Procedure: [id number] HOPD/CXR 2 VIEW - HOPD Exam Date: 05/31/19 Exam Time: 1753 REPORT STATUS: Signed EXAMINATION: CXR 2 VIEW [...] on 05/31/191825 COPY TO: CASEY PARADA MD Bacterial urine lfkhucg2560-78-48 16:59:00* Test Item Value Reference Range Interpretation Comments Urine Culture (test code = 630-4) ESCHERICHIA COLI [facility] 12 umvd6942-62-97 00:12:18* Test Item Value Reference Range Interpretation Comments Ventricular rate (test code = 253) 103 Atrial rate (test code = 255) 103 AR interval (test code = 266) 126 QRSD [...] of 14-DEC-2018 15:52,-No significant change was found- [facility] lmibtky2754-98-42 02:19:52* Test Item Value Reference Range Interpretation Comments POC glucose (test code = 83845-9) 280 mg/dL 65-99 H HMW Notified MDMeter ID: [id number]: Denice Sands Lab Interpretation (test code = 71958-9) Abnormal [facility] Head Wo Qibivsoa4281-32-41 01:33:20Hm Interface, Radiology Results 04/23/2019 1:36 AM CDTEXAMINATION: CT HEAD WO [...] are normal. IMPRESSION:No acute intracranial abnor mality identified.[facility]-[id number] Health Levelland ED Preliminary Interpretation - Not an Hfokz2340-67-14 00:55:13* Test Item Value Reference Range Interpretation Comments JAI (test code = JAI) Polo Coreas MD 04/23/2019 12:58 [facility] Preliminary Interpretation - Not an OrderPerformed by: Polo Coreas MDAuthorized by: Polo Coreas MD ECG reviewed by ED Physician in the absence of a chief operator hydroformer: yes Previous ECG: Previous ECG: UnavailableInterpretation: Interpretation: abnormal Rate: ECG rate: 103 bpm ECG rate assessment: tachycardic Rhythm: Rhythm: sinus tachycardia QRS: QRS axis: Normal QRS intervals: Normal (98 ms)Conduction: Conduction: abnormal Abnormal conduction: incomplete RBBB ST segments: ST segments: NormalT waves: T waves: normal Other findings: Other findings comment: Left axis deviationsComments: AR 126 msQT/QTc 364/476 ms Lab Interpretation (test code = 30681-6) Abnormal [facility]2019-09-07 00:55:13Polo Coreas MD 04/23/2019 12:58 PMCritical CarePerformed by: Polo Coreas MDAuthorized by: Polo Coreas MD Critical care provider statement: Critical care time (minutes): 35 Critical care time was exclusive of: Separately billable procedures and treating other patients Critical care was necessary to treat or prevent imminent or life-threatening deterioration of the following conditions: Cardiac failure and NETWORK [employer] 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 failure or compromise Critical care was time spent personally by me on the following activities: Development of treatment plan with patient or surrogate, ordering and review of laboratory studies, ordering and review of radiographic studies, discussions with consultants, discussions with primary provider, pulse oximetry, re-evaluation of patient's condition, evaluation of patient's response to treatment, examination of patient and review of old chartsChristus Good Shepherd Medical Center – LongviewComprehensive metabolic oqwta5841-08-07 00:36:13* Test Item Value Reference Range Interpretation Comments Sodium (test code = 2951-2) 136 135- 148 mEq/L Potassium (test code = 2823-3) 4.5 3.5- 5.0 mEq/L Chloride (test code = 2075-0) 96 99- 109 mEq/L L CO2 (test code = 2027-9) 27 24- 31 mEq/L Anion gap (test code = 80143-3) 13@ANIO 7- 15 mEq/L BUN (test code = 3094-0) 11 mg/dL 8-24 Creatinine (test code = 2160-0) 0.45 mg/dL 0.5-0.9 L Glucose (test code = 2345-7) 476 mg/dL 65-99 HH GLU results called to and read back by PHILIPPE SANDS RN/ETHAN at 04/23/2019 00:35 by AP. Calcium (test code = 31210-6) 9.2 mg/dL 8.6-10.6 Protein (test code = 2885-2) 7.0 g/dL 6.3-8.2 Albumin (test code = 1751-7) 3.1 g/dL 3.5-5 L A/G ratio (test code = 1759-0) 0.8 0.7-3.8 Alkaline phosphatase (test code = 6768-6) 114 U/L 30-115 AST (test code = 1920-8) 42 U/L 15-46 ALT (test code = 1742-6) 45 U/L 10-55 Total bilirubin (test code = 1974-2) <0.3 0.2-1.2 Lab Interpretation (test code = 10344-0) Abnormal [facility] MethodistEstimated [id number] 00:36:13* Test Item Value Reference Range Interpretation Comments Estimated GFR (test code = 5488) >=90 mL/min/1.73 m2 Catergory Units InterpretationG1 >=90 Normal or highG2 60-89 Mildly nbusawkmiI3u 45-59 Mildly to moderately ymbququexA2z 30-44 Moderately to severely decreasedG4 15-29 Severely decreasedG5 <15 Kidney failureThe eGFR was calculated using the Chronic Kidney Disease Epidemiology Collaboration (CKD-EPI) equation. Interpretation is based on recommendations of the National Kidney Foundation-Kidney Disease Outcomes Quality Initiative (NKF-KDOQI) published in 2014. Luque KarolinemodestaB natriuretic hmmcvmk6368-12-54 00:31:34* Test Item Value Reference Range Interpretation Comments BNP (test code = 27026-0) 7 pg/mL 0-100 [facility] – LongviewYjhtjhvxhWbvmnxeo6580-30-70 00:22:12* Test Item Value Reference Range Interpretation Comments Troponin (test code = 54235-4) <0.006 0-0.04 [facility] changed methodology effective: 12/21/2018 at 10:00 amThe new method has a 99th percentile cutoff of 0.040 ng/mL [facility] with platelet and qbrimsshganp7185-61-12 00:03:51* Test Item Value Reference Range Interpretation Comments WBC (test code = 73377-9) 10.41 4.50- 11.00 k/uL RBC (test code = 23690-5) 4.59 m/uL 4.2-5.5 HGB (test code = 718-7) 13.4 g/dL 12-16 HCT (test code = 4544-3) 41.5 % 37-47 MCV (test code = 787-2) 90.4 fL 82-100 MCH (test code = 785-6) 29.2 pg 27-34 MCHC (test code = 786-4) 32.3 g/dL 31-37 RDW - SD (test code = 85276-6) 43.7 fL 37-55 MPV (test code = 69254-3) 11.3 fL 8.8-13.2 Platelet count (test code = 29733-6) 262 150- 400 k/uL Neutrophils (test code = 92718-9) 61.9 % 39-69 Lymphocytes (test code = 19191-6) 27.7 % 25-45 Monocytes (test code = 99885-9) 7.7 % 0-10 Eosinophils (test code = 29530-8) 1.8 % 0-5 Basophils (test code = 07885-8) 0.4 % 0-1 Immature granulocytes (test code = 11734-7) 0.5 % 0-1 [facility] MethodistUrine Xteigbt1621-07-82 09:05:40 C Urine Added by [id number]_IND30,000 cfu/ml [...] verified? yes CT Abdomen and Pelvis w/ Axfwhmdj8226-92-62 13:51:15Patient: ANNIA VIDES Date/Time04/15/2019 13:16 CDTReason for [...] 13:07:15Patient: ANNIA VIDES Date/Time04/15/2019 13:05 CDTReason for ExamChest painReportDictation location R16:Portable chest one view.HISTORY: Chest [...] Phebe CSigned (Electronic Signature): 04/15/2019 1:07 pmTroponin [id number] 13:02:06* Test Item Value Reference Range Interpretation [...] JORGENSEN RN at 04/15/2019 13:01:54 CDT by AVEL. Read back and verified? YES [facility] Plfgr9202-41-89 12:51:05* Test Item Value Reference Range Interpretation [...] A/G Ratio) 1.3 ratio N [facility] Metabolic Mwpeu3780-12-08 12:51:05* Test Item Value Reference Range Interpretation [...] is not provided, and the patient is -[place], multiply by 1.212. If sex is not [...] the National Kidney Foundation, http://nkdep.nih.gov Comprehensive Metabolic Zrtrn0039-14-49 12:51:05* Test Item Value Reference Range Interpretation [...] is not provided, and the patient is -[place], multiply by 1.212. If sex is not [...] is not provided, and the patient is -[place], multiply by 1.212. If sex is not [...] by the National Kidney Foundation, http://nkdep.nih.gov D-Dimer Dzmwnopmwnve0975-73-91 12:46:53* Test Item Value Reference Range Interpretation Comments D Dimer, (Quant.) (test code = D Dimer, (Quant.)) 252 ng/mL 0-50 0 HCG Qualitative Zswle8235-98-71 12:36:52* Test Item Value Reference Range Interpretation Comments HCG, Serum Qual (test code = HCG, Serum Qual) Negative Lot # (test code = Lot #) [id number] Expiration Dt (test code = Expiration Dt) 2020-10-14 N Neg Control (test code = Neg Control) Negative Pos Control (test code = Pos Control) Positive Internal QC (test code = Internal QC) Acceptable Urinalysis Oqbumjhrzqs9315-62-41 12:33:52* Test Item Value Reference Range Interpretation Comments UA WBC (test code = UA WBC) 0-5 0-5 UA RBC (test code = UA RBC) None Seen 0-5 UA Bacteria (test code = UA Bacteria) Few A UA Squam Epithelial (test code = UA Squam Epithelial) 6-10 A Urinalysis with Culture, if iiahjucmd9915-38-50 12:26:06* Test Item Value Reference Range Interpretation [...] A Result created by rule GL_SJM_UA_MICRO_IND Automated Ujbkxhbhcesu0163-59-39 12:25:32* Test Item Value Reference Range Interpretation Comments Neutro Auto (test code = Neutro Auto) 60.7 % 36.0-70.0 Lymph Auto (test code = Lymph Auto) 29.3 % 12.0-44.0 [place] Auto (test code = [place] Auto) 7.6 % 0.0-11.0 Eos, Auto (test code = Eos, Auto) 1.8 % 0.0-7.0 Basophil Auto (test code = Basophil Auto) 0.3 % 0.0-2.0 Neutro Absolute (test code = Neutro Absolute) 5.9 x10 1.6-7.4 Lymph Absolute (test code = Lymph Absolute) 2.87 x10 .50-4.60 [place] Absolute (test code = [place] Absolute) .74 x10 .00-1.20 Eos Absolute (test code = Eos Absolute) 0.18 x10 0.00-0.74 Baso Absolute (test code = Baso Absolute) 0.03 x10 0.00-0.21 IG Weotb1297-50-84 12:25:32* Test Item Value Reference Range Interpretation Comments IG (test code = IG) 0.3 % 0.0-5.0 IG Abs (test code = IG Abs) 0 x10 N Complete Blood Count with Yygluncnoeyu9897-54-78 12:25:31* Test Item Value Reference Range Interpretation [...] code = IPF) 0 % N Sodium Fjhwe2013-76-48 05:26:00* Test Item Value Reference Range Interpretation Comments Sodium Level (test code = 2951-2) 135 136-145 L [facility]Potassium Uxvii0423-73-62 05:26:00* Test Item Value Reference Range Interpretation Comments Potassium Level (test code = 2823-3) 4.0 3.5-5.1 [facility] CenterChloride Ttass2371-68-04 05:26:00* Test Item Value Reference Range Interpretation Comments Chloride Level (test code = 2075-0) 98 98-107 [facility] CenterCarbon Dioxide Bqnfd5369-35-07 05:26:00* Test Item Value Reference Range Interpretation Comments Carbon Dioxide Level (test code = 2028-9) 27 22-29 [facility] CenterAnion Aow1680-08-02 05:26:00* Test Item Value Reference Range Interpretation Comments Anion Gap (test code = 57074-2) 14.0 8-16 [facility] CenterBlood Urea Xgxwflxl1491-21-06 05:26:00* Test Item Value Reference Range Interpretation Comments Blood Urea Nitrogen (test code = 3094-0) 11 7-26 [facility] CenterCreatinine2019-08-17 05:26:00* Test Item Value Reference Range Interpretation Comments Creatinine (test code = 2160-0) 0.72 0.57-1.11 [facility] CenterBUN/Creatinine Mzwct5996-59-80 05:26:00* Test Item Value Reference Range Interpretation Comments BUN/Creatinine Ratio (test code = 3097-3) 15 6-25 [facility] CenterEstimat Glomerular Filtration Rate 2019-04-02 05:26:00* Test Item Value Reference Range Interpretation Comments Estimat Glomerular Filtration Rate (test code = 957293369) > 60 >60 Ranges were taken from the National Kidney Disease Education Program and the [facility] literature.Reference ranges:60 or greater: Ejvlhs25-96 ( for 3 consecutive months): Chronic kidney disease 15 or less: Kidney failureCarrollton Regional Medical CenterGlucose Mfnyc7485-55-50 05:26:00* Test Item Value Reference Range Interpretation Comments Glucose Level (test code = ARK9951) 402 74-118 HH Results repeated and called to KATE BALL RN at 0526 on 04/02/19 by Linda meier Read back and verified.[facility] CenterCalcium Level 2019-04-02 05:26:00* Test Item Value Reference Range Interpretation Comments Calcium Level (test code = 91907-6) 9.4 8.4-10.2 [facility] CenterTotal Uabescito3850-35-99 05:26:00* Test Item Value Reference Range Interpretation Comments Total Bilirubin (test code = 1975-2) 0.2 0.2-1.2 [facility] CenterAspartate Amino Transf (AST/SGOT) 2019-04-02 05:26:00* Test Item Value Reference Range Interpretation Comments Aspartate Amino Transf (AST/SGOT) (test code = Aspartate Amino Transf (AST/SGOT)) 18 5-34 [facility] CenterAlanine Aminotransferase (ALT/SGPT) 2019-04-02 05:26:00* Test Item Value Reference Range Interpretation Comments Alanine Aminotransferase (ALT/SGPT) (test code = 1742-6) 46 0-55 [facility] CenterTotal Ljamjky3624-36-92 05:26:00* Test Item Value Reference Range Interpretation Comments Total Protein (test code = 2885-2) 6.9 6.5-8.1 [facility] CenterAlbumin2019-08-17 05:26:00* Test Item Value Reference Range Interpretation Comments Albumin (test code = 1751-7) 3.2 3.5-5.0 L [facility] CenterGlobulin2019-08-17 05:26:00* Test Item Value Reference Range Interpretation Comments Globulin (test code = 47696-8) 3.7 2.3-3.5 H [facility] CenterAlbumin/Globulin Nmfpk4279-65-66 05:26:00 * Test Item Value Reference Range Interpretation Comments Albumin/Globulin Ratio (test code = 1759-0) 0.9 0.8-2.0 [facility] CenterAlkaline Ogkngmnujeu1452-38-91 05:26:00* Test Item Value Reference Range Interpretation Comments Alkaline Phosphatase (test code = 6768-6) 109 40-150 [facility] Hidfj6451-81-56 05:26:00* Test Item Value Reference Range Interpretation Comments Sodium Level (test code = 2951-2) 135 136-145 L [facility] CenterPotassium Exyqk5481-06-12 05:26:00* Test Item Value Reference Range Interpretation Comments Potassium Level (test code = 2823-3) 4.0 3.5-5.1 [facility] CenterChloride Fkypy3243-66-49 05:26:00* Test Item Value Reference Range Interpretation Comments Chloride Level (test code = 2075-0) 98 98-107 [facility] CenterCarbon Dioxide Exriv4927-89-66 05:26:00* Test Item Value Reference Range Interpretation Comments Carbon Dioxide Level (test code = 2028-9) 27 22-29 [facility] CenterAnion Rpp6735-91-64 05:26:00* Test Item Value Reference Range Interpretation Comments Anion Gap (test code = 76650-5) 14.0 8-16 [facility] CenterBlood Urea Jzuhtmxt7045-93-06 05:26:00* Test Item Value Reference Range Interpretation Comments Blood Urea Nitrogen (test code = 3094-0) 11 7-26 [facility] CenterCreatinine2019-08-17 05:26:00* Test Item Value Reference Range Interpretation Comments Creatinine (test code = 2160-0) 0.72 0.57-1.11 [facility] CenterBUN/Creatinine Assid5067-08-28 05:26:00* Test Item Value Reference Range Interpretation Comments BUN/Creatinine Ratio (test code = 3097-3) 15 6- [facility] CenterEstimat Glomerular Filtration Rate 2019-04-02 05:26:00* Test Item Value Reference Range Interpretation Comments Estimat Glomerular Filtration Rate (test code = 071364696) > 60 >60 Ranges were taken from the National Kidney Disease Education Program and the [facility] Foundation literature.Reference ranges:60 or greater: Jfwuky54-45 ( for 3 consecutive months): Chronic kidney disease 15 or less: Kidney failureCarrollton Regional Medical CenterGlucose Oarel7722-18-69 05:26:00* Test Item Value Reference Range Interpretation Comments Glucose Level (test code = UYS0019) 402 74-118 HH Results repeated and called to KATE BALL RN at 0526 on 04/02/19 by Linda meier Read back and verified.[facility] CenterCalcium Level 2019-04-02 05:26:00* Test Item Value Reference Range Interpretation Comments Calcium Level (test code = 30052-3) 9.4 8.4-10.2 [facility] CenterTotal Gqcvafijm7194-09-22 05:26:00* Test Item Value Reference Range Interpretation Comments Total Bilirubin (test code = 1975-2) 0.2 0.2-1.2 [facility] CenterAspartate Amino Transf (AST/SGOT) 2019-04-02 05:26:00* Test Item Value Reference Range Interpretation Comments Aspartate Amino Transf (AST/SGOT) (test code = Aspartate Amino Transf (AST/SGOT)) 18 5-34 [facility] CenterAlanine Aminotransferase (ALT/SGPT) 2019-04-02 05:26:00* Test Item Value Reference Range Interpretation Comments Alanine Aminotransferase (ALT/SGPT) (test code = 1742-6) 46 0-55 [facility] CenterTotal Rqmtqhm1214-02-91 05:26:00* Test Item Value Reference Range Interpretation Comments Total Protein (test code = 2885-2) 6.9 6.5-8.1 [facility] CenterAlbumin2019-08-17 05:26:00* Test Item Value Reference Range Interpretation Comments Albumin (test code = 1751-7) 3.2 3.5-5.0 L [facility] CenterGlobulin2019-08-17 05:26:00* Test Item Value Reference Range Interpretation Comments Globulin (test code = 67212-3) 3.7 2.3-3.5 H [facility] CenterAlbumin/Globulin Qsabz0784-27-22 05:26:00 * Test Item Value Reference Range Interpretation Comments Albumin/Globulin Ratio (test code = 1759-0) 0.9 0.8-2.0 [facility] CenterAlkaline Nafghqruinl8494-76-40 05:26:00* Test Item Value Reference Range Interpretation Comments Alkaline Phosphatase (test code = 6768-6) 109 40-150 [facility] CenterWhite Blood Tjjrg2369-34-17 04:51:00* Test Item Value Reference Range Interpretation Comments White Blood Count (test code = 6690-2) 10.39 4.8-10.8 [facility] CenterRed Blood Iabxh6783-01-22 04:51:00* Test Item Value Reference Range Interpretation Comments Red Blood Count (test code = 789-8) 4.85 3.6-5.1 [facility] CenterHemoglobin2019-08-17 04:51:00* Test Item Value Reference Range Interpretation Comments Hemoglobin (test code = 10823-4) 14.2 12.0-16.0 [facility] CenterHematocrit2019-08-17 04:51:00* Test Item Value Reference Range Interpretation Comments Hematocrit (test code = 4544-3) 43.2 34.2-44.1 [facility] CenterMean Corpuscular Uenpcz4347-07-00 04:51:00* Test Item Value Reference Range Interpretation Comments Mean Corpuscular Volume (test code = 787-2) 89.1 81-99 [facility] CenterMean Corpuscular Xufdgyaayr9579-30-54 04:51:00* Test Item Value Reference Range Interpretation Comments Mean Corpuscular Hemoglobin (test code = 785-6) 29.3 28-32 [facility] CenterMean Corpuscular Hemoglobin Concent 2019-04-02 04:51:00* Test Item Value Reference Range Interpretation Comments Mean Corpuscular Hemoglobin Concent (test code = 786-4) 32.9 31-35 [facility] CenterRed Cell Distribution Kjldd0814-58-12 04:51:00* Test Item Value Reference Range Interpretation Comments Red Cell Distribution Width (test code = 33973-2) 13.1 11.7 -14.4 [facility] CenterPlatelet Opnuj3954-55-39 04:51:00* Test Item Value Reference Range Interpretation Comments Platelet Count (test code = 777-3) 271 140-360 [facility] CenterNeutrophils (%) (Auto)2019-04-02 04:51:00 * Test Item Value Reference Range Interpretation Comments Neutrophils (%) (Auto) (test code = 68531-5) 61.2 38.7-80.0 [facility] CenterLymphocytes (%) (Auto)2019-04-02 04:51:00 * Test Item Value Reference Range Interpretation Comments Lymphocytes (%) (Auto) (test code = 736-9) 28.3 18.0-39.1 [facility] CenterMonocytes (%) (Auto)2019-04-02 04:51:00* Test Item Value Reference Range Interpretation Comments Monocytes (%) (Auto) (test code = 5905-5) 8.3 4.4-11.3 [facility] CenterEosinophils (%) (Auto)2019-04-02 04:51:00 * Test Item Value Reference Range Interpretation Comments Eosinophils (%) (Auto) (test code = 713-8) 1.6 0.0-6.0 [facility] CenterBasophils (%) (Auto)2019-04-02 04:51:00* Test Item Value Reference Range Interpretation Comments Basophils (%) (Auto) (test code = 706-2) 0.2 0.0-1.0 [facility] CenterIM GRANULOCYTES %2019-04-02 04:51:00* Test Item Value Reference Range Interpretation Comments IM GRANULOCYTES % (test code = IM GRANULOCYTES %) 0.4 0.0- 1.0 [facility] CenterNeutrophils # (Auto)2019-04-02 04:51:00* Test Item Value Reference Range Interpretation Comments Neutrophils # (Auto) (test code = 751-8) 6.4 2.1-6.9 [facility] CenterLymphocytes # (Auto)2019-04-02 04:51:00* Test Item Value Reference Range Interpretation Comments Lymphocytes # (Auto) (test code = 73828-8) 2.9 1.0-3.2 [facility] CenterMonocytes # (Auto)2019-04-02 04:51:00* Test Item Value Reference Range Interpretation Comments Monocytes # (Auto) (test code = 742-7) 0.9 0.2-0.8 H [facility] CenterEosinophils # (Auto)2019-04-02 04:51:00* Test Item Value Reference Range Interpretation Comments Eosinophils # (Auto) (test code = 711-2) 0.2 0.0-0.4 [facility] CenterBasophils # (Auto)2019-04-02 04:51:00* Test Item Value Reference Range Interpretation Comments Basophils # (Auto) (test code = 704-7) 0.0 0.0-0.1 [facility] CenterAbsolute Immature Granulocyte (auto 2019-04-02 04:51:00* Test Item Value Reference Range Interpretation Comments Absolute Immature Granulocyte (auto (simran t code = Absolute Immature Granulocyte (auto) 0.04 0-0.1 [facility] CenterWhite Blood Vncgs8298-78-60 04:51:00* Test Item Value Reference Range Interpretation Comments White Blood Count (test code = 6690-2) 10.39 4.8-10.8 [facility] CenterRed Blood Avjrr9120-13-67 04:51:00* Test Item Value Reference Range Interpretation Comments Red Blood Count (test code = 789-8) 4.85 3.6-5.1 [facility] CenterHemoglobin2019-08-17 04:51:00* Test Item Value Reference Range Interpretation Comments Hemoglobin (test code = 03217-2) 14.2 12.0-16.0 [facility] CenterHematocrit2019-08-17 04:51:00* Test Item Value Reference Range Interpretation Comments Hematocrit (test code = 4544-3) 43.2 34.2-44.1 [facility] CenterMean Corpuscular Vkkdad6843-96-61 04:51:00* Test Item Value Reference Range Interpretation Comments Mean Corpuscular Volume (test code = 787-2) 89.1 81-99 [facility] CenterMean Corpuscular Enqgfhpifs3526-16-77 04:51:00* Test Item Value Reference Range Interpretation Comments Mean Corpuscular Hemoglobin (test code = 785-6) 29.3 28-32 [facility] CenterMean Corpuscular Hemoglobin Concent 2019-04-02 04:51:00* Test Item Value Reference Range Interpretation Comments Mean Corpuscular Hemoglobin Concent (test code = 786-4) 32.9 31-35 [facility] CenterRed Cell Distribution Vwgro2680-94-90 04:51:00* Test Item Value Reference Range Interpretation Comments Red Cell Distribution Width (test code = 69145-8) 13.1 11.7 -14.4 [facility] CenterPlatelet Gqwnc1959-84-03 04:51:00* Test Item Value Reference Range Interpretation Comments Platelet Count (test code = 777-3) 271 140-360 [facility] CenterNeutrophils (%) (Auto)2019-04-02 04:51:00 * Test Item Value Reference Range Interpretation Comments Neutrophils (%) (Auto) (test code = 03869-4) 61.2 38.7-80.0 [facility] CenterLymphocytes (%) (Auto)2019-04-02 04:51:00 * Test Item Value Reference Range Interpretation Comments Lymphocytes (%) (Auto) (test code = 736-9) 28.3 18.0-39.1 [facility] CenterMonocytes (%) (Auto)2019-04-02 04:51:00* Test Item Value Reference Range Interpretation Comments Monocytes (%) (Auto) (test code = 5905-5) 8.3 4.4-11.3 [facility] CenterEosinophils (%) (Auto)2019-04-02 04:51:00 * Test Item Value Reference Range Interpretation Comments Eosinophils (%) (Auto) (test code = 713-8) 1.6 0.0-6.0 [facility] CenterBasophils (%) (Auto)2019-04-02 04:51:00* Test Item Value Reference Range Interpretation Comments Basophils (%) (Auto) (test code = 706-2) 0.2 0.0-1.0 [facility] CenterIM GRANULOCYTES %2019-04-02 04:51:00* Test Item Value Reference Range Interpretation Comments IM GRANULOCYTES % (test code = IM GRANULOCYTES %) 0.4 0.0- 1.0 [facility] CenterNeutrophils # (Auto)2019-04-02 04:51:00* Test Item Value Reference Range Interpretation Comments Neutrophils # (Auto) (test code = 751-8) 6.4 2.1-6.9 [facility] CenterLymphocytes # (Auto)2019-04-02 04:51:00* Test Item Value Reference Range Interpretation Comments Lymphocytes # (Auto) (test code = 54195-1) 2.9 1.0-3.2 [facility] CenterMonocytes # (Auto)2019-04-02 04:51:00* Test Item Value Reference Range Interpretation Comments Monocytes # (Auto) (test code = 742-7) 0.9 0.2-0.8 H [facility] CenterEosinophils # (Auto)2019-04-02 04:51:00* Test Item Value Reference Range Interpretation Comments Eosinophils # (Auto) (test code = 711-2) 0.2 0.0-0.4 [facility] CenterBasophils # (Auto)2019-04-02 04:51:00* Test Item Value Reference Range Interpretation Comments Basophils # (Auto) (test code = 704-7) 0.0 0.0-0.1 [facility] CenterAbsolute Immature Granulocyte (auto 2019-04-02 04:51:00* Test Item Value Reference Range Interpretation Comments Absolute Immature Granulocyte (auto (simran t code = Absolute Immature Granulocyte (auto) 0.04 0-0.1 [facility] CenterCT BRAIN XO1690-20-94 03:55:00 [facility] [address] [place] [address] Patient Name: ANNIA VIDES MR #: [id number] : 0 1975 Age/Sex: 43/F Req #: [id number] Adm Physician: Ordered by: PORSCHE SPENCER MD Report #: [id number] Location: ER Room/Bed: Procedure: 0817 -0005 CT/CT [...] By: MANJINDER on 04/02/19399 COPY TO: PORSCHE SPENCER MD Creatine Jsqhuz6860-06-60 22:41:00* Test Item Value Reference Range Interpretation Comments Creatine Kinase (test code = 2157-6) [facility] CenterCreatine Ufvrtl7093-68-51 22:41:00* Test Item Value Reference Range Interpretation Comments Creatine Kinase (test code = 2157-6) [facility] CenterCreatine Dnuzga1550-98-03 22:41:00* Test Item Value Reference Range Interpretation Comments Creatine Kinase (test code = 2157-6) [facility] CenterUrine JOM3085-49-12 22:40:00* Test Item Value Reference Range Interpretation Comments Urine WBC (test code = 5821-4) 21-50 0-5 H [facility] CenterUrine WZI2662-58-93 22:40:00* Test Item Value Reference Range Interpretation Comments Urine RBC (test code = 71025-8) 11-20 0-5 H [facility] CenterUrine Xxfkyfxd2467-80-59 22:40:00* Test Item Value Reference Range Interpretation Comments Urine Bacteria (test code = 06612-8) FEW NONE [facility] CenterUrine Epithelial Bungf1356-40-06 22:40:00 * Test Item Value Reference Range Interpretation Comments Urine Epithelial Cells (test code = 76074-7) FEW NONE [facility] CenterUrine SUG3078-93-73 22:40:00* Test Item Value Reference Range Interpretation Comments Urine WBC (test code = 5821-4) 21-50 0-5 H [facility] CenterUrine YXF0212-26-76 22:40:00* Test Item Value Reference Range Interpretation Comments Urine RBC (test code = 16866-7) 11-20 0-5 H [facility] CenterUrine Huaopypb3835-05-55 22:40:00* Test Item Value Reference Range Interpretation Comments Urine Bacteria (test code = 34929-2) FEW NONE [facility] CenterUrine Epithelial Iulct7602-54-49 22:40:00 * Test Item Value Reference Range Interpretation Comments Urine Epithelial Cells (test code = 63265-6) FEW NONE [facility] CenterUrine OYJ4654-26-20 22:40:00* Test Item Value Reference Range Interpretation Comments Urine WBC (test code = 5821-4) 21-50 0-5 H [facility] CenterUrine EFY8938-80-56 22:40:00* Test Item Value Reference Range Interpretation Comments Urine RBC (test code = 55105-9) 11-20 0-5 H [facility] CenterUrine Diinarhv2636-91-52 22:40:00* Test Item Value Reference Range Interpretation Comments Urine Bacteria (test code = 73895-4) FEW NONE [facility] CenterUrine Epithelial Zdcmp8849-34-02 22:40:00 * Test Item Value Reference Range Interpretation Comments Urine Epithelial Cells (test code = 85480-8) FEW NONE [facility] CenterUrine Opiates Kcmpvf5085-79-40 22:32:00* Test Item Value Reference Range Interpretation Comments Urine Opiates Screen (test code = 26283-6) NEGATIVE NEGATIVE ALL TESTS PERFORMED MANUALLY ON [employer] TOX/SEE TESTCarrollton Regional Medical CenterUrine Barbiturates Ompkmj4081-76-41 22:32:00* Test Item Value Reference Range Interpretation Comments Urine Barbiturates Screen (test code = 640657830) NEGATIVE NEGA TIVE [facility] CenterUrine Phencyclidine Finvge1075-44-47 22:32:00* Test Item Value Reference Range Interpretation Comments Urine Phencyclidine Screen (test code = 98050-3) NEGATIVE NEGAT GEOVANNA [facility] CenterUrine Amphetamines Ttdfoj5827-97-19 22:32:00* Test Item Value Reference Range Interpretation Comments Urine Amphetamines Screen (test code = 38536-4) NEGATIVE NEGATI VE [facility] CenterUrine Methamphetamines Rnamdj5554-88-42 22:32:00* Test Item Value Reference Range Interpretation Comments Urine Methamphetamines Screen (test code = Urine Metha mphetamines Screen) NEGATIVE NEGATIVE [facility] CenterUrine Benzodiazepines Cmkycp1454-28-15 22:32:00* Test Item Value Reference Range Interpretation Comments Urine Benzodiazepines Screen (test code = 13056-1) NEGATIVE NEG ATIVE [facility] CenterUrine Cocaine Wnpngt4803-46-23 22:32:00* Test Item Value Reference Range Interpretation Comments Urine Cocaine Screen (test code = 3398-5) NEGATIVE NEGATIVE [facility] CenterUrine Cannabinoids Ghrqzm8190-62-09 22:32:00* Test Item Value Reference Range Interpretation Comments Urine Cannabinoids Screen (test code = 45877-9) NEGATIVE NEGATI VE THESE RESULTS ARE FOR MEDICAL TREATMENT ONLYTHIS REPORT CONTAINS UNCONFIR MED SCREENING RESULTS*POSITIVE RESULTS WILL BE CONFIRMED BY REFERENCE LAB UPON R EQUEST CUT-OFFDRUG CLASS CONCENTRATION ng/mLAmphetamines 1000Methamphetamines 1000Cocaine 300Opiate 300Phencyc lidine 25Cannabinoid 50Barbiturates 300Benzodiazepine 300Methadone 300[facility] CenterUrine Methadone Uuectz1084-88-07 22:32:00* Test Item Value Reference Range Interpretation Comments Urine Methadone Screen (test code = 13180-5) NEGATIVE NEGATIVE THESE RESULTS ARE FOR MEDICAL TREATMENT ONLYTHIS REPORT CONTAINS UNCONFIR MED SCREENING RESULTS*POSITIVE RESULTS WILL BE CONFIRMED BY REFERENCE LAB UPON R EQUEST CUT-OFFDRUG CLASS CONCENTRATION ng/mLAmphetamines 1000Methamphetamines 1000Cocaine Metabolite 300Opiate 300Phencyc lidine 25Cannabinoid 50Barbiturates 300Benzodiazepine 300Methadone 300[facility] CenterUrine Opiates Pvimcl7188-59-56 22:32:00* Test Item Value Reference Range Interpretation Comments Urine Opiates Screen (test code = 56002-2) NEGATIVE NEGATIVE ALL TESTS PERFORMED MANUALLY ON [employer] TOX/SEE TESTCarrollton Regional Medical CenterUrine Barbiturates Ytaqlq5689-35-08 22:32:00* Test Item Value Reference Range Interpretation Comments Urine Barbiturates Screen (test code = 316112356) NEGATIVE NEGA TIVE [facility] Phencyclidine Vditsx9270-01-59 22:32:00* Test Item Value Reference Range Interpretation Comments Urine Phencyclidine Screen (test code = 13692-9) NEGATIVE NEGAT GEOVANNA [facility] Center[facility] Amphetamines Anlvyd0870-65-09 22:32:00* Test Item Value Reference Range Interpretation Comments Urine Amphetamines Screen (test code = 79040-9) NEGATIVE NEGATI VE [facility] Center[facility] Methamphetamines Tuvwnp7009-18-83 22:32:00* Test Item Value Reference Range Interpretation Comments Urine Methamphetamines Screen (test code = Urine Metha mphetamines Screen) NEGATIVE NEGATIVE [facility] Center[facility] Benzodiazepines Jywhzs6412-56-53 22:32:00* Test Item Value Reference Range Interpretation Comments Urine Benzodiazepines Screen (test code = 71193-0) NEGATIVE NEG ATIVE [facility] Center[facility] Cocaine Aanmnm1033-91-77 22:32:00* Test Item Value Reference Range Interpretation Comments Urine Cocaine Screen (test code = 3398-5) NEGATIVE NEGATIVE [facility] Center[facility] Cannabinoids Jaibtl2150-07-10 22:32:00* Test Item Value Reference Range Interpretation Comments Urine Cannabinoids Screen (test code = 76365-7) NEGATIVE NEGATI VE THESE RESULTS ARE FOR MEDICAL TREATMENT ONLYTHIS REPORT CONTAINS UNCONFIR MED SCREENING RESULTS*POSITIVE RESULTS WILL BE CONFIRMED BY REFERENCE LAB UPON R EQUEST CUT-OFFDRUG CLASS CONCENTRATION ng/mLAmphetamines 1000Methamphetamines 1000Cocaine 300Opiate 300Phencyc lidine 25Cannabinoid 50Barbiturates 300Benzodiazepine 300Methadone 300[facility] Center[facility] Methadone Vsqrrz8352-14-28 22:32:00* Test Item Value Reference Range Interpretation Comments Urine Methadone Screen (test code = 13156-5) NEGATIVE NEGATIVE THESE RESULTS ARE FOR MEDICAL TREATMENT ONLYTHIS REPORT CONTAINS UNCONFIR MED SCREENING RESULTS*POSITIVE RESULTS WILL BE CONFIRMED BY REFERENCE LAB UPON R EQUEST CUT-OFFDRUG CLASS CONCENTRATION ng/mLAmphetamines 1000Methamphetamines 1000Cocaine Metabolite 300Opiate 300Phencyc lidine 25Cannabinoid 50Barbiturates 300Benzodiazepine 300Methadone 300[facility] Center[facility] Opiates Lntvhu7391-20-53 22:32:00* Test Item Value Reference Range Interpretation Comments Urine Opiates Screen (test code = 88009-7) NEGATIVE NEGATIVE ALL TESTS PERFORMED MANUALLY ON [employer] TOX/SEE TESTCarrollton Regional Medical CenterUrine Barbiturates Rwfhol2743-03-80 22:32:00* Test Item Value Reference Range Interpretation Comments Urine Barbiturates Screen (test code = 400299537) NEGATIVE NEGA TIVE [facility] Center[facility] Phencyclidine Zaksmi3167-01-79 22:32:00* Test Item Value Reference Range Interpretation Comments Urine Phencyclidine Screen (test code = 93731-7) NEGATIVE NEGAT GEOVANNA [facility] Center[facility] Amphetamines Reumum0826-26-90 22:32:00* Test Item Value Reference Range Interpretation Comments Urine Amphetamines Screen (test code = 61206-8) NEGATIVE NEGATI VE [facility] Center[facility] Methamphetamines Muclyn8265-82-94 22:32:00* Test Item Value Reference Range Interpretation Comments Urine Methamphetamines Screen (test code = Urine Metha mphetamines Screen) NEGATIVE NEGATIVE [facility] Center[facility] Benzodiazepines Zmkqls7640-86-16 22:32:00* Test Item Value Reference Range Interpretation Comments Urine Benzodiazepines Screen (test code = 07855-9) NEGATIVE NEG ATIVE [facility] Center[facility] Cocaine Szfkxz3167-43-12 22:32:00* Test Item Value Reference Range Interpretation Comments Urine Cocaine Screen (test code = 3398-5) NEGATIVE NEGATIVE [facility] Center[facility] Cannabinoids Bofsch2240-06-51 22:32:00* Test Item Value Reference Range Interpretation Comments Urine Cannabinoids Screen (test code = 66421-8) NEGATIVE NEGATI VE THESE RESULTS ARE FOR MEDICAL TREATMENT ONLYTHIS REPORT CONTAINS UNCONFIR MED SCREENING RESULTS*POSITIVE RESULTS WILL BE CONFIRMED BY REFERENCE LAB UPON R EQUEST CUT-OFFDRUG CLASS CONCENTRATION ng/mLAmphetamines 1000Methamphetamines 1000Cocaine 300Opiate 300Phencyc lidine 25Cannabinoid 50Barbiturates 300Benzodiazepine 300Methadone 300[facility] CenterU[facility] Methadone Ybordw4228-35-71 22:32:00* Test Item Value Reference Range Interpretation Comments Urine Methadone Screen (test code = 18758-8) NEGATIVE NEGATIVE THESE RESULTS ARE FOR MEDICAL TREATMENT ONLYTHIS REPORT CONTAINS UNCONFIR MED SCREENING RESULTS*POSITIVE RESULTS WILL BE CONFIRMED BY REFERENCE LAB UPON R EQUEST CUT-OFFDRUG CLASS CONCENTRATION ng/mLAmphetamines 1000Methamphetamines 1000Cocaine Metabolite 300Opiate 300Phencyc lidine 25Cannabinoid 50Barbiturates 300Benzodiazepine 300Methadone 300[facility] CenterU[facility] Gjkqq5071-75-87 22:31:00* Test Item Value Reference Range Interpretation Comments Urine Color (test code = 5778-6) YELLOW YELLOW [facility] CenterU[facility] Oidlmra7778-90-85 22:31:00* Test Item Value Reference Range Interpretation Comments Urine Clarity (test code = 51538-8) SL CLOUDY CLEAR [facility] CenterU[facility] Specific Jylobyp8981-86-85 22:31:00 * Test Item Value Reference Range Interpretation Comments Urine Specific [place] (test code = 5811-5) <=1.005 1.010-1.02 5 [facility] CenterU[facility] nK2264-91-54 22:31:00* Test Item Value Reference Range Interpretation Comments Urine pH (test code = 25454-2) 5.5 5-7 [facility] Leukocyte Vqwdbwmg0092-18-76 22:31:00* Test Item Value Reference Range Interpretation Comments Urine Leukocyte Esterase (test code = 71243-0) SMALL NEGATIV E [facility] CenterU[facility] Btqdlex9901-11-79 22:31:00* Test Item Value Reference Range Interpretation Comments Urine Nitrite (test code = 56962-0) NEGATIVE NEGATIVE [facility] Dnyvzgv9919-21-72 22:31:00* Test Item Value Reference Range Interpretation Comments Urine Protein (test code = 87970-0) NEGATIVE NEGATIVE [facility] Glucose (UA)2019-03-22 22:31:00* Test Item Value Reference Range Interpretation Comments Urine Glucose (UA) (test code = 78551-2) 3+ NEGATIVE [facility] CenterU[facility] Nsevbyr4916-21-01 22:31:00* Test Item Value Reference Range Interpretation Comments Urine Ketones (test code = 94098-6) NEGATIVE NEGATIVE [facility] Jmybdpuxlpif4486-08-12 22:31:00* Test Item Value Reference Range Interpretation Comments Urine Urobilinogen (test code = 76017-9) 0.2 0.2-1 [facility] Iseltgalt0705-75-35 22:31:00* Test Item Value Reference Range Interpretation Comments Urine Bilirubin (test code = 1977-8) NEGATIVE NEGATIVE [facility] Orxir8965-05-86 22:31:00* Test Item Value Reference Range Interpretation Comments Urine Blood (test code = 00622-9) TRACE NEGATIVE H [facility] CenterU[facility] Ogsid1178-93-34 22:31:00* Test Item Value Reference Range Interpretation Comments Urine Color (test code = 5778-6) YELLOW YELLOW [facility] CenterU[facility] Zmxnork9722-25-28 22:31:00* Test Item Value Reference Range Interpretation Comments Urine Clarity (test code = 68424-0) SL CLOUDY CLEAR [facility] CenterU[facility] Specific Xayozmz0298-86-80 22:31:00 * Test Item Value Reference Range Interpretation Comments Urine Specific [place] (test code = 5811-5) <=1.005 1.010-1.02 5 [facility] CenterU[facility] jN6580-24-49 22:31:00* Test Item Value Reference Range Interpretation Comments Urine pH (test code = 82040-3) 5.5 5-7 [facility] Leukocyte Zngjmmll5097-03-30 22:31:00* Test Item Value Reference Range Interpretation Comments Urine Leukocyte Esterase (test code = 05920-0) SMALL NEGATIV E [facility] CenterU[facility] Qctxhiv6579-46-83 22:31:00* Test Item Value Reference Range Interpretation Comments Urine Nitrite (test code = 85032-8) NEGATIVE NEGATIVE [facility] Center[facility] Mdvcajv7600-33-75 22:31:00* Test Item Value Reference Range Interpretation Comments Urine Protein (test code = 07987-3) NEGATIVE NEGATIVE [facility] Glucose (UA)2019-03-22 22:31:00* Test Item Value Reference Range Interpretation Comments Urine Glucose (UA) (test code = 83770-4) 3+ NEGATIVE [facility] Jvddwvp0219-91-51 22:31:00* Test Item Value Reference Range Interpretation Comments Urine Ketones (test code = 17578-4) NEGATIVE NEGATIVE [facility] Ocjudomhkoxi1485-32-08 22:31:00* Test Item Value Reference Range Interpretation Comments Urine Urobilinogen (test code = 27586-4) 0.2 0.2-1 [facility] Ijseghkev9305-17-23 22:31:00* Test Item Value Reference Range Interpretation Comments Urine Bilirubin (test code = 1977-8) NEGATIVE NEGATIVE [facility] Svyow4257-97-73 22:31:00* Test Item Value Reference Range Interpretation Comments Urine Blood (test code = 63590-9) TRACE NEGATIVE H [facility] CenterU[facility] Uexfy7417-94-97 22:31:00* Test Item Value Reference Range Interpretation Comments Urine Color (test code = 5778-6) YELLOW YELLOW [facility] Tlzlsaa3072-16-52 22:31:00* Test Item Value Reference Range Interpretation Comments Urine Clarity (test code = 73945-7) SL CLOUDY CLEAR [facility] CenterU[facility] Specific Qfcbnjv8734-68-58 22:31:00 * Test Item Value Reference Range Interpretation Comments Urine Specific [place] (test code = 5811-5) <=1.005 1.010-1.02 5 [facility] CenterU[facility] cG4325-05-20 22:31:00* Test Item Value Reference Range Interpretation Comments Urine pH (test code = 73375-7) 5.5 5-7 [facility] Leukocyte Hmgpilor1120-41-69 22:31:00* Test Item Value Reference Range Interpretation Comments Urine Leukocyte Esterase (test code = 02871-5) SMALL NEGATIV E [facility] CenterU[facility] Lsotlvd6744-47-81 22:31:00* Test Item Value Reference Range Interpretation Comments Urine Nitrite (test code = 43637-1) NEGATIVE NEGATIVE [facility] CenterU[facility] Qqcvrmb4949-23-33 22:31:00* Test Item Value Reference Range Interpretation Comments Urine Protein (test code = 27721-4) NEGATIVE NEGATIVE [facility] Glucose (UA)2019-03-22 22:31:00* Test Item Value Reference Range Interpretation Comments Urine Glucose (UA) (test code = 76463-6) 3+ NEGATIVE [facility] CenterU[facility] Zangnfk1858-75-08 22:31:00* Test Item Value Reference Range Interpretation Comments Urine Ketones (test code = 39275-6) NEGATIVE NEGATIVE [facility] Pwkznygphyfv2825-81-83 22:31:00* Test Item Value Reference Range Interpretation Comments Urine Urobilinogen (test code = 12099-9) 0.2 0.2-1 [facility] Gxcfxmclp9731-98-20 22:31:00* Test Item Value Reference Range Interpretation Comments Urine Bilirubin (test code = 1977-8) NEGATIVE NEGATIVE [facility] CenterU[facility] Rguzc2863-52-52 22:31:00* Test Item Value Reference Range Interpretation Comments Urine Blood (test code = 97311-9) TRACE NEGATIVE H [facility] CenterCreatine Kinase XL7635-13-36 22:25:00* Test Item Value Reference Range Interpretation Comments Creatine Kinase MB (test code = 77260-7) 7.40 0-5.0 H [place] 51157019-08-06 22:25:00* Test Item Value Reference Range Interpretation Comments Troponin I (test code = UMC1527) < 0.001 0-0.300 [facility] CenterCreatine Kinase GC7171-58-46 22:25:00* Test Item Value Reference Range Interpretation Comments Creatine Kinase MB (test code = 79536-5) 7.40 0-5.0 H [place] 51157019-08-06 22:25:00* Test Item Value Reference Range Interpretation Comments Troponin I (test code = ACL9244) < 0.001 0-0.300 [facility] CenterCreatine Kinase UT1045-97-43 22:25:00* Test Item Value Reference Range Interpretation Comments Creatine Kinase MB (test code = 43541-9) 7.40 0-5.0 H [place] 51157019-08-06 22:25:00* Test Item Value Reference Range Interpretation Comments Troponin I (test code = VEW6124) < 0.001 0-0.300 [facility] Bkijr7081-95-60 22:10:00* Test Item Value Reference Range Interpretation Comments Sodium Level (test code = 2951-2) 134 136-145 L [facility] CenterPotassium Ieott5228-83-81 22:10:00* Test Item Value Reference Range Interpretation Comments Potassium Level (test code = 2823-3) 3.9 3.5-5.1 [facility] CenterChloride Zduph9993-31-00 22:10:00* Test Item Value Reference Range Interpretation Comments Chloride Level (test code = 2075-0) 95 98-107 L [facility] CenterCarbon Dioxide Wosud3118-78-24 22:10:00* Test Item Value Reference Range Interpretation Comments Carbon Dioxide Level (test code = 2028-9) 26 22-29 [facility] CenterAnion Vnl9485-93-59 22:10:00* Test Item Value Reference Range Interpretation Comments Anion Gap (test code = 42782-1) 16.9 8-16 H [facility] CenterBlood Urea Nxztcluo6899-35-80 22:10:00* Test Item Value Reference Range Interpretation Comments Blood Urea Nitrogen (test code = 3094-0) 13 7-26 [facility] CenterCreatinine2019-08-06 22:10:00* Test Item Value Reference Range Interpretation Comments Creatinine (test code = 2160-0) 0.85 0.57-1.11 [facility] CenterBUN/Creatinine Wyxvs2606-98-24 22:10:00* Test Item Value Reference Range Interpretation Comments BUN/Creatinine Ratio (test code = 3097-3) 15 6-25 [facility] CenterEstimat Glomerular Filtration Rate 2019-03-22 22:10:00* Test Item Value Reference Range Interpretation Comments Estimat Glomerular Filtration Rate (test code = 153854510) > 60 >60 Ranges were taken from the National Kidney Disease Education Program and the [facility] Foundation literature.Reference ranges:60 or greater: Enhtmd82-66 ( for 3 consecutive months): Chronic kidney disease 15 or less: Kidney failureCarrollton Regional Medical CenterGlucose Oefon6215-38-62 22:10:00* Test Item Value Reference Range Interpretation Comments Glucose Level (test code = TLF4746) 397 74-118 H [facility] CenterCalcium Bdizj6434-42-43 22:10:00* Test Item Value Reference Range Interpretation Comments Calcium Level (test code = 62385-9) 10.1 8.4-10.2 [facility] CenterTotal Oydbtqdfi8416-35-59 22:10:00* Test Item Value Reference Range Interpretation Comments Total Bilirubin (test code = 1975-2) 0.3 0.2-1.2 [facility] CenterAspartate Amino Transf (AST/SGOT) 2019-03-22 22:10:00* Test Item Value Reference Range Interpretation Comments Aspartate Amino Transf (AST/SGOT) (test code = Aspartate Amino Transf (AST/SGOT)) 42 5-34 H [facility] CenterAlanine Aminotransferase (ALT/SGPT) 2019-03-22 22:10:00* Test Item Value Reference Range Interpretation Comments Alanine Aminotransferase (ALT/SGPT) (test code = 1742-6) 66 0-55 H [facility] CenterTotal Swgfqmy8788-86-76 22:10:00* Test Item Value Reference Range Interpretation Comments Total Protein (test code = 2885-2) 7.8 6.5-8.1 [facility] CenterAlbumin2019-08-06 22:10:00* Test Item Value Reference Range Interpretation Comments Albumin (test code = 1751-7) 3.4 3.5-5.0 L [facility] CenterGlobulin2019-08-06 22:10:00* Test Item Value Reference Range Interpretation Comments Globulin (test code = 61082-3) 4.4 2.3-3.5 H [facility] CenterAlbumin/Globulin Sxhmu6235-22-48 22:10:00 * Test Item Value Reference Range Interpretation Comments Albumin/Globulin Ratio (test code = 1759-0) 0.8 0.8-2.0 [facility] CenterAlkaline Yeqwojwlqjq1680-53-40 22:10:00* Test Item Value Reference Range Interpretation Comments Alkaline Phosphatase (test code = 6768-6) 103 40-150 [facility] CenterCHEST SINGLE (PORTABLE)2019-03-22 21:58:00 [place] [address] Patient Name: ANNIA VIDES MR #: [id number] : 1975 Age/Sex: 43/F Req #: [id number] Adm Physician: Ordered by: PORSCHE SPENCER MD Report #: [id number] Location: ER Room/Bed: Procedure: [id number] DX/CHEST [...] By: MANJINDER on 03/22/192212 COPY TO: PORSCHE SPENCER MD White Blood Mmcim8868-35-00 21:56:00* Test Item Value Reference Range Interpretation Comments White Blood Count (test code = 6690-2) 10.81 4.8-10.8 H [facility] CenterRed Blood Fkvqe4487-11-92 21:56:00* Test Item Value Reference Range Interpretation Comments Red Blood Count (test code = 789-8) 5.11 3.6-5.1 H [facility] CenterHemoglobin2019-08-06 21:56:00* Test Item Value Reference Range Interpretation Comments Hemoglobin (test code = 67394-5) 15.1 12.0-16.0 [facility] CenterHematocrit2019-08-06 21:56:00* Test Item Value Reference Range Interpretation Comments Hematocrit (test code = 4544-3) 45.2 34.2-44.1 H [facility] CenterMean Corpuscular Rswsfp5631-04-44 21:56:00* Test Item Value Reference Range Interpretation Comments Mean Corpuscular Volume (test code = 787-2) 88.5 81-99 [facility] CenterMean Corpuscular Qttcjbqhjf7675-27-41 21:56:00* Test Item Value Reference Range Interpretation Comments Mean Corpuscular Hemoglobin (test code = 785-6) 29.5 28-32 [facility] CenterMean Corpuscular Hemoglobin Concent 2019-03-22 21:56:00* Test Item Value Reference Range Interpretation Comments Mean Corpuscular Hemoglobin Concent (test code = 786-4) 33.4 31-35 [facility] CenterRed Cell Distribution Loewr9601-65-73 21:56:00* Test Item Value Reference Range Interpretation Comments Red Cell Distribution Width (test code = 27194-3) 13.2 11.7 -14.4 [facility] CenterPlatelet Xtmbd5912-72-03 21:56:00* Test Item Value Reference Range Interpretation Comments Platelet Count (test code = 777-3) 306 140-360 [facility] CenterNeutrophils (%) (Auto)2019-03-22 21:56:00 * Test Item Value Reference Range Interpretation Comments Neutrophils (%) (Auto) (test code = 06682-5) 67.8 38.7-80.0 [facility] CenterLymphocytes (%) (Auto)2019-03-22 21:56:00 * Test Item Value Reference Range Interpretation Comments Lymphocytes (%) (Auto) (test code = 736-9) 23.5 18.0-39.1 [facility] CenterMonocytes (%) (Auto)2019-03-22 21:56:00* Test Item Value Reference Range Interpretation Comments Monocytes (%) (Auto) (test code = 5905-5) 7.2 4.4-11.3 [facility] CenterEosinophils (%) (Auto)2019-03-22 21:56:00 * Test Item Value Reference Range Interpretation Comments Eosinophils (%) (Auto) (test code = 713-8) 0.9 0.0-6.0 [facility] CenterBasophils (%) (Auto)2019-03-22 21:56:00* Test Item Value Reference Range Interpretation Comments Basophils (%) (Auto) (test code = 706-2) 0.2 0.0-1.0 [facility] CenterIM GRANULOCYTES %2019-03-22 21:56:00* Test Item Value Reference Range Interpretation Comments IM GRANULOCYTES % (test code = IM GRANULOCYTES %) 0.4 0.0- 1.0 [facility] CenterNeutrophils # (Auto)2019-03-22 21:56:00* Test Item Value Reference Range Interpretation Comments Neutrophils # (Auto) (test code = 751-8) 7.3 2.1-6.9 H [facility] CenterLymphocytes # (Auto)2019-03-22 21:56:00* Test Item Value Reference Range Interpretation Comments Lymphocytes # (Auto) (test code = 55491-8) 2.5 1.0-3.2 [facility] CenterMonocytes # (Auto)2019-03-22 21:56:00* Test Item Value Reference Range Interpretation Comments Monocytes # (Auto) (test code = 742-7) 0.8 0.2-0.8 [facility] CenterEosinophils # (Auto)2019-03-22 21:56:00* Test Item Value Reference Range Interpretation Comments Eosinophils # (Auto) (test code = 711-2) 0.1 0.0-0.4 [facility] CenterBasophils # (Auto)2019-03-22 21:56:00* Test Item Value Reference Range Interpretation Comments Basophils # (Auto) (test code = 704-7) 0.0 0.0-0.1 [facility] CenterAbsolute Immature Granulocyte (auto 2019-03-22 21:56:00* Test Item Value Reference Range Interpretation Comments Absolute Immature Granulocyte (auto (simran t code = Absolute Immature Granulocyte (auto) 0.04 0-0.1 [facility] CenterDAU9E2018-01-30 22:36:00* Test Item Value Reference Range Interpretation [...] = ETOHU) <0.01 g/dL 0.00-0.01 N Urinalysis Bckbmsob9190-84-47 22:35:00* Test Item Value Reference Range Interpretation Comments Color (test code = COLOR) Yellow Yellow,Straw,Pl yellow N Clarity (test code = CLAR) Clear Clear N Specific [place] (test code = SPGR) 1.008 1.001-1.035 N [...] code = BACT) Few /HPF CBC with Vtcbncoafrrb1970-44-30 20:41:00* Test Item Value Reference Range Interpretation [...] code = ALYMPH) 3.3 K/cumm 0.5-4.6 N [place] Abs (test code = AMONO) 0.6 K/cumm 0.0-1.2 N Eos Abs (test code = AEOS) 0.20 K/cumm 0.00-0.74 N Baso Abs (test code = ABASO) 0.1 K/cumm 0.00-0.21 N Wkbejdj1752-19-80 19:30:00* Test Item Value Reference Range Interpretation Comments Acetone [Serum] (test code = ACETONE) Negative Negative N D-Dimer, Xuczdvvdhawy6109-84-01 19:16:00* Test Item Value Reference Range Interpretation Comments D-Dimer, Quant (test code = DDQNT) 374 ng/mL 0-500 N Please note Change in unit of measure from mg/L FEU to ng/mLA cutoff of less than 500 ng/mL DD has a negative predictive value of100% for DVT app661% for PE.When using D-Dimer to help rule out DVT or PE, clinical information anddisease probability should be considered.Elevated D-Dimer values are not specific for thromboembolism. Prothrombin Hxvv4793-05-03 19:16:00* Test Item Value Reference Range Interpretation Comments PT (test code = PT) 10.80 seconds 9.78-13.35 N INR (test code = INR) 0.95 Ratio 0.6-1.2 N Partial Thromboplastin Dlbe0253-52-69 19:16:00* Test Item Value Reference Range Interpretation Comments aPTT (test code = PTT) 31.90 seconds 24.39-37.25 N Ltw-Enb8374-54-30 19:02:00* Test Item Value Reference Range Interpretation Comments NT ProBnp (test code = PBNP) 13 pg/mL 0-124 N Troponin R6428-52-65 18:34:00* Test Item Value Reference Range Interpretation Comments Troponin T (test code = BONNY) 0.027 ng/mL 0.000-0.090 N Comprehensive Metabolic Gjtrv1362-25-28 18:34:00* Test Item Value Reference Range Interpretation [...] race is not provided, and the patient isAfrican-Kittitian, multiply by 1.212. If sex is not [...] the National Kidney Found ation,http://nkdep.nih.gov BHCG, Serum, Szvrcinxcvn3273-09-48 18:33:00* Test Item Value Reference Range Interpretation Comments Preg Qual [Se] (test code = BSHCG) Negative Negative N XR CHEST 1 YKCU3190-62-76 17:28:29CHEST 1 VIEWCLINICAL INFORMATION: Chest pain- DyspneaCOMPARISON: [...] lung bases.2. No acute finding is identified.LOCATION: [facility] Glucose, Dyomc1332-15-27 16:47:00* Test Item Value Reference Range Interpretation Comments POC Glucose (test code = POCGLUC) 195 mg/dL 70-115 H Notify RN or MDIf you consider your patient critically ill, the [place] Accu-Chek InformII metershould not be used for Glucose determinations.Draw a venous Glucose and send to the Main Lab for Analysis. US EXTREMITY NON VASCULAR OVI-NJNJY3721-95-17 15:22:53BILATERAL LOWER EXTREMITY ARTERIAL DOPPLER:CLINICAL HISTORY: Right [...] of right common femoral pseudoane urysm.Location: [id number] DU9516-27-89 13:41:00* Test Item Value Reference Range Interpretation Comments CK (test code = CK) 75 U/L 26-192 N CKMB (test code = CKMB) 8.3 ng/mL 0.0-2.8 H CKMB% (test code = CKMBP) 11.1 % 0.0-3.[address] CHEST ANGIO W/WO QHDDCPMV7290-04-15 13:05:29CT CHEST ANGIO W/WO CONTRASTLOCATION: R16 INDICATION: [...] pulmonary embolism.Low lung volumes with bibasilar atelectasis.Troponin E0741-46-99 12:45:00* Test Item Value Reference Range Interpretation Comments Troponin T (test code = BONNY) 0.066 ng/mL 0.000-0.090 N POC Glucose, Qmoov9136-48-36 11:35:00* Test Item Value Reference Range Interpretation Comments POC Glucose (test code = POCGLUC) 188 mg/dL 70-115 H Notify RN or MDIf you consider your patient critically ill, the Romana Accu-Chek InformII metershould not be used for Glucose determinations.Draw a venous Glucose and send to the Main Lab for Analysis. POC Glucose, [id number] 08:11:00* Test Item Value Reference Range Interpretation Comments POC Glucose (test code = POCGLUC) 223 mg/dL 70-115 H Notify RN or MDIf you consider your patient critically ill, the Romana Accu-Chek InformII metershould not be used for Glucose determinations.Draw a venous Glucose and send to the Main Lab for Analysis. CK [id number] 06:46:00* Test Item Value Reference Range Interpretation Comments CK (test code = CK) na U/L 26-192 N CKMB (test code = CKMB) 7.9 ng/mL 0.0-2.8 H CKMB% (test code = CKMBP) 0.0 % 0.0-3.4 N Troponin [id number] 06:43:00* Test Item Value Reference Range Interpretation Comments Troponin T (test code = BONNY) 0.059 ng/mL 0.000-0.090 N CK [id number] 01:48:00* Test Item Value Reference Range Interpretation Comments CK (test code = CK) 95 U/L 26-192 N CKMB (test code = CKMB) 8.1 ng/mL 0.0-2.8 H CKMB% (test code = CKMBP) 8.5 % 0.0-3.4 H CK [id number] 01:48:00* Test Item Value Reference Range Interpretation Comments CK (test code = CK) 95 U/L 26-192 N Troponin [id number] 22:57:00* Test Item Value Reference Range Interpretation Comments Troponin T (test code = BONNY) 0.051 ng/mL 0.000-0.090 N [id number] 22:56:00* Test Item Value Reference Range Interpretation Comments NT ProBnp (test code = PBNP) 7 pg/mL 0-124 N XR CHEST 1 [id number] 22:46:46AFTER HOURS SERVICE ON: 04/01/2017 10:46 PMAP Portable ChestLocation Code [id number]: Chest painFINDINGS: Study limited due to shallow inspiration obscuring the lung bases. Thereis mild bibasilar subsegmental atelectasis. There is no pneumothorax.Cardiac silhouette and mediastinum appear within normal limits. IMPRESSION: Mild bibasilar subsegmental atelectasis.CBC with [id number] 22:35:00* Test Item Value Reference Range Interpretation [...] code = ALYMPH) 3.1 K/cumm 0.5-4.6 N [place] Abs (test code = AMONO) 0.5 K/cumm 0.0-1.2 N Eos Abs (test code = AEOS) 0.19 K/cumm 0.00-0.74 N Baso Abs (test code = ABASO) 0.0 K/cumm 0.00-0.21 N Drugs of Abuse Screen, [id number] 14:53:00* Test Item Value Reference Range Interpretation [...] code = THC) Negative Negative N D-Dimer, [id number] 11:46:00* Test Item Value Reference Range Interpretation Comments D-Dimer, Quant (test code = DDQNT) 981 ng/mL 0-500 H CK [id number] 11:41:00* Test Item Value Reference Range Interpretation Comments CKMB (test code = CKMB) 6.7 ng/mL 0.0-2.8 H Troponin [id number] 11:41:00* Test Item Value Reference Range Interpretation Comments Troponin T (test code = BONNY) 0.035 ng/mL 0.000-0.090 N POC Glucose, [id number] 11:21:00* Test Item Value Reference Range Interpretation Comments POC Glucose (test code = POCGLUC) 301 mg/dL 70-115 H If you consider your patient critically ill, the Romana Accu-Chek InformII metershould not be used for Glucose determinations.Draw a venous Glucose and send to the Main Lab for Analysis. POC Glucose, [id number] 07:58:00* Test Item Value Reference Range Interpretation [...] = HESR) 50 mm/Hr 0-20 H CK [id number] 07:25:00* Test Item Value Reference Range Interpretation Comments CKMB (test code = CKMB) 6.9 ng/mL 0.0-2.8 H Thyroid Stimulating Hormone (TSH)2017-03-08 07:07:00* Test Item Value Reference Range Interpretation Comments TSH (test code = TSH) 1.99 mIU/mL 0.270-4.200 N [id number] 07:00:00* Test Item Value Reference Range Interpretation Comments Amylase (test code = VIVIAN) 32 U/L 28-100 N [id number] 07:00:00* Test Item Value Reference Range Interpretation Comments Lipase (test code = LIP) 20 U/L 13-60 N Magnesium, [id number] 07:00:00* Test Item Value Reference Range Interpretation Comments Magnesium (test code = MG) 1.8 mg/dL 1.7-2.5 N Comprehensive Metabolic [id number] 07:00:00* Test Item Value Reference Range Interpretation [...] race is not provided, and the patient isAfrican-Kittitian, multiply by 1.212. If sex is not [...] the National Kidney Found ation,http://nkdep.nih.gov C-Reactive Protein, [id number] 07:00:00* Test Item Value Reference Range Interpretation Comments CRP (test code = CRP) 48.4 mg/L 0.0-5.0 H [id number] 07:00:00* Test Item Value Reference Range Interpretation Comments Phosphorus (test code = PO4) 3.4 mg/dL 2.70-4.50 N Troponin [id number] 06:35:00* Test Item Value Reference Range Interpretation Comments Troponin T (test code = BONNY) 0.044 ng/mL 0.000-0.090 N CBC with [id number] 06:16:00* Test Item Value Reference Range Interpretation [...] code = ALYMPH) 2.5 K/cumm 0.5-4.6 N [place] Abs (test code = AMONO) 0.5 K/cumm 0.0-1.2 N Eos Abs (test code = AEOS) 0.20 K/cumm 0.00-0.74 N Baso Abs (test code = ABASO) 0.0 K/cumm 0.00-0.21 N POC Glucose, [id number] 07:58:00* Test Item Value Reference Range Interpretation Comments POC Glucose (test code = POCGLUC) 355 mg/dL 70-115 H Notify RN or MDIf you consider your patient critically ill, the Romana Accu-Chek InformII metershould not be used for Glucose determinations.Draw a venous Glucose and send to the Main Lab for Analysis. CK [id number] 05:34:00* Test Item Value Reference Range Interpretation Comments CK (test code = CK) na U/L 26-192 N CKMB (test code = CKMB) 7.2 ng/mL 0.0-2.8 H CKMB% (test code = CKMBP) 0.0 % 0.0-3.4 N Troponin [id number] 05:27:00* Test Item Value Reference Range Interpretation Comments Troponin T (test code = BONNY) 0.067 ng/mL 0.000-0.090 N POC Glucose, [id number] 05:07:00* Test Item Value Reference Range Interpretation Comments POC Glucose (test code = POCGLUC) 299 mg/dL 70-115 H If you consider your patient critically ill, the Romana Accu-Chek InformII metershould not be used for Glucose determinations.Draw a venous Glucose and send to the Main Lab for Analysis. Troponin [id number] 01:42:00* Test Item Value Reference Range Interpretation Comments Troponin T (test code = BONNY) 0.059 ng/mL 0.000-0.090 N CK [id number] 01:42:00* Test Item Value Reference Range Interpretation Comments CK (test code = CK) na U/L 26-192 N CKMB (test code = CKMB) 7.4 ng/mL 0.0-2.8 H CKMB% (test code = CKMBP) 0.0 % 0.0-3.4 N POC Glucose, [id number] 00:22:00* Test Item Value Reference Range Interpretation Comments POC Glucose (test code = POCGLUC) 310 mg/dL 70-115 H If you consider your patient critically ill, the Romana Accu-Chek InformII metershould not be used for Glucose determinations.Draw a venous Glucose and send to the Main Lab for Analysis. POC Glucose, [id number] 19:18:00* Test Item Value Reference Range Interpretation Comments POC Glucose (test code = POCGLUC) 231 mg/dL 70-115 H If you consider your patient critically ill, the Romana Accu-Chek InformII metershould not be used for Glucose determinations.Draw a venous Glucose and send to the Main Lab for Analysis. POC Glucose, [id number] 16:51:00* Test Item Value Reference Range Interpretation Comments POC Glucose (test code = POCGLUC) 206 mg/dL 70-115 H If you consider your patient critically ill, the Romana Accu-Chek InformII metershould not be used for Glucose determinations.Draw a venous Glucose and send to the Main Lab for Analysis. CK [id number] 13:54:00* Test Item Value Reference Range Interpretation Comments CK (test code = CK) 75 U/L 26-192 N CKMB (test code = CKMB) 9.3 ng/mL 0.0-2.8 H CKMB% (test code = CKMBP) 12.4 % 0.0-3.4 H Troponin [id number] 13:40:00* Test Item Value Reference Range Interpretation Comments Troponin T (test code = BONNY) 0.068 ng/mL 0.000-0.090 N Lipid [id number] 12:17:00* Test Item Value Reference Range Interpretation Comments Cholesterol (test code = CHOL) 247 mg/dL 0-200 H Triglycerides (test code = TRIG) 518 mg/dL 9-200 H HDL (test code = HDL) 26 mg/dL 50-60 L Chol/HDL (test code = CHOLPHDL) 9.5 Ratio 0.0-4.4 H LDL, Calculated (test code = LDLC) No Calc 0-130 N (NOTE)RISK OF HEART DISEASEPublished by Kittitian Heart AssociationAnalyte Optimal Boderline Increased RiskCHOL <200 200-239 >240TRIG <150 150-199 >200HDL Male: >60 <40HDL Female: >60 <50LDL <100 130-159 >160LDL NEAR OPTIMAL IS 100-129\LIPIDNC VLDL (test code = VLDL) No Calc mg/dL 5-40 N \LI PIDNC LDL/HDL (test code = LDLPHDL) No Calc \LIPIDNC Glycosylated [id number] 12:05:00* Test Item Value Reference Range Interpretation Comments HBA1c (test code = HBA1C) 10.8 % 4.8-5.9 H POC Glucose, [id number] 11:59:00* Test Item Value Reference Range Interpretation Comments POC Glucose (test code = POCGLUC) 233 mg/dL 70-115 H If you consider your patient critically ill, the Romana Accu-Chek InformII metershould not be used for Glucose determinations.Draw a venous Glucose and send to the Main Lab for Analysis. POC Glucose, [id number] 07:49:00* Test Item Value Reference Range Interpretation Comments POC Glucose (test code = POCGLUC) 261 mg/dL 70-115 H If you consider your patient critically ill, the Romana Accu-Chek InformII metershould not be used for Glucose determinations.Draw a venous Glucose and send to the Main Lab for Analysis. CK [id number] 06:18:00* Test Item Value Reference Range Interpretation Comments CK (test code = CK) na U/L 26-192 N CKMB (test code = CKMB) 9.8 ng/mL 0.0-2.8 H CKMB% (test code = CKMBP) 0.0 % 0.0-3.4 N Troponin [id number] 06:17:00* Test Item Value Reference Range Interpretation Comments Troponin T (test code = BONNY) 0.063 ng/mL 0.000-0.090 N Basic Metabolic [id number] 06:14:00* Test Item Value Reference Range Interpretation [...] race is not provided, and the patient isAfrican-Kittitian, multiply by 1.212. If sex is not [...] the National Kidney Found ation,http://nkdep.nih.gov CBC with [id number] 06:03:00* Test Item Value Reference Range Interpretation [...] code = ALYMPH) 3.5 K/cumm 0.5-4.6 N [place] Abs (test code = AMONO) 0.4 K/cumm 0.0-1.2 N Eos Abs (test code = AEOS) 0.26 K/cumm 0.00-0.74 N Baso Abs (test code = ABASO) 0.0 K/cumm 0.00-0.21 N Troponin [id number] 00:46:00* Test Item Value Reference Range Interpretation Comments Troponin T (test code = BONNY) 0.057 ng/mL 0.000-0.090 N CK [id number] 00:46:00* Test Item Value Reference Range Interpretation Comments CK (test code = CK) na U/L 26-192 N CKMB (test code = CKMB) 10.7 ng/mL 0.0-2.8 H CKMB% (test code = CKMBP) 0.0 % 0.0-3.4 N POC Glucose, [id number] 00:21:00* Test Item Value Reference Range Interpretation Comments POC Glucose (test code = POCGLUC) 328 mg/dL 70-115 H If you consider your patient critically ill, the Romana Accu-Chek InformII metershould not be used for Glucose determinations.Draw a venous Glucose and send to the Main Lab for Analysis.
--- NOTE | 2020-03-25 02:08 | NUR ---
PATIENT VERBALIZES FEELING LESS ITCHY. NO HIVES,RASH, EENT ASSESSMENT NORMAL.
[2020-03-25] MEDS ORDERED: ASPIRIN 81 MG CHEW TAB PO ONE (02:30)
[2020-03-25] MEDS ORDERED: DEXTROSE 50% SYRINGE 50 ML IV PRN (02:30)
[2020-03-25] MEDS ORDERED: PROMETHAZINE HCL (IM) 25 MG/ML VIAL IM PRN (02:30)
--- OUTSIDE RECORDS SUMMARY | 2020-03-25 02:36 | XMS REPORT | Clinical Summary ---
Author Author [facility] Organization [facility] Address Unknown Phone Unavailable Care Team Providers Care Earth Science Technician Name Role Phone Asked, No Pcp PCP [...] PRELIMINARY Routine 04/23/2019 INTERPRETATION 12:55 AM CDT HI CRITICAL CARE, E/M Routine 04/23/2019 30-74 MINUTES [...] glucose 280 (H) 65 - 99 mg/dL [place] Comment: MAY DAO [facility] Notified [facility] Meter ID: [id number] Shorts Sifter: Denice Sands Specimen Performing Organization Address City/State/Zipcode Ph one Number [facility] [id number] [address]is[address] [place] [id number] PATHOLOGY AND GENOMIC MEDICINE [place]A [place] [id number] [address] [place] [id number] [phone] * CT Head Wo Contrast [...] IMPRESSION: No acute intracranial abnormality ident ified. [facility]-[id number] Procedure Note Interface, Radiology Results Incoming - [...] normal. IMPRESSION: No acute intracranial abnormality identified. 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 Previous ECG: Previous ECG: Unavailable Interpretation: Interpretation: abnormal Rate: ECG rate: 103 bpm ECG rate assessment: tachycardic Rhythm: Rhythm: sinus tachycardia QRS: QRS axis: Normal QRS intervals: Normal (98 ms) Conduction: Conduction: abnormal Abnormal conduction: incomplete RBBB ST segments: ST segments: Normal T waves: T waves: normal Other findings: Other findings comment: Left axis d eviations Comments: HI 126 ms QT/QTc 364/476 ms * CRITICAL [...] the f ollowing conditions: Cardiac failure and DIRECTOR ON AIR failure or compromise Critical care was time [...] * Estimated GFR (04/22/2019 11:44 PM CDT) [facility] Estimated GFR >=90 mL/min/1.73 m2 [place] Comment: [facility] Interpretation G1 >=90 Normal or high [...] City/State/Zipcode [place] [address] [place] [address] PATHOLOGY AND GENOMIC MEDICINE [facility] [address] [address] [place] [phone] [address] [facility] * Troponin (04/22/2019 11:44 PM CDT) Pathologist [facility] Troponin <0.006 0.000 - 0.040 ng/mL [place] Comment: [facility] changed methodology effective: 12/21/2018 at 10:00 am The new method has a 99th percentile cutoff of 0.040 ng/mL Specimen Plasma specimen Performing Organization Address City/[facility] Ph one Number [facility] [address] Jillian [facility] [place] [address] PATHOLOGY AND GENOMIC MEDICINE [address] * CBC with platelet and differential (04/22/2019 11:44 PM CDT) [facility] WBC 10.41 4.50 - 11.00 k/uL [facility] RBC 4.59 4.20 - 5.50 m/uL [facility] HGB 13.4 12.0 - 16.0 g/dL [facility] HCT 41.5 37.0 - 47.0 % [facility] MCV 90.4 82.0 - 100.0 fL [facility] MCH 29.2 27.0 - 34.0 pg [facility] MCHC 32.3 31.0 - 37.0 g/dL [facility] RDW - SD 43.7 37.0 - 55.0 fL [facility] MPV 11.3 8.8 - 13.2 fL [facility] Platelet count 262 150 - 400 k/uL [facility] Neutrophils 61.9 39.0 - 69.0 % [facility] Lymphocytes 27.7 25.0 - 45.0 % [facility] Monocytes 7.7 0.0 - 10.0 % [facility] Eosinophils 1.8 0.0 - 5.0 % [facility] Basophils 0.4 0.0 - 1.0 % [facility] Immature 0.5 0.0 - 1.0 % [place] granulocytes [facility] Specimen Blood Performing Organization Address City/[facility] Ph one Number [facility] [place] [id number] Donis. [place] [phone] PATHOLOGY AND GENOMIC MEDICINE [facility] [id number] [place] [address] * B natriuretic peptide (04/22/2019 11:44 PM CDT) [facility] BNP 7 0 - 100 pg/mL [facility] Specimen Blood Performing Organization Address City/State/Zipcode [place] [address] [place] [address] PATHOLOGY AND GENOMIC MEDICINE [facility] [address] [address] [place] [phone] [facility] * Comprehensive metabolic panel (04/22/2019 11:44 PM CDT) Sodium 136 135 - 148 mEq/L [facility] Potassium 4.5 3.5 - 5.0 mEq/L [facility] Chloride 96 (L) 99 - 109 mEq/L [facility] CO2 27 24 - 31 mEq/L [facility] Anion gap 13@ANIO 7 - 15 mEq/L [facility] BUN 11 8 - 24 mg/dL [facility] Creatinine 0.45 (L) 0.50 - 0.90 mg/dL [facility] Glucose 476 (HH) 65 - 99 mg/dL [place] Comment: [facility] GLU results called to and read HOSPITAL back by PHILIPPE SANDS RN/[facility] at 04/23/2019 00:35 by AP. Calcium 9.2 8.6 - 10.6 mg/dL [facility] Protein 7.0 6.3 - 8.2 g/dL [facility] Albumin 3.1 (L) 3.5 - 5.0 g/dL [facility] A/G ratio 0.8 0.7 - 3.8 [facility] Alkaline 114 30 - 115 U/L [place] phosphatase [facility] AST 42 15 - 46 U/L [facility] ALT 45 10 - 55 U/L [facility] Total bilirubin <0.3 0.2 - 1.2 mg/dL [facility] Specimen Plasma specimen Performing Organization Address City/State/Zipcode [place] [id number] [place] [address] PATHOLOGY AND GENOMIC MEDICINE [facility] [address] [address] Patelchan [place] [phone] [facility] * ECG 12 lead (04/22/2019 11:32 PM CDT) Ventricular 103 [facility] rate Atrial rate 103 [facility] HI interval 126 [facility] QRSD interval 98 [facility] QT interval 364 [facility] QTC interval 476 [facility] P axis 1 33 [facility] QRS axis 1 -35 [facility] MUSE T wave axis 45 [facility] MUSE EKG impression Sinus tachycardia-Left axis [facility] MUSE deviation-Incomplete right bundle branch block-Abnormal ECG-In automated comparison with ECG of 14-DEC-2018 15:52,-No significant change was found- Specimen Narrative Performed At This result has an attachment that is n ot available. 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
--- OUTSIDE RECORDS SUMMARY | 2020-03-25 02:36 | XMS REPORT | Clinical Summary ---
Author Author MIKAYLA [facility] Address Unknown Phone Unavailable Care Team Providers Care Top Installer Name Role Phone Sharpless PCP Allergies Comments [...] AT 70 - 110 mg/dL C HI [facility] [address] [facility] [address] Specimen Blood Performing Organization Address City/State/[facility] Ph one Number [facility] [address] [facility] * EKG 12-LEAD (06/01/2019 6:02 AM CDT) Only the most recent of 2 results within the time period is included. Specimen Narrative Performed At Ventricular Rate 90 BPM GE MUSE Atrial Rate 90 BPM P-R Interval 128 ms QRS Duration 90 ms Q-T Interval 370 ms QTC Calculation(Bazett) 452 ms P Grady 23 degrees R Grady 51 degrees T Grady 37 degrees Normal sinus rhythm Normal ECG [...] 370 ms QTC Calculation(Bazett) 452 ms P Grady 23 degrees R Grady 51 degrees T Grady 37 degrees Normal sinus rhythm Normal ECG When compared with ECG of 01-JUN-2019 06:00, No significant change was found Confirmed by MD CRONIN MAJID ([id number]) on 06/04/2019 12:13:45 PM Performing Organization Address [facility] Ph one Number GE MUSE * Urinalysis w/Microscopic + Reflex to Culture (06/01/2019 4:10 AM CDT) Color, UA Light Yellow [facility] Clarity, UA Clear [facility] Specific [place], UA 1.037 (H) 1.001 - 1.035 [facility] pH, UA 6.0 5.0 - 8.0 [facility] Protein, UA Negative Negative [facility] Glucose, UA >1000 mg/dL (A) Negative [facility] Ketones, UA Negative Negative [facility] Bilirubin, UA Negative Negative [facility] Blood, UA Negative Negative [facility] Nitrite, UA Negative Negative [facility] Leukocytes, UA Large (A) Negative [facility] Urobilinogen, UA 0.2 0.2 - 1.0 mg/dL [facility] RBC, UA 2 /HPF [facility] WBC, UA 7 /HPF [facility] Bacteria, UA Rare [facility] Squam Epithel, UA 2 /HPF [facility] Specimen Source [facility] Specimen Urine Performing Organization Address City/State/Zipcode Ph one Number [facility] [address] [facility] [place] [address] [facility] * CBC with platelet count + automated diff (06/01/2019 4:03 AM CDT) WBC 10.7 (H) 3.5 - 10.5 K/L [facility] RBC 4.34 3.93 - 5.22 M/L [facility] Hemoglobin 12.7 11.2 - 15.7 GM/DL [facility] Hematocrit 39.5 34.1 - 44.9 % [facility] MCV 91.0 79.4 - 94.8 fL [facility] MCH 29.3 25.6 - 32.2 pg [facility] MCHC 32.2 32.2 - 35.5 GM/DL [facility] RDW 13.0 11.7 - 14.4 % [facility] Platelets 237 150 - 450 K/CU MM [facility] MPV 10.8 9.4 - 12.3 fL [facility] nRBC 0 0 - 0 /100 WBC [facility] % Neutros 61 % [facility] % Lymphs 29 % [facility] % Monos 8 % [facility] % Eos 2 % [facility] % Baso 0 % [facility] # Neutros 6.47 (H) 1.56 - 6.13 K/L [facility] # Lymphs 3.10 1.18 - 3.74 K/L [facility] # Monos 0.86 (H) 0.24 - 0.36 K/L [facility] # Eos 0.20 0.04 - 0.36 K/L [facility] # Baso 0.03 0.01 - 0.08 K/L [facility] Immature 0 0 - 1 % [facility] Granulocytes-Relative [facility] Specimen Blood Performing Organization Address [facility] Ph one Number [address] [facility] * Troponin I (06/01/2019 4:03 AM CDT) Only the most recent of 2 results within the time period is included. Troponin I <0.01 0.00 - 0.03 ng/mL [facility] Specimen Blood Narrative Performed At Troponin I (TnI) levels must be interpreted in the co ntext of the presenting [facility] symptoms and the clinical findings. Elevated TnI leve ls indicate myocardial [facility] damage, but are not specific for ischem ic heart disease. Elevated TnI levels are seen in patients with other cardiac con ditions (including myocarditis and congestive heart failure), and slight T nI elevations occur in patients with other conditions, including sepsis, javier al failure, acidosis, acute neurological disease, and persistent tachyarrhythmia . Performing Organization Address [facility] one Number [place] [address] [facility] * Magnesium (06/01/2019 4:03 AM CDT) Magnesium 1.9 1.6 - 2.6 mg/dL [facility] Specimen Blood Performing Organization Address [facility] one Number [address] [facility] * Basic metabolic panel (06/01/2019 4:03 AM CDT) Only the most recent of 2 results within the time period is included. Sodium 134 (L) 136 - 145 meq/L [facility] Potassium 4.3 3.5 - 5.1 meq/L [facility] Chloride 101 98 - 107 meq/L [facility] CO2 27 22 - 29 meq/L [facility] BUN 13 7 - 21 mg/dL [facility] Creatinine 0.64 0.57 - 1.25 mg/dL [facility] Glucose 318 (H) 70 - 105 mg/dL [facility] Calcium 9.0 8.4 - 10.2 mg/dL [facility] EGFR 102Comment: ESTIMATED GFR IS mL/min/1.73 sq m [facility] NOT ACCURATE CREATININE [facility] CLEARANCE IN PREDICTING GLOMERULAR FILTRATION RATE. ESTIMATED GFR IS NOT APPLICABLE FOR DIALYSIS PATIENTS. Specimen Blood Performing Organization Address [facility] one Number [address] [facility] * Procalcitonin (06/01/2019 12:15 AM CDT) Procalcitonin <0.05 <0.05 ng/mL [facility] Specimen Blood Narrative Performed At SEPSIS RISK (ng/mL) [facility] Low:0.05-0.[address] [facility] Intermediate: 0.51-2.00 High: >=2.01 Performing Organization Address [facility] one Number [address] [facility] * Hemoglobin A1c (06/01/2019 12:15 AM CDT) Hemoglobin A1C 10.3 (H) 4.3 - 6.1 % [facility] Specimen Blood Performing Organization Address [facility] one Number [address] [facility] * Lipid panel (06/01/2019 12:15 AM CDT) Triglycerides 218 mg/dL [facility] Cholesterol 232 mg/dL [facility] HDL 31 mg/dL [facility] LDL Calculated 157 mg/dL [facility] Specimen Blood Narrative Performed At Triglyceride Reference Range: [facility] Low Risk <150 [facility] [id number] High Risk 200-499 Very High Risk>=500 Cholesterol Reference Range: Low Risk <200 [id number] High Risk>240 HDL Cholesterol Reference Range: Low Risk >=60 High Risk <40 LDL Cholesterol Reference Range: Optimal<100 Near [id number] Very High >=190 Performing Organization Address City/State/Zipcode Ph one Number [address] [facility] after 03/25/2019 Advance Directives For more information, please contact: [address] [address] Date Inactivated Comments Code Status Date Activated 06/01/2019 3:39 PM Full Code 05/31/2019 11:19 PM This code status was determined by: Patient 07/04/2016 8:07 PM Full Code 07/03/2016 5:25 PM This code status was determined by: Patient
--- OUTSIDE RECORDS SUMMARY | 2020-03-25 02:36 | XMS REPORT | Clinical Summary ---
Author Author [facility] Organization [facility] Address Unknown Phone Unavailable Care Team Providers Care Motor Adjuster Name Role Phone PCP Unavailable Allergies Comments [...] Effective Phone Address Plan / Dates Group [employer] SELF-PAY xxxxxxx [id number] [id number] [place] [address]
--- OUTSIDE RECORDS SUMMARY | 2020-03-25 02:37 | XMS REPORT | Continuity of Care Document ---
Author Author [facility] t Organization [facility] Address [address] [place] [address] Phone Unavailable Care Team Providers Care Counter Tender Name Role Phone NO, PCP PCP Unavailable Ashwin GOOD Attphys Unavailable EAST, SOUHEIL Attphys Unavailable Wilfredo BULLOCK, Taylor Attphys Jesus Triana MD, Vipul Barajas Attphys [phone] Lien Lewis MD Attphys VIPUL GREEN Attphys Unavailable Farrukh PARADA Attphys Unavailable Joss MENSAH, Claire Cuellar Attphys Jak SPENCER Attphys Unavailable RASSOLI, AMIR Attphys Unavailable SHAMSEE, SHAHZAD-MARY Attphys Unavailable MIKHAILAR, SANJIV Attphys Unavailable EAST, SOUHEIL Admphys Unavailable VIPUL GREEN JENN Admphys Unavailable RASSOLI, AMIR Admphys Unavailable SHAMSEE, SHAHZAD-MARY Admphys Unavailable BADAR, SANJIV Admphys Unavailable Payers Payer Name Policy Type Policy Number Effective Date Expiration Date S ource Self Pay NA [facility] [employer] [id number] 2018 00:00:00 [facility] Problems Condition Name Condition Details Condition Category Status Onset Date Resolution Date Last Treatment Date Treating Clinician Comments Source Pyuria Pyuria Disease Active 2019-05-31 00:00:00 [facility] Chest pain Chest pain Disease Active 2019-05-31 00:00:00 [facility] Acute chest pain Acute chest pain Disease Active 2016-07-03 00:00:00 [facility] Uncontrolled type 2 diabetes mellitus with complicatio n Uncontrolled type 2 diabetes mellitus with complication Disease Active 2016-07-03 00:00:00 [facility] Essential hypertension Essential hypertension Disease Active 2016-07-03 00:00:00 [facility] History of pulmonary embolus (PE) History of pulmonary embolus ( PE) Disease Active 2016-07-03 00:00:00 [facility] Uncontrolled hypertension Problem Active [facility] Infection due to severe acute respiratory syndrome coronavir us 2 (SARS-CoV-2) Problem Active [facility] Hypertensive urgency Problem Active [facility] Tachycardia Problem Active [facility] Hyperglycemia Problem Active [facility] Allergies, Adverse Reactions, Alerts Allergy Name Allergy Type Status Severity Reaction(s) Onset Date Inacti ve Date Treating Clinician Comments Source Metoclopramide Hcl Propensity to adverse reactions to drug Active Rash 2018-12-17 00:00:00 [place] Sand[facility] sanchez Ketorolac Propensity to adverse reactions to drug Active 2018-12-17 00:00:00 [facility] Tramadol Propensity to adverse reactions to drug Active Rash 2018-12-17 00:00:00 [facility] Ondansetron Hcl Propensity to adverse reactions to drug Active Rash 2018-12-17 00:00:00 [facility] Metoclopramide Hcl Propensity to adverse reactions to drug Active 2018-09-27 00:00:00 Rebel Rameyis philomena Ketorolac Propensity to adverse reactions to drug Active 2018-09-27 00:00:00 Rebel quach Tramadol Propensity to adverse reactions to drug Active 2018-09-27 00:00:00 Rebel Sheppard Ondansetron Hcl Propensity to adverse reactions to drug Active 2018-09-27 00:00:00 Rebel quach tramadol DA Active SV 2018-08-13 00:00:00 [facility] metoclopramide DA Active U 2018-08-12 00:00:00 [facility] ondansetron DA Active U 2018-08-12 00:00:00 [facility] ketorolac DA Active U 2018-08-12 00:00:00 [facility] Tramadol Allergy to substance Active Moderate ITCH 2018-05-08 00:00:00 [facility] Metoclopramide Allergy to substance Active Moderate [facility] 2018-05-08 00:00:00 [facility] Ondansetron Allergy to substance Active Moderate IT[facility] 2018-05-08 00:00: 00 [facility] Ketorolac Allergy to substance Active Moderate [facility] 2018-05-08 00:00:00 [facility] metoclopramide DA Active U 2017-03-27 00:00:00 [facility] ondansetron DA Active U 2017-03-27 00:00:00 [facility] ketorolac DA Active U 2017-03-27 00:00:00 [facility] Hydrocodone-Acetaminophen Drug Allergy Active Rash 2016-07-03 00 :00:00 [facility] Metoclopramide Hcl Drug Allergy Active Hives 2016-04-23 00:00:00 [facility] Tramadol Drug Allergy Active Hives 2016-04-23 00:00:00 [facility] Ondansetron Hcl (Pf) Drug Allergy Active Hives 2016-04-23 00:00:0 0 [facility] Reglan Allergy to substance Active Hives [facility] Zofran Allergy to substance Active Hives [facility] Family History Family Member Diagnosis Comments Start Date Stop Date Source Natural brother Diabetes [facility] Natural father Diabetes [facility] Natural sister Diabetes [facility] Social History Social Habit Start Date Stop Date Quantity Comments Source History SDOH Alcohol Std Drinks [facility] History SDOH Alcohol Binge [facility] Sex Assigned At [facility] Alcohol intake 2019-04-22 00:00:00 2019-04-22 00:00:00 Current non-drinker of alcohol (finding) [facility] History SDOH Alcohol Frequency 2018-12-14 00:00:00 2018-12-14 00:00:0 0 1 [facility] Smoking Status Start Date Stop Date Source Former smoker 2019-05-31 00:00:00 2019-05-31 00:00:00 [facility] Never smoker [facility] Medications Ordered Medication Name Filled Medication Name Start Date Stop Da te Current Medication? Ordering Clinician Indication Dosage Frequency Signature (SIG) Comments Components Source metFORMIN (GLUCOPHAGE) 1000 MG tablet 2019-06-01 10:30 :52 2019-06-01 00:00:00 No 1000mg Take 1,000 mg b y mouth 2 (two) times daily with breakfast and dinner. [facility] lisinopril (PRINIVIL,ZESTRIL) 40 MG tablet 06-01 10:30:52 2019-06-01 00:00:00 No 40mg QD Take 40 mg by mouth daily. [facility] aspirin 81 MG EC tablet 2019-06-01 10:30:52 2019-06-01 00:00:00 No 81mg QD Take 81 mg by mouth daily. [facility] insulin 70/30, insulin NPH-insulin regul ar, (HUMULIN 70/30) 100 unit/mL (70-30) InPn insulin pen 2019-06-01 10:30:52 2019-06-01 00:00:00 No 40U QD Inject 40 Units subcutaneously daily. [facility] insulin 70/30, insulin NPH-insulin regul ar, (HUMULIN 70/30) 100 unit/mL (70-30) InPn insulin pen 2019-06-01 04:09:20 Yes 40U Inject 40 Units subcutaneously daily as needed (in the evening). [facility] aspirin 81 MG EC tablet 2019-06-01 00:00:00 Yes 81mg QD Take 1 tablet (81 mg total) by mouth daily. [facility] insulin 70/30, insulin NPH-insulin regul ar, (HUMULIN 70/30) 100 unit/mL (70-30) InPn insulin pen 2019-06-01 00:00:00 Yes 40U QD Inject 40 Units subcutaneously daily. [facility] lisinopril (PRINIVIL,ZESTRIL) 40 MG tablet 2019-06-01 00:00:00 Yes 40mg QD Take 1 tablet (40 mg total) by mouth daily. [facility] metFORMIN (GLUCOPHAGE) 1000 MG tablet 2019-06-01 00:00:00 Y es 1000mg Take 1 tablet (1,000 mg total) by mouth 2 (two) times daily with breakfast and dinner. [facility] needles, insulin disposable (INSULIN PEN NEEDLES) Ndle 2019-06-01 00:00:00 Yes 1{each} Q.5D 1 each by Miscellaneous route 2 (two) ti mes daily. [facility] atorvastatin (LIPITOR) 40 MG tablet 2019-06-01 00:00:0 0 2020-05-31 23:59:00 No 40mg QD Take 1 tablet (40 mg total) by mouth nig htly. [facility] ciprofloxacin HCl (CIPRO) 250 MG tablet 00:00:00 2019-06-04 23:59:00 No 250mg Q.5D Take 1 tablet (250 mg total) by mouth 2 (two) times daily for 3 days. [facility] Butalbital/Aspirin/Caffeine (Fiorinal 50-325-40 Mg Cap bianca) 1 Each CAPSULE Butalbital/Aspirin/Caffeine (Fiorinal 50-325-40 Mg Capsule) 1 Each CAPSULE 2019-03-22 23:10:00 Yes 1 Every 6 Hours as n eeded for Headache [facility] Sulfamethoxazole/Trimethoprim (Bactrim Ds Tablet) 1 Ea ch TABLET Sulfamethoxazole/Trimethoprim (Bactrim Ds Tablet) 1 Each TABLET 2019-03-22 23:07:00 2020-03-17 00:00:00 No 1 Twice A Day [facility] aspirin 81 mg tablet,delayed release Take 1 tablet marichuy ry day by oral route. aspirin 81 mg tablet,delayed release Take 1 tablet every day by oral route. No 1 Q1D aspirin 81 mg t ablet,delayed release Take 1 tablet every day by oral route. [facility] Blood Glucose Test strips Take 1 strip twice a day by miscell. route. Blood Glucose Test strips Take 1 strip twice a day by miscell. route. No 1strip(s) BID Blood Glucose Test strips Ta ke 1 strip twice a day by miscell. route. [facility] Diflucan 150 mg tablet Take 1 tablet every 72 hours by oral route. Diflucan 150 mg tablet Take 1 tablet every 72 hours by oral route. No 1 Diflucan 150 mg tablet Take 1 tablet every 72 hours by oral route. [facility] gabapentin 300 mg capsule Take 2 capsules 3 times a da y by oral route. gabapentin 300 mg capsule Take 2 capsules 3 times a day by oral route. No 2capsule(s) TID gabapentin 300 mg ca psule Take 2 capsules 3 times a day by oral route. [facility] Jentadueto XR 5 mg-1,000 mg tablet, exte nded release Take 1 tablet every day by oral route. Jentadueto XR 5 mg-1,000 mg tablet, exte nded release Take 1 tablet every day by oral route. No 1 Q1D Jentadueto XR 5 mg-1,000 mg tablet, extended release Take 1 tablet every day by oral route. [facility] lisinopril 40 mg tablet Take 1 tablet every day by ora l route. lisinopril 40 mg tablet Take 1 tablet every day by oral route. No 1 Q1D lisinopril 40 mg tablet Take 1 tablet every day by oral route. [facility] Novolin 70/30 U-100 Insulin 100 unit/mL [...] the AM, 20 units in the PM [facility] simvastatin 20 mg tablet Take 1 tablet every day by or al route. simvastatin 20 mg tablet Take 1 tablet every day by oral route. No 1 Q1D simvastatin 20 mg tablet Take 1 tablet every day by oral route. [facility] sumatriptan 25 mg tablet Take 2 [...] May repeat dose x1 after 2 hours. [facility] Azithromycin (Z-Connor) 250 Mg TABLET Azithromycin (Z-Connor) 250 Mg TABLET Yes 500 Daily [facility] Metoprolol Tartrate Metoprolol Tartrate Yes 25 Twice A Day [facility] Valsartan (Diovan) 160 Mg TAB Valsartan (Diovan) 160 Mg TAB Yes 160 Daily [facility] Vital Signs Vital Name Observation Time Observation Value Comments Source Height 2020-02-28 00:00:00 60 [in_i] [facility] Body Temperature 2020-03-17 13:43:00 97.5 [degF] [facility] Weight 2020-03-17 01:18:00 191 [lb_av] [facility] BMI (Body Mass Index) 2020-03-17 01:18:00 36.1 kg/m2 [facility] Systolic blood pressure 2019-06-01 08:08:00 111 mm[Hg] [facility] Diastolic blood pressure 2019-06-01 08:08:00 56 mm[Hg] [facility] Heart rate 2019-06-01 08:08:00 87 /min [facility] Body temperature 2019-06-01 08:08:00 36.11 Yessenia [facility] Respiratory rate 2019-06-01 08:08:00 18 /min [facility] Oxygen saturation in Arterial blood by Pulse oximetry 2018-08 08:08:00 94 /min [facility] height 2019-06-01 04:09:00 154.9 cm [facility] Body weight Measured 2019-06-01 04:09:00 86.728 kg [facility] BMI 2019-06-01 04:09:00 36.13 kg/m2 [facility] Systolic blood pressure 2019-04-23 02:12:00 188 mm[Hg] Rebel Sheppard Diastolic blood pressure 2019-04-23 02:12:00 105 mm[Hg] [facility] Heart rate 2019-04-23 02:12:00 102 /min [facility] Oxygen saturation in Arterial blood by Pulse oximetry 04-23 02:12:00 95 /min Re[facility] Rameyist Body temperature 2019-04-22 23:45:00 36.83 Yessenia Hous [facility] Respiratory rate 2019-04-22 23:45:00 16 /min Arabella [facility] Body height 2019-04-22 23:43:00 154.9 cm Rebel Sheppard Procedures Procedure Date / Time Performed Performing Clinician [facility] e Computed tomography of chest with contrast 2020-03-16 00:00:00 [facility] RHYTHM STRIP - SCAN 2019-06-06 10:23:10 Provider, Default Scanni ng [facility] REPORT OF PROCEDURE - ENDOSCOPY SCAN 2019-06-02 13:31:21 Pro vider, Default Scanning [facility] POCT-GLUCOSE METER 2019-06-01 08:11:00 Erlinda Lewis [facility] ECG 12-LEAD 2019-06-01 06:02:17 [facility] ECG 12-LEAD 2019-06-01 06:00:32 [facility] URINALYSIS W/ REFLEX URINE CULTURE 2019-06-01 04:10:00 [facility] TROPONIN I 2019-06-01 04:03:00 [facility] BASIC METABOLIC PANEL (7) 2019-06-01 04:03:00 [facility] MAGNESIUM 2019-06-01 04:03:00 [facility] CBC W/PLT COUNT & AUTO DIFFERENTIAL 2019-06-01 04:03:00 [facility] POCT-GLUCOSE METER 2019-06-01 01:07:00 Jesus WatsonluzJenn rivera [facility] TROPONIN I 2019-06-01 00:15:00 [facility] BASIC METABOLIC PANEL (7) 2019-06-01 00:15:00 [facility] LIPID PANEL 2019-06-01 00:15:00 [facility] HEMOGLOBIN A1C 2019-06-01 00:15:00 [facility] PROCALCITONIN 2019-06-01 00:15:00 [facility] POC GLUCOSE 2019-04-23 02:13:[address] HEAD WO CONTRAST 2019-04-23 01:30:31 Polo Coreas [place] CRITICAL CARE, E/M 30-74 MINUTES 2019-04-23 00:55:13 Polo Coreas ECG ED PRELIMINARY INTERPRETATION 2019-04-23 00:55:13 Tracie Coreas HC COMPLETE BLD COUNT W/AUTO DIFF 2019-04-22 23:44:00 Lynda Nguyen COMPREHENSIVE METABOLIC PANEL 2019-04-22 23:44:00 Morena Nguyen TROPONIN 2019-04-22 23:44:00 Morena Nguyen B NATRIURETIC PEPTIDE 2019-04-22 23:44:00 Morena Nguyen ESTIMATED GFR 2019-04-22 23:44:00 Morena Nguyen ECG 12-LEAD 2019-04-22 23:32:04 Morena Nguyen Cholecystectomy [facility] Appendectomy [facility] Plan of Care Planned Activity Planned Date Details Comments Source Future Scheduled Test 2020-05-30 00:00:00 HbA1c (hemoglobin A1c), blood [code = HbA1c (hemoglobin A1c), blood] [facility] Future Scheduled Test 2020-05-30 00:00:00 lipid panel, serum [code = lipid panel, serum] [facility] Scheduled Test 2020-05-17 00:00:00 IMM Influenza Seas onal May to October (>/= 19 yrs) [code = IMM Influenza Seasonal May to October (>/= 19 yrs)] [facility] Scheduled Test 2020-04-17 00:00:00 INFLUENZA VACCINE (#1) [code = INFLUENZA VACCINE (#1)] [facility] Scheduled Test 2020-03-17 00:00:00 INFLUENZA VACCINE [code = INFLUENZA VACCINE] [facility] Diagnostic Test Pending 2020-02-28 00:00:00 STI panel [code = STI p leonardo] [facility] Diagnostic Test Pending 2020-02-28 00:00:00 CBC w/ auto diff [code = CBC w/ auto diff] [facility] Diagnostic Test Pending 2020-02-28 00:00:00 lipid panel, ser um [code = lipid panel, serum] [facility] Diagnostic Test Pending 2020-02-28 00:00:00 HbA1c (hemoglobi n A1c), blood [code = HbA1c (hemoglobin A1c), blood] [facility] Diagnostic Test Pending 2020-02-28 00:00:00 CMP, serum or pl asma [code = CMP, serum or plasma] [facility] Scheduled Test 2019-09-01 00:00:00 Hemoglobin A1c dhruv surement (procedure) [code = 41445628] [facility] Scheduled Test 2017 00:00:00 Breast Cancer Scrn (Yearly) [code = Breast Cancer Scrn (Yearly)] [facility] Scheduled Test 1998 00:00:00 Screening for crow gnant neoplasm of cervix (procedure) [code = 407241609] [facility] Future Scheduled Test 1998 00:00:00 Screening for crow gnant neoplasm of cervix (procedure) [code = 916829590] [facility] Scheduled Test 1998 00:00:00 Screening for crow gnant neoplasm of cervix (procedure) [code = 985949092] [facility] Future Scheduled Test 1987-10-24 00:00:00 DIABETIC FOOT EXAM [code = DIABETIC FOOT EXAM] [facility] Scheduled Test 1987-10-24 00:00:00 URINE MICROALBUMIN [code = URINE MICROALBUMIN] [facility] Scheduled Test 1987-10-24 00:00:00 DIABETIC EYE EXAM [code = DIABETIC EYE EXAM] [facility] Scheduled Test 1987-10-24 00:00:00 Diabetic foot exam ination (regime/therapy) [code = 333465261] [facility] Future Scheduled Test 1987-10-24 00:00:00 Urine screening fo r protein (procedure) [code = 841766102] [facility] Future Scheduled Test 1983-10-24 00:00:00 PNEUMOCOCCAL VACCI NE 2-64 YEARS AT RISK (1 of 1 - PPSV23) [code = PNEUMOCOCCAL VACCINE 2-64 YEARS AT RISK (1 of 1 - PPSV23)] [facility] Scheduled Test 1977 00:00:00 DIABETIC RETINAL E YE EXAM [code = DIABETIC RETINAL EYE EXAM] [facility] Appointment 2020-05-30 00:00:00 Jeffery Ricci, [address]; , [place] [phone] [facility] Future Appointment 2020-04-09 10:30:00 Ana Pradhan [address]; , [address] Instructions Chest Pain - Noncardiac [facility] Encounters Start Date/Time End Date/Time Encounter Type Admission Type [facility] Care Department Encounter ID Source 2020-03-16 08:51:00 2020-03-17 15:15:00 Discharged Inpatient [address] [facility] [id number] [facility] 2020-02-28 00:00:00 2020-02-28 00:00:00 Jeffery babb MD: [address], [place] [phone], [facility] [id number] [facility] 2019-05-31 14:28:00 2019-05-31 19:38:00 Departed Emergency Room [address] [facility] [id number] [facility] 2019-04-02 02:54:00 2019-04-02 06:32:00 Departed Emergency Room 1 [facility] [id number] [facility] 2019-03-22 21:16:00 2019-03-22 23:46:00 Departed Emergency Room 1 [facility]SC[facility]ENC[facility] [id number] [facility] 2018-12-29 19:35:00 2018-12-29 19:35:00 Outpatient [facility] [id number] [facility] 2018-12-17 08:06:21 2018-12-17 08:06:21 Emergency [facility] MED [id number] [facility] 2018-12-17 00:00:00 2018-12-17 00:00:[address] [facility] [id number] [facility] 2018-05-08 22:46:00 2018-05-09 00:26:00 Departed Emergency Room [facility] [id number] [facility] 2017-09-15 15:51:00 2017-09-15 15:51:00 Emergency E [facility] [id number] [facility] Results Test Description Test Time Test Comments Results Result Comments Source CHEST SINGLE (PORTABLE) 2020-03-25 01:03:00 [facility] [address] [place] [address] Patient Name: ANNIA VIDES MR #: [id number] : 1975 Age/Sex: 44/F Req #: [id number] Adm Physician: Ordered by: TOD GOOD MD Report #: [id number] Location: ER Room/Bed: Procedure: [id number] DX/CHEST SINGLE (PORTABLE) Exam Date: 03/25/20 Exam Time: 14 REPORT STATUS: Signed EXAMINATION: CHEST SINGLE (PORTABLE) INDICATION: Y CHEST PAIN 20200325 Y COMPARISON: Radiograph dated 05/31/2019. FINDINGS: Shallow lung volumes. The heart is not enlarged. The pulmonary vasculature is nondistended. There are confluent opacities at the lung bases. Pleural fluid tracks up the left pleural space into the major fissure. No pneumothorax. IMPRESSION: Bibasilar confluent opacities likely represent small pleural effusions with adjacent atelectasis or pneumonia. Radiographic follow-up in 6-8 weeks is recommended to document resolution. Signed by: Hannah Caldwell MD on 03/25/2020 1:33 AM Dictated By: HANNAH CALDWELL MD 2 Transcribed By: MANJINDER on 03/25/20132 COPY TO: TOD GOOD MD Blood leukocytes automated count (number/volume) 2020-03-17 05:00:00 Test Item White Blood Count (test code = 6690-2) 10.60 4.8-10.8 [facility] automated count (number/volume)2020-03-17 05:00:00* Test Item Value Reference Range Interpretation Comments Red Blood Count (test code = 789-8) 4.54 3.6-5.1 [facility] measurement (moles/volume)2020-03-17 05:00:00* Test Item Value Reference Range Interpretation Comments Hemoglobin (test code = 14262-4) 12.9 12.0-16.0 [facility] hematocrit (volume fraction)2020-03-17 05:00:00* Test Item Value Reference Range Interpretation Comments Hematocrit (test code = 4544-3) 40.7 34.2-44.1 [facility] erythrocyte mean corpuscular [id number] 05:00:00* Test Item Value Reference Range Interpretation Comments Mean Corpuscular Volume (test code = 787-2) 89.6 81-99 [facility] eryth[facility] mean corpuscular hemoglobin (mass per erythrocyte)2020-03-17 05:00:00* Test Item Value Reference Range Interpretation Comments Mean Corpuscular Hemoglobin (test code = 785-6) 28.4 28-32 [facility] eryth[facility] mean corpuscular hemoglobin concentration measurement (mass/volume)2020-03-17 05:00:00* Test Item Value Reference Range Interpretation Comments Mean Corpuscular Hemoglobin Concent (test code = 786-4) 31.7 31-35 [facility] Center[facility]DW [id number] 05:00:00* Test Item Value Reference Range Interpretation Comments Red Cell Distribution Width (test code = 89725-9) 13.6 11.7 -14.4 [facility] platelet count (count/volume)2020-03-17 05:00:00* Test Item Value Reference Range Interpretation Comments Platelet Count (test code = 777-3) 305 140-360 [facility] segmented neutrophil count as percentage of total [id number] 05:00:00* Test Item Value Reference Range Interpretation Comments Neutrophils (%) (Auto) (test code = 11447-3) 55.0 38.7-80.0 [facility] lymphocyte count as percentage ot total [id number] 05:00:00* Test Item Value Reference Range Interpretation Comments Lymphocytes (%) (Auto) (test code = 736-9) 30.7 18.0-39.1 [facility] [facility] CenterAutomated blood monocyte count as percentage of total usuepymkfw9846-04-90 05:00:00* Test Item Value Reference Range Interpretation Comments Monocytes (%) (Auto) (test code = 5905-5) 10.9 4.4-11.3 [facility] CenterAutom[facility] blood eosinophil count as percentage of total ujuzksclos9345-73-38 05:00:00* Test Item Value Reference Range Interpretation Comments Eosinophils (%) (Auto) (test code = 713-8) 2.4 0.0-6.0 [facility] CenterAutomated blood basophil count as percentage of total xmbotmjwku9109-45-53 05:00:00* Test Item Value Reference Range Interpretation Comments Basophils (%) (Auto) (test code = 706-2) 0.3 0.0-1.0 [facility] CenterFluoroscopic procedure less than one hour eqpetokz3218-82-89 05:00:00* Test Item Value Reference Range Interpretation Comments IM GRANULOCYTES % (test code = IM GRANULOCYTES %) 0.7 0.0- 1.0 [facility] CenterAutom[facility] blood neutrophil count 2020-03-17 05:00:00* Test Item Value Reference Range Interpretation Comments Neutrophils # (Auto) (test code = 751-8) 5.8 2.1-6.9 [facility] CenterBlood lymphocytes count (number/volume) 2020-03-17 05:00:00* Test Item Value Reference Range Interpretation Comments Lymphocytes # (Auto) (test code = 61081-7) 3.3 1.0-3.2 [facility] CenterBlood monocytes automated count (number/volume)2020-03-17 05:00:00* Test Item Value Reference Range Interpretation Comments Monocytes # (Auto) (test code = 742-7) 1.2 0.2-0.8 [facility] CenterAutomated blood eosinophil count 2020-03-17 05:00:00* Test Item Value Reference Range Interpretation Comments Eosinophils # (Auto) (test code = 711-2) 0.3 0.0-0.4 [facility] CenterAutomated blood basophil count (count/volume)2020-03-17 05:00:00* Test Item Value Reference Range Interpretation Comments Basophils # (Auto) (test code = 704-7) 0.0 0.0-0.1 [facility] CenterFluoroscopic procedure less than one hour ldqagxxx3324-07-27 05:00:00* Test Item Value Reference Range Interpretation Comments Absolute Immature Granulocyte (auto (simran t code = Absolute Immature Granulocyte (auto) 0.07 0-0.1 [facility] plasma sodium measurement (moles/volume)2020-03-17 05:00:00* Test Item Value Reference Range Interpretation Comments Sodium Level (test code = 2951-2) 135 136-145 [facility] Clinicer[facility] or plasma potassium measurement (moles/volume)2020-03-17 05:00:00* Test Item Value Reference Range Interpretation Comments Potassium Level (test code = 2823-3) 4.8 3.5-5.1 [facility] or plasma chloride measurement (moles/volume)2020-03-17 05:00:00* Test Item Value Reference Range Interpretation Comments Chloride Level (test code = 2075-0) 98 98-107 [facility] Clinicerum or plasma carbon dioxide, total measurement (moles/volume)2020-03-17 05:00:00* Test Item Value Reference Range Interpretation Comments Carbon Dioxide Level (test code = 2028-9) 29 22-29 [facility] Clinic[facility] or plasma anion dbb9339-24-07 05:00:00* Test Item Value Reference Range Interpretation Comments Anion Gap (test code = 71898-3) 12.8 8-16 [facility] Clinic[facility] or plasma urea nitrogen measurement (mass/volume)2020-03-17 05:00:00* Test Item Value Reference Range Interpretation Comments Blood Urea Nitrogen (test code = 3094-0) 18 7-26 [facility] or plasma creatinine measurement (mass/volume)2020-03-17 05:00:00* Test Item Value Reference Range Interpretation Comments Creatinine (test code = 2160-0) 0.73 0.57-1.11 [facility] Clinic[facility] or plasma urea nitrogen/creatinine mass dktzj5055-72-38 05:00:00* Test Item Value Reference Range Interpretation Comments BUN/Creatinine Ratio (test code = 3097-3) 25 6-25 [facility] CenterEstimated glomerular filtration rate (GFR) wliiuszjbvqxa6386-33-50 05:00:00* Test Item Value Reference Range Interpretation Comments Estimat Glomerular Filtration Rate (test code = 686231807) > 60 >60 Ranges were taken from the National Kidney Disease Education Program and the [facility] Kidney Foundation literature.Reference ranges:60 or greater: Peklmc85-01 ( for 3 consecutive months): Chronic kidney disease 15 or less: Kidney failureMichael E. DeBakey [facility] CenterGlucose awppaleifbr2955-82-30 05:00:00* Test Item Value Reference Range Interpretation Comments Glucose Level (test code = BDX6439) 310 74-118 [facility] Clinicer[facility] or plasma calcium measurement (mass/volume)2020-03-17 05:00:00* Test Item Value Reference Range Interpretation Comments Calcium Level (test code = 53550-9) 9.3 8.4-10.2 [facility] Clinic[facility] or plasma total bilirubin measurement (mass/volume)2020-03-17 05:00:00* Test Item Value Reference Range Interpretation Comments Total Bilirubin (test code = 1975-2) 0.3 0.2-1.2 [facility] CenterFluoroscopic procedure less than one hour jaewrfyo8415-16-05 05:00:00* Test Item Value Reference Range Interpretation Comments Aspartate Amino Transf (AST/SGOT) (test code = Aspartate Amino Transf (AST/SGOT)) 39 5-34 [facility] Clinicer[facility] or plasma alanine aminotransferase measurement (enzymatic activity/volume)2020-03-17 05:00:00* Test Item Value Reference Range Interpretation Comments Alanine Aminotransferase (ALT/SGPT) (test code = 1742-6) 100 0-55 [facility] Clinicer[facility] or plasma protein measurement (mass/volume)2020-03-17 05:00:00* Test Item Value Reference Range Interpretation Comments Total Protein (test code = 2885-2) 6.8 6.5-8.1 [facility] Clinicer[facility] or plasma albumin measurement (mass/volume)2020-03-17 05:00:00* Test Item Value Reference Range Interpretation Comments Albumin (test code = 1751-7) 2.9 3.5-5.0 [facility] CenterPlasma globulin measurement (mass/volume) 2020-03-17 05:00:00* Test Item Value Reference Range Interpretation Comments Globulin (test code = 04794-7) 3.9 2.3-3.5 [facility] Clinicer[facility] or plasma albumin/globulin mass xbpur9834-86-58 05:00:00* Test Item Value Reference Range Interpretation Comments Albumin/Globulin Ratio (test code = 1759-0) 0.7 0.8-2.0 [facility] Clinic[facility] or plasma alkaline phosphatase measurement (enzymatic activity/volume)2020-03-17 05:00:00* Test Item Value Reference Range Interpretation Comments Alkaline Phosphatase (test code = 6768-6) 82 40-150 [facility] Clinicer[facility] or plasma triglyceride measurement (mass/volume)2020-03-17 05:00:00* Test Item Value Reference Range Interpretation Comments Triglycerides Level (test code = 2571-8) 222 0-149 [facility] Clinicerum or plasma cholesterol measurement (mass/volume)2020-03-17 05:00:00* Test Item Value Reference Range Interpretation Comments Cholesterol Level (test code = 2093-3) 219 0-199 Less than 200 mg/dL Low Rhxg673 - 239 mg/dL Borderline Nvyp874 m g/dl and greater High Risk [facility] Clinic[facility] or plasma cholesterol in LDL measurement (mass/volume) 2020-03-17 05:00:00* Test Item Value Reference Range Interpretation Comments LDL Cholesterol (test code = 2089-1) 142 60-130 [facility] Clinicer[facility] or plasma cholesterol in HDL measurement (mass/volume)2020-03-17 05:00:00* Test Item Value Reference Range Interpretation Comments HDL Cholesterol (test code = 2085-9) 33 40-60 [facility] Clinicer[facility] or plasma total cholesterol/cholesterol in HDL mass vzwea5245-29-28 05:00:00* Test Item Value Reference Range Interpretation Comments Cholesterol/HDL Ratio (test code = 9830-1) 6.6 3.0-3.6 [facility] CenterCapillary blood glucose measurement by glucometer (mass/volume)2020-03-16 19:21:00* Test Item Value Reference Range Interpretation Comments Bedside Glucose (test code = 39190-3) 302 70-120 Meter ID: [id number] Community Hospital and Clinicerum or plasma creatine kinase measurement (enzymatic activity/volume)2020-03-16 15:25:00* Test Item Value Reference Range Interpretation Comments Creatine Kinase (test code = 2157-6) 47 29-168 [facility] Clinicer[facility] or plasma creatine kinase MB measurement (mass/volume)2020-03-16 15:25:00* Test Item Value Reference Range Interpretation Comments Creatine Kinase MB (test code = 61076-2) 5.80 0-5.0 [facility] CenterTroponin I measurement by highly sensitive enzyme jmzgtmuqfpm6234-28-22 15:25:00* Test Item Value Reference Range Interpretation Comments Troponin I (test code = 95213-5) 0.011 0-0.300 [facility] Medical CenterCT CHEST D5048-91-16 11:26:00 [facility] [address] [address] Patient Name: ANNIA VIDES MR #: [id number] : 1975 Age/Sex: 44/F Req #: [id number] Adm Physician: SHARAD EAST MD Ordered by: JOSTIN POWERS MD Report #: [id number] Location: [facility] Room/Bed: [place] [address] Procedure: [id number] CT/CT C HEST W Exam Date: 03/16/20 [...] JOSTIN POWERS MD CXR 1 VEW - ZUEB0130-61-15 01:08:00 [address] [place] [address] Patient Name: ANNIA VIDES MR #: [id number] : 1975 Age/Sex: 44/F Req #: [id number] Adm Physician: Ordered by: ROHINI RAMOS MD Report #: [id number] [facility] Room/Bed: Procedure: [id number] HOPD/CXR 1 VEW - HOPD Exam Date: 03/16/20 Exam Time: 0050 REPORT STATUS: Signed EXAMINATION: CXR 1 W - [facility] INDICATION: Left sided chest pain COMPARI SON: [...] MD Fluoroscopic procedure less than one hour upufnzac9536-83-30 23:55:00* Test Item Value Reference Range Interpretation [...] from individuals suspected of COVID-19 by their [facility] provider. This test has not [...] under 564(g) of the ACT.Testing performed by [address] Morgan StreetEKG 29-YFSV1272-16-19 12:13:49Interface, External Ris In - 06/04/2019 12:13 PM CDTVentricular Rate 90 BPMAtrial Rate 90 BPMP-R Interval 128 msQRS Duration 90 msQ-T Interval 370 msQTC Calculation(Bazett) 452 msP [place] 23 degreesR [place] 51 degreesT [place] 37 degreesNormal sinus rhythmNormal ECGWhen compared with ECG of 01-JUN-2019 06:00,No significant change was foundConfirmed by MD ROSEANNE, MARY ([id number]) on 06/04/2019 12:13:45 [facility] lpmsy4879-55-88 08:51:00* Test Item Value Reference Range Interpretation Comments POC-Glucose Meter (test code = 1538) 271 mg/dL 70-110 H TESTED AT [address] [address] Lab Interpretation (test code = 27277-5) Abnormal [facility] HospitalPOCT-GLUCOSE ZGFCE3467-01-50 08:51:00* Test Item Value Reference Range Interpretation Comments POC-GLUCOSE METER (BEAKER) (test code = 1538) 271 mg/dL 70-110 H TESTED AT [address] [address] Hemoglobin G4w6728-86-63 07:48:00* Test Item Value Reference Range Interpretation Comments Hemoglobin A1C (test code = 4548-4) 10.3 % 4.3-6.1 H Lab Interpretation (test code = 05747-9) Abnormal [facility] HospitalHEMOGLOBIN C8O0739-73-08 07:48:00* Test Item Value Reference Range Interpretation Comments HEMOGLOBIN A1C (BEAKER) (test code = 368) 10.3 % 4.3-6.1 H Urinalysis w/Microscopic + Reflex to Famaswg9733-82-37 06:18:00* Test Item Value Reference Range Interpretation Comments Color, UA (test code = 5778-6) Light Yellow Clarity, UA (test code = 5767-9) Clear Specific [place], UA (test code = 5811-5) 1.037 1.001-1.035 H pH, UA (test code = 5803-2) 6.0 5.0-8.0 Protein, UA (test code = 02390-1) Negative Negative Glucose, UA (test code = 365) >1000 mg/dL Negative A Ketones, UA (test code = 2514-8) Negative Negative Bilirubin, UA (test code = 94539-7) Negative Negative Blood, UA (test code = 99978-7) Negative Negative Nitrite, UA (test code = 5802-4) Negative Negative Leukocytes, UA (test code = 5799-2) Large Negative A Urobilinogen, UA (test code = 18375-7) 0.2 mg/dL 0.2-1 RBC, UA (test code = 73123-9) 2 /HPF WBC, UA (test code = 5821-4) 7 /HPF Bacteria, UA (test code = 08035-4) Rare Squam Epithel, UA (test code = 71589-7) 2 /HPF Specimen Source (test code = 2795) Lab Interpretation (test code = 51180-1) Abnormal [facility] Center[facility] W/ REFLEX URINE SDCWXKM2245-90-62 06:18:00* Test Item Value Reference Range Interpretation [...] SOURCE(BEAKER) (test code = 2795) Basic metabolic yczjs5064-82-44 04:51:00* Test Item Value Reference Range Interpretation [...] mg/dL 70-105 H Calcium (test code = 87432-6) 9.0 mg/dL 8.4-10.2 EGFR (test code = 63905-2) 102 mL/min/1.73 sq m ESTIMATED GFR IS NOT ACCURATE CREATININE CLEARANCE IN PREDICTING GLOMERULAR FILTRATION RATE. ESTIMATED GFR IS NOT APPLICABLE FOR DIALYSIS PATIENTS. Lab Interpretation (test code = 20454-2) Abnormal [facility] HospitalMagnesium2019-10-16 04:51:00* Test Item Value Reference Range Interpretation Comments Magnesium (test code = 62215-4) 1.9 mg/dL 1.6-2.6 Lab Interpretation (test code = 74693-0) Normal [facility] HospitalMAGNESIUM2019-10-16 04:51:00* Test Item Value Reference Range Interpretation Comments MAGNESIUM (BEAKER) (test code = 627) 1.9 mg/dL 1.6-2.6 BASIC METABOLIC OSKZT6680-81-88 04:51:00* Test Item Value Reference Range Interpretation [...] IS NOT APPLICABLE FOR DIALYSIS PATIENTS. Troponin F1795-22-08 04:49:00* Test Item Value Reference Range Interpretation Comments Troponin I (test code = 83929-1) <0.01 0-0.03 JAI (test code = JAI) [...] persistent tachyarrhythmia. Lab Interpretation (test code = 77367-4) Normal [facility] CenterTROPONIN U5621-33-67 04:49:00* Test Item Value Reference Range Interpretation [...] sistent tachyarrhythmia.CBC with platelet count + automated zntn0239-63-73 04:27:00* Test Item Value Reference Range Interpretation [...] 450 K/CU MM MPV (test code = 90157-2) 10.8 fL 9.4-12.3 nRBC (test code = [...] % 0-1 Lab Interpretation (test code = 36620-6) Abnormal [facility] W/PLT COUNT & AUTO ZNWBCJHJBDUG4758-16-60 04:27:00* Test Item Value Reference Range Interpretation [...] code = 2801) 0 % 0-1 POCT-GLUCOSE DIWQN7548-19-10 03:02:00* Test Item Value Reference Range Interpretation Comments POC-GLUCOSE METER (BEAKER) (test code = 1538) 349 mg/dL 70-110 H TESTED AT [facility] [address] [facility] [address] Kodhuuvspptkr7897-97-46 01:01:00* Test Item Value Reference Range Interpretation Comments Procalcitonin (test code = 59605-8) <0.05 <0.05 ng/mL JAI (test code = JAI) SEPSIS RISK (ng/mL)Low: 0.05-0.50Intermediate: 0.51-2.00High: >=2.01 Lab Interpretation (test code = 50323-1) Normal [facility] HospitalPROCALCITONIN2019-10-16 01:01:00* Test Item Value Reference Range Interpretation Comments PROCALCITONIN (BEAKER) (test code = 3036) < ng/mL <0.05 SEPSIS RISK (ng/mL)Low: 0.05-0.50Intermediate: 0.51-2.00High: > =2.01TROPONIN F9282-01-96 00:55:00* Test Item Value Reference Range Interpretation [...] acute neurological disease, and per sistent tachyarrhythmia.Lipid qqbjb0234-16-19 00:49:00* Test Item Value Reference Range Interpretation Comments Triglycerides (test code = 2571-8) 218 mg/dL Cholesterol (test code = 2093-3) 232 mg/dL HDL (test code = 2085-9) 31 mg/dL LDL Calculated (test code = 48193-0) 157 mg/dL JAI (test code = JAI) Triglyceride Reference Range : Low Risk <150 Borderline 150-199 High Risk 200-499 Very High Risk >=500 Cholesterol Reference Range: Low Risk <200 Borderline 200-239 High Risk >240 HDL Cholesterol Reference Range: Low Risk >=60 High Risk <40 LDL Cholesterol Reference Range: Optimal <100 Near Optimal 100-129 Borderline 130-159 High 160-189 Very High >=190 [facility] HospitalLIPID LVQDE3934-94-61 00:49:00* Test Item Value Reference Range Interpretation [...] High 160-189 Very High >=190 BASIC METABOLIC TOXVL4725-68-50 00:49:00* Test Item Value Reference Range Interpretation [...] FOR DIALYSIS PATIENTS. CXR 2 VIEW - PYEF9178-69-74 18:25:[address] [address] Patient Name: ANNIA VIDES MR #: [id number] : 1975 Age/Sex: 43/F Req #: [id number] Adm Physician: Ordered by: CASEY PARADA MD Report #: [id number] Location: [facility] Room/Bed: Procedure: [id number] HOPD/CXR 2 VIEW [...] COPY TO: CASEY PARADA MD Bacterial urine utvdaow2052-16-61 16:59:00* Test Item Value Reference Range Interpretation Comments Urine Culture (test code = 630-4) ESCHERICHIA COLI [facility] tpem0397-32-58 00:12:18* Test Item Value Reference Range Interpretation Comments Ventricular rate (test code = 253) 103 Atrial rate (test code = 255) 103 FL interval (test code = 266) 126 QRSD [...] of 14-DEC-2018 15:52,-No significant change was found- [place] [facility] kukbbeb9067-23-51 02:19:52* Test Item Value Reference Range Interpretation Comments POC glucose (test code = 39508-4) 280 mg/dL 65-99 H HMW Notified MDMeter ID: [id number]: Denice Sands Lab Interpretation (test code = 94097-2) Abnormal [facility]CT Head Wo Cikwlfut7799-91-23 01:33:20Hm Interface, Radiology Results 04/23/2019 1:36 AM [...] are normal. IMPRESSION:No acute intracranial abnor mality identified.[facility]-[id number] [facility] Preliminary Interpretation - Not an Nvqyb0930-79-48 00:55:13* Test Item Value Reference Range Interpretation Comments JAI (test code = JAI) Polo Coreas MD 04/23/2019 12:58 [facility] ED Preliminary Interpretation - Not an OrderPerformed by: Polo Coreas MDAuthorized by: Polo Coreas MD ECG reviewed by ED Physician in the absence of a collateral clerk: yes Previous ECG: Previous ECG: UnavailableInterpretation: Interpretation: abnormal Rate: ECG rate: 103 bpm ECG rate assessment: tachycardic Rhythm: Rhythm: sinus tachycardia QRS: QRS axis: Normal QRS intervals: Normal (98 ms)Conduction: Conduction: abnormal Abnormal conduction: incomplete RBBB ST segments: ST segments: NormalT waves: T waves: normal Other findings: Other findings comment: Left axis deviationsComments: FL 126 msQT/QTc 364/476 ms Lab Interpretation (test code = 78682-1) Abnormal [facility] SOBV7222-37-67 00:55:13EdPolo mackenzie MD 04/23/2019 12:58 PMCritical CarePerformed by: Polo Coreas MDAuthorized by: Polo Coreas MD Critical care provider statement: Critical care time (minutes): 35 Critical care time was exclusive of: Separately billable procedures and treating other patients Critical care was necessary to treat or prevent imminent or life-threatening deterioration of the following conditions: Cardiac failure and RN OR LPN failure or compromise Critical care was time spent personally by me on the following activities: Development of treatment plan with patient or surrogate, ordering and review of laboratory studies, ordering and review of radiographic studies, discussions with consultants, discussions with primary provider, pulse oximetry, re-evaluation of patient's condition, evaluation of patient's response to treatment, examination of patient and review of old chartsWise Health Surgical Hospital at Parkwayprehensive metabolic fbkbl8121-51-27 00:36:13* Test Item Value Reference Range Interpretation Comments Sodium (test code = 2951-2) 136 135- 148 mEq/L Potassium (test code = 2823-3) 4.5 3.5- 5.0 mEq/L Chloride (test code = 5-0) 96 99- 109 mEq/L L CO2 (test code = 2027-9) 27 24- 31 mEq/L Anion gap (test code = 25646-7) 13@ANIO 7- 15 mEq/L BUN (test code = 3094-0) 11 mg/dL 8-24 Creatinine (test code = 2160-0) 0.45 mg/dL 0.5-0.9 L Glucose (test code = 2345-7) 476 mg/dL 65-99 HH GLU results called to and read back by PHILIPPE SANDS RN/ETHAN at 04/23/2019 00:35 by AP. Calcium (test code = 87409-0) 9.2 mg/dL 8.6-10.6 Protein (test code = [...] <0.3 0.2-1.2 Lab Interpretation (test code = 56946-5) Abnormal [place] MethodistEstimated QNY5809-27-83 00:36:13* Test Item Value Reference Range Interpretation Comments Estimated GFR (test code = 5488) >=90 mL/min/1.73 m2 Catergory Units InterpretationG1 >=90 Normal or highG2 60-89 Mildly adpbalnukJ2q 45-59 Mildly to moderately gxcuwucnsD7z 30-44 Moderately to severely decreasedG4 15-29 Severely decreasedG5 <15 Kidney failureThe eGFR was calculated using the Chronic Kidney Disease Epidemiology Collaboration (CKD-EPI) equation. Interpretation is based on recommendations of the National Kidney Foundation-Kidney Disease Outcomes Quality Initiative (NKF-KDOQI) published in 2014. Rebel SheppardB natriuretic xzlqxzu5155-03-09 00:31:34* Test Item Value Reference Range Interpretation Comments BNP (test code = 86970-9) 7 pg/mL 0-100 [facility] HospitalLyyohkkwrDikzonpk8371-83-00 00:22:12* Test Item Value Reference Range Interpretation Comments Troponin (test code = 99796-9) <0.006 0-0.04 [facility] changed methodology effective: 12/21/2018 at 10:00 amThe new method has a 99th percentile cutoff of 0.040 ng/mL [facility] with platelet and hfjkzzupoaov7183-27-30 00:03:51* Test Item Value Reference Range Interpretation Comments WBC (test code = 82759-7) 10.41 4.50- 11.00 k/uL RBC (test code = 08717-9) 4.59 m/uL 4.2-5.5 HGB (test code = 718-7) 13.4 g/dL 12-16 HCT (test code = 4544-3) 41.5 % 37-47 MCV (test code = 787-2) 90.4 fL 82-100 MCH (test code = 785-6) 29.2 pg 27-34 MCHC (test code = 786-4) 32.3 g/dL 31-37 RDW - SD (test code = 72784-9) 43.7 fL 37-55 MPV (test code = 10141-2) 11.3 fL 8.8-13.2 Platelet count (test code = 93371-9) 262 150- 400 k/uL Neutrophils (test code = 73354-4) 61.9 % 39-69 Lymphocytes (test code = 24412-2) 27.7 % 25-45 Monocytes (test code = 13948-8) 7.7 % 0-10 Eosinophils (test code = 96565-8) 1.8 % 0-5 Basophils (test code = 79321-8) 0.4 % 0-1 Immature granulocytes (test code = 62098-2) 0.5 % 0-1 [place] SpiritismUrine Eecfwvj9103-66-02 09:05:40 C Urine Added by GL_SJM_UA_CUL_IND30,000 cfu/ml [...] verified? yes CT Abdomen and Pelvis w/ Ctczplpy8265-05-76 13:51:15Patient: ANNIA VIDES Date/Time04/15/2019 13:16 CDTReason for [...] DT/TM: 04/15/2019 1:43 pmSigned by: MD Tenzin, Ad am FSigned (Electronic Signature): 04/15/2019 1:51 pmXR [...] Phebe CSigned (Electronic Signature): 04/15/2019 1:07 pmTroponin G3630-06-21 13:02:06* Test Item Value Reference Range Interpretation [...] Read back and verified? YES Comprehensive Metabolic Fmhfr4991-01-24 12:51:05* Test Item Value Reference Range Interpretation [...] A/G Ratio) 1.3 ratio N Comprehensive Metabolic Vglbr4794-09-52 12:51:05* Test Item Value Reference Range Interpretation [...] is not provided, and the patient is -[place], multiply by 1.212. If sex is not [...] the National Kidney Foundation, http://nkdep.nih.gov Comprehensive Metabolic Vhvti6910-70-36 12:51:05* Test Item Value Reference Range Interpretation [...] is not provided, and the patient is -[place], multiply by 1.212. If sex is not [...] is not provided, and the patient is -[place], multiply by 1.212. If sex is not [...] by the National Kidney Foundation, http://nkdep.nih.gov D-Dimer Ahzkkiqljgtn4894-87-21 12:46:53* Test Item Value Reference Range Interpretation Comments D Dimer, (Quant.) (test code = D Dimer, (Quant.)) 252 ng/mL 0-50 0 HCG Qualitative Vssha6345-31-68 12:36:52* Test Item Value Reference Range Interpretation Comments HCG, Serum Qual (test code = HCG, Serum Qual) Negative Lot # (test code = Lot #) [id number] Expiration Dt (test code = Expiration Dt) 2020-10-14 N Neg Control (test code = Neg Control) Negative Pos Control (test code = Pos Control) Positive Internal QC (test code = Internal QC) Acceptable Urinalysis Uixihwuagpn4831-17-16 12:33:52* Test Item Value Reference Range Interpretation Comments UA WBC (test code = UA WBC) 0-5 0-5 UA RBC (test code = UA RBC) None Seen 0-5 UA Bacteria (test code = UA Bacteria) Few A UA Squam Epithelial (test code = UA Squam Epithelial) 6-10 A Urinalysis with Culture, if xlkwtqsij4582-42-05 12:26:06* Test Item Value Reference Range Interpretation [...] A Result created by rule GL_SJM_UA_MICRO_IND Automated Wsbgtdqhfheh3294-23-63 12:25:32* Test Item Value Reference Range Interpretation Comments Neutro Auto (test code = Neutro Auto) 60.7 % 36.0-70.0 Lymph Auto (test code = Lymph Auto) 29.3 % 12.0-44.0 [place] Auto (test code = [place] Auto) 7.6 % 0.0-11.0 Eos, Auto (test code = Eos, Auto) 1.8 % 0.0-7.0 Basophil Auto (test code = Basophil Auto) 0.3 % 0.0-2.0 Neutro Absolute (test code = Neutro Absolute) 5.9 x10 1.6-7.4 Lymph Absolute (test code = Lymph Absolute) 2.87 x10 .50-4.60 [place] Absolute (test code = [place] Absolute) .74 x10 .00-1.20 Eos Absolute (test code = Eos Absolute) 0.18 x10 0.00-0.74 Baso Absolute (test code = Baso Absolute) 0.03 x10 0.00-0.21 IG Hcozs1360-15-59 12:25:32* Test Item Value Reference Range Interpretation Comments IG (test code = IG) 0.3 % 0.0-5.0 IG Abs (test code = IG Abs) 0 x10 N Complete Blood Count with Zvirgqudppns8733-31-97 12:25:31* Test Item Value Reference Range Interpretation [...] code = IPF) 0 % N Sodium Libqm4679-88-45 05:26:00* Test Item Value Reference Range Interpretation Comments Sodium Level (test code = 2951-2) 135 136-145 L [facility] CenterPotassium Exwpm1474-11-91 05:26:00* Test Item Value Reference Range Interpretation Comments Potassium Level (test code = 2823-3) 4.0 3.5-5.1 [facility] CenterChloride Rpbev6024-91-74 05:26:00* Test Item Value Reference Range Interpretation Comments Chloride Level (test code = 2075-0) 98 98-107 [facility] CenterCarbon Dioxide Jciis1130-69-30 05:26:00* Test Item Value Reference Range Interpretation Comments Carbon Dioxide Level (test code = 2028-9) 27 22-29 [facility] CenterAnion Pcg9964-60-07 05:26:00* Test Item Value Reference Range Interpretation Comments Anion Gap (test code = 96231-3) 14.0 8-16 [facility] CenterBlood Urea Xqgvhuuw4186-33-78 05:26:00* Test Item Value Reference Range Interpretation Comments Blood Urea Nitrogen (test code = 3094-0) 11 7-26 [facility] CenterCreatinine2019-08-17 05:26:00* Test Item Value Reference Range Interpretation Comments Creatinine (test code = 2160-0) 0.72 0.57-1.11 [facility] CenterBUN/Creatinine Ktydm3376-52-93 05:26:00* Test Item Value Reference Range Interpretation Comments BUN/Creatinine Ratio (test code = 3097-3) 15 6-25 [facility] CenterEstimat Glomerular Filtration Rate 2019-04-02 05:26:00* Test Item Value Reference Range Interpretation Comments Estimat Glomerular Filtration Rate (test code = 384704501) > 60 >60 Ranges were taken from the National Kidney Disease Education Program and the [facility] Kidney Foundation literature.Reference ranges:60 or greater: Expqec98-66 ( for 3 consecutive months): Chronic kidney disease 15 or less: Kidney failureMichael E. [facility]Bakey [facility] CenterGlucose Vhutn5522-24-44 05:26:00* Test Item Value Reference Range Interpretation Comments Glucose Level (test code = ELO5261) 402 74-118 HH Results repeated and called to KATE BALL RN at 0526 on 04/02/19 by Linda meier Read back and verified.[facility] CenterCalcium Level 2019-04-02 05:26:00* Test Item Value Reference Range Interpretation Comments Calcium Level (test code = 45420-8) 9.4 8.4-10.2 [facility] CenterTotal Axnseuhvm2223-61-81 05:26:00* Test Item Value Reference Range Interpretation Comments Total Bilirubin (test code = 1975-2) 0.2 0.2-1.2 [facility] CenterAspartate Amino Transf (AST/SGOT) 2019-04-02 05:26:00* Test Item Value Reference Range Interpretation Comments Aspartate Amino Transf (AST/SGOT) (test code = Aspartate Amino Transf (AST/SGOT)) 18 5-34 [facility] CenterAlanine Aminotransferase (ALT/SGPT) 2019-04-02 05:26:00* Test Item Value Reference Range Interpretation Comments Alanine Aminotransferase (ALT/SGPT) (test code = 1742-6) 46 0-55 [facility] CenterTotal Udvvabj3957-13-32 05:26:00* Test Item Value Reference Range Interpretation Comments Total Protein (test code = 2885-2) 6.9 6.5-8.1 [facility] CenterAlbumin2019-08-17 05:26:00* Test Item Value Reference Range Interpretation Comments Albumin (test code = 1751-7) 3.2 3.5-5.0 L [facility] CenterGlobulin2019-08-17 05:26:00* Test Item Value Reference Range Interpretation Comments Globulin (test code = 93694-1) 3.7 2.3-3.5 H [facility] CenterAlbumin/Globulin Kntrc6152-81-99 05:26:00 * Test Item Value Reference Range Interpretation Comments Albumin/Globulin Ratio (test code = 1759-0) 0.9 0.8-2.0 [facility] CenterAlkaline Rqpgmzeawez4130-94-71 05:26:00* Test Item Value Reference Range Interpretation Comments Alkaline Phosphatase (test code = 6768-6) 109 40-150 [facility]odium Ljyre8741-13-55 05:26:00* Test Item Value Reference Range Interpretation Comments Sodium Level (test code = 2951-2) 135 136-145 L [facility] CenterPotassium Vdunw9401-25-88 05:26:00* Test Item Value Reference Range Interpretation Comments Potassium Level (test code = 2823-3) 4.0 3.5-5.1 [facility] CenterChloride Blwav9746-56-11 05:26:00* Test Item Value Reference Range Interpretation Comments Chloride Level (test code = 2075-0) 98 98-107 [facility] CenterCarbon Dioxide Ibmdf0041-52-82 05:26:00* Test Item Value Reference Range Interpretation Comments Carbon Dioxide Level (test code = 2028-9) 27 22-29 [facility] CenterAnion Emi6050-60-71 05:26:00* Test Item Value Reference Range Interpretation Comments Anion Gap (test code = 40986-7) 14.0 8-16 [facility] CenterBlood Urea Fxkkpgns7490-46-95 05:26:00* Test Item Value Reference Range Interpretation Comments Blood Urea Nitrogen (test code = 3094-0) 11 7-26 [facility] CenterCreatinine2019-08-17 05:26:00* Test Item Value Reference Range Interpretation Comments Creatinine (test code = 2160-0) 0.72 0.57-1.11 [facility] CenterBUN/Creatinine Zrrbf6226-88-56 05:26:00* Test Item Value Reference Range Interpretation Comments BUN/Creatinine Ratio (test code = 3097-3) 15 625 [facility] CenterEstimat Glomerular Filtration Rate 2019-04-02 05:26:00* Test Item Value Reference Range Interpretation Comments Estimat Glomerular Filtration Rate (test code = 841814575) > 60 >60 Ranges were taken from the National Kidney Disease Education Program and the [facility] Kid[facility] Foundation literature.Reference ranges:60 or greater: Vxdpun59-82 ( for 3 consecutive months): Chronic kidney disease 15 or less: Kidney failureMichael E. [facility]Bakey [facility] of [facility] Medical CenterGlucose Kpdyx1052-10-56 05:26:00* Test Item Value Reference Range Interpretation Comments Glucose Level (test code = IQL7089) 402 74-118 Results repeated and called to KATE BALL RN at 0526 on 04/02/19 by Linda meier Read back and verified.[facility] CenterCalcium Level 2019-04-02 05:26:00* Test Item Value Reference Range Interpretation Comments Calcium Level (test code = 62582-1) 9.4 8.4-10.2 [facility] CenterTotal Xizllqkik6146-18-29 05:26:00* Test Item Value Reference Range Interpretation Comments Total Bilirubin (test code = 1975-2) 0.2 0.2-1.2 [facility] CenterAspartate Amino Transf (AST/SGOT) 2019-04-02 05:26:00* Test Item Value Reference Range Interpretation Comments Aspartate Amino Transf (AST/SGOT) (test code = Aspartate Amino Transf (AST/SGOT)) 18 5-34 [facility] CenterAlanine Aminotransferase (ALT/SGPT) 2019-04-02 05:26:00* Test Item Value Reference Range Interpretation Comments Alanine Aminotransferase (ALT/SGPT) (test code = 1742-6) 46 0-55 [facility] CenterTotal Ewbhraj5838-24-26 05:26:00* Test Item Value Reference Range Interpretation Comments Total Protein (test code = 2885-2) 6.9 6.5-8.1 [facility] CenterAlbumin2019-08-17 05:26:00* Test Item Value Reference Range Interpretation Comments Albumin (test code = 1751-7) 3.2 3.5-5.0 L [facility] CenterGlobulin2019-08-17 05:26:00* Test Item Value Reference Range Interpretation Comments Globulin (test code = 07606-4) 3.7 2.3-3.5 H [facility] CenterAlbumin/Globulin Dyqpp9991-06-38 05:26:00 * Test Item Value Reference Range Interpretation Comments Albumin/Globulin Ratio (test code = 1759-0) 0.9 0.8-2.0 [facility] CenterAlkaline Kqmojnltklc3900-45-72 05:26:00* Test Item Value Reference Range Interpretation Comments Alkaline Phosphatase (test code = 6768-6) 109 40-150 [facility] CenterWhite Blood Rcjjc3769-27-48 04:51:00* Test Item Value Reference Range Interpretation Comments White Blood Count (test code = 6690-2) 10.39 4.8-10.8 [facility] CenterRed Blood Gtdaj7349-77-07 04:51:00* Test Item Value Reference Range Interpretation Comments Red Blood Count (test code = 789-8) 4.85 3.6-5.1 [facility] CenterHemoglobin2019-08-17 04:51:00* Test Item Value Reference Range Interpretation Comments Hemoglobin (test code = 64126-5) 14.2 12.0-16.0 [facility] CenterHematocrit2019-08-17 04:51:00* Test Item Value Reference Range Interpretation Comments Hematocrit (test code = 4544-3) 43.2 34.2-44.1 [facility] CenterMean Corpuscular Nrbftp9358-70-06 04:51:00* Test Item Value Reference Range Interpretation Comments Mean Corpuscular Volume (test code = 787-2) 89.1 81-99 [facility] CenterMean Corpuscular Emufmrgtdp5671-82-87 04:51:00* Test Item Value Reference Range Interpretation Comments Mean Corpuscular Hemoglobin (test code = 785-6) 29.3 28-32 [facility] CenterMean Corpuscular Hemoglobin Concent 2019-04-02 04:51:00* Test Item Value Reference Range Interpretation Comments Mean Corpuscular Hemoglobin Concent (test code = 786-4) 32.9 31-35 [facility] CenterRed Cell Distribution Aiogf6243-66-97 04:51:00* Test Item Value Reference Range Interpretation Comments Red Cell Distribution Width (test code = 20612-3) 13.1 11.7 -14.4 [facility] CenterPlatelet Fsboe5468-39-30 04:51:00* Test Item Value Reference Range Interpretation Comments Platelet Count (test code = 777-3) 271 140-360 [facility] CenterNeutrophils (%) (Auto)2019-04-02 04:51:00 * Test Item Value Reference Range Interpretation Comments Neutrophils (%) (Auto) (test code = 45079-0) 61.2 38.7-80.0 [facility] CenterLymphocytes (%) (Auto)2019-04-02 04:51:00 * Test Item Value Reference Range Interpretation Comments Lymphocytes (%) (Auto) (test code = 736-9) 28.3 18.0-39.1 [facility] CenterMonocytes (%) (Auto)2019-04-02 04:51:00* Test Item Value Reference Range Interpretation Comments Monocytes (%) (Auto) (test code = 5905-5) 8.3 4.4-11.3 [facility] CenterEosinophils (%) (Auto)2019-04-02 04:51:00 * Test Item Value Reference Range Interpretation Comments Eosinophils (%) (Auto) (test code = 713-8) 1.6 0.0-6.0 [facility] CenterBasophils (%) (Auto)2019-04-02 04:51:00* Test Item Value Reference Range Interpretation Comments Basophils (%) (Auto) (test code = 706-2) 0.2 0.0-1.0 [facility] CenterIM GRANULOCYTES %2019-04-02 04:51:00* Test Item Value Reference Range Interpretation Comments IM GRANULOCYTES % (test code = IM GRANULOCYTES %) 0.4 0.0- 1.0 [facility] CenterNeutrophils # (Auto)2019-04-02 04:51:00* Test Item Value Reference Range Interpretation Comments Neutrophils # (Auto) (test code = 751-8) 6.4 2.1-6.9 [facility] CenterLymphocytes # (Auto)2019-04-02 04:51:00* Test Item Value Reference Range Interpretation Comments Lymphocytes # (Auto) (test code = 09618-0) 2.9 1.0-3.2 [facility] CenterMonocytes # (Auto)2019-04-02 04:51:00* Test Item Value Reference Range Interpretation Comments Monocytes # (Auto) (test code = 742-7) 0.9 0.2-0.8 H [facility] CenterEosinophils # (Auto)2019-04-02 04:51:00* Test Item Value Reference Range Interpretation Comments Eosinophils # (Auto) (test code = 711-2) 0.2 0.0-0.4 [facility] CenterBasophils # (Auto)2019-04-02 04:51:00* Test Item Value Reference Range Interpretation Comments Basophils # (Auto) (test code = 704-7) 0.0 0.0-0.1 [facility] CenterAbsolute Immature Granulocyte (auto 2019-04-02 04:51:00* Test Item Value Reference Range Interpretation Comments Absolute Immature Granulocyte (auto (simran t code = Absolute Immature Granulocyte (auto) 0.04 0-0.1 [facility] CenterWhite Blood Hoxbe0012-94-42 04:51:00* Test Item Value Reference Range Interpretation Comments White Blood Count (test code = 6690-2) 10.39 4.8-10.8 [facility] CenterRed Blood Nbdgi2158-10-78 04:51:00* Test Item Value Reference Range Interpretation Comments Red Blood Count (test code = 789-8) 4.85 3.6-5.1 [facility] CenterHemoglobin2019-08-17 04:51:00* Test Item Value Reference Range Interpretation Comments Hemoglobin (test code = 08807-0) 14.2 12.0-16.0 [facility] CenterHematocrit2019-08-17 04:51:00* Test Item Value Reference Range Interpretation Comments Hematocrit (test code = 4544-3) 43.2 34.2-44.1 [facility] CenterMean Corpuscular Uelhli2239-85-77 04:51:00* Test Item Value Reference Range Interpretation Comments Mean Corpuscular Volume (test code = 787-2) 89.1 81-99 [facility] CenterMean Corpuscular Slqprfduki3733-80-65 04:51:00* Test Item Value Reference Range Interpretation Comments Mean Corpuscular Hemoglobin (test code = 785-6) 29.3 28-32 [facility] CenterMean Corpuscular Hemoglobin Concent 2019-04-02 04:51:00* Test Item Value Reference Range Interpretation Comments Mean Corpuscular Hemoglobin Concent (test code = 786-4) 32.9 31-35 [facility] CenterRed Cell Distribution Mmayq5043-25-26 04:51:00* Test Item Value Reference Range Interpretation Comments Red Cell Distribution Width (test code = 81363-6) 13.1 11.7 -14.4 [facility] CenterPlatelet Xqgxs7288-41-70 04:51:00* Test Item Value Reference Range Interpretation Comments Platelet Count (test code = 777-3) 271 140-360 [facility] CenterNeutrophils (%) (Auto)2019-04-02 04:51:00 * Test Item Value Reference Range Interpretation Comments Neutrophils (%) (Auto) (test code = 40950-0) 61.2 38.7-80.0 [facility] CenterLymphocytes (%) (Auto)2019-04-02 04:51:00 * Test Item Value Reference Range Interpretation Comments Lymphocytes (%) (Auto) (test code = 736-9) 28.3 18.0-39.1 [facility] CenterMonocytes (%) (Auto)2019-04-02 04:51:00* Test Item Value Reference Range Interpretation Comments Monocytes (%) (Auto) (test code = 5905-5) 8.3 4.4-11.3 [facility] CenterEosinophils (%) (Auto)2019-04-02 04:51:00 * Test Item Value Reference Range Interpretation Comments Eosinophils (%) (Auto) (test code = 713-8) 1.6 0.0-6.0 [facility] CenterBasophils (%) (Auto)2019-04-02 04:51:00* Test Item Value Reference Range Interpretation Comments Basophils (%) (Auto) (test code = 706-2) 0.2 0.0-1.0 [facility] CenterIM GRANULOCYTES %2019-04-02 04:51:00* Test Item Value Reference Range Interpretation Comments IM GRANULOCYTES % (test code = IM GRANULOCYTES %) 0.4 0.0- 1.0 [facility] CenterNeutrophils # (Auto)2019-04-02 04:51:00* Test Item Value Reference Range Interpretation Comments Neutrophils # (Auto) (test code = 751-8) 6.4 2.1-6.9 [facility] CenterLymphocytes # (Auto)2019-04-02 04:51:00* Test Item Value Reference Range Interpretation Comments Lymphocytes # (Auto) (test code = 92277-5) 2.9 1.0-3.2 [facility] CenterMonocytes # (Auto)2019-04-02 04:51:00* Test Item Value Reference Range Interpretation Comments Monocytes # (Auto) (test code = 742-7) 0.9 0.2-0.8 H [facility] CenterEosinophils # (Auto)2019-04-02 04:51:00* Test Item Value Reference Range Interpretation Comments Eosinophils # (Auto) (test code = 711-2) 0.2 0.0-0.4 [facility] CenterBasophils # (Auto)2019-04-02 04:51:00* Test Item Value Reference Range Interpretation Comments Basophils # (Auto) (test code = 704-7) 0.0 0.0-0.1 [facility] CenterAbsolute Immature Granulocyte (auto 2019-04-02 04:51:00* Test Item Value Reference Range Interpretation Comments Absolute Immature Granulocyte (auto (simran t code = Absolute Immature Granulocyte (auto) 0.04 0-0.1 [facility] CenterCT BRAIN WZ0528-82-13 03:55:00 [facility] [address] [address] Patient Name: ANNIA VIDES MR #: [id number] : 0 1975 Age/Sex: 43/F Req #: [id number] Adm Physician: Ordered by: PORSCHE SPENCER MD Report #: [id number] Location: ER Room/Bed: Procedure: 0817 -0005 CT/CT [...] 04/02/19399 COPY TO: PORSCHE SPENCER MD Creatine Lftuyn3994-20-27 22:41:00* Test Item Value Reference Range Interpretation Comments Creatine Kinase (test code = 2157-6) 92 168 [facility] CenterCreatine Vmfstk5496-48-19 22:41:00* Test Item Value Reference Range Interpretation Comments Creatine Kinase (test code = 2157-6) 92 -168 [facility] CenterCreatine Rhjxmt2843-53-10 22:41:00* Test Item Value Reference Range Interpretation Comments Creatine Kinase (test code = 2157-6) 92 -168 [facility] CenterUrine DIT7298-82-81 22:40:00* Test Item Value Reference Range Interpretation Comments Urine WBC (test code = 5821-4) 21-50 0-5 H [facility] CenterUrine [id number] 22:40:00* Test Item Value Reference Range Interpretation Comments Urine RBC (test code = 82622-7) 11-20 0-5 H [facility] CenterUrine Odxcoobl4477-62-96 22:40:00* Test Item Value Reference Range Interpretation Comments Urine Bacteria (test code = 31104-3) FEW NONE [facility] CenterUrine Epithelial Tcpcx9203-78-64 22:40:00 * Test Item Value Reference Range Interpretation Comments Urine Epithelial Cells (test code = 56612-4) FEW NONE [facility] CenterUrine [id number] 22:40:00* Test Item Value Reference Range Interpretation Comments Urine WBC (test code = 5821-4) 21-50 0-5 H [facility] CenterUrine FYR6767-42-84 22:40:00* Test Item Value Reference Range Interpretation Comments Urine RBC (test code = 31950-1) 11-20 0-5 H [facility] CenterUrine Wrolqtpv6408-57-16 22:40:00* Test Item Value Reference Range Interpretation Comments Urine Bacteria (test code = 34457-6) FEW NONE [facility] CenterUrine Epithelial Vzdnq2266-48-43 22:40:00 * Test Item Value Reference Range Interpretation Comments Urine Epithelial Cells (test code = 23400-1) FEW NONE [facility] CenterUrine [id number] 22:40:00* Test Item Value Reference Range Interpretation Comments Urine WBC (test code = 5821-4) 21-50 0-5 H [facility] CenterUrine PLQ9622-38-07 22:40:00* Test Item Value Reference Range Interpretation Comments Urine RBC (test code = 85649-0) 11-20 0-5 H [facility] CenterUrine Gpiqcpps5628-38-31 22:40:00* Test Item Value Reference Range Interpretation Comments Urine Bacteria (test code = 45072-7) FEW NONE [facility] CenterUrine Epithelial Rfwra7516-87-92 22:40:00 * Test Item Value Reference Range Interpretation Comments Urine Epithelial Cells (test code = 62503-2) FEW NONE [facility] CenterUrine Opiates Munzkf3635-61-66 22:32:00* Test Item Value Reference Range Interpretation Comments Urine Opiates Screen (test code = 92072-7) NEGATIVE NEGATIVE ALL TESTS PERFORMED MANUALLY ON [employer] TOX/SEE TESTMichael E. [facility]y [facility] Medical CenterUrine Barbiturates Tfpiyz2594-69-48 22:32:00* Test Item Value Reference Range Interpretation Comments Urine Barbiturates Screen (test code = 960621862) NEGATIVE NEGA TIVE [facility] CenterUrine Phencyclidine Fhlimz3313-62-66 22:32:00* Test Item Value Reference Range Interpretation Comments Urine Phencyclidine Screen (test code = 64037-3) NEGATIVE NEGAT GEOVANNA [facility] CenterUrine Amphetamines Nqopww3745-18-50 22:32:00* Test Item Value Reference Range Interpretation Comments Urine Amphetamines Screen (test code = 66477-3) NEGATIVE NEGATI VE [facility] CenterUrine Methamphetamines Skodfd4344-19-03 22:32:00* Test Item Value Reference Range Interpretation Comments Urine Methamphetamines Screen (test code = Urine Metha mphetamines Screen) NEGATIVE NEGATIVE [facility] CenterUrine Benzodiazepines Hrsugj8608-55-92 22:32:00* Test Item Value Reference Range Interpretation Comments Urine Benzodiazepines Screen (test code = 55607-2) NEGATIVE NEG ATIVE [facility] CenterUrine Cocaine Hbjncw9780-57-00 22:32:00* Test Item Value Reference Range Interpretation Comments Urine Cocaine Screen (test code = 3398-5) NEGATIVE NEGATIVE [facility] CenterUrine Cannabinoids Mfvgtf7337-16-54 22:32:00* Test Item Value Reference Range Interpretation Comments Urine Cannabinoids Screen (test code = 45322-2) NEGATIVE NEGATI VE THESE RESULTS ARE FOR MEDICAL TREATMENT ONLYTHIS REPORT CONTAINS UNCONFIR MED SCREENING RESULTS*POSITIVE RESULTS WILL BE CONFIRMED BY REFERENCE LAB UPON R EQUEST CUT-OFFDRUG CLASS CONCENTRATION ng/mLAmphetamines 1000Methamphetamines 1000Cocaine 300Opiate 300Phencyc lidine 25Cannabinoid 50Barbiturates 300Benzodiazepine 300Methadone 300[facility] AustinUrine Methadone Dywqaf9413-42-12 22:32:00* Test Item Value Reference Range Interpretation Comments Urine Methadone Screen (test code = 70095-5) NEGATIVE NEGATIVE THESE RESULTS ARE FOR MEDICAL TREATMENT ONLYTHIS REPORT CONTAINS UNCONFIR MED SCREENING RESULTS*POSITIVE RESULTS WILL BE CONFIRMED BY REFERENCE LAB UPON R EQUEST CUT-OFFDRUG CLASS CONCENTRATION ng/mLAmphetamines 1000Methamphetamines 1000Cocaine Metabolite 300Opiate 300Phencyc lidine 25Cannabinoid 50Barbiturates 300Benzodiazepine 300Methadone 300[facility] CenterUrine Opiates Fjeamb9388-39-42 22:32:00* Test Item Value Reference Range Interpretation Comments Urine Opiates Screen (test code = 78329-2) NEGATIVE NEGATIVE ALL TESTS PERFORMED MANUALLY ON [employer] TOX/SEE TESTMichael [facility]. [facility] CenterUrine Barbiturates Mowewx2290-27-38 22:32:00* Test Item Value Reference Range Interpretation Comments Urine Barbiturates Screen (test code = 426411255) NEGATIVE NEGA TIVE [facility] CenterUrine Phencyclidine Kcxpaw7623-63-67 22:32:00* Test Item Value Reference Range Interpretation Comments Urine Phencyclidine Screen (test code = 52316-6) NEGATIVE NEGAT GEOVANNA [facility] CenterUrine Amphetamines Wvmqnr8058-32-53 22:32:00* Test Item Value Reference Range Interpretation Comments Urine Amphetamines Screen (test code = 09960-3) NEGATIVE NEGATI VE [facility] CenterUrine Methamphetamines Zeuuxh3465-40-95 22:32:00* Test Item Value Reference Range Interpretation Comments Urine Methamphetamines Screen (test code = Urine Metha mphetamines Screen) NEGATIVE NEGATIVE [facility] CenterUrine Benzodiazepines Cyexzz0461-19-04 22:32:00* Test Item Value Reference Range Interpretation Comments Urine Benzodiazepines Screen (test code = 11010-0) NEGATIVE NEG ATIVE [facility] CenterUrine Cocaine Uhmliv9473-70-33 22:32:00* Test Item Value Reference Range Interpretation Comments Urine Cocaine Screen (test code = 3398-5) NEGATIVE NEGATIVE [facility] CenterUrine Cannabinoids Uhwseg7777-12-01 22:32:00* Test Item Value Reference Range Interpretation Comments Urine Cannabinoids Screen (test code = 78764-0) NEGATIVE NEGATI VE THESE RESULTS ARE FOR MEDICAL TREATMENT ONLYTHIS REPORT CONTAINS UNCONFIR MED SCREENING RESULTS*POSITIVE RESULTS WILL BE CONFIRMED BY REFERENCE LAB UPON R EQUEST CUT-OFFDRUG CLASS CONCENTRATION ng/mLAmphetamines 1000Methamphetamines 1000Cocaine 300Opiate 300Phencyc lidine 25Cannabinoid 50Barbiturates 300Benzodiazepine 300Methadone 300[facility] CenterUrine Methadone Ydwbry9260-12-65 22:32:00* Test Item Value Reference Range Interpretation Comments Urine Methadone Screen (test code = 52023-7) NEGATIVE NEGATIVE THESE RESULTS ARE FOR MEDICAL TREATMENT ONLYTHIS REPORT CONTAINS UNCONFIR MED SCREENING RESULTS*POSITIVE RESULTS WILL BE CONFIRMED BY REFERENCE LAB UPON R EQUEST CUT-OFFDRUG CLASS CONCENTRATION ng/mLAmphetamines 1000Methamphetamines 1000Cocaine Metabolite 300Opiate 300Phencyc lidine 25Cannabinoid 50Barbiturates 300Benzodiazepine 300Methadone 300[facility] CenterUrine Opiates Ujmjwr7835-91-81 22:32:00* Test Item Value Reference Range Interpretation Comments Urine Opiates Screen (test code = 65678-0) NEGATIVE NEGATIVE ALL TESTS PERFORMED MANUALLY ON [employer] TOX/SEE TESTMichael [facility]. [facility] CenterUrine Barbiturates Cjtszd7981-16-26 22:32:00* Test Item Value Reference Range Interpretation Comments Urine Barbiturates Screen (test code = 855527545) NEGATIVE NEGA TIVE [facility] CenterUrine Phencyclidine Sfkgeo5861-50-58 22:32:00* Test Item Value Reference Range Interpretation Comments Urine Phencyclidine Screen (test code = 90812-2) NEGATIVE NEGAT GEOVANNA [facility] CenterUrine Amphetamines Bexrxu8375-14-99 22:32:00* Test Item Value Reference Range Interpretation Comments Urine Amphetamines Screen (test code = 67537-3) NEGATIVE NEGATI VE [facility] CenterUrine Methamphetamines Qhahfq0626-61-32 22:32:00* Test Item Value Reference Range Interpretation Comments Urine Methamphetamines Screen (test code = Urine Metha mphetamines Screen) NEGATIVE NEGATIVE [facility] CenterUrine Benzodiazepines Yvccyo6718-67-06 22:32:00* Test Item Value Reference Range Interpretation Comments Urine Benzodiazepines Screen (test code = 18460-9) NEGATIVE NEG ATIVE [facility] CenterUrine Cocaine Cnwzci6498-55-26 22:32:00* Test Item Value Reference Range Interpretation Comments Urine Cocaine Screen (test code = 3398-5) NEGATIVE NEGATIVE [facility] CenterUrine Cannabinoids Bpzrxj3885-70-17 22:32:00* Test Item Value Reference Range Interpretation Comments Urine Cannabinoids Screen (test code = 64827-4) NEGATIVE NEGATI VE THESE RESULTS ARE FOR MEDICAL TREATMENT ONLYTHIS REPORT CONTAINS UNCONFIR MED SCREENING RESULTS*POSITIVE RESULTS WILL BE CONFIRMED BY REFERENCE LAB UPON R EQUEST CUT-OFFDRUG CLASS CONCENTRATION ng/mLAmphetamines 1000Methamphetamines 1000Cocaine 300Opiate 300Phencyc lidine 25Cannabinoid 50Barbiturates 300Benzodiazepine 300Methadone 300[facility] CenterUrine Methadone Olsunk3234-32-44 22:32:00* Test Item Value Reference Range Interpretation Comments Urine Methadone Screen (test code = 55590-7) NEGATIVE NEGATIVE THESE RESULTS ARE FOR MEDICAL TREATMENT ONLYTHIS REPORT CONTAINS UNCONFIR MED SCREENING RESULTS*POSITIVE RESULTS WILL BE CONFIRMED BY REFERENCE LAB UPON R EQUEST CUT-OFFDRUG CLASS CONCENTRATION ng/mLAmphetamines 1000Methamphetamines 1000Cocaine Metabolite 300Opiate 300Phencyc lidine 25Cannabinoid 50Barbiturates 300Benzodiazepine 300Methadone 300[facility] CenterUrine Mekjb2585-84-10 22:31:00* Test Item Value Reference Range Interpretation Comments Urine Color (test code = 5778-6) YELLOW YELLOW [facility] CenterUrine Ibvclov3460-17-79 22:31:00* Test Item Value Reference Range Interpretation Comments Urine Clarity (test code = 51549-0) SL CLOUDY CLEAR [facility] CenterUrine Specific Fadaacn8156-40-10 22:31:00 * Test Item Value Reference Range Interpretation Comments Urine Specific [place] (test code = 5811-5) <=1.005 1.010-1.02 5 [facility] CenterUrine sJ4235-41-46 22:31:00* Test Item Value Reference Range Interpretation Comments Urine pH (test code = 30224-4) 5.5 5-7 [facility] CenterU[facility] Leukocyte Veqipvwd2428-44-29 22:31:00* Test Item Value Reference Range Interpretation Comments Urine Leukocyte Esterase (test code = 99258-6) SMALL NEGATIV E [facility] CenterUrine Jrhytrg2200-28-97 22:31:00* Test Item Value Reference Range Interpretation Comments Urine Nitrite (test code = 46276-4) NEGATIVE NEGATIVE [facility] CenterUrine Dyuraxq5695-16-36 22:31:00* Test Item Value Reference Range Interpretation Comments Urine Protein (test code = 55041-3) NEGATIVE NEGATIVE [facility] CenterUrine Glucose (UA)2019-03-22 22:31:00* Test Item Value Reference Range Interpretation Comments Urine Glucose (UA) (test code = 22036-3) 3+ NEGATIVE [facility] CenterUrine Cjthifc0990-03-96 22:31:00* Test Item Value Reference Range Interpretation Comments Urine Ketones (test code = 24164-2) NEGATIVE NEGATIVE [facility] CenterUrine Ydhtqqtooohl7086-08-15 22:31:00* Test Item Value Reference Range Interpretation Comments Urine Urobilinogen (test code = 97202-5) 0.2 0.2-1 [facility] Jcvgoomay8940-27-91 22:31:00* Test Item Value Reference Range Interpretation Comments Urine Bilirubin (test code = 1977-8) NEGATIVE NEGATIVE [facility] CenterUrine Iiwgr6446-30-11 22:31:00* Test Item Value Reference Range Interpretation Comments Urine Blood (test code = 38428-4) TRACE NEGATIVE H [facility] CenterUrine Kvjhq4892-84-65 22:31:00* Test Item Value Reference Range Interpretation Comments Urine Color (test code = 5778-6) YELLOW YELLOW [facility] CenterUrine Mnrvdqo9638-65-74 22:31:00* Test Item Value Reference Range Interpretation Comments Urine Clarity (test code = 88420-1) SL CLOUDY CLEAR [facility] CenterUrine Specific Ellozyv3568-73-61 22:31:00 * Test Item Value Reference Range Interpretation Comments Urine Specific [place] (test code = 5811-5) <=1.005 1.010-1.02 5 [facility] CenterUrine pV4691-88-90 22:31:00* Test Item Value Reference Range Interpretation Comments Urine pH (test code = 94159-9) 5.5 5-7 [facility] CenterU[facility] Leukocyte Sipkxqho5523-58-06 22:31:00* Test Item Value Reference Range Interpretation Comments Urine Leukocyte Esterase (test code = 52195-5) SMALL NEGATIV E [facility] CenterUrine Gwigcgo9705-48-35 22:31:00* Test Item Value Reference Range Interpretation Comments Urine Nitrite (test code = 39854-8) NEGATIVE NEGATIVE [facility] CenterUrine Ofslrxl3158-92-10 22:31:00* Test Item Value Reference Range Interpretation Comments Urine Protein (test code = 63990-9) NEGATIVE NEGATIVE [facility] CenterUrine Glucose (UA)2019-03-22 22:31:00* Test Item Value Reference Range Interpretation Comments Urine Glucose (UA) (test code = 32461-1) 3+ NEGATIVE [facility] CenterUrine Wakeapu4774-32-87 22:31:00* Test Item Value Reference Range Interpretation Comments Urine Ketones (test code = 92265-4) NEGATIVE NEGATIVE [facility] CenterUrine Evttigsvwehl0272-06-91 22:31:00* Test Item Value Reference Range Interpretation Comments Urine Urobilinogen (test code = 67433-3) 0.2 0.2-1 [facility] CenterU[facility] Czxxoftnr3333-44-84 22:31:00* Test Item Value Reference Range Interpretation Comments Urine Bilirubin (test code = 1977-8) NEGATIVE NEGATIVE [facility] CenterUrine Ecurw2788-57-48 22:31:00* Test Item Value Reference Range Interpretation Comments Urine Blood (test code = 46708-1) TRACE NEGATIVE H [facility] CenterUrine Nnyfs3556-83-18 22:31:00* Test Item Value Reference Range Interpretation Comments Urine Color (test code = 5778-6) YELLOW YELLOW [facility] CenterUrine Hfbvbmr5860-16-71 22:31:00* Test Item Value Reference Range Interpretation Comments Urine Clarity (test code = 14580-8) SL CLOUDY CLEAR [facility] CenterUrine Specific Ydhgnub8727-91-66 22:31:00 * Test Item Value Reference Range Interpretation Comments Urine Specific [place] (test code = 5811-5) <=1.005 1.010-1.02 5 [facility] CenterUrine dN6279-80-02 22:31:00* Test Item Value Reference Range Interpretation Comments Urine pH (test code = 91256-9) 5.5 5-7 [facility] CenterUrine Leukocyte Yzdcxnyi2641-47-76 22:31:00* Test Item Value Reference Range Interpretation Comments Urine Leukocyte Esterase (test code = 63626-2) SMALL NEGATIV E [facility] CenterUrine Pszrrtd8983-09-02 22:31:00* Test Item Value Reference Range Interpretation Comments Urine Nitrite (test code = 97788-3) NEGATIVE NEGATIVE [facility] CenterUrine Hzqeqez8659-17-16 22:31:00* Test Item Value Reference Range Interpretation Comments Urine Protein (test code = 70817-8) NEGATIVE NEGATIVE [facility] Glucose (UA)2019-03-22 22:31:00* Test Item Value Reference Range Interpretation Comments Urine Glucose (UA) (test code = 63147-3) 3+ NEGATIVE [facility] CenterUrine Vtrngno7245-82-54 22:31:00* Test Item Value Reference Range Interpretation Comments Urine Ketones (test code = 80110-1) NEGATIVE NEGATIVE [facility] CenterUrine Ejkiaisvubph4820-92-93 22:31:00* Test Item Value Reference Range Interpretation Comments Urine Urobilinogen (test code = 24113-1) 0.2 0.2-1 [facility] CenterUrine Opyqaojwr3645-76-22 22:31:00* Test Item Value Reference Range Interpretation Comments Urine Bilirubin (test code = 1977-8) NEGATIVE NEGATIVE [facility] CenterUrine Aidss4016-35-25 22:31:00* Test Item Value Reference Range Interpretation Comments Urine Blood (test code = 60554-7) TRACE NEGATIVE H [facility] CenterCreatine Kinase RL7985-39-71 22:25:00* Test Item Value Reference Range Interpretation Comments Creatine Kinase MB (test code = 93217-0) 7.40 0-5.0 H [facility] CenterTroponin P1836-22-03 22:25:00* Test Item Value Reference Range Interpretation Comments Troponin I (test code = YLJ5227) < 0.001 0-0.300 [facility] CenterCreatine Kinase JB5870-76-64 22:25:00* Test Item Value Reference Range Interpretation Comments Creatine Kinase MB (test code = 82942-7) 7.40 0-5.0 H [facility] CenterTroponin S8381-26-07 22:25:00* Test Item Value Reference Range Interpretation Comments Troponin I (test code = RAN4161) < 0.001 0-0.300 [facility] CenterCreatine Kinase BU8082-34-94 22:25:00* Test Item Value Reference Range Interpretation Comments Creatine Kinase MB (test code = 47692-8) 7.40 0-5.0 H [facility] CenterTropon D2362-90-80 22:25:00* Test Item Value Reference Range Interpretation Comments Troponin I (test code = VYS1918) < 0.001 0-0.300 [facility] Clinicodium Twdur4165-39-67 22:10:00* Test Item Value Reference Range Interpretation Comments Sodium Level (test code = 2951-2) 134 136-145 L [facility] CenterPotassium Qqjuz2262-86-20 22:10:00* Test Item Value Reference Range Interpretation Comments Potassium Level (test code = 2823-3) 3.9 3.5-5.1 [facility] CenterChloride Ccfoc6031-92-63 22:10:00* Test Item Value Reference Range Interpretation Comments Chloride Level (test code = 2075-0) 95 98-107 L [facility] CenterCarbon Dioxide Itzzz8363-43-85 22:10:00* Test Item Value Reference Range Interpretation Comments Carbon Dioxide Level (test code = 2028-9) 26 22-29 [facility] CenterAnion Fsh1735-60-81 22:10:00* Test Item Value Reference Range Interpretation Comments Anion Gap (test code = 19148-1) 16.9 8-16 H [facility] CenterBlood Urea Gldpamia6664-17-21 22:10:00* Test Item Value Reference Range Interpretation Comments Blood Urea Nitrogen (test code = 3094-0) 13 7-26 [facility] CenterCreatinine2019-08-06 22:10:00* Test Item Value Reference Range Interpretation Comments Creatinine (test code = 2160-0) 0.85 0.57-1.11 [facility] CenterBUN/Creatinine Klcdl6727-10-58 22:10:00* Test Item Value Reference Range Interpretation Comments BUN/Creatinine Ratio (test code = 3097-3) 15 6-25 [facility] CenterEstimat Glomerular Filtration Rate 2019-03-22 22:10:00* Test Item Value Reference Range Interpretation Comments Estimat Glomerular Filtration Rate (test code = 885102449) > 60 >60 Ranges were taken from the National Kidney Disease Education Program and the [place] [facility] literature.Reference ranges:60 or greater: Isdgio33-73 ( for 3 consecutive months): Chronic kidney disease 15 or less: Kidney failureCHI [facility] AustinGlucose Wontg0339-38-36 22:10:00* Test Item Value Reference Range Interpretation Comments Glucose Level (test code = ITQ1834) 397 74-118 H [facility] CenterCalcium Ncwdq2022-60-83 22:10:00* Test Item Value Reference Range Interpretation Comments Calcium Level (test code = 67443-5) 10.1 8.4-10.2 [facility] CenterTotal Ujzbvgzzw5611-36-03 22:10:00* Test Item Value Reference Range Interpretation Comments Total Bilirubin (test code = 1975-2) 0.3 0.2-1.2 [facility] CenterAspartate Amino Transf (AST/SGOT) 2019-03-22 22:10:00* Test Item Value Reference Range Interpretation Comments Aspartate Amino Transf (AST/SGOT) (test code = Aspartate Amino Transf (AST/SGOT)) 42 5-34 H [facility] CenterAlanine Aminotransferase (ALT/SGPT) 2019-03-22 22:10:00* Test Item Value Reference Range Interpretation Comments Alanine Aminotransferase (ALT/SGPT) (test code = 1742-6) 66 0-55 H [facility] CenterTotal Peommzx9323-85-15 22:10:00* Test Item Value Reference Range Interpretation Comments Total Protein (test code = 2885-2) 7.8 6.5-8.1 [facility] CenterAlbumin2019-08-06 22:10:00* Test Item Value Reference Range Interpretation Comments Albumin (test code = 1751-7) 3.4 3.5-5.0 L [facility] CenterGlobulin2019-08-06 22:10:00* Test Item Value Reference Range Interpretation Comments Globulin (test code = 24710-7) 4.4 2.3-3.5 H [facility] CenterAlbumin/Globulin Nrrks3954-11-38 22:10:00 * Test Item Value Reference Range Interpretation Comments Albumin/Globulin Ratio (test code = 1759-0) 0.8 0.8-2.0 [facility] CenterAlkaline Ojkxoprolvr3122-41-88 22:10:00* Test Item Value Reference Range Interpretation Comments Alkaline Phosphatase (test code = 6768-6) 103 40-150 [facility] CenterCHEST SINGLE (PORTABLE)2019-03-22 21:58:00 [place] [address] Patient Name: ANNIA VIDES MR #: [id number] : 1975 Age/Sex: 43/F Req #: [id number] Adm Physician: Ordered by: PORSCHE SPENCER MD Report #: [id number] Location: ER Room/Bed: Procedure: [id number] DX/CHEST [...] COPY TO: PORSCHE SPENCER MD White Blood Kgkve4117-69-02 21:56:00* Test Item Value Reference Range Interpretation Comments White Blood Count (test code = 6690-2) 10.81 4.8-10.8 H [facility] CenterRed Blood Rtxcl9626-95-82 21:56:00* Test Item Value Reference Range Interpretation Comments Red Blood Count (test code = 789-8) 5.11 3.6-5.1 H [facility] CenterHemoglobin2019-08-06 21:56:00* Test Item Value Reference Range Interpretation Comments Hemoglobin (test code = 68650-4) 15.1 12.0-16.0 [facility] CenterHematocrit2019-08-06 21:56:00* Test Item Value Reference Range Interpretation Comments Hematocrit (test code = 4544-3) 45.2 34.2-44.1 H [facility] CenterMean Corpuscular Erbhwn8551-81-77 21:56:00* Test Item Value Reference Range Interpretation Comments Mean Corpuscular Volume (test code = 787-2) 88.5 81-99 [facility] CenterMean Corpuscular Dhyhkbxpyo2737-74-10 21:56:00* Test Item Value Reference Range Interpretation Comments Mean Corpuscular Hemoglobin (test code = 785-6) 29.5 28-32 [facility] CenterMean Corpuscular Hemoglobin Concent 2019-03-22 21:56:00* Test Item Value Reference Range Interpretation Comments Mean Corpuscular Hemoglobin Concent (test code = 786-4) 33.4 31-35 [facility] CenterRed Cell Distribution Hkmby7831-64-83 21:56:00* Test Item Value Reference Range Interpretation Comments Red Cell Distribution Width (test code = 99521-3) 13.2 11.7 -14.4 [facility] CenterPlatelet Ctkyh2237-83-74 21:56:00* Test Item Value Reference Range Interpretation Comments Platelet Count (test code = 777-3) 306 140-360 [facility] CenterNeutrophils (%) (Auto)2019-03-22 21:56:00 * Test Item Value Reference Range Interpretation Comments Neutrophils (%) (Auto) (test code = 57576-2) 67.8 38.7-80.0 [facility] CenterLymphocytes (%) (Auto)2019-03-22 21:56:00 * Test Item Value Reference Range Interpretation Comments Lymphocytes (%) (Auto) (test code = 736-9) 23.5 18.0-39.1 [facility] CenterMonocytes (%) (Auto)2019-03-22 21:56:00* Test Item Value Reference Range Interpretation Comments Monocytes (%) (Auto) (test code = 5905-5) 7.2 4.4-11.3 [facility] CenterEosinophils (%) (Auto)2019-03-22 21:56:00 * Test Item Value Reference Range Interpretation Comments Eosinophils (%) (Auto) (test code = 713-8) 0.9 0.0-6.0 [facility] CenterBasophils (%) (Auto)2019-03-22 21:56:00* Test Item Value Reference Range Interpretation Comments Basophils (%) (Auto) (test code = 706-2) 0.2 0.0-1.0 [facility] CenterIM GRANULOCYTES %2019-03-22 21:56:00* Test Item Value Reference Range Interpretation Comments IM GRANULOCYTES % (test code = IM GRANULOCYTES %) 0.4 0.0- 1.0 [facility] CenterNeutrophils # (Auto)2019-03-22 21:56:00* Test Item Value Reference Range Interpretation Comments Neutrophils # (Auto) (test code = 751-8) 7.3 2.1-6.9 H [facility] CenterLymphocytes # (Auto)2019-03-22 21:56:00* Test Item Value Reference Range Interpretation Comments Lymphocytes # (Auto) (test code = 04423-1) 2.5 1.0-3.2 [facility] [facility] (Auto)2019-03-22 21:56:00* Test Item Value Reference Range Interpretation Comments Monocytes # (Auto) (test code = 742-7) 0.8 0.2-0.8 [facility] # (Auto)2019-03-22 21:56:00* Test Item Value Reference Range Interpretation Comments Eosinophils # (Auto) (test code = 711-2) 0.1 0.0-0.4 [facility] # (Auto)2019-03-22 21:56:00* Test Item Value Reference Range Interpretation Comments Basophils # (Auto) (test code = 704-7) 0.0 0.0-0.1 [facility] CenterAbsolute Immature Granulocyte (auto 2019-03-22 21:56:00* Test Item Value Reference Range Interpretation Comments Absolute Immature Granulocyte (auto (simran t code = Absolute Immature Granulocyte (auto) 0.04 0-0.1 [facility] [id number] 22:36:00* Test Item Value Reference [...] = ETOHU) <0.01 g/dL 0.00-0.01 N Urinalysis [id number] 22:35:00* Test Item Value Reference Range Interpretation Comments Color (test code = COLOR) Yellow Yellow,Straw,Pl yellow N Clarity (test code = CLAR) Clear Clear N Specific [place] (test code = SPGR) 1.008 1.001-1.035 N [...] code = BACT) Few /HPF CBC with [id number] 20:41:00* Test Item Value Reference Range Interpretation [...] code = ALYMPH) 3.3 K/cumm 0.5-4.6 N [place] Abs (test code = AMONO) 0.6 K/cumm 0.0-1.2 N Eos Abs (test code = AEOS) 0.20 K/cumm 0.00-0.74 N Baso Abs (test code = ABASO) 0.1 K/cumm 0.00-0.21 N [id number] 19:30:00* Test Item Value Reference Range Interpretation Comments Acetone [Serum] (test code = ACETONE) Negative Negative N D-Dimer, [id number] 19:16:00* Test Item Value Reference Range Interpretation Comments D-Dimer, Quant (test code = DDQNT) 374 ng/mL 0-500 N Please note Change in unit of measure from mg/L FEU to ng/mLA cutoff of less than 500 ng/mL DD has a negative predictive value of100% for DVT xar227% for PE.When using D-Dimer to help rule out DVT or PE, clinical information anddisease probability should be considered.Elevated D-Dimer values are not specific for thromboembolism. Prothrombin [id number] 19:16:00* Test Item Value Reference Range Interpretation Comments PT (test code = PT) 10.80 seconds 9.78-13.35 N INR (test code = INR) 0.95 Ratio 0.6-1.2 N Partial Thromboplastin [id number] 19:16:00* Test Item Value Reference Range Interpretation Comments aPTT (test code = PTT) 31.90 seconds 24.39-37.25 N [id number] 19:02:00* Test Item Value Reference Range Interpretation Comments NT ProBnp (test code = PBNP) 13 pg/mL 0-124 N Troponin [id number] 18:34:00* Test Item Value Reference Range Interpretation Comments Troponin T (test code = BONNY) 0.027 ng/mL 0.000-0.090 N Comprehensive Metabolic [id number] 18:34:00* Test Item Value Reference Range Interpretation [...] race is not provided, and the patient isAfrican-[place], multiply by 1.212. If sex is not [...] the National Kidney Found ation,http://nkdep.nih.gov BHCG, Serum, [id number] 18:33:00* Test Item Value Reference Range Interpretation Comments Preg Qual [Se] (test code = BSHCG) Negative Negative N XR CHEST 1 [id number] 17:28:29CHEST 1 VIEWCLINICAL INFORMATION: Chest pain- DyspneaCOMPARISON: [...] No acute finding is identified.LOCATION: [facility] Glucose, [id number] 16:47:00* Test Item Value Reference Range Interpretation Comments POC Glucose (test code = POCGLUC) 195 mg/dL 70-115 H Notify RN or MDIf you consider your patient critically ill, the [place] Accu-Chek InformII metershould not be used for Glucose determinations.Draw a venous Glucose and send to the Main Lab for Analysis. US EXTREMITY NON VASCULAR [id number] 15:22:53BILATERAL LOWER EXTREMITY ARTERIAL DOPPLER:CLINICAL HISTORY: Right [...] of right common femoral pseudoane urysm.Location: [id number] 13:41:00* Test Item Value Reference Range Interpretation Comments CK (test code = CK) 75 U/L 26-192 N CKMB (test code = CKMB) 8.3 ng/mL 0.0-2.8 H CKMB% (test code = CKMBP) 11.1 % 0.0-3.[address] CHEST ANGIO W/WO [id number] 13:05:29CT CHEST ANGIO W/WO CONTRASTLOCATION: R16 INDICATION: [...] pulmonary embolism.Low lung volumes with bibasilar atelectasis.Troponin [id number] 12:45:00* Test Item Value Reference Range Interpretation Comments Troponin T (test code = BONNY) 0.066 ng/mL 0.000-0.090 N POC Glucose, [id number] 11:35:00* Test Item Value Reference Range Interpretation Comments POC Glucose (test code = POCGLUC) 188 mg/dL 70-115 H Notify RN or MDIf you consider your patient critically ill, the [place] Accu-Chek InformII metershould not be used for Glucose determinations.Draw a venous Glucose and send to the Main Lab for Analysis. POC Glucose, [id number] 08:11:00* Test Item Value Reference Range Interpretation Comments POC Glucose (test code = POCGLUC) 223 mg/dL 70-115 H Notify RN or MDIf you consider your patient critically ill, the [place] Accu-Chek InformII metershould not be used for Glucose determinations.Draw a venous Glucose and send to the Main Lab for Analysis. CK [id number] 06:46:00* Test Item Value Reference Range Interpretation Comments CK (test code = CK) na U/L 26-192 N CKMB (test code = CKMB) 7.9 ng/mL 0.0-2.8 H CKMB% (test code = CKMBP) 0.0 % 0.0-3.4 N Troponin [id number] 06:43:00* Test Item Value Reference Range Interpretation Comments Troponin T (test code = BONNY) 0.059 ng/mL 0.000-0.090 N CK [id number] 01:48:00* Test Item Value Reference Range Interpretation Comments CK (test code = CK) 95 U/L 26-192 N CKMB (test code = CKMB) 8.1 ng/mL 0.0-2.8 H CKMB% (test code = CKMBP) 8.5 % 0.0-3.4 H CK [id number] 01:48:00* Test Item Value Reference Range Interpretation Comments CK (test code = CK) 95 U/L 26-192 N Troponin [id number] 22:57:00* Test Item Value Reference Range Interpretation Comments Troponin T (test code = BONNY) 0.051 ng/mL 0.000-0.090 N [id number] 22:56:00* Test Item Value Reference Range Interpretation Comments NT ProBnp (test code = PBNP) 7 pg/mL 0-124 N XR CHEST 1 [id number] 22:46:46AFTER HOURS SERVICE ON: 04/01/2017 10:46 PMAP Portable ChestLocation Code [id number]: Chest painFINDINGS: Study limited due to shallow inspiration obscuring the lung bases. Thereis mild bibasilar subsegmental atelectasis. There is no pneumothorax.Cardiac silhouette and mediastinum appear within normal limits. IMPRESSION: Mild bibasilar subsegmental atelectasis.CBC with [id number] 22:35:00* Test Item Value Reference Range Interpretation [...] code = ALYMPH) 3.1 K/cumm 0.5-4.6 N [place] Abs (test code = AMONO) 0.5 K/cumm 0.0-1.2 N Eos Abs (test code = AEOS) 0.19 K/cumm 0.00-0.74 N Baso Abs (test code = ABASO) 0.0 K/cumm 0.00-0.21 N Drugs of Abuse Screen, [id number] 14:53:00* Test Item Value Reference Range Interpretation [...] code = THC) Negative Negative N D-Dimer, [id number] 11:46:00* Test Item Value Reference Range Interpretation Comments D-Dimer, Quant (test code = DDQNT) 981 ng/mL 0-500 H CK [id number] 11:41:00* Test Item Value Reference Range Interpretation Comments CKMB (test code = CKMB) 6.7 ng/mL 0.0-2.8 H Troponin [id number] 11:41:00* Test Item Value Reference Range Interpretation Comments Troponin T (test code = BONNY) 0.035 ng/mL 0.000-0.090 N POC Glucose, [id number] 11:21:00* Test Item Value Reference Range Interpretation Comments POC Glucose (test code = POCGLUC) 301 mg/dL 70-115 H If you consider your patient critically ill, the [place] Accu-Chek InformII metershould not be used for Glucose determinations.Draw a venous Glucose and send to the Main Lab for Analysis. POC Glucose, [id number] 07:58:00* Test Item Value Reference Range Interpretation [...] = HESR) 50 mm/Hr 0-20 H CK [id number] 07:25:00* Test Item Value Reference Range Interpretation Comments CKMB (test code = CKMB) 6.9 ng/mL 0.0-2.8 H Thyroid Stimulating Hormone (TSH)2017-03-08 07:07:00* Test Item Value Reference Range Interpretation Comments TSH (test code = TSH) 1.99 mIU/mL 0.270-4.200 N [id number] 07:00:00* Test Item Value Reference Range Interpretation Comments Amylase (test code = VIVIAN) 32 U/L 28-100 N [id number] 07:00:00* Test Item Value Reference Range Interpretation Comments Lipase (test code = LIP) 20 U/L 13-60 N Magnesium, [id number] 07:00:00* Test Item Value Reference Range Interpretation Comments Magnesium (test code = MG) 1.8 mg/dL 1.7-2.5 N Comprehensive Metabolic [id number] 07:00:00* Test Item Value Reference Range Interpretation [...] race is not provided, and the patient isAfrican-[place]ander, multiply by 1.212. If sex is not [...] the National Kidney Found ation,http://nkdep.nih.gov C-Reactive Protein, [id number] 07:00:00* Test Item Value Reference Range Interpretation Comments CRP (test code = CRP) 48.4 mg/L 0.0-5.0 H [id number] 07:00:00* Test Item Value Reference Range Interpretation Comments Phosphorus (test code = PO4) 3.4 mg/dL 2.70-4.50 N Troponin [id number] 06:35:00* Test Item Value Reference Range Interpretation Comments Troponin T (test code = BONNY) 0.044 ng/mL 0.000-0.090 N CBC with [id number] 06:16:00* Test Item Value Reference Range Interpretation [...] code = ALYMPH) 2.5 K/cumm 0.5-4.6 N [place] Abs (test code = AMONO) 0.5 K/cumm 0.0-1.2 N Eos Abs (test code = AEOS) 0.20 K/cumm 0.00-0.74 N Baso Abs (test code = ABASO) 0.0 K/cumm 0.00-0.21 N POC Glucose, [id number] 07:58:00* Test Item Value Reference Range Interpretation Comments POC Glucose (test code = POCGLUC) 355 mg/dL 70-115 H Notify RN or MDIf you consider your patient critically ill, the [place] Accu-Chek InformII metershould not be used for Glucose determinations.Draw a venous Glucose and send to the Main Lab for Analysis. CK [id number] 05:34:00* Test Item Value Reference Range Interpretation Comments CK (test code = CK) na U/L 26-192 N CKMB (test code = CKMB) 7.2 ng/mL 0.0-2.8 H CKMB% (test code = CKMBP) 0.0 % 0.0-3.4 N Troponin [id number] 05:27:00* Test Item Value Reference Range Interpretation Comments Troponin T (test code = BONNY) 0.067 ng/mL 0.000-0.090 N POC Glucose, [id number] 05:07:00* Test Item Value Reference Range Interpretation Comments POC Glucose (test code = POCGLUC) 299 mg/dL 70-115 H If you consider your patient critically ill, the [place] Accu-Chek InformII metershould not be used for Glucose determinations.Draw a venous Glucose and send to the Main Lab for Analysis. Troponin [id number] 01:42:00* Test Item Value Reference Range Interpretation Comments Troponin T (test code = BONNY) 0.059 ng/mL 0.000-0.090 N CK [id number] 01:42:00* Test Item Value Reference Range Interpretation Comments CK (test code = CK) na U/L 26-192 N CKMB (test code = CKMB) 7.4 ng/mL 0.0-2.8 H CKMB% (test code = CKMBP) 0.0 % 0.0-3.4 N POC Glucose, [id number] 00:22:00* Test Item Value Reference Range Interpretation Comments POC Glucose (test code = POCGLUC) 310 mg/dL 70-115 H If you consider your patient critically ill, the [place] Accu-Chek InformII metershould not be used for Glucose determinations.Draw a venous Glucose and send to the Main Lab for Analysis. POC Glucose, [id number] 19:18:00* Test Item Value Reference Range Interpretation Comments POC Glucose (test code = POCGLUC) 231 mg/dL 70-115 H If you consider your patient critically ill, the [place] Accu-Chek InformII metershould not be used for Glucose determinations.Draw a venous Glucose and send to the Main Lab for Analysis. POC Glucose, [id number] 16:51:00* Test Item Value Reference Range Interpretation Comments POC Glucose (test code = POCGLUC) 206 mg/dL 70-115 H If you consider your patient critically ill, the [place] Accu-Chek InformII metershould not be used for Glucose determinations.Draw a venous Glucose and send to the Main Lab for Analysis. CK [id number] 13:54:00* Test Item Value Reference Range Interpretation Comments CK (test code = CK) 75 U/L 26-192 N CKMB (test code = CKMB) 9.3 ng/mL 0.0-2.8 H CKMB% (test code = CKMBP) 12.4 % 0.0-3.4 H Troponin [id number] 13:40:00* Test Item Value Reference Range Interpretation Comments Troponin T (test code = BONNY) 0.068 ng/mL 0.000-0.090 N Lipid [id number] 12:17:00* Test Item Value Reference Range Interpretation Comments Cholesterol (test code = CHOL) 247 mg/dL 0-200 H Triglycerides (test code = TRIG) 518 mg/dL 9-200 H HDL (test code = HDL) 26 mg/dL 50-60 L Chol/HDL (test code = CHOLPHDL) 9.5 Ratio 0.0-4.4 H LDL, Calculated (test code = LDLC) No Calc 0-130 N (NOTE)RISK OF HEART DISEASEPublished by [place] Heart AssociationAnalyte Optimal Boderline Increased RiskCHOL <200 200-239 >240TRIG <150 150-199 >200HDL Male: >60 <40HDL Female: >60 <50LDL <100 130-159 >160LDL NEAR OPTIMAL IS 100-129\LIPIDNC VLDL (test code = VLDL) No Calc mg/dL 5-40 N \LI PIDNC LDL/HDL (test code = LDLPHDL) No Calc \LIPIDNC Glycosylated [id number] 12:05:00* Test Item Value Reference Range Interpretation Comments HBA1c (test code = HBA1C) 10.8 % 4.8-5.9 H POC Glucose, [id number] 11:59:00* Test Item Value Reference Range Interpretation Comments POC Glucose (test code = POCGLUC) 233 mg/dL 70-115 H If you consider your patient critically ill, the [place] Accu-Chek InformII metershould not be used for Glucose determinations.Draw a venous Glucose and send to the Main Lab for Analysis. POC Glucose, [id number] 07:49:00* Test Item Value Reference Range Interpretation Comments POC Glucose (test code = POCGLUC) 261 mg/dL 70-115 H If you consider your patient critically ill, the [place] Accu-Chek InformII metershould not be used for Glucose determinations.Draw a venous Glucose and send to the Main Lab for Analysis. CK [id number] 06:18:00* Test Item Value Reference Range Interpretation Comments CK (test code = CK) na U/L 26-192 N CKMB (test code = CKMB) 9.8 ng/mL 0.0-2.8 H CKMB% (test code = CKMBP) 0.0 % 0.0-3.4 N Troponin [id number] 06:17:00* Test Item Value Reference Range Interpretation Comments Troponin T (test code = BONNY) 0.063 ng/mL 0.000-0.090 N Basic Metabolic [id number] 06:14:00* Test Item Value Reference Range Interpretation [...] race is not provided, and the patient isAfrican-[place], multiply by 1.212. If sex is not [...] the National Kidney Found ation,http://nkdep.nih.gov CBC with [id number] 06:03:00* Test Item Value Reference Range Interpretation [...] code = ALYMPH) 3.5 K/cumm 0.5-4.6 N [place] Abs (test code = AMONO) 0.4 K/cumm 0.0-1.2 N Eos Abs (test code = AEOS) 0.26 K/cumm 0.00-0.74 N Baso Abs (test code = ABASO) 0.0 K/cumm 0.00-0.21 N Troponin [id number] 00:46:00* Test Item Value Reference Range Interpretation Comments Troponin T (test code = BONNY) 0.057 ng/mL 0.000-0.090 N CK [id number] 00:46:00* Test Item Value Reference Range Interpretation Comments CK (test code = CK) na U/L 26-192 N CKMB (test code = CKMB) 10.7 ng/mL 0.0-2.8 H CKMB% (test code = CKMBP) 0.0 % 0.0-3.4 N POC Glucose, [id number] 00:21:00* Test Item Value Reference Range Interpretation Comments POC Glucose (test code = POCGLUC) 328 mg/dL 70-115 H If you consider your patient critically ill, the [place] Accu-Chek InformII metershould not be used for Glucose determinations.Draw a venous Glucose and send to the Main Lab for Analysis.
--- NOTE | 2020-03-25 05:30 | NUR ---
Patient received via stretcher. AAO x 4. Patient had no complaints of pain. Respirations even and non labored. Admission history obtained from patient. Initial physical assessment performed. Patient oriented to room, call light, visiting policy and plan of care. Telemetry in place. Safety measures implemented. Patient instructed to call for assistance when needed. Call light within reach.
[2020-03-25] MEDS: MORPHINE SULFATE 2 MG/ML SYR 1ML IV PRN ×4 (06:05→20:45)
[2020-03-25 06:39] LABS: CREATINE KINASE 68 IU/L (29-168)
--- NOTE | 2020-03-25 06:45 | NUR ---
Drs. Bandar Hassan, Kishan Hassan and Yudith notified of "Routine Consult.
--- NOTE | 2020-03-25 07:00 | NUR ---
Patient resting comfortably. Shift report given to oncoming nurse.
[2020-03-25] MEDS ORDERED: NOVOLOG MI100 UNIT/1 SC (07:28)
[2020-03-25] MEDS ORDERED: ASPIRIN81 MG PO (07:28)
[2020-03-25] MEDS ORDERED: SIMVASTATIN20 MG PO (07:28)
[2020-03-25] MEDS ORDERED: GABAPENTIN300 MG PO (07:28)
[2020-03-25] MEDS ORDERED: LISINOPRIL10 MG PO (07:28)
[2020-03-25] MEDS: INSULIN REGULAR, HUMAN 100 UNIT/1 ML 3ML VIAL SQ SCH ×4 (07:30→20:45)
[2020-03-25] MEDS: ASPIRIN 81 MG ENTERIC COATED PO SCH (07:55)
[2020-03-25] MEDS ORDERED: BENADRYL25 M1 PO (08:20)
[2020-03-25] MEDS: DIPHENHYDRAMINE HCL INJ 50 MG/ML VIAL IV PRN ×3 (10:45→23:00)
[2020-03-25] MEDS ORDERED: MEROPENEM 1GRAM 1 GM in SODIUM CHLORIDE 0.9% 100 ML 100 ML IV SCH (11:00)
[2020-03-25 11:01] LABS: CREATINE KINASE 65 IU/L (29-168)
--- NOTE | 2020-03-25 11:13 | Consultation ---
DATE OF CONSULTATION: Cardiology consultation CHIEF COMPLAINT: The patient is a 44-year-old with chest pain. HISTORY OF PRESENT ILLNESS: The patient is a 44-year-old who was recently admitted to [facility] with COVID-19 infection. The patient was discharged home about a week ago. After the patient got home, she started to develop constant chest pain, radiating up into the left side of the neck and worse with inspiration. PAST MEDICAL HISTORY: Significant for, 1. Hypertension. 2. Diabetes. 3. Hyperlipidemia. 4. Previous cholecystectomy. 5. Previous appendectomy. SOCIAL HISTORY: The patient does not drink and does not smoke. FAMILY HISTORY: There is a known family history of coronary artery disease. PHYSICAL EXAMINATION: GENERAL: The patient is a well-developed, well-nourished female, in no obvious distress. VITAL SIGNS: Temperature of 98.8, pulse was 94, and blood pressure 130/70. HEAD, EARS, EYES, NOSE, AND THROAT: The patient's cranium was normocephalic and atraumatic. Extraocular muscles were intact. Sclerae were anicteric. Pupils were equal, round, and reactive to light. NECK: Supple. No jugular venous distention. No carotid bruits. CHEST: Rhonchi bilaterally. CARDIAC: Normal S1 and S2 with a short 2/6 systolic murmur. ABDOMEN: Good bowel sounds. No tenderness and no masses. EXTREMITIES: There was no clubbing, no cyanosis, and no edema. NEUROLOGICAL: The patient was alert and oriented x3. Cranial nerves II through XII are intact. Motor strength was +5/+5 in all limbs. IMAGING DATA: The EKG demonstrated sinus tachycardia with an incomplete right bundle-branch block. IMPRESSION: The patient is a 44-year-old with atypical chest pain. The patient's symptoms are unlikely to be from cardiac ischemia. The patient's cardiac enzymes are normal. The patient's EKG shows no acute changes. An echocardiogram has been ordered to evaluate the chest pain. MD PEGGY Washburn/MODL /[id number] cc: Flavio Chong MD
[2020-03-25] MEDS ORDERED: PROMETHAZINE 12.5MG/ NACL 0.9% 12.5 MG/50 ML BAG IV PRN (11:15)
[2020-03-25] MEDS ORDERED: SODIUM CHLORIDE 0.9% 250ML 250 ML ONE ×2 (11:16→19:35)
[2020-03-25] MEDS: MEROPENEM 1GM 100 ML IV SCH ×2 (11:31→21:38)
[2020-03-25] MEDS ORDERED: SODIUM CHLORIDE 0.45% 500 ML IV ONE (15:00)
[2020-03-25] MEDS: GABAPENTIN 300 MG CAP PO SCH ×2 (16:57→20:45)
[2020-03-25] MEDS: METOPROLOL TARTRATE 25 MG TAB PO SCH (16:58)
[2020-03-25 18:17] LABS: CREATINE KINASE 66 IU/L (29-168)
[2020-03-25] MEDS ORDERED: SODIUM CHLORIDE 0.9% 50ML 50 ML ONE (18:49)
[2020-03-25] MEDS ORDERED: IOPAMIDOL 370 MG/ML 200 ML INFUS..BTL INJ ONE (18:50)
--- NOTE | 2020-03-25 18:57 | Diagnostic Imaging Report ---
CT chest pulmonary embolism protocol CPT code: 73214 INDICATION: ^pleuritic chest pain - possible PE ^[id number] ^1820 TECHNIQUE: Thin collimation axial images obtained through the level of the pulmonary arteries with additional imaging through the chest following the uneventful administration of 100 cc of low osmolar, nonionic intravenous contrast. Images reconstructed into coronal and sagittal MIPs for complete evaluation of the tortuous and overlapping pulmonary vascular structures and to reduce patient radiation dose. RADIATION DOSE: Total DLP: 354.13 mGy*cm Estimated effective dose: (DLP x 0.015 x size factor) mSv CTDIvol has been reviewed. It is below the limits set by the Radiation Protocol Committee (RPC). Dose reduction techniques used: Automated exposure control, adjustment of the mAs and/or kVp according to patient size, standardized low-dose protocol, and/or iterative reconstruction technique. COMPARISON: CTA chest 03/16/2020. Chest x-ray 0021 hours FINDINGS: Pulmonary artery: No filling defects are appreciated within the main, left, right, lobar or visualized segmental pulmonary arteries to suggest embolism. Main pulmonary artery measures 3 cm in diameter. Aorta: The thoracic aorta is not aneurysmal. No evidence for dissection. Lymph nodes: No enlarged axillary, supra ventricular, mediastinal, or hilar lymph nodes. Thyroid: Visualized portions are unremarkable. Mediastinum: The heart is normal in size. No pericardial effusion. The esophagus is collapsed. Lungs: Right Lung: Low lung volume and eventration of the hemidiaphragm, similar to previous exam. Basilar atelectasis. No infiltrates or interstitial thickening. No nodules. Left Lung: Low lung volume and eventration of the hemidiaphragm, similar to previous exam. No infiltrates or interstitial thickening. No nodules Pleura: No pleural effusion or pleural-based mass. Abdomen: No mass or lymphadenopathy. Bones: No fracture or destructive lesion. There are a few bone islands in the right humeral head. Soft tissues: Unremarkable. IMPRESSION: 1. No evidence of pulmonary embolus or aortic dissection. 2. Persistently low lung volumes and bibasilar atelectasis. Stable eventration of the diaphragms. No new cardiopulmonary findings. Signed by: Dr. Steven Chao MD on 03/25/2020 6:53 PM
--- NOTE | 2020-03-25 19:03 | NUR ---
Report given to oncoming nurse of patient's status. Resting in bed. No s/s of acute distress noted. Side rails upx2, call light within reach.
[2020-03-25] MEDS: ENOXAPARIN SOD INJ 40 MG/0.4 ML SYR SC SCH (20:45)
[2020-03-25] MEDS ORDERED: SIMVASTATIN 20 MG TAB PO SCH (21:00)
--- NOTE | 2020-03-25 21:00 | Consultation ---
DATE OF CONSULTATION: Pulmonary Critical Care Consultation Note CHIEF COMPLAINT: Atypical chest pain and COVID-19 infection. HISTORY OF PRESENT ILLNESS: The patient is a 44-year-old woman. She has a history of COVID-19 diagnosed about 2 to 3 weeks ago. She was admitted briefly in the very beginning of this month at [facility] for pain on inspiration. She had a CT scan that showed no pulmonary embolism. She also had serial cardiac enzymes and an echo. She now returns with some chest discomfort. It is worse with inspiration and movement. She does not complain of fevers or cough. PAST SURGICAL HISTORY: Status post appendectomy. PAST MEDICAL HISTORY: 1. Diabetes. 2. History of pulmonary embolism in 2004. 3. History of a prior "myocardial infarction" in 2007. 4. No history of prior asthma. 5. No history of acid reflux. SOCIAL HISTORY: The patient is not a smoker. She is not a drinker. ALLERGIES: THE PATIENT IS ALLERGIC TO TORADOL, ZOFRAN, TRAMADOL, AND METOCLOPRAMIDE. FAMILY HISTORY: Noncontributory. REVIEW OF SYSTEMS: The patient has no fevers. She is not having any headache. She has no neck pain. She is not having any sore throat. She does have some pain in her chest on inspiration. She has no abdominal pain. She has no nausea or vomiting. She has no leg edema. PHYSICAL EXAMINATION: VITAL SIGNS: The patient is afebrile. The blood pressure is 125/80, saturation is 98% on 2 L. Pulse is 96. HEENT: Shows no facial swelling or erythema. The oropharynx is normal. LYMPHATIC: Shows no submandibular, cervical or supraclavicular adenopathy. CARDIAC: Reveals a regular rate and rhythm with normal S1 and S2. LUNGS: Auscultation of lungs reveals rhonchorous breath sounds bilaterally. There is no wheezing. ABDOMEN: Soft and nontender. There is no rebound or guarding. EXTREMITIES: Shows no leg edema or calf tenderness. There is no cyanosis or clubbing. SKIN: Shows no rashes. NEUROLOGICAL: Shows no focal abnormalities. LABORATORY DATA: CBC is within normal limits. Troponin Is are normal. The BUN to creatinine ratio and electrolytes were normal. The glucose is 277 to 318. RADIOGRAPHIC DATA: Chest x-ray shows bilateral basilar confluent opacities and possible small pleural effusions. IMPRESSION: 1. Atypical chest pain and COVID-19 infection. 2. Diabetes. 3. Hypertension. PLAN: 1. Repeat CT scan to rule out any possible pulmonary embolism. 2. Repeat echocardiogram to evaluate for possible pericarditis. 3. Nonsteroidal anti-inflammatory medications to treat any pleuritic inflammation. 4. Continue to monitor and control blood sugars. 5. Wean off oxygen. MD RUDY Lugo/VASQUEZ /[id number]
[2020-03-26 00:29] VITALS: BP 126/71
[2020-03-26] MEDS: MORPHINE SULFATE 2 MG/ML SYR 1ML IV PRN ×2 (03:25→08:30)
[2020-03-26 04:50] VITALS: BP 145/92
[2020-03-26] MEDS: DIPHENHYDRAMINE HCL INJ 50 MG/ML VIAL IV PRN (05:15)
[2020-03-26 06:39] LABS: ALANINE AMINOTRANSFERASE 65 IU/L (0-55); ALBUMIN 2.6 g/dL (3.5-5.0); ALBUMIN/GLOBULIN RATIO 0.7 (0.8-2.0); ALKALINE PHOSPHATASE 75 IU/L (40-150); ANION GAP 9.3 mmol/L (8-16); BLOOD UREA NITROGEN 12 mg/dL (7-26); BUN/CREATININE RATIO 21 (6-25); CALCIUM 8.9 mg/dL (8.4-10.2); CARBON DIOXIDE 30 mmol/L (22-29); CHLORIDE 101 mmol/L (98-107); CREATININE, SERUM 0.57 mg/dL (0.57-1.11); EST GLOMERULAR FILTRATION RATE > 60 ML/MIN (60-); GLUCOSE 196 mg/dL (74-118); POTASSIUM 4.3 mmol/L (3.5-5.1); SODIUM 136 mmol/L (136-145)
[2020-03-26 07:12] LABS: CHOL/HDL RATIO 4.7 (3.0-3.6)
[2020-03-26 08:00] VITALS: BP 129/82
[2020-03-26 08:29] LABS: BASOPHILS % 0.2 % (0.0-1.0); EOSINOPHILS # (AUTO) 0.3 (0.0-0.4); EOSINOPHILS % 3.2 % (0.0-6.0); LYMPHOCYTES # (AUTO) 2.3 (1.0-3.2); LYMPHOCYTES % 27.7 % (18.0-39.1); MEAN CORPUSCULAR HEMOGLOBIN 28.4 pg (28-32); MEAN CORPUSCULAR HGB CONC 30.8 g/dL (31-35); MEAN CORPUSCULAR VOLUME 92.3 fL (81-99); MONOCYTES # (AUTO) 0.7 (0.2-0.8); MONOCYTES % 8.3 % (4.4-11.3); NEUTROPHILS % 60.2 % (38.7-80.0); RED BLOOD COUNT 4.01 x10e6/uL (3.6-5.1); RED CELL DISTRIBUTION WIDTH 13.5 % (11.7-14.4)
[2020-03-26] MEDS: MEROPENEM 1GM 100 ML IV SCH (08:37)
[2020-03-26] MEDS: ASPIRIN 81 MG ENTERIC COATED PO SCH (08:37)
[2020-03-26] MEDS: INSULIN REGULAR, HUMAN 100 UNIT/1 ML 3ML VIAL SQ SCH (08:37)
[2020-03-26] MEDS: GABAPENTIN 300 MG CAP PO SCH (08:38)
[2020-03-26] MEDS: METOPROLOL TARTRATE 25 MG TAB PO SCH (08:38)
[2020-03-26] MEDS: ENOXAPARIN SOD INJ 40 MG/0.4 ML SYR SC SCH (08:38)
[2020-03-26 08:56] LABS: HEMOGLOBIN 11.4 g/dL (12.0-16.0); PLATELET COUNT 223 x10e3/uL (140-360)
[2020-03-26] MEDS ORDERED: VALSARTAN 160 MG TAB PO SCH (09:00)
--- NOTE | 2020-03-26 10:17 | NUR ---
Patient received a discharge order from , patient was given 2 prescptions to go home with, discharge instructions, and asked questions. Questions were answered and patient verbalized understanding. Patient tele removed and IV removed at 1015 and covered with a C/D/I dressing. Patient had no other issues or questions at this time. Patient awaiting arrival of ride home. Addendum: 03/26/20 at 1108 by Elisa Dyer RN Patient wheeled to car at 1054. No other issues.
--- NOTE | 2020-03-26 13:08 | Discharge Summary ---
The patient was placed on observation. Observation date, March 25, 2020. FINAL DIAGNOSES: 1. Chest pain consistent with recent COVID-19 infection. 2. Cardiac enzymes negative. Echocardiogram, ejection fraction of 55% to 60%. EKG, normal sinus rhythm and normal EKG. SUMMARY: The patient is a 44-year-old female was recently admitted for COVID-19 infection. The patient's symptoms much improved. She did have some chest pain, but no shortness of breath. She is on regimen for her COVID-19 infection treatment when she was discharged home. The patient came back in because of some vague chest pain and cough. Otherwise, she is stable. Cardiac enzymes negative. Echocardiogram previously done showed ejection fraction of 55% to 60%. Repeat EKG showed normal sinus rhythm. Cardiology saw the patient and will not do stress test until at least 2 weeks from now. The patient is otherwise stable. No indication for the patient to stay in the hospital. No fever. No shortness of breath. She will be at home recovering from her COVID-19 infection. Resume home medication. I will add on Tessalon Perles 100 mg q.6 hours p.r.n. for cough and I will add on Pulmicort 2 puffs twice a day to help with the COVID-19 status post infection. The patient is otherwise stable and discharged home today. MD ALLISON Rebolledo/VASQUEZ /[id number]
== END 2020-03-26 11:09 | disposition home or self-care (01) ==
LOC: ER 23:46 → ERHOLD 03-25 02:33 → IMCU 03-25 04:06
PROVIDERS: ADMIT Internal Medicine; ATTEND Internal Medicine
DX: U07.1 COVID-19 (principal); R07.89 Other chest pain; I10 Essential (primary) hypertension; E11.9 Type 2 diabetes mellitus without complications; I25.2 Old myocardial infarction; Z87.440 Personal history of urinary (tract) infections; E78.5 Hyperlipidemia, unspecified; Z86.718 Personal history of other venous thrombosis and embolism; Z90.49 Acquired absence of other specified parts of digestive tract; Z88.8 Allergy status to other drugs, medicaments and biological substances; I25.10 Atherosclerotic heart disease of native coronary artery without angina pectoris; Z82.49 Family history of ischemic heart disease and other diseases of the circulatory system; Z79.82 Long term (current) use of aspirin; Z79.4 Long term (current) use of insulin
CPT/HCPCS: 36415; 71045; 71260; 80053; 80061; 82550; 82553; 82948; 84484; 85025; 85610; 85730; 93005; 99284; G0378; J1200; J1650; J1817; J2270; J2550; J7050; Q9967; U0002

== ENCOUNTER 2020-07-31 07:13 | Inpatient (IN) | payer SELFPAY ==
[~2020-07-31] VITALS: Ht 154.9 cm; Wt 91.3 kg
[~2020-07-31 07:13] MED LIST changes: +ASPIRIN81 MG PO; +BENADRYL25 M1 PO; +GABAPENTIN300 MG PO; +LISINOPRIL10 MG PO; +NOVOLOG MI100 UNIT/1 SC; +SIMVASTATIN20 MG PO
[2020-07-31] MEDS ORDERED: METFORMIN HCL850 MG PO (07:33)
[2020-07-31] MEDS ORDERED: LISINOPRIL10 MG PO (07:33)
[2020-07-31] MEDS ORDERED: SODIUM CHLORIDE 0.9% 1000ML 1,000 ML IV STA (07:36)
[2020-07-31] MEDS ORDERED: MORPHINE SULFATE 2 MG/ML SYR 1ML IV STA (07:45)
[2020-07-31] MEDS ORDERED: PROMETHAZINE 25MG/ NS 50ML (IV) IV NR (07:45)
[2020-07-31] MEDS ORDERED: SODIUM CHLORIDE FLUSH 10 ML SYR INJ PRN (07:45)
[2020-07-31] MEDS ORDERED: ASPIRIN 81 MG CHEW TAB PO ONE ×2 (07:45→13:15)
[2020-07-31] MEDS ORDERED: SODIUM CHLORIDE 0.9% 50ML 50 ML ONE ×3 (08:01→16:28)
[2020-07-31] MEDS ORDERED: IOPAMIDOL 370 MG/ML 200 ML INFUS..BTL INJ ONE (08:02)
[2020-07-31] MEDS ORDERED: ENOXAPARIN SODIUM INJ 100 MG/ML SYR SC STA (08:05)
[2020-07-31] MEDS ORDERED: ASPIRIN 81 MG CHEW TAB ONE (08:13)
[2020-07-31] MEDS ORDERED: PROMETHAZINE HCL (IM) 25 MG/ML VIAL IM ONE (08:14)
[2020-07-31] MEDS ORDERED: MORPHINE SULFATE INJ 4 MG/ML INJ 1ML ONE (08:14)
[2020-07-31] MEDS ORDERED: SODIUM CHLORIDE 0.9% 1000ML 1,000 ML ONE (08:15)
[2020-07-31] MEDS ORDERED: NITROGLYCERIN 2% OINT 1 GM PKT TOP ONE (10:00)
[2020-07-31] MEDS ORDERED: ONDANSETRON HCL INJ 2MG/ML 2ML 2 MG/ML VIAL IV PRN (10:15)
[2020-07-31] MEDS: FAMOTIDINE 20 MG/2 ML VIAL IV SCH ×2 (10:55→22:15)
[2020-07-31] MEDS ORDERED: FAMOTIDINE 20 MG/2 ML VIAL IV ONE (10:59)
[2020-07-31] MEDS ORDERED: NITROGLYCERIN 2% OINT 1 GM PKT ONE (10:59)
[2020-07-31] MEDS: NITROGLYCERIN 2% OINT 1 GM PKT TOP SCH ×2 (12:00→17:48)
[2020-07-31 12:11] VITALS: BP 117/54
[2020-07-31 12:30] VITALS: BP 117/54
[2020-07-31] MEDS: MORPHINE SULFATE 2 MG/ML SYR 1ML IV PRN ×4 (12:44→23:15)
[2020-07-31 13:18] LABS: CREATINE KINASE MB 9.5 ng/mL (0-5.0)
[2020-07-31 16:00] VITALS: BP 120/64
[2020-07-31] MEDS: PROMETHAZINE 12.5MG/ NACL 0.9% 12.5 MG/50 ML BAG IV PRN (16:35)
[2020-07-31] MEDS ORDERED: DEXTROSE 50% SYRINGE 50 ML IV PRN (16:45)
[2020-07-31] MEDS: INSULIN REGULAR, HUMAN 100 UNIT/1 ML 3ML VIAL SQ SCH ×2 (17:00→21:00)
[2020-07-31] MEDS: METOPROLOL TARTRATE 25 MG TAB PO SCH (17:47)
[2020-07-31 19:35] LABS: CREATINE KINASE MB 8.8 ng/mL (0-5.0)
[2020-07-31 20:00] VITALS: BP 98/58
[2020-07-31] MEDS: SIMVASTATIN 20 MG TAB PO SCH (20:24)
[2020-07-31 20:56] VITALS: BP 120/64
[2020-07-31] MEDS: DIPHENHYDRAMINE HCL 25 MG CAP PO PRN (23:30)
[2020-08-01] VITALS (8 sets, daily range): BP systolic 99–156; BP diastolic 52–84
[2020-08-01] MEDS: MORPHINE SULFATE 2 MG/ML SYR 1ML IV PRN ×5 (02:25→22:33)
[2020-08-01] MEDS: PROMETHAZINE 12.5MG/ NACL 0.9% 12.5 MG/50 ML BAG IV PRN ×3 (02:25→20:11)
[2020-08-01 05:58] LABS: BASOPHILS % 0.5 % (0.0-1.0); EOSINOPHILS # (AUTO) 0.5 (0.0-0.4); EOSINOPHILS % 6.3 % (0.0-6.0); HEMATOCRIT 35.1 % (34.2-44.1); HEMOGLOBIN 10.7 g/dL (12.0-16.0); LYMPHOCYTES # (AUTO) 2.5 (1.0-3.2); LYMPHOCYTES % 31.7 % (18.0-39.1); MEAN CORPUSCULAR HEMOGLOBIN 28.2 pg (28-32); MEAN CORPUSCULAR HGB CONC 30.5 g/dL (31-35); MEAN CORPUSCULAR VOLUME 92.4 fL (81-99); MONOCYTES # (AUTO) 0.7 (0.2-0.8); MONOCYTES % 9.5 % (4.4-11.3); NEUTROPHILS % 51.7 % (38.7-80.0); PLATELET COUNT 218 x10e3/uL (140-360); RED CELL DISTRIBUTION WIDTH 14.3 % (11.7-14.4)
[2020-08-01 06:18] LABS: CHOL/HDL RATIO 4.5 (3.0-3.6)
[2020-08-01 06:38] LABS: CREATINE KINASE MB 7.2 ng/mL (0-5.0)
[2020-08-01] MEDS: INSULIN REGULAR, HUMAN 100 UNIT/1 ML 3ML VIAL SQ SCH ×4 (07:30→20:10)
[2020-08-01 08:14] LABS: ALANINE AMINOTRANSFERASE 33 IU/L (0-55); ALBUMIN 3.1 g/dL (3.5-5.0); ALKALINE PHOSPHATASE 55 IU/L (40-150); ANION GAP 12.1 mmol/L (8-16); BLOOD UREA NITROGEN 8 mg/dL (7-26); BUN/CREATININE RATIO 14 (6-25); CALCIUM 8.5 mg/dL (8.4-10.2); CARBON DIOXIDE 31 mmol/L (22-29); CHLORIDE 101 mmol/L (98-107); CREATININE, SERUM 0.57 mg/dL (0.57-1.11); EST GLOMERULAR FILTRATION RATE > 60 ML/MIN (60-); GLUCOSE 146 mg/dL (74-118); POTASSIUM 4.1 mmol/L (3.5-5.1); SODIUM 140 mmol/L (136-145)
[2020-08-01] MEDS: METOPROLOL TARTRATE 25 MG TAB PO SCH ×2 (09:00→17:05)
[2020-08-01] MEDS: FAMOTIDINE 20 MG/2 ML VIAL IV SCH ×2 (09:16→21:18)
[2020-08-01] MEDS ORDERED: REGADENOSON 0.4 MG/5 ML SYR IV ONE (10:32)
[2020-08-01] MEDS: ASPIRIN 81 MG ENTERIC COATED PO SCH (13:09)
[2020-08-01] MEDS: SIMVASTATIN 20 MG TAB PO SCH (20:10)
[2020-08-01] MEDS ORDERED: DIPHENHYDRAMINE HCL INJ 50 MG/ML VIAL IV ONE (22:15)
[2020-08-02 00:05] VITALS: BP 145/82
[2020-08-02] MEDS: MORPHINE SULFATE 2 MG/ML SYR 1ML IV PRN ×3 (01:40→08:28)
[2020-08-02 04:00] VITALS: BP 157/87
[2020-08-02] MEDS: DIPHENHYDRAMINE HCL 25 MG CAP PO PRN (04:47)
[2020-08-02] MEDS: PROMETHAZINE 12.5MG/ NACL 0.9% 12.5 MG/50 ML BAG IV PRN (04:48)
[2020-08-02 07:26] VITALS: BP 127/77
[2020-08-02] MEDS: ASPIRIN 81 MG ENTERIC COATED PO SCH (08:16)
[2020-08-02] MEDS: METOPROLOL TARTRATE 25 MG TAB PO SCH (08:16)
[2020-08-02] MEDS: FAMOTIDINE 20 MG/2 ML VIAL IV SCH (08:17)
[2020-08-02] MEDS: INSULIN REGULAR, HUMAN 100 UNIT/1 ML 3ML VIAL SQ SCH ×2 (08:18→11:29)
[2020-08-02 08:19] VITALS: BP 127/77
[2020-08-02] MEDS ORDERED: DIPHENHYDRAMINE HCL INJ 50 MG/ML VIAL IV ONE (09:45)
[2020-08-02 11:07] VITALS: BP 142/80
[2020-08-02] MEDS ORDERED: FAMOTIDINE 20 MG TAB PO SCH (21:00)
== END 2020-08-02 15:39 | disposition home or self-care (01) | DRG 313 ==
LOC: FSED 07:35 → ERHOLD 10:05 → MED/SURG3 11:44
PROVIDERS: ADMIT Internal Medicine; ATTEND Internal Medicine
DX: R07.89 Other chest pain (principal); Z86.718 Personal history of other venous thrombosis and embolism; Z79.01 Long term (current) use of anticoagulants; Z86.19 Personal history of other infectious and parasitic diseases; E78.5 Hyperlipidemia, unspecified; Z86.711 Personal history of pulmonary embolism; E66.9 Obesity, unspecified; Z68.38 Body mass index [BMI] 38.0-38.9, adult; Z20.828 Contact with and (suspected) exposure to other viral communicable diseases; E11.9 Type 2 diabetes mellitus without complications
CPT/HCPCS: 36415; 71260; 78452; 80053; 80061; 81003; 81025; 82550; 82553; 82948; 83880; 84484; 85025; 85379; 85610; 93005; 93017; 93306; 93970; 96372; 96374; 96375; 99284; A9502; J1200; J1650; J2270; J2405; J2550; J7030; Q9967; U0002

== ENCOUNTER 2020-10-10 08:53 | Emergency (ER) | payer SELFPAY ==
[~2020-10-10] VITALS: Ht 154.9 cm; Wt 91.2 kg
[~2020-10-10 08:53] MED LIST changes: +METFORMIN HCL850 MG PO
[2020-10-10] MEDS ORDERED: KETOROLAC TROMETHAMINE 30 MG/ML VIAL IV STA (09:09)
[2020-10-10] MEDS ORDERED: ACETAMINOPHEN 325 MG TAB PO ONE ×2 (09:15→09:45)
[2020-10-10] MEDS ORDERED: DEXAMETHASONE SOD PHOS 10 MG/1 ML VIAL IV ONE (09:15)
[2020-10-10 09:29] LABS: BASOPHILS % 0.2 % (0.0-1.0); EOSINOPHILS # (AUTO) 0.2 (0.0-0.4); EOSINOPHILS % 1.7 % (0.0-6.0); HEMATOCRIT 40.6 % (34.2-44.1); HEMOGLOBIN 11.9 g/dL (12.0-16.0); LYMPHOCYTES # (AUTO) 1.8 (1.0-3.2); LYMPHOCYTES % 14.6 % (18.0-39.1); MEAN CORPUSCULAR HGB CONC 29.3 g/dL (31-35); MEAN CORPUSCULAR VOLUME 92.3 fL (81-99); MONOCYTES % 7.7 % (4.4-11.3); NEUTROPHILS # (AUTO) 9.4 (2.1-6.9); NEUTROPHILS % 75.2 % (38.7-80.0); PLATELET COUNT 228 x10e3/uL (140-360); RED CELL DISTRIBUTION WIDTH 14.6 % (11.7-14.4)
[2020-10-10] MEDS ORDERED: SODIUM CHLORIDE 0.9% 50ML 50 ML ONE (09:35)
[2020-10-10] MEDS ORDERED: IOPAMIDOL 370 MG/ML 200 ML INFUS..BTL INJ ONE (09:36)
[2020-10-10 09:41] LABS: INR 0.89; PROTHROMBIN TIME 12.6 seconds (11.9-14.5)
[2020-10-10 09:42] LABS: PARTIAL THROMBOPLASTIN TIME 28.6 seconds (23.8-35.5)
[2020-10-10] MEDS ORDERED: LACTATED RINGER'S 1,000 ML INJ ONE ×2 (09:45→10:45)
[2020-10-10 09:51] LABS: ALANINE AMINOTRANSFERASE 21 IU/L (0-55); ALBUMIN 3.2 g/dL (3.5-5.0); ALBUMIN/GLOBULIN RATIO 0.9 (0.8-2.0); ALKALINE PHOSPHATASE 57 IU/L (40-150); ANION GAP 11.4 mmol/L (8-16); BLOOD UREA NITROGEN 11 mg/dL (7-26); BUN/CREATININE RATIO 18 (6-25); CALCIUM 8.6 mg/dL (8.4-10.2); CARBON DIOXIDE 31 mmol/L (22-29); CHLORIDE 102 mmol/L (98-107); CREATININE, SERUM 0.61 mg/dL (0.57-1.11); EST GLOMERULAR FILTRATION RATE > 60 ML/MIN (60-); GLUCOSE 119 mg/dL (74-118); POTASSIUM 4.4 mmol/L (3.5-5.1); SODIUM 140 mmol/L (136-145)
[2020-10-10] MEDS ORDERED: ASPIRIN 325 MG TAB PO ONE (10:15)
[2020-10-10] MEDS ORDERED: HEPARIN SOD (PORCINE) 1000 UNIT/ML SDV IV ONE (10:25)
[2020-10-10] MEDS ORDERED: HEPARIN 25,000 UNIT 800 UNIT in DEXTROSE 5% 250ML 250 ML IV SCH (10:25)
[2020-10-10] MEDS ORDERED: ASPIRIN 81 MG CHEW TAB ONE (10:53)
[2020-10-10] MEDS ORDERED: MORPHINE SULFATE INJ 4 MG/ML INJ 1ML IV PRN (11:15)
[2020-10-10] MEDS ORDERED: CEFEPIME HCL 1GM 1 GM in SODIUM CHLORIDE 0.9% 50ML 50 ML IV SCH (11:15)
[2020-10-10] MEDS ORDERED: HEPARIN 25,000 UNIT DRIP IV ONE (11:24)
[2020-10-10 12:00] LABS: CLARITY,URINE CLEAR (CLEAR); COLOR,URINE YELLOW (YELLOW); KETONES,URINE NEGATIVE (NEGATIVE); LEUKOCYTE ESTERASE ,URINE NEGATIVE (NEGATIVE); NITRITE,URINE NEGATIVE (NEGATIVE); PROTEIN,URINE DIPSTICK NEGATIVE (NEGATIVE); URINE UROBILINOGEN 0.2 mg/dL (0.2 - 1)
[2020-10-10 12:14] LABS: BACTERIA,URINE FEW /HPF; EPITHELIAL CELLS,URINE MODERATE /LPF; MUCUS,URINE FEW (RARE); RBC,URINE 0-5 /HPF (0-5); WBC,URINE (MAN) 0-5 /HPF (0-5)
[2020-10-10 15:48] VITALS: BP 145/94
== END 2020-10-10 15:52 | disposition other institution (70) ==
LOC: ER 09:10
DX: I21.4 Non-ST elevation (NSTEMI) myocardial infarction (principal); R06.02 Shortness of breath; R07.9 Chest pain, unspecified; R50.9 Fever, unspecified; E11.65 Type 2 diabetes mellitus with hyperglycemia; I10 Essential (primary) hypertension; E78.5 Hyperlipidemia, unspecified; Z86.711 Personal history of pulmonary embolism; Z11.52 Encounter for screening for COVID-19; R94.31 Abnormal electrocardiogram [ECG] [EKG]
CPT/HCPCS: 36415; 71045; 71260; 80053; 81001; 83605; 83880; 84484; 84702; 85025; 85610; 85730; 87040; 93005; 99285; J0692; J1100; J1644; J2270; J7121; Q9967; U0002

== ENCOUNTER 2022-03-14 18:10 | Observation (INO) | payer OTHER, SELFPAY ==
[~2022-03-14] VITALS: Ht 154.9 cm; Wt 91.6 kg
[2022-03-14] MEDS ORDERED: ONDANSETRON HCL INJ 2MG/ML 2ML 2 MG/ML VIAL IV STA (18:28)
[2022-03-14] MEDS ORDERED: FAMOTIDINE 20 MG/2 ML VIAL IV ONE ×2 (18:30→20:48)
[2022-03-14] MEDS ORDERED: HYDROCODONE/APAP 5MG-325MG TAB PO ONE (18:30)
[2022-03-14] MEDS ORDERED: NITROGLYCERIN 2% OINT 1 GM PKT TOP ONE (18:30)
[2022-03-14] MEDS ORDERED: PROMETHAZINE 25MG/ NS 50ML (IV) IV ONE (18:45)
[2022-03-14] MEDS ORDERED: HYDROCODONE/APAP 7.5MG-325MG 1 EA TAB PO PRN (19:15)
[2022-03-14] MEDS ORDERED: ZOLPIDEM TARTRATE 5 MG TAB PO PRN (19:15)
[2022-03-14] MEDS ORDERED: PROMETHAZINE 25MG/ NS 50ML (IV) IV PRN (19:15)
[2022-03-14] MEDS: ASPIRIN 81 MG ENTERIC COATED PO SCH (20:40)
[2022-03-14] MEDS ORDERED: ASPIRIN 81 MG CHEW TAB ONE (20:46)
[2022-03-14] MEDS ORDERED: HYDROCODONE/APAP 5MG-325MG TAB ONE (20:47)
[2022-03-14] MEDS ORDERED: PROMETHAZINE HCL (IM) 25 MG/ML VIAL IM ONE (20:47)
[2022-03-14] MEDS ORDERED: NITROGLYCERIN 2% OINT 1 GM PKT ONE (20:47)
[2022-03-14 21:30] VITALS: BP 131/80
[2022-03-14 22:00] VITALS: BP 125/66
[2022-03-14] MEDS ORDERED: DEXTROSE 50% SYRINGE 50 ML IV PRN (22:30)
[2022-03-14] MEDS: INSULIN LISPRO 100 UNIT/1 ML 3ML VIAL SQ SCH (22:40)
[2022-03-14] MEDS: Morphine 2mg Syringe 2 MG/ML SYR IV PRN (22:54)
[2022-03-14] MEDS: FAMOTIDINE 20 MG TAB PO SCH (22:54)
[2022-03-15] VITALS (8 sets, daily range): BP systolic 117–137; BP diastolic 62–88
[2022-03-15] MEDS: NITROGLYCERIN 2% OINT 1 GM PKT TOP SCH ×4 (00:25→17:04)
[2022-03-15 00:59] LABS: CREATINE KINASE 104 IU/L (29-168)
[2022-03-15] MEDS ORDERED: LIPITOR20 MG PO (01:50)
[2022-03-15] MEDS ORDERED: LASIX40 MG PO (01:50)
[2022-03-15] MEDS ORDERED: SPIRONOLACTONE25 MG PO (01:50)
[2022-03-15] MEDS ORDERED: NEURONTIN300 MG PO (01:50)
[2022-03-15] MEDS ORDERED: BRILINTA90 MG PO (01:51)
[2022-03-15] MEDS ORDERED: RANEXA1000 MG PO (01:51)
[2022-03-15] MEDS: Morphine 2mg Syringe 2 MG/ML SYR IV PRN ×2 (05:33→21:57)
[2022-03-15 07:30] LABS: CREATINE KINASE 79 IU/L (29-168)
[2022-03-15] MEDS ORDERED: DIPHENHYDRAMINE HCL INJ 50 MG/ML VIAL IV PRN (08:00)
[2022-03-15] MEDS: FAMOTIDINE 20 MG TAB PO SCH ×2 (08:13→21:46)
[2022-03-15] MEDS: DIPHENHYDRAMINE HCL INJ 50 MG/ML VIAL IV PRN ×2 (08:13→17:02)
[2022-03-15] MEDS: ASPIRIN 81 MG ENTERIC COATED PO SCH (08:13)
[2022-03-15] MEDS: INSULIN LISPRO 100 UNIT/1 ML 3ML VIAL SQ SCH ×4 (08:17→21:56)
[2022-03-15] MEDS: SODIUM CHLORIDE FLUSH 10 ML SYR INJ PRN ×2 (08:18→17:04)
[2022-03-15] MEDS: GABAPENTIN 300 MG CAP PO SCH ×2 (14:14→21:47)
[2022-03-15 14:47] LABS: CREATINE KINASE 72 IU/L (29-168)
[2022-03-15] MEDS: METFORMIN HCL 500 MG TAB PO SCH (16:55)
[2022-03-15] MEDS: METOPROLOL TARTRATE 25 MG TAB PO SCH (16:56)
[2022-03-15] MEDS: RANOLAZINE 500 MG TABSR PO SCH (16:57)
[2022-03-15] MEDS: INSULIN ASPART 70/30 100 UNITS/ML VIAL SC SCH (17:01)
[2022-03-15] MEDS: TICAGRELOR 90 MG TABLET PO SCH (18:31)
[2022-03-15] MEDS ORDERED: ATORVASTATIN 40 MG TAB PO SCH (21:00)
[2022-03-16] VITALS: BP 121/72
[2022-03-16] MEDS: DIPHENHYDRAMINE HCL INJ 50 MG/ML VIAL IV PRN ×2 (00:16→07:33)
[2022-03-16] MEDS: NITROGLYCERIN 2% OINT 1 GM PKT TOP SCH ×3 (01:53→12:10)
[2022-03-16 04:00] VITALS: BP 137/76
[2022-03-16] MEDS: Morphine 2mg Syringe 2 MG/ML SYR IV PRN (04:20)
[2022-03-16 08:04] VITALS: BP 145/87
[2022-03-16 08:32] VITALS: BP 145/87
[2022-03-16] MEDS ORDERED: FUROSEMIDE 40 MG TAB PO SCH (09:00)
[2022-03-16] MEDS ORDERED: SPIRONOLACTONE 25 MG TAB PO SCH (09:00)
[2022-03-16] MEDS: TICAGRELOR 90 MG TABLET PO SCH (09:27)
[2022-03-16] MEDS: METOPROLOL TARTRATE 25 MG TAB PO SCH (09:27)
[2022-03-16] MEDS: GABAPENTIN 300 MG CAP PO SCH (09:27)
[2022-03-16] MEDS: ASPIRIN 81 MG ENTERIC COATED PO SCH (09:27)
[2022-03-16] MEDS: RANOLAZINE 500 MG TABSR PO SCH (09:28)
[2022-03-16] MEDS: FAMOTIDINE 20 MG TAB PO SCH (09:28)
[2022-03-16] MEDS: METFORMIN HCL 500 MG TAB PO SCH (09:29)
[2022-03-16] MEDS: INSULIN LISPRO 100 UNIT/1 ML 3ML VIAL SQ SCH ×2 (09:37→12:21)
[2022-03-16] MEDS: INSULIN ASPART 70/30 100 UNITS/ML VIAL SC SCH (09:37)
[2022-03-16 11:43] VITALS: BP 123/86
== END 2022-03-16 14:08 | disposition home or self-care (01) ==
LOC: FSED 18:13 → ERHOLD 19:06 → MED/SURG3 21:57
PROVIDERS: ADMIT Family Medicine; ATTEND Family Medicine
DX: J84.89 Other specified interstitial pulmonary diseases (principal); U09.9 Post COVID-19 condition, unspecified; I10 Essential (primary) hypertension; Z20.822 Contact with and (suspected) exposure to COVID-19; Z86.711 Personal history of pulmonary embolism; Z79.01 Long term (current) use of anticoagulants; E11.9 Type 2 diabetes mellitus without complications; Z88.5 Allergy status to narcotic agent; Z88.8 Allergy status to other drugs, medicaments and biological substances; I25.10 Atherosclerotic heart disease of native coronary artery without angina pectoris; Z95.5 Presence of coronary angioplasty implant and graft; Z79.899 Other long term (current) drug therapy
CPT/HCPCS: 36415 ×3; 71045; 80053; 82550; 82553 ×2; 82948 ×3; 83880; 84484 ×2; 85025; 93005; 96372; 96374; 99284; G0378 ×3; J1200 ×2; J1815; J2270 ×3; J2550 ×3; U0002

== ENCOUNTER 2023-08-27 13:54 | Inpatient (IN) | payer MEDICARE, OTHER ==
[~2023-08-27] VITALS: Ht 154.9 cm; Wt 86.3 kg
[~2023-08-27 13:54] MED LIST changes: +BRILINTA90 MG PO; +LASIX40 MG PO; +LIPITOR20 MG PO; +NEURONTIN300 MG PO; +RANEXA1000 MG PO; +SPIRONOLACTONE25 MG PO
[2023-08-27] MEDS ORDERED: PROMETHAZINE HCL (IM) 25 MG/ML VIAL IM ONE ×2 (15:00→15:19)
[2023-08-27] MEDS ORDERED: Morphine 4mg INJECTION 4 MG/ML INJ IV ONE (15:00)
[2023-08-27] MEDS ORDERED: Morphine 4mg INJECTION 4 MG/ML INJ ONE (15:19)
[2023-08-27] MEDS ORDERED: ASPIRIN 81 MG CHEW TAB PO ONE ×2 (15:45)
[2023-08-27] MEDS ORDERED: ONDANSETRON HCL INJ 2MG/ML 2ML 2 MG/ML VIAL IV PRN ×2 (15:45→16:30)
[2023-08-27] MEDS ORDERED: ASPIRIN 81 MG CHEW TAB ONE (16:17)
[2023-08-27] MEDS ORDERED: DEXTROSE 50% SYRINGE 50 ML IV PRN (16:30)
[2023-08-27] MEDS: INSULIN LISPRO 100 UNIT/1 ML 3ML VIAL SQ SCH ×2 (16:30→21:00)
[2023-08-27] MEDS ORDERED: ACETAMINOPHEN 325 MG TAB PO PRN (16:30)
[2023-08-27 20:00] VITALS: BP 129/77; PULSE 86; RESP 18; TEMP 98; O2SAT 100
[2023-08-27] MEDS ORDERED: CLOPIDOGREL75 MG PO (20:20)
[2023-08-27] MEDS ORDERED: MOUNJARO7.5 MG/0.5 SC (20:20)
[2023-08-27] MEDS ORDERED: AMITRIPTYLINE H25 MG PO (20:24)
[2023-08-27] MEDS ORDERED: DIPHENHYDRAMINE HCL 25 MG CAP PO ONE (21:00)
[2023-08-27] MEDS: Morphine 4mg INJECTION 4 MG/ML INJ IV PRN (21:16)
[2023-08-27] MEDS: PROMETHAZINE HCL 25 MG TAB PO PRN (21:16)
[2023-08-27] MEDS: MELATONIN 3 MG TAB PO SCH (21:21)
[2023-08-28] VITALS (9 sets, daily range): BP systolic 107–122; BP diastolic 73–82; PULSE 78–97; RESP 18–20; TEMP 97.3–98.9; O2SAT 98–100
[2023-08-28 02:56] LABS: TROPONIN I 0.01 ng/mL (0-0.300)
[2023-08-28] MEDS: Morphine 4mg INJECTION 4 MG/ML INJ IV PRN ×2 (03:16→12:09)
[2023-08-28 06:00] LABS: BASOPHILS % 0.4 % (0.0-1.0); EOSINOPHILS # (AUTO) 0.3 (0.0-0.4); EOSINOPHILS % 3.1 % (0.0-6.0); HEMATOCRIT 31.7 % (34.2-44.1); HEMOGLOBIN 9.2 g/dL (12.0-16.0); LYMPHOCYTES # (AUTO) 2.2 (1.0-3.2); LYMPHOCYTES % 27.2 % (18.0-39.1); MEAN CORPUSCULAR HEMOGLOBIN 24.3 pg (28-32); MEAN CORPUSCULAR VOLUME 83.9 fL (81-99); MONOCYTES # (AUTO) 0.9 (0.2-0.8); MONOCYTES % 11.1 % (4.4-11.3); NEUTROPHILS # (AUTO) 4.7 (2.1-6.9); PLATELET COUNT 281 x10e3/uL (140-360); RED BLOOD COUNT 3.78 x10e6/uL (3.6-5.1); RED CELL DISTRIBUTION WIDTH 17.2 % (11.7-14.4); WHITE BLOOD COUNT 8.17 x10e3/uL (4.8-10.8)
[2023-08-28 06:51] LABS: ALBUMIN 3.2 g/dL (3.5-5.0); ALBUMIN/GLOBULIN RATIO 0.9 (0.8-2.0); ANION GAP 11.9 mmol/L (8-16); BILIRUBIN,TOTAL 0.2 mg/dL (0.2-1.2); CALCIUM 8.9 mg/dL (8.4-10.2); CREATININE, SERUM 1.09 mg/dL (0.57-1.11); POTASSIUM 3.9 mmol/L (3.5-5.1); TOTAL PROTEIN 6.8 g/dL (6.5-8.1)
[2023-08-28 07:30] LABS: THYROID STIMULATING HORMONE 1.74 uIU/mL (0.350-4.940)
[2023-08-28] MEDS: INSULIN LISPRO 100 UNIT/1 ML 3ML VIAL SQ SCH ×4 (07:30→21:00)
[2023-08-28 07:31] LABS: CHOL/HDL RATIO 4.3 (3.0-3.6)
[2023-08-28 07:43] LABS: TROPONIN I 0.013 ng/mL (0-0.300)
[2023-08-28] MEDS: METOPROLOL TARTRATE 50 MG TAB PO SCH ×2 (09:00→18:16)
[2023-08-28] MEDS: CLOPIDOGREL BISULFATE 75 MG TAB PO SCH (09:00)
[2023-08-28] MEDS: SPIRONOLACTONE 25 MG TAB PO SCH (09:00)
[2023-08-28] MEDS: POLYETHYLENE GLYCOL 3350 17 GM PACK PO SCH (09:00)
[2023-08-28] MEDS: GABAPENTIN 300 MG CAP PO SCH ×3 (09:00→21:49)
[2023-08-28] MEDS: FUROSEMIDE 40 MG TAB PO SCH (09:00)
[2023-08-28] MEDS: ASPIRIN 81 MG ENTERIC COATED PO SCH (09:00)
[2023-08-28] MEDS: RANOLAZINE 500 MG TABSR PO SCH ×2 (09:00→18:15)
[2023-08-28] MEDS ORDERED: DIPHENHYDRAMINE HCL INJ 50 MG/ML VIAL IV ONE (16:00)
[2023-08-28] MEDS: ATORVASTATIN 40 MG TAB PO SCH (21:49)
[2023-08-28] MEDS: AMITRIPTYLINE HCL 25 MG TAB PO SCH (21:49)
[2023-08-28] MEDS: MELATONIN 3 MG TAB PO SCH (21:49)
[2023-08-29 06:21] VITALS: PULSE 83; RESP 22; O2SAT 96
[2023-08-29 07:17] LABS: BASOPHILS % 0.1 % (0.0-1.0); EOSINOPHILS # (AUTO) 0.2 (0.0-0.4); EOSINOPHILS % 2.2 % (0.0-6.0); HEMOGLOBIN 8.9 g/dL (12.0-16.0); LYMPHOCYTES # (AUTO) 1.6 (1.0-3.2); LYMPHOCYTES % 17.3 % (18.0-39.1); MEAN CORPUSCULAR HEMOGLOBIN 24.5 pg (28-32); MEAN CORPUSCULAR HGB CONC 28.7 g/dL (31-35); MEAN CORPUSCULAR VOLUME 85.2 fL (81-99); MONOCYTES # (AUTO) 0.9 (0.2-0.8); MONOCYTES % 10.2 % (4.4-11.3); NEUTROPHILS # (AUTO) 6.4 (2.1-6.9); NEUTROPHILS % 70.1 % (38.7-80.0); PLATELET COUNT 239 x10e3/uL (140-360); RED BLOOD COUNT 3.64 x10e6/uL (3.6-5.1); RED CELL DISTRIBUTION WIDTH 17.2 % (11.7-14.4); WHITE BLOOD COUNT 9.09 x10e3/uL (4.8-10.8)
[2023-08-29 07:49] LABS: ALBUMIN/GLOBULIN RATIO 0.8 (0.8-2.0); ANION GAP 12.2 mmol/L (8-16); BILIRUBIN,TOTAL 0.3 mg/dL (0.2-1.2); CALCIUM 9.1 mg/dL (8.4-10.2); CREATININE, SERUM 0.89 mg/dL (0.57-1.11); POTASSIUM 4.2 mmol/L (3.5-5.1); TOTAL PROTEIN 6.7 g/dL (6.5-8.1)
[2023-08-29 08:16] LABS: FERRITIN 11.32 ng/mL (4.63-204.00)
[2023-08-29 08:23] VITALS: BP 113/67; PULSE 86; RESP 19; TEMP 98.3; O2SAT 100
[2023-08-29] MEDS: SPIRONOLACTONE 25 MG TAB PO SCH (08:23)
[2023-08-29] MEDS: RANOLAZINE 500 MG TABSR PO SCH ×2 (08:23→18:11)
[2023-08-29] MEDS: POLYETHYLENE GLYCOL 3350 17 GM PACK PO SCH ×2 (08:23→13:37)
[2023-08-29] MEDS: CLOPIDOGREL BISULFATE 75 MG TAB PO SCH (08:24)
[2023-08-29] MEDS: GABAPENTIN 300 MG CAP PO SCH ×3 (08:24→21:16)
[2023-08-29] MEDS: FUROSEMIDE 40 MG TAB PO SCH (08:24)
[2023-08-29] MEDS: ASPIRIN 81 MG ENTERIC COATED PO SCH (08:24)
[2023-08-29] MEDS: METOPROLOL TARTRATE 50 MG TAB PO SCH ×2 (08:24→18:12)
[2023-08-29] MEDS: INSULIN LISPRO 100 UNIT/1 ML 3ML VIAL SQ SCH ×4 (08:25→21:30)
[2023-08-29 08:29] VITALS: BP 113/67; PULSE 86; RESP 19; TEMP 98.3; O2SAT 100
[2023-08-29 12:16] VITALS: BP 124/65; PULSE 85; RESP 19; TEMP 98.7; O2SAT 100
[2023-08-29 14:23] LABS: ANISOCYTOSIS SLIGHT; PLATELET ESTIMATE ADEQUATE; PLATELET MORPHOLOGY COMMENT NORMAL; RBC MORPHOLOGY COMMENT ABNORMAL
[2023-08-29 14:26] LABS: HYPOCHROMASIA SLIGHT; POLYCHROMASIA FEW
[2023-08-29 16:17] VITALS: BP 126/69; PULSE 87; RESP 19; TEMP 98.2; O2SAT 96
[2023-08-29] MEDS: Morphine 4mg INJECTION 4 MG/ML INJ IV PRN (18:17)
[2023-08-29 20:00] VITALS: BP 114/66; PULSE 89; RESP 18; TEMP 99; O2SAT 95
[2023-08-29] MEDS: ATORVASTATIN 40 MG TAB PO SCH (21:16)
[2023-08-29] MEDS: AMITRIPTYLINE HCL 25 MG TAB PO SCH (21:16)
[2023-08-29] MEDS: MELATONIN 3 MG TAB PO SCH (21:16)
[2023-08-29] MEDS: DIPHENHYDRAMINE HCL INJ 50 MG/ML VIAL IV PRN (21:17)
[2023-08-30] VITALS (9 sets, daily range): BP systolic 110–133; BP diastolic 69–74; PULSE 80–102; RESP 16–20; TEMP 97.5–99.1; O2SAT 95–100
[2023-08-30] MEDS: Morphine 4mg INJECTION 4 MG/ML INJ IV PRN ×4 (00:35→23:09)
[2023-08-30 08:37] LABS: BASOPHILS % 0.1 % (0.0-1.0); EOSINOPHILS # (AUTO) 0.2 (0.0-0.4); EOSINOPHILS % 2.7 % (0.0-6.0); HEMATOCRIT 30.9 % (34.2-44.1); HEMOGLOBIN 9.1 g/dL (12.0-16.0); LYMPHOCYTES # (AUTO) 2.3 (1.0-3.2); LYMPHOCYTES % 26.7 % (18.0-39.1); MEAN CORPUSCULAR HEMOGLOBIN 24.4 pg (28-32); MEAN CORPUSCULAR HGB CONC 29.4 g/dL (31-35); MEAN CORPUSCULAR VOLUME 82.8 fL (81-99); MONOCYTES # (AUTO) 0.9 (0.2-0.8); MONOCYTES % 10.9 % (4.4-11.3); NEUTROPHILS # (AUTO) 5.1 (2.1-6.9); NEUTROPHILS % 59.4 % (38.7-80.0); PLATELET COUNT 248 x10e3/uL (140-360); RED BLOOD COUNT 3.73 x10e6/uL (3.6-5.1); RED CELL DISTRIBUTION WIDTH 17.3 % (11.7-14.4); WHITE BLOOD COUNT 8.62 x10e3/uL (4.8-10.8)
[2023-08-30] MEDS: POLYETHYLENE GLYCOL 3350 17 GM PACK PO SCH (09:00)
[2023-08-30 09:08] LABS: TROPONIN I 0.013 ng/mL (0-0.300)
[2023-08-30] MEDS: INSULIN LISPRO 100 UNIT/1 ML 3ML VIAL SQ SCH ×4 (09:14→21:07)
[2023-08-30] MEDS: GABAPENTIN 300 MG CAP PO SCH ×3 (09:15→21:03)
[2023-08-30] MEDS: RANOLAZINE 500 MG TABSR PO SCH ×2 (09:15→16:52)
[2023-08-30] MEDS: CLOPIDOGREL BISULFATE 75 MG TAB PO SCH (09:15)
[2023-08-30] MEDS: FUROSEMIDE 40 MG TAB PO SCH (09:16)
[2023-08-30] MEDS: METOPROLOL TARTRATE 50 MG TAB PO SCH ×2 (09:16→16:53)
[2023-08-30] MEDS: SPIRONOLACTONE 25 MG TAB PO SCH (09:16)
[2023-08-30 09:17] LABS: ANION GAP 12.8 mmol/L (8-16); CALCIUM 9.2 mg/dL (8.4-10.2); CREATININE, SERUM 0.95 mg/dL (0.57-1.11); POTASSIUM 3.8 mmol/L (3.5-5.1)
[2023-08-30] MEDS: ASPIRIN 81 MG ENTERIC COATED PO SCH (09:18)
[2023-08-30] MEDS: SODIUM CHLORIDE 0.9% 1000ML 1,000 ML IV SCH (12:20)
[2023-08-30] MEDS: AMITRIPTYLINE HCL 25 MG TAB PO SCH (21:02)
[2023-08-30] MEDS: ATORVASTATIN 40 MG TAB PO SCH (21:03)
[2023-08-30] MEDS: MELATONIN 3 MG TAB PO SCH (21:03)
[2023-08-30] MEDS: DIPHENHYDRAMINE HCL INJ 50 MG/ML VIAL IV PRN (21:18)
[2023-08-31] MEDS: PROMETHAZINE HCL 25 MG TAB PO PRN (00:11)
[2023-08-31] MEDS: SODIUM CHLORIDE 0.9% 1000ML 1,000 ML IV SCH ×2 (00:35→04:33)
[2023-08-31 04:43] VITALS: BP 109/62; PULSE 100; RESP 16; TEMP 97.3; O2SAT 96
[2023-08-31 06:14] LABS: BASOPHILS % 0.2 % (0.0-1.0); EOSINOPHILS # (AUTO) 0.2 (0.0-0.4); EOSINOPHILS % 1.8 % (0.0-6.0); HEMATOCRIT 31.8 % (34.2-44.1); HEMOGLOBIN 9.2 g/dL (12.0-16.0); LYMPHOCYTES # (AUTO) 1.8 (1.0-3.2); LYMPHOCYTES % 15.4 % (18.0-39.1); MEAN CORPUSCULAR HEMOGLOBIN 24.3 pg (28-32); MEAN CORPUSCULAR HGB CONC 28.9 g/dL (31-35); MEAN CORPUSCULAR VOLUME 83.9 fL (81-99); MONOCYTES # (AUTO) 1.3 (0.2-0.8); MONOCYTES % 11.1 % (4.4-11.3); NEUTROPHILS # (AUTO) 8.2 (2.1-6.9); NEUTROPHILS % 71.2 % (38.7-80.0); PLATELET COUNT 273 x10e3/uL (140-360); RED BLOOD COUNT 3.79 x10e6/uL (3.6-5.1); RED CELL DISTRIBUTION WIDTH 17.2 % (11.7-14.4); WHITE BLOOD COUNT 11.53 x10e3/uL (4.8-10.8)
[2023-08-31 06:33] LABS: ALBUMIN 2.9 g/dL (3.5-5.0); ALBUMIN/GLOBULIN RATIO 0.8 (0.8-2.0); ANION GAP 12.3 mmol/L (8-16); BILIRUBIN,TOTAL 0.4 mg/dL (0.2-1.2); CREATININE, SERUM 1.14 mg/dL (0.57-1.11); POTASSIUM 4.3 mmol/L (3.5-5.1); TOTAL PROTEIN 6.5 g/dL (6.5-8.1)
[2023-08-31 06:40] VITALS: PULSE 87; RESP 20; O2SAT 97
[2023-08-31] MEDS: INSULIN LISPRO 100 UNIT/1 ML 3ML VIAL SQ SCH ×2 (07:30→11:30)
[2023-08-31] MEDS: SPIRONOLACTONE 25 MG TAB PO SCH (08:06)
[2023-08-31] MEDS: METOPROLOL TARTRATE 50 MG TAB PO SCH (08:06)
[2023-08-31] MEDS: FUROSEMIDE 40 MG TAB PO SCH (08:06)
[2023-08-31] MEDS: CLOPIDOGREL BISULFATE 75 MG TAB PO SCH (08:06)
[2023-08-31] MEDS: POLYETHYLENE GLYCOL 3350 17 GM PACK PO SCH (08:06)
[2023-08-31] MEDS: RANOLAZINE 500 MG TABSR PO SCH (08:06)
[2023-08-31] MEDS: GABAPENTIN 300 MG CAP PO SCH (08:06)
[2023-08-31] MEDS: ASPIRIN 81 MG ENTERIC COATED PO SCH (08:06)
[2023-08-31] MEDS ORDERED: HEPARIN SOD (PORCINE) 1000 UNIT/ML 30ML ONE (08:07)
[2023-08-31] MEDS ORDERED: LIDOCAINE HCL 2% LOCAL 20 ML VIAL ONE (08:07)
[2023-08-31] MEDS ORDERED: NITROGLYCERIN/D5W 200 MCG/ML 250 ML ONE (08:08)
[2023-08-31] MEDS ORDERED: SODIUM CHLORIDE 0.9% 1000ML 1,000 ML ONE (08:08)
[2023-08-31] MEDS ORDERED: IOPAMIDOL 370 MG/ML 100 ML INFUS..BTL INJ ONE (08:08)
[2023-08-31] MEDS ORDERED: HEPARIN SOD/SOD CHLORIDE 2,000 ML ONE (08:08)
[2023-08-31] MEDS ORDERED: VERAPAMIL HCL 2.5 MG/ML 2 ML VIAL ONE (08:09)
[2023-08-31 08:34] VITALS: BP 111/65; PULSE 99; RESP 17; TEMP 97.9; O2SAT 92
[2023-08-31 09:00] VITALS: BP 111/65; PULSE 99; RESP 17; TEMP 97.9; O2SAT 92
[2023-08-31] MEDS ORDERED: FENTANYL CITRATE/PF 100MCG/2 ML INJ ONE (09:10)
[2023-08-31] MEDS ORDERED: MIDAZOLAM HCL 2 MG/2 ML VIAL ONE (09:10)
[2023-08-31] MEDS ORDERED: ASPIRIN EC81 MG PO (10:31)
[2023-08-31] MEDS: Morphine 4mg INJECTION 4 MG/ML INJ IV PRN (11:08)
[2023-08-31] MEDS: DIPHENHYDRAMINE HCL INJ 50 MG/ML VIAL IV PRN (12:49)
[2023-08-31 14:27] VITALS: BP 120/76; PULSE 105; RESP 17; TEMP 97.8; O2SAT 93
== END 2023-08-31 14:49 | disposition home or self-care (01) | DRG 287 ==
LOC: FSED 14:06 → ERHOLD 15:39 → OBSVTOIN 15:39 → MED/SURG2 18:09
PROVIDERS: ADMIT Internal Medicine; ATTEND Internal Medicine
PROC: 4A023N7 Measurement of Cardiac Sampling and Pressure, Left Heart, Percutaneous Approach (ICD-10-PCS; principal; 2023-08-31)
PROC: B2111ZZ Fluoroscopy of Multiple Coronary Arteries using Low Osmolar Contrast (ICD-10-PCS; 2023-08-31)
DX: I25.119 Atherosclerotic heart disease of native coronary artery with unspecified angina pectoris (principal); E11.9 Type 2 diabetes mellitus without complications; I45.10 Unspecified right bundle-branch block; E66.9 Obesity, unspecified; E11.65 Type 2 diabetes mellitus with hyperglycemia; I11.9 Hypertensive heart disease without heart failure; D50.9 Iron deficiency anemia, unspecified; E78.5 Hyperlipidemia, unspecified; Z68.36 Body mass index [BMI] 36.0-36.9, adult; Z86.711 Personal history of pulmonary embolism; Z79.4 Long term (current) use of insulin; Z95.5 Presence of coronary angioplasty implant and graft; Z86.73 Personal history of transient ischemic attack (TIA), and cerebral infarction without residual deficits; Z86.16 Personal history of COVID-19; Z82.49 Family history of ischemic heart disease and other diseases of the circulatory system; Z99.81 Dependence on supplemental oxygen; I25.2 Old myocardial infarction; Z79.01 Long term (current) use of anticoagulants; Z79.899 Other long term (current) drug therapy; Z79.84 Long term (current) use of oral hypoglycemic drugs
CPT/HCPCS: 36415; 70450; 71045; 80048; 80053; 80061; 82550; 82553; 82728; 82948; 83036; 83540; 83880; 84443; 84466; 84484; 85025; 85379; 93005; 93306; 93458; 94799; 96372; 96374; 99152; 99153; 99284; C1887; J1200; J1644; J2001; J2250; J2270; J2550; J7030; Q9967

== ENCOUNTER 2024-05-22 02:51 | Observation (INO) | payer MEDICARE ==
[2024-05-22] VITALS (11 sets, daily range): BP systolic 109–122; BP diastolic 60–77; PULSE 77–88; RESP 16–20; TEMP 97.4–98.7; O2SAT 100
[~2024-05-22] VITALS: Ht 154.9 cm; Wt 78.0 kg
[~2024-05-22 02:51] MED LIST changes: +AMITRIPTYLINE H25 MG PO; +ASPIRIN EC81 MG PO; +CLOPIDOGREL75 MG PO; +CYCLOBENZAPRINE10 MG PO; +FEROSUL325 MG PO; +MOUNJARO7.5 MG/0.5 SC; +PLAVIX75 MG PO; +VITAMIN D3250 MCG
[2024-05-22] MEDS: DIPHENHYDRAMINE HCL INJ 50 MG/ML VIAL IV ONE (03:28)
[2024-05-22] MEDS: Morphine 4mg INJECTION 4 MG/ML INJ IV STA (03:28)
[2024-05-22] MEDS: ONDANSETRON HCL INJ 2MG/ML 2ML 2 MG/ML VIAL IV STA (03:30)
[2024-05-22 03:32] LABS: BASOPHILS % 0.3 % (0.0-1.0); EOSINOPHILS # (AUTO) 0.2 (0.0-0.4); EOSINOPHILS % 1.7 % (0.0-6.0); HEMATOCRIT 38.7 % (34.2-44.1); HEMOGLOBIN 12.3 g/dL (12.0-16.0); LYMPHOCYTES # (AUTO) 2.5 (1.0-3.2); LYMPHOCYTES % 25.4 % (18.0-39.1); MEAN CORPUSCULAR HEMOGLOBIN 30.9 pg (28-32); MEAN CORPUSCULAR HGB CONC 31.8 g/dL (31-35); MEAN CORPUSCULAR VOLUME 97.2 fL (81-99); MONOCYTES # (AUTO) 0.8 (0.2-0.8); MONOCYTES % 8.4 % (4.4-11.3); NEUTROPHILS # (AUTO) 6.2 (2.1-6.9); NEUTROPHILS % 63.9 % (38.7-80.0); PLATELET COUNT 265 x10e3/uL (140-360); RED BLOOD COUNT 3.98 x10e6/uL (3.6-5.1); RED CELL DISTRIBUTION WIDTH 13.3 % (11.7-14.4); WHITE BLOOD COUNT 9.67 x10e3/uL (4.8-10.8)
[2024-05-22] MEDS: PROMETHAZINE 25MG/ NS 50ML (IV) IV ONE (03:40)
[2024-05-22 03:51] LABS: ALANINE AMINOTRANSFERASE 28 IU/L (0-55); ALBUMIN 3.6 g/dL (3.5-5.0); ALBUMIN/GLOBULIN RATIO 0.9 (0.8-2.0); ALKALINE PHOSPHATASE 82 IU/L (40-150); ANION GAP 15.7 mmol/L (8-16); BILIRUBIN,TOTAL 0.3 mg/dL (0.2-1.2); BLOOD UREA NITROGEN 28 mg/dL (7-26); BUN/CREATININE RATIO 22 (6-25); CALCIUM 10.3 mg/dL (8.4-10.2); CARBON DIOXIDE 30 mmol/L (22-29); CHLORIDE 97 mmol/L (98-107); CREATINE KINASE 119 IU/L (29-168); EST GLOMERULAR FILTRATION RATE 51 ML/MIN (>=60); GLUCOSE 198 mg/dL (74-118); POTASSIUM 3.7 mmol/L (3.5-5.1); SODIUM 139 mmol/L (136-145); TOTAL PROTEIN 7.4 g/dL (6.5-8.1)
[2024-05-22 03:59] LABS: TROPONIN I < 0.001 ng/mL (0-0.300)
[2024-05-22] MEDS ORDERED: IOPAMIDOL 370 MG/ML 100 ML INFUS..BTL INJ ONE (05:35)
[2024-05-22 06:24] LABS: TROPONIN I 0.007 ng/mL (0-0.300)
[2024-05-22] MEDS ORDERED: ONDANSETRON HCL INJ 2MG/ML 2ML 2 MG/ML VIAL IV PRN (07:00)
[2024-05-22] MEDS: Morphine 4mg INJECTION 4 MG/ML INJ IV PRN (07:12)
[2024-05-22] MEDS ORDERED: ISOSORBIDE MONO30 MG PO (08:43)
[2024-05-22] MEDS: DIPHENHYDRAMINE HCL 25 MG CAP PO PRN (10:17)
[2024-05-22] MEDS ORDERED: DEXTROSE 50% SYRINGE 50 ML IV PRN (11:00)
[2024-05-22] MEDS: INSULIN LISPRO 100 UNIT/1 ML 3ML VIAL SQ SCH (12:28)
[2024-05-22] MEDS: PROMETHAZINE 12.5MG/ NACL 0.9% 12.5 MG/50 ML BAG IV PRN (12:40)
[2024-05-22] MEDS: SODIUM CHLORIDE 0.9% 250ML 250 ML ONE (12:41)
[2024-05-22 14:50] LABS: TROPONIN I 0.006 ng/mL (0-0.300)
[2024-05-22] MEDS: DIPHENHYDRAMINE HCL INJ 50 MG/ML VIAL IV PRN (17:15)
[2024-05-23] VITALS (7 sets, daily range): BP systolic 113–146; BP diastolic 69–75; PULSE 86–93; RESP 16–18; TEMP 97.8–98.3; O2SAT 95–100
[2024-05-23 05:38] LABS: BASOPHILS % 0.2 % (0.0-1.0); EOSINOPHILS # (AUTO) 0.2 (0.0-0.4); EOSINOPHILS % 2.7 % (0.0-6.0); HEMATOCRIT 36.1 % (34.2-44.1); HEMOGLOBIN 11.2 g/dL (12.0-16.0); LYMPHOCYTES % 23.8 % (18.0-39.1); MEAN CORPUSCULAR HEMOGLOBIN 30.9 pg (28-32); MEAN CORPUSCULAR VOLUME 99.4 fL (81-99); MONOCYTES # (AUTO) 0.7 (0.2-0.8); MONOCYTES % 8.4 % (4.4-11.3); NEUTROPHILS # (AUTO) 5.5 (2.1-6.9); NEUTROPHILS % 64.5 % (38.7-80.0); PLATELET COUNT 240 x10e3/uL (140-360); RED BLOOD COUNT 3.63 x10e6/uL (3.6-5.1); RED CELL DISTRIBUTION WIDTH 13.2 % (11.7-14.4); WHITE BLOOD COUNT 8.57 x10e3/uL (4.8-10.8)
[2024-05-23 06:21] LABS: ALBUMIN 3.1 g/dL (3.5-5.0); ALBUMIN/GLOBULIN RATIO 0.9 (0.8-2.0); ANION GAP 13.8 mmol/L (8-16); BILIRUBIN,TOTAL 0.3 mg/dL (0.2-1.2); CALCIUM 9.9 mg/dL (8.4-10.2); CREATININE, SERUM 0.92 mg/dL (0.57-1.11); POTASSIUM 3.8 mmol/L (3.5-5.1); TOTAL PROTEIN 6.6 g/dL (6.5-8.1)
[2024-05-23] MEDS: ISOSORBIDE DINITRATE 20 MG TAB PO SCH (17:14)
[2024-05-23] MEDS: RANOLAZINE 500 MG TABSR PO SCH (17:15)
[2024-05-23] MEDS: METOPROLOL TARTRATE 50 MG TAB PO SCH (17:15)
[2024-05-23] MEDS ORDERED: CYCLOBENZAPRINE HCL 10 MG TAB PO PRN (17:30)
[2024-05-23] MEDS ORDERED: AMITRIPTYLINE HCL 25 MG TAB PO SCH (17:30)
[2024-05-23] MEDS ORDERED: ISORDIL20 MG PO (18:07)
[2024-05-23] MEDS ORDERED: ATORVASTATIN 40 MG TAB PO SCH (21:00)
[2024-05-23] MEDS ORDERED: GABAPENTIN 300 MG CAP PO SCH (21:00)
[2024-05-24] MEDS ORDERED: CLOPIDOGREL BISULFATE 75 MG TAB PO SCH (09:00)
[2024-05-24] MEDS ORDERED: SPIRONOLACTONE 25 MG TAB PO SCH (09:00)
[2024-05-24] MEDS ORDERED: ASPIRIN 81 MG CHEW TAB PO SCH (09:00)
[2024-05-24] MEDS ORDERED: FUROSEMIDE 40 MG TAB PO SCH (09:00)
[2024-05-28] MEDS ORDERED: ERGOCALCIFEROL 50,000 UNIT CAP PO SCH (09:00)
== END 2024-05-23 18:29 | disposition home or self-care (01) ==
LOC: ER 02:54 → ERHOLD 05:49 → MED/SURG 08:39
PROVIDERS: ADMIT Internal Medicine; ATTEND Internal Medicine
DX: R07.9 Chest pain, unspecified (principal); I25.10 Atherosclerotic heart disease of native coronary artery without angina pectoris; Z95.5 Presence of coronary angioplasty implant and graft; I11.0 Hypertensive heart disease with heart failure; I50.32 Chronic diastolic (congestive) heart failure; J96.11 Chronic respiratory failure with hypoxia; R11.2 Nausea with vomiting, unspecified; E11.9 Type 2 diabetes mellitus without complications; Z79.4 Long term (current) use of insulin; Z79.85 Long-term (current) use of injectable non-insulin antidiabetic drugs; E78.5 Hyperlipidemia, unspecified; K21.9 Gastro-esophageal reflux disease without esophagitis; I45.10 Unspecified right bundle-branch block; E66.9 Obesity, unspecified; Z68.32 Body mass index [BMI] 32.0-32.9, adult; Z11.52 Encounter for screening for COVID-19; Z86.711 Personal history of pulmonary embolism; Z86.73 Personal history of transient ischemic attack (TIA), and cerebral infarction without residual deficits; Z79.02 Long term (current) use of antithrombotics/antiplatelets; Z79.899 Other long term (current) drug therapy; Z79.82 Long term (current) use of aspirin
CPT/HCPCS: 36415 ×2; 71045; 71260; 80053 ×2; 82550; 82948 ×2; 83690; 83880; 84484; 84702; 85025 ×2; 93005; 93306; 94799 ×2; 99284; G0378 ×2; J1200 ×2; J2270; J2405; J2550; J7050; Q9967; U0002

== ENCOUNTER 2024-07-07 03:09 | Emergency (ER) | payer MEDICARE ==
[~2024-07-07] VITALS: Ht 154.9 cm; Wt 78.0 kg
[~2024-07-07 03:09] MED LIST changes: +ISORDIL20 MG PO; +ISOSORBIDE MONO30 MG PO
[2024-07-07 03:15] VITALS: PULSE 91; RESP 20; TEMP 98.9
[2024-07-07 03:40] LABS: BASOPHILS % 0.4 % (0.0-1.0); EOSINOPHILS # (AUTO) 0.2 (0.0-0.4); EOSINOPHILS % 2.5 % (0.0-6.0); HEMATOCRIT 37.9 % (34.2-44.1); HEMOGLOBIN 11.9 g/dL (12.0-16.0); LYMPHOCYTES # (AUTO) 2.2 (1.0-3.2); LYMPHOCYTES % 26.1 % (18.0-39.1); MEAN CORPUSCULAR HEMOGLOBIN 30.9 pg (28-32); MEAN CORPUSCULAR HGB CONC 31.4 g/dL (31-35); MEAN CORPUSCULAR VOLUME 98.4 fL (81-99); MONOCYTES # (AUTO) 0.8 (0.2-0.8); MONOCYTES % 9.7 % (4.4-11.3); NEUTROPHILS % 60.9 % (38.7-80.0); PLATELET COUNT 252 x10e3/uL (140-360); RED BLOOD COUNT 3.85 x10e6/uL (3.6-5.1); WHITE BLOOD COUNT 8.27 x10e3/uL (4.8-10.8)
[2024-07-07 04:01] LABS: ALANINE AMINOTRANSFERASE 25 IU/L (0-55); ALBUMIN 3.7 g/dL (3.5-5.0); ALBUMIN/GLOBULIN RATIO 0.9 (0.8-2.0); ALKALINE PHOSPHATASE 80 IU/L (40-150); ANION GAP 14.3 mmol/L (8-16); BILIRUBIN,TOTAL 0.3 mg/dL (0.2-1.2); BLOOD UREA NITROGEN 29 mg/dL (7-26); BUN/CREATININE RATIO 24 (6-25); CALCIUM 10.2 mg/dL (8.4-10.2); CARBON DIOXIDE 32 mmol/L (22-29); CHLORIDE 97 mmol/L (98-107); CREATINE KINASE 195 IU/L (29-168); CREATININE, SERUM 1.21 mg/dL (0.57-1.11); EST GLOMERULAR FILTRATION RATE 56 ML/MIN (>=60); GLUCOSE 188 mg/dL (74-118); SODIUM 140 mmol/L (136-145); TOTAL PROTEIN 7.6 g/dL (6.5-8.1)
[2024-07-07 04:07] LABS: POTASSIUM 3.3 mmol/L (3.5-5.1)
[2024-07-07 04:08] LABS: TROPONIN I < 0.001 ng/mL (0-0.300)
[2024-07-07] MEDS: ASPIRIN 325 MG TAB PO STA (04:23)
[2024-07-07] MEDS ORDERED: PREDNISONE20 MG PO (04:33)
[2024-07-07] MEDS ORDERED: VENTOLIN HFA18 GM INH (04:33)
[2024-07-07] MEDS: PROMETHAZINE 25MG/ NS 50ML (IV) IV PRN (04:47)
[2024-07-07 05:10] VITALS: BP 108/46; PULSE 89; RESP 16; O2SAT 100
== END 2024-07-07 05:14 | disposition home or self-care (01) ==
LOC: ER 03:11
DX: R06.00 Dyspnea, unspecified (principal); I10 Essential (primary) hypertension; E11.65 Type 2 diabetes mellitus with hyperglycemia; I25.10 Atherosclerotic heart disease of native coronary artery without angina pectoris; E78.5 Hyperlipidemia, unspecified; K21.9 Gastro-esophageal reflux disease without esophagitis; F41.9 Anxiety disorder, unspecified; R94.31 Abnormal electrocardiogram [ECG] [EKG]; I25.2 Old myocardial infarction; Z95.5 Presence of coronary angioplasty implant and graft; Z86.73 Personal history of transient ischemic attack (TIA), and cerebral infarction without residual deficits; Z86.711 Personal history of pulmonary embolism
CPT/HCPCS: 36415; 71045; 80053; 82550; 83690; 83880; 84484; 84702; 85025; 93005; 99284; J2550

== ENCOUNTER 2024-09-02 21:44 | Emergency (ER) | payer MEDICARE ==
[~2024-09-02] VITALS: Ht 154.9 cm; Wt 78.0 kg
[~2024-09-02 21:44] MED LIST changes: +PREDNISONE20 MG PO; +VENTOLIN HFA18 GM INH
[2024-09-02 21:46] VITALS: PULSE 96; RESP 19; TEMP 98.7
[2024-09-02] MEDS ORDERED: ACETAMINOPHEN 325 MG TAB PO ONE (22:15)
[2024-09-02 23:57] VITALS: BP 148/88; PULSE 67; RESP 19; TEMP 97.9; O2SAT 100
== END 2024-09-03 00:11 | disposition other institution (70) ==
LOC: FSED 22:13
DX: R07.9 Chest pain, unspecified (principal); I10 Essential (primary) hypertension; E11.9 Type 2 diabetes mellitus without complications; E78.5 Hyperlipidemia, unspecified; K21.9 Gastro-esophageal reflux disease without esophagitis; F41.9 Anxiety disorder, unspecified; I25.10 Atherosclerotic heart disease of native coronary artery without angina pectoris; I25.2 Old myocardial infarction; Z86.73 Personal history of transient ischemic attack (TIA), and cerebral infarction without residual deficits; Z95.5 Presence of coronary angioplasty implant and graft
CPT/HCPCS: 71045; 80053; 81025; 84484; 85025; 99284

== ENCOUNTER 2025-02-09 22:18 | Emergency (ER) | payer MEDICARE ==
[~2025-02-09] VITALS: Ht 154.9 cm; Wt 79.4 kg
[2025-02-09 22:33] VITALS: TEMP 99.9
[2025-02-09] MEDS ORDERED: ONDANSETRON HCL INJ 2MG/ML 2ML 2 MG/ML VIAL IV STA (23:05)
[2025-02-09 23:38] LABS: BASOPHILS % 0.1 % (0.0-1.0); EOSINOPHILS # (AUTO) 0.2 (0.0-0.4); EOSINOPHILS % 2.1 % (0.0-6.0); HEMATOCRIT 37.6 % (34.2-44.1); HEMOGLOBIN 12.1 g/dL (12.0-16.0); LYMPHOCYTES # (AUTO) 0.8 (1.0-3.2); LYMPHOCYTES % 9.2 % (18.0-39.1); MEAN CORPUSCULAR HEMOGLOBIN 30.3 pg (28-32); MEAN CORPUSCULAR HGB CONC 32.2 g/dL (31-35); MONOCYTES # (AUTO) 0.4 (0.2-0.8); MONOCYTES % 5.1 % (4.4-11.3); NEUTROPHILS # (AUTO) 6.8 (2.1-6.9); PLATELET COUNT 207 x10e3/uL (140-360); RED CELL DISTRIBUTION WIDTH 13.4 % (11.7-14.4); WHITE BLOOD COUNT 8.23 x10e3/uL (4.8-10.8)
[2025-02-09 23:43] LABS: ALBUMIN 3.3 g/dL (3.5-5.0); ALBUMIN/GLOBULIN RATIO 0.9 (0.8-2.0); ANION GAP 15.3 mmol/L (8-16); BILIRUBIN,TOTAL 0.4 mg/dL (0.2-1.2); CALCIUM 9.1 mg/dL (8.4-10.2); CREATININE, SERUM 1.18 mg/dL (0.57-1.11); POTASSIUM 4.3 mmol/L (3.5-5.1); TOTAL PROTEIN 6.9 g/dL (6.5-8.1)
[2025-02-10 01:04] VITALS: PULSE 96; RESP 13
[2025-02-10] MEDS: DIPHENHYDRAMINE HCL INJ 50 MG/ML VIAL IV ONE (01:05)
[2025-02-10] MEDS: Morphine 2mg Syringe 2 MG/ML SYR IV ONE (01:05)
[2025-02-10 01:06] LABS: BILIRUBIN,URINE NEGATIVE (NEGATIVE); CLARITY,URINE CLEAR (CLEAR); COLOR,URINE YELLOW (YELLOW); GLUCOSE, URINE >=1000 (NEGATIVE); KETONES,URINE NEGATIVE (NEGATIVE); LEUKOCYTE ESTERASE ,URINE NEGATIVE (NEGATIVE); NITRITE,URINE NEGATIVE (NEGATIVE); PH,URINE 5.5 (5 - 7); PROTEIN,URINE DIPSTICK NEGATIVE (NEGATIVE); URINE UROBILINOGEN 0.2 mg/dL (0.2 - 1)
[2025-02-10] MEDS: INSULIN REGULAR, HUMAN 100 UNIT/1 ML IV ONE (01:07)
[2025-02-10 01:30] LABS: BACTERIA,URINE MODERATE /HPF; RBC,URINE 0-5 /HPF (0-5)
[2025-02-10 01:31] LABS: EPITHELIAL CELLS,URINE MODERATE /LPF
[2025-02-10 02:08] VITALS: BP 127/75; PULSE 99; RESP 13; TEMP 98.6; O2SAT 100
[2025-02-10] MEDS ORDERED: IOPAMIDOL 370 MG/ML 100 ML INFUS..BTL INJ ONE (06:09)
== END 2025-02-10 02:06 | disposition home or self-care (01) ==
LOC: ER 22:46
DX: R07.89 Other chest pain (principal); E11.65 Type 2 diabetes mellitus with hyperglycemia; I10 Essential (primary) hypertension; J44.9 Chronic obstructive pulmonary disease, unspecified; I50.9 Heart failure, unspecified; R94.31 Abnormal electrocardiogram [ECG] [EKG]; I25.2 Old myocardial infarction; Z95.5 Presence of coronary angioplasty implant and graft; Z86.73 Personal history of transient ischemic attack (TIA), and cerebral infarction without residual deficits; Z86.718 Personal history of other venous thrombosis and embolism; Z86.79 Personal history of other diseases of the circulatory system
CPT/HCPCS: 36415; 71045; 71260; 80053; 81001; 82948; 83880; 84484; 84702; 85025; 93005; 99284; J1200; J2270; J2405; Q9967

== ENCOUNTER 2025-04-08 04:50 | Emergency (ER) | payer MEDICARE ==
[~2025-04-08] VITALS: Ht 154.9 cm; Wt 83.9 kg
[2025-04-08 04:55] VITALS: TEMP 98.3
[2025-04-08] MEDS ORDERED: SODIUM CHLORIDE FLUSH 10 ML SYR IV PRN (05:15)
[2025-04-08 05:42] LABS: BASOPHILS % 0.2 % (0.0-1.0); EOSINOPHILS % 2.0 % (0.0-6.0); LYMPHOCYTES % 24.6 % (18.0-39.1); MONOCYTES % 9.1 % (4.4-11.3); NEUTROPHILS % 63.6 % (38.7-80.0); RED CELL DISTRIBUTION WIDTH 13.5 % (11.7-14.4)
[2025-04-08 05:56] LABS: EST GLOMERULAR FILTRATION RATE 72.0 ML/MIN (>=60)
[2025-04-08 06:46] LABS: INR 0.8
[2025-04-08] MEDS: SODIUM CHLORIDE 0.9% 500ML 500 ML IV ONE (07:09)
[2025-04-08] MEDS ORDERED: IOPAMIDOL 370 MG/ML 100 ML INFUS..BTL INJ ONE (07:23)
[2025-04-08] MEDS: Morphine 4mg INJECTION 4 MG/ML INJ IV ONE (07:27)
[2025-04-08] MEDS: PROMETHAZINE 12.5MG/ NACL 0.9% 12.5 MG/50 ML BAG IV ONE (07:27)
[2025-04-08 08:38] VITALS: PULSE 68; RESP 18; O2SAT 95
== END 2025-04-08 09:25 | disposition home or self-care (01) ==
LOC: ER 06:33
DX: R06.02 Shortness of breath (principal); R07.89 Other chest pain; I10 Essential (primary) hypertension; E11.65 Type 2 diabetes mellitus with hyperglycemia; J44.9 Chronic obstructive pulmonary disease, unspecified; I50.9 Heart failure, unspecified; E66.01 Morbid (severe) obesity due to excess calories; R94.31 Abnormal electrocardiogram [ECG] [EKG]; I25.2 Old myocardial infarction; Z95.5 Presence of coronary angioplasty implant and graft; Z86.73 Personal history of transient ischemic attack (TIA), and cerebral infarction without residual deficits; Z86.718 Personal history of other venous thrombosis and embolism; Z86.79 Personal history of other diseases of the circulatory system
CPT/HCPCS: 36415; 71045; 71260; 80053; 82948; 84484; 84702; 85025; 85379; 85610; 85730; 93005; 94760; 99284; J2270; J2550; J7040; Q9967